=== PATIENT | female | born 2000 | race Caucasian/White ===

== ENCOUNTER → 2022-05-03 12:47 | Outpatient (CLI) | payer OTHER, SELFPAY ==
--- NOTE | ~2022-05-03 | MR_ITS ---
EXAMINATION: MR brain/brain stem wo/w con DATE: 05/03/2022 13:31 INDICATION: Headache, unspecified. TECHNIQUE: Magnetic resonance imaging (MRI) of the brain and brainstem was performed without and with 20 mL MultiHance intravenous contrast. COMPARISON: None. FINDINGS: There is no intracranial hemorrhage, acute infarction, or abnormal intracranial mass lesion . The ventricles are normal in size. The paranasal sinuses are clear. The orbits are normal. The mast oid air cells are normal. IMPRESSION: 1. Normal brain. Reviewed, dictated and finalized at location A. IMPRESSION: 1. Normal brain.
[2022-05-03 13:12] LABS: Estimated Glomerular Filt Rate > 60
== END ==
PROVIDERS: PCP Internal Medicine; Visit Provider Clinical Nurse Specialist
DX: R51.9 Headache, unspecified (principal)
CPT/HCPCS: 70553; A9577

== ENCOUNTER 2022-09-12 17:13 | Emergency (ER) | payer OTHER, SELFPAY ==
--- NOTE | ~2022-09-12 | XR_ITS ---
EXAMINATION: XR ankle RT min 3V DATE: 09/12/2022 17:30 INDICATION: Right ankle pain. Fall. TECHNIQUE: 4 views of right ankle were obtained. COMPARISON: None. FINDINGS: Bone alignment is normal. No fracture. Joint spaces are well maintained. IMPRESSION: 1. Normal right ankle. Reviewed, dictated and finalized at location A. IMPRESSION: 1. Normal right ankle.
--- NOTE | 2022-09-12 17:26 | ED.LOWEXIN ---
HPI - Extremity Injury (Lower) General Chief Complaint: Extremity Injury, Lower Stated Complaint: rt foot injury Time Seen by Provider: 09/12/22 17:26 Source: patient Mode of arrival: ambulatory Limitations: no limitations History of Present Illness HPI Narrative: 22-year-old female presents with complaint right ankle pain. Reports around 1:00 p.m. today she stepped off a curb and twisted her ankle. Reports that she fell to the ground, pain was severe but then improved. She went back to work in pain became increasingly worse when walking. She states the ankle is tight, swollen and painful when bearing weight. Mom brought her to exam room via wheelchair. All systems reviewed and negative except as noted above. Related Data Home Medications Medication Instructions Recorded Confirmed spironolactone 100 mg tablet 100 mg PO DAILY 04/02/21 09/12/22 bupropion HCl 300 mg 24 hr tablet, 300 mg PO QAM 04/05/22 09/12/22 extended release (Wellbutrin XL) buspirone 10 mg tablet 10 mg PO BID 04/05/22 09/12/22 spironolactone 50 mg tablet 50 mg PO DAILY 04/05/22 09/12/22 trazodone 50 mg tablet 25 mg PO QHS PRN Sleep 04/05/22 09/12/22 Allergies Allergy/AdvReac Type Severity Reaction Status Date / Time No Known Allergies Allergy Verified 09/12/22 17:22 Review of Systems Review of Systems: CONSTITUTIONAL: Denies fever, chills, or sweats. EYES: Denies visual changes, redness, or discharge. ENT: Denies rhinorrhea, congestion, sore throat, or otalgia. CARDIOVASCULAR: Denies chest pain, palpitations, or edema. RESPIRATORY: Denies cough or dyspnea. GASTROINTESTINAL: Denies abdominal pain, nausea, vomiting, or diarrhea. GENITOURINARY: Denies dysuria or hematuria. SKIN: Denies rash or itching. MUSCULOSKELETAL: Denies back pain. Reports right ankle pain. NEUROLOGIC: Denies headache, numbness, or weakness. PSYCHIATRIC: Denies anxiety or depression. All other systems reviewed are negative, except as documented in HPI. 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 There is no relevant family history pertinent to the presenting complaint. Exam Narrative: GENERAL: This is a well-nourished, well-developed patient, in no apparent distress. HEAD: normocephalic, atraumatic. EYES: PERRL. Sclera clear/white. Vision is grossly intact. EARS: External ears normal NOSE: External nose normal NECK: Neck supple, non-tender without lymphadenopathy, masses or thyromegaly. CARDIOVASCULAR: Regular rate and rhythm without murmurs, gallops, or rubs. RESPIRATORY: Clear to auscultation. Breath sounds equal bilaterally. No wheezes, rales, or rhonchi. SKIN: warm, Dry, intact with no suspicious lesions or rash, good texture and turgor. NEURO: awake, alert, and oriented to person, place and time. There were no obvious focal neurologic abnormalities. EXTREMITIES: No joint tenderness, effusion. Mild swelling to lateral aspect of right ankle with tenderness on palpation. Range of motion is decreased due to
[2022-09-12 17:32] VITALS: BP 134/96; PULSE 106; RESP 20; TEMP 36.6; O2SAT 99
== END 2022-09-12 18:00 | disposition home or self-care (01) ==
PROVIDERS: Emergency Provider Nurse Practitioner Family; PCP Internal Medicine
DX: S93.401A Sprain of unspecified ligament of right ankle, initial encounter (principal); X50.9XXA Other and unspecified overexertion or strenuous movements or postures, initial encounter; F32.A Depression, unspecified
CPT/HCPCS: 73610; 99213; G0463

== ENCOUNTER 2023-03-18 01:37 | Day surgery (SDC) | payer OTHER, SELFPAY ==
[2023-03-10 09:32] VITALS: BMI 39.9
--- NOTE | 2023-03-10 09:36 | PC.NURSE ---
Report to the Outpatient Waiting Room, entrance under the green pavilion located off [facility], at time 0845 on date 03/18/23. Planned Procedure Time: 1045. Time changes happen often and if your time is changed the preop area will call you the afternoon before. - You and your visitor will be asked to self-screen and do not enter if you have any COVID symptoms. - A mask is optional within the hospital at this time. Patients may have clear liquids (water, carbonated beverages, clear teas, apple juice) until 3 hours prior to surgery with a maximum of 20 ounces. - No food from midnight until time of surgery Take the following medications with a SIP of water the morning of surgery: NONE DO NOT STOP ANY OF YOUR OTHER PRESCRIPTION MEDICATIONS PRIOR TO SURGERY EXCEPT THE FOLLOWING Medications to discontinue per physician: N/A Date to take last dose: N/A Please no make-up, nail french, hairspray, perfume, deodorant, or body powder the day of surgery. No jewelry (including any body piercings) or valuables the day of surgery, leave them at home. Please take a shower or bath the night before, or the morning of, surgery with an antibacterial soap. Wear comfortable, loose fitting clothing. - Jewelry must be removed prior to entering the operating room. Rings and piercings that are not removed may be cut off. - The hospital will not accept responsibility for valuables. - Please leave all valuables, including medications, at home the day of surgery. If you are going home after surgery, a licensed driver supervisor must drive you home. - NO public transportation without another adult if you receive anesthesia. - We recommend that an adult stay with you for 24 hours following discharge. - We also recommend that you do not drive, make important decision, drink alcoholic beverages, or take any drugs that were not prescribed by your health care provider for at least 24 hours after your discharge time. Follow any additional instructions given to you from your surgeon. If you or anyone in your household have experienced Covid symptoms in the past week, please notify your surgeon or the nurse liaison at the phone number below for possible testing. Telephone instructions given to PT - EMERALD PRESTON and asked if any additional questions and then verbalized understanding. Patient advised to call surgeon office or pre surgery nurse liaison [phone] if any additional questions.
--- NOTE | 2023-03-17 12:59 | P.PNAN_ITS ---
Anes - Initial Pre Proc Eval Procedure: Operation Date: 03/18/23 11:45 Proposed Procedures p Septoplasty, - Sajan Fraire MD s Bilateral Inferior Turbinectomy With Outfracture, Endoscopic Marsupialization, Excision of Nasopharyngeal Cyst - Sajan Fraire MD Date/Time: 03/17/23 12:59 Surgeon: Sajan Fraire MD Pre Op Diagnosis: Nasopharyngeal Cyst,septal deviation,turbinate hyp Patient Data Age: 22 Gender: F Height: 1.65 m Weight: 108.9 kg Allergies Allergy/AdvReac Type Severity Reaction Status Date / Time No Known Allergies Allergy Verified 03/18/23 10:20 Home Medications Medication Instructions Recorded Confirmed Type drospirenone 3 mg-ethinyl 1 tablet PO DAILY #84 tabs 07/05/22 03/10/23 Rx estradiol 0.02 mg tablet Patient hx anesthesia problems: post op nausea/vomiting Family hx anesthesia problems: none Results Review: All pre-operative results and documents have been reviewed as part of the pre- operative evaluation. [facility] Past Medical History Medical History (Updated 03/17/23 @ 19:23 by Sajan Fraire MD) Acne Depression Healthy adult PONV (postoperative nausea and vomiting) Family History Family History Father Hypertension Patient's father is in good health Mother Patient's mother is in good health Sibling Patient's sister is in good health Celiac disease half-brother Grandparent Cerebrovascular accident Thyroid disease Social History Social History Smoking status: Never smoker Second hand tobacco smoke exposure: No Alcohol intake: current Alcohol use details: RARE Substance use: never Substance use type: does not use Lack of Transportation: No Lack of Food: Never True Current Housing: I Have Housing Concerned About Future Housing: No Difficulty Paying Gas/Electric Bills: No Difficulty Paying for Meds: No Currently Unemployed: No Education: Bachelor's Degree Difficulty w/ Childcare or Family Care: No Living arrangements: with family Occupation/Education: occupation 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 Gender identity (if verbalized by the patient): Female Sexual Orientation (if Verbalized by the Patient): Straight or Heterosexual Spiritual care concerns: No Anes - Eval Final PreProcedure Day of Procedure 03/17/23 12:59 Patient weight: morbidly obese Heart: regular rate and rhythm Lungs: clear to auscultation Airway: Mallampati scale class II Neurological: alert and oriented Last oral intake: >/= 8 hours ASA classification: III Emergent: no Anesthetic plan: proceed Anesthesia type and monitoring: general ETT and standard monitoring Results Review: All pre-operative results and documents have been reviewed as part of the pre- operative evaluation. Informed Consent: The patient's anesthetic plan and its attendant risks and benefits were discussed with the patient/family/POA. Questions were solicited and answers provided to the satisfaction of the patient/family/POA.
--- NOTE | 2023-03-17 19:22 | PM.IMHP ---
H&P: HPI History of Present Illness Date/Time: 03/17/23 19:22 Chief Complaint: nasopharyngeal cyst nasal obstruction postnasal drainage nasal congestion septal deviation turbinate hypertrophy Narrative: planned surgical procedure Review of Systems Review of Systems: All systems reviewed & are unremarkable except as noted in HPI and below PMFSH Past Medical History Medical History (Updated 03/17/23 @ 19:23 by Sajan Fraire MD) Acne Depression Healthy adult PONV (postoperative nausea and vomiting) Family History Family History Father Hypertension Patient's father is in good health Mother Patient's mother is in good health Sibling Patient's sister is in good health Celiac disease half-brother Grandparent Cerebrovascular accident Thyroid disease Social History Social History Smoking status: Never smoker Second hand tobacco smoke exposure: No Alcohol intake: current Alcohol use details: RARE Substance use: never Substance use type: does not use Lack of Transportation: No Lack of Food: Never True Current Housing: I Have Housing Concerned About Future Housing: No Difficulty Paying Gas/Electric Bills: No Difficulty Paying for Meds: No Currently Unemployed: No Education: Bachelor's Degree Difficulty w/ Childcare or Family Care: No Living arrangements: with family Occupation/Education: occupation 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 Gender identity (if verbalized by the patient): Female Sexual Orientation (if Verbalized by the Patient): Straight or Heterosexual Spiritual care concerns: No Meds Home Medications and Allergies Home Medications Medication Instructions Recorded Confirmed Type drospirenone 3 mg-ethinyl 1 tablet PO DAILY #84 tabs 07/05/22 03/10/23 Rx estradiol 0.02 mg tablet Allergies Allergy/AdvReac Type Severity Reaction Status Date / Time No Known Allergies Allergy Verified 03/10/23 09:31 Exam Narrative: septal deviation turbinate hypertrophy nasopharyngeal cyst Assessment and Plan Assessment and plan (1) Nasal congestion: Code(s): R09.81 - Nasal congestion Status: Acute Assessment and Plan: plan OR septoplasty endoscopic assisted turbinate reduction resection nasopharyngeal mass will need suction Bovie.? Prior 2.2 5 hours.? Risks discussed including CSF leak brain damage brain change in vision blindness damage to any structure in operative very a septal perforation need for further procedures need for time off work need for time off school need for postoperative pain medication need for further procedures need for repair CSF leak. (2) Nasal obstruction: Code(s): J34.89 - Other specified disorders of nose and nasal sinuses Status: Acute (3) Hypertrophy of both inferior nasal turbinates: Code(s): J34.3 - Hypertrophy of nasal turbinates Status: Acute (4) Nasal septal deviation: Code(s): J34.2 - Deviated nasal septum Status: Acute (5) Nasopharyngeal mass: Code(s): J39.2 - Other diseases of pharynx Status: Acute (6) PND (post-nasal drip): Code(s): R09.82 - Postnasal drip Status: Acute
[2023-03-18] VITALS (9 sets, daily range): BP systolic 116–140; BP diastolic 69–97; PULSE 47–93; RESP 11–19; TEMP 36.7–37.7; O2SAT 94–100; BMI 39.9
--- NOTE | 2023-03-18 07:19 | WPDHPUPDATE1 ---
History and Physical Update Update Date/Time: 03/18/23 07:19 History and Physical has been reviewed, including an updated exam of the patient. There are NO changes in the patient's condition. Risks, benefits, and alternatives have been discussed and questions answered. Patient agrees to proceed with procedure.
[2023-03-18] MEDS: LACTATED RINGERS 1,000 ML 30 ML IV CONT ×2 (10:00→12:18)
[2023-03-18] MEDS: ACETAMINOPHEN 500 MG TABLET 1000 MG PO (10:10)
[2023-03-18] MEDS: SCOPOLAMINE 1.5 MG PATCH TRANSDERM (10:39)
--- NOTE | 2023-03-18 10:45 | WPDHPUPDATE1 ---
History and Physical Update Update Date/Time: 03/18/23 10:45 Resection of nasopharyngeal mass may also be a marsupialization of aforementioned mass/cyst
[2023-03-18] MEDS: ceFAZolin 2 GM/D5W 50 ML 2 GM/50 ML BAG IVPB (10:55)
[2023-03-18] MEDS: OXYMETAZOLINE HCL 0.05% NAS 15 ML BTL (*BKC) 1 SPRAY NASAL (11:10)
[2023-03-18] MEDS: LIDO 1%/EPINEPHRINE 1:100,000 50 ML VIAL 7 ML INFILTRATE (11:25)
[2023-03-18] MEDS: MUPIROCIN 2% OINT 22 GM TUBE 1 APPLIC EACH NARE (12:06)
[2023-03-18] MEDS: fentaNYL CITRATE INJ (*CRX) 100 MCG/2 ML VIAL 25 MCG IV PUSH ×5 (12:40→13:38)
--- NOTE | 2023-03-18 12:46 | W.PM.PROC2 ---
Procedure Note - Detailed Date of Procedure 03/18/23 Pre-op Diagnosis Nasopharyngeal Cyst/adenoid hypertrophy,septal deviation,turbinate hypertrophy Post-op Diagnosis Same Procedure Performed See nasopharyngeal lesion resection nasopharyngeal mass/ adenoidectomy, endoscopic assisted septoplasty, bilateral inferior turbinate reduction with outfracture Surgeon Sajan Fraire MD Anesthesia General Indications see above Findings nasopharyngeal mass likely adenoids biopsied will follow up. Turbinates well reduced septum straight and no complications Description of Procedure patient identified consent verified. Patient brought operating room. Time-out performed. General anesthesia induced endotracheal tube secured. Patient prepped draped position procedure can confirm 2nd time-out performed. Afrin-soaked pledgets placed nose lot to sit 5 minutes then. 0 degree endoscope utilized 10 cc 1% lidocaine 1 100,000 parts epinephrine injected the bilateral nasal septum and anterior inferior turbinates. Des incision made left-sided left nasal septal flap elevated 7 Arabic suction right nasal septal flap elevated after crossing over with osteotome. Deviated cartilage removed with Umair forceps osteotome and Pineda Holliday forceps. Small perforation on the left side on the right side. [place] incision closed with 2 interrupted 5 0 fast gut sutures. Turbinates reduced in the submucosal plane using microdebrider. [place] tips cauterized. They were then outfractured with [place] elevator. Nasopharyngeal mass biopsied cauterized with Bovie suction electrocautery setting of 30. I performed all dictated portions of procedure. [place] splints were placed sutured anteriorly using 3-0 mattressed nylon sutures. Bleeding about 20 cc. Patient tolerated procedure well no complications care the patient given Anesthesiology I performed all dictated portions the procedure no immediate complications. Estimated Blood Loss 20 Drains No Packing No Pathology Yes Complications No immediate complications Condition Stable Disposition PACU [facility] Billing Surgery - Charge Forward: Surgery Billing
[2023-03-18] MEDS: oxyCODONE HCL (*CRX) 5 MG TAB IR PO (14:10)
== END 2023-03-18 14:45 | disposition home or self-care (01) ==
PROVIDERS: PCP Internal Medicine; Visit Provider Otolaryngology
PROC: (CPT 30520; principal; 2023-03-18 11:45)
PROC: (CPT 30520; 2023-03-18 11:45)
DX: J34.2 Deviated nasal septum (principal); J34.3 Hypertrophy of nasal turbinates; J35.2 Hypertrophy of adenoids; R09.81 Nasal congestion; J34.89 Other specified disorders of nose and nasal sinuses; R09.82 Postnasal drip; E66.01 Morbid (severe) obesity due to excess calories; Z68.41 Body mass index [BMI] 40.0-44.9, adult
CPT/HCPCS: 30520; 30140; 42831; 88304; 88342; A9270; J0330; J0690; J1100; J2250; J2405; J2704; J3010; J7120

== ENCOUNTER 2023-10-09 16:36 | Outpatient (CLI) | payer OTHER, SELFPAY ==
--- NOTE | ~2023-10-09 | US_ITS ---
. EXAMINATION: US soft tissue head and neck DATE: 10/09/2023 17:41 INDICATION: Lump behind right ear. TECHNIQUE: Multiple grayscale and Doppler ultrasound images of the head and neck were obtained. COMPARISON: Brain MRI 05/03/2022 FINDINGS: There is a 5 mm subcutaneous hypoechoic mass posterior to right ear with tract to the skin. IMPRESSION: 1. 5 mm subcutaneous mass posterior to right ear, likely a sebaceous cyst. Reviewed, dictated and finalized at location A. EADER
== END 2023-10-09 16:37 | disposition home or self-care (01) ==
PROVIDERS: PCP Internal Medicine; Visit Provider Clinical Nurse Specialist
DX: R22.9 Localized swelling, mass and lump, unspecified (principal)
CPT/HCPCS: 76536

== ENCOUNTER 2024-01-24 10:48 | Outpatient (CLI) | payer OTHER, SELFPAY ==
[2024-01-24 11:32] LABS: Alanine Aminotransferase 17 U/L (6-35); Albumin Level 4.2 g/dL (3.5-5.1); Alkaline Phosphatase 116 U/L (38-126); Anion Gap 9 mmol/L (8-16); Aspartate Amino Transferase 20 U/L (14-36); Bilirubin,Total 0.5 mg/dL (0.2-1.3); Blood Urea Nitrogen 12 mg/dL (7-17); Calcium 9.3 mg/dL (8.4-10.2); Carbon Dioxide 24 mmol/L (22-30); Chloride 104 mmol/L (98-107); Estimated Glomerular Filt Rate > 60; Glucose 101 mg/dL (65-110); Potassium 4.1 mmol/L (3.4-5.0); Sodium 137 mmol/L (137-145)
[2024-01-24 11:33] LABS: Hemoglobin A1C 5.4 % (<5.7)
[2024-01-24 12:36] LABS: Folic Acid 9.9 ng/mL (2.76->20)
[2024-01-27 21:15] LABS: SS-A <1.0; SS-B <1.0
[2024-02-06 11:18] LABS: Acetylchol Receptor Binding Ab <0.30 nmol/L; Anti Striated Muscle Antibody NEGATIVE (NEGATIVE)
== END 2024-01-24 10:49 | disposition home or self-care (01) ==
PROVIDERS: PCP Internal Medicine; Referring Provider Clinical Nurse Specialist; Visit Provider Student in an Organized Health Care Education/Training Program
DX: R10.9 Unspecified abdominal pain (principal); H53.2 Diplopia; R42 Dizziness and giddiness
CPT/HCPCS: 36415; 80053; 82607; 82746; 83036; 86235; 86255

== ENCOUNTER 2024-03-18 08:09 | Outpatient (CLI) | payer OTHER, SELFPAY ==
--- NOTE | ~2024-03-18 | US_ITS ---
US right upper quadrant INDICATION: Abdomen pain and nausea PROCEDURE: Realtime right upper abdominal ultrasound. COMPARISON: No prior studies for comparison. FINDINGS: The pancreas is normal without focal mass or pancreatic ductal dilation. Liver echotexture is normal without focal mass or intrahepatic biliary dilatation. There is normal directional flow i n the portal vein. The gallbladder is normal without stones, gallbladder wall thickening or pericholecystic fluid. Comm on bile duct measures 4 mm. No sonographic Rodriguez's sign. IMPRESSION: 1: Normal limited abdominal ultrasound. Reviewed, dictated and finalized at location B.
== END 2024-03-18 08:10 ==
LOC: MICIMG 08:10
PROVIDERS: PCP Clinical Nurse Specialist; Visit Provider Clinical Nurse Specialist
DX: R10.9 Unspecified abdominal pain (principal)
CPT/HCPCS: 76705

== ENCOUNTER 2024-10-28 16:20 | Emergency (ER) | payer OTHER, SELFPAY ==
[2024-10-28 16:30] VITALS: BP 124/81; PULSE 71; RESP 16; TEMP 36.3; O2SAT 100
--- NOTE | 2024-10-28 17:02 | ED_ITS ---
HPI - Extremity Injury (Lower) General Chief Complaint: Extremity Injury, Lower Stated Complaint: Lt Foot Pain Time Seen by Provider: 10/28/24 17:02 Source: patient, RN notes reviewed and old records reviewed Mode of arrival: ambulatory Limitations: no limitations History of Present Illness HPI Narrative: 24-year-old female to Express Care with complaint of left lateral foot pain for 2 weeks without injury. Patient reports that pain is worse with flexion. patient ambulates with steady gait. Patient denies numbness, tingling, weakness, allergies, pertinent medical history. Patient resting comfortably in exam room in no acute distress. Related Data Home Medications ?Medication ?Instructions ?Recorded ?Confirmed ?Last Taken ?Type spironolactone 100 mg tablet 150 mg PO DAILY 06/18/23 10/28/24 Unknown History alprazolam 0.5 mg tablet 0.5 mg PO QHS PRN Anxiety 08/30/24 10/28/24 Unknown History fluvoxamine 50 mg tablet 50 mg PO DAILY 08/30/24 10/28/24 Unknown History Allergies Allergy/AdvReac Type Severity Reaction Status Date / Time No Known Allergies Allergy Verified 10/28/24 16:31 Review of Systems Review of Systems: All systems reviewed & are unremarkable except as noted in HPI and below Constitutional: Constitutional: Reports no additional constitutional complaints Eyes: Eyes: Reports no additional eye complaints ENT: Reports system reviewed and no additional complaints, except as documented Cardiovascular: Cardiovascular: Reports no additional cardiovascular complaints, Denies chest pain and Denies dyspnea Respiratory: Respiratory: Reports no additional respiratory complaints, Denies cough and Denies dyspnea Musculoskeletal: Musculoskeletal: Reports as per HPI, Denies deformity, Denies muscle weakness, Denies numbness, Denies radiating pain into limb, Denies tingling and Reports other ( Left lateral foot pain) Neurologic: Reports system reviewed and no additional complaints, except as documented Psychiatric: Psychiatric: Reports no additional psychiatric complaints PMFSH Past Medical History Medical History PONV (postoperative nausea and vomiting) Depression Acne Healthy adult Family History Family History Father Hypertension Patient's father is in good health Mother Patient's mother is in good health Sibling Patient's sister is in good health Celiac disease half-brother Grandparent Cerebrovascular accident Thyroid disease Social History Social History Smoking status: Never smoker Second hand tobacco smoke exposure: No Alcohol intake: current Alcohol use details: RARE Substance use: never Substance use type: does not use Do You Feel Safe in your Home?: Yes Lack of Transportation: No Lack of Food: Never True Current Housing: I Have Housing Concerned About Future Housing: No Difficulty Paying Gas/Electric Bills: No Difficulty Paying for Meds: No Currently Unemployed: No Education: Bachelor's Degree Difficulty w/ Childcare or Family Care: No Living arrangements: with family 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 There is no relevant family history pertinent to the patient complaint. Exam Const: General: cooperative, healthy appearing, comfortable, no acute distress, alert and well nourished Nutritional Appearance: well nourished Orientation/consciousness: patient oriented x3 Limitations: no limitations HENMT: Head: normal to inspection Ears: external ears normal Face/Nose/Sinus: Normal external nose present, Normal nares present, normal facial exam, No erythema and No edema Face and sinus: normal facial exam, no erythema and no edema Mouth: Yes Normal oral and palatal mucosa present Eyes: General: appearance normal, both eyes and all related structures Neck: Neck: normal visual inspection, full ROM and no meningeal signs Chest: Chest palpation & inspection: normal inspection of the chest Resp: Effort & Inspection: normal respiratory effort and able to speak in complete sentences Cardio: Jugular venous distension: no JVD Rate: regular rate Rhythm: regular rhythm Back/Spine/Pelvis: Cervical Spine: cervical ROM normal Skin: General skin exam: normal color, no rashes or lesions noted and turgor normal Neuro: General: patient oriented x3, gait normal, moves all extremities and no meningeal signs Speech: normal speech Gait exam (Neuro): Normal gait present Extrem: General: normal to inspection, full ROM and capillary refill normal Left lower extremity: foot Details: normal capillary refill, normal to inspection, toes with normal ROM, no edema and vascular exam Details: dorsalis pedis pulse present and posterior tibial pulse present; no unusual warmth, no ecchymosis and no crepitus Psych: Appearance: grossly normal and well kempt Course Course Emergency Course: Some parts of this dictation were generated by voice recognition software and may contain typographical and/or grammatical inaccuracies. Level of Care: Express Care Visit Vital Signs Vital signs: Vital Signs Temperature 36.3 C L 10/28/24 16:30 Pulse Rate 71 10/28/24 16:30 Respiratory Rate 16 10/28/24 16:30 Blood Pressure 124/81 10/28/24 16:30 Pulse Oximetry 100 10/28/24 16:30 Temperature 36.3 C L 10/28/24 16:30 Pulse Rate 71 10/28/24 16:30 Respiratory Rate 16 10/28/24 16:30 Blood Pressure 124/81 10/28/24 16:30 Pulse Oximetry 100 10/28/24 16:30 reviewed MDM - Extremity Injury (Lower) MDM Narrative Medical decision making narrative: 24-year-old female to Express Care with complaint of left lateral foot pain for 2 weeks without injury. Patient reports that pain is worse with flexion. patient ambulates with steady gait. Patient denies numbness, tingling, weakness, allergies, pertinent medical history. Patient resting comfortably in exam room in no acute distress. patient exam unremarkable. X-ray not indicated at this time Patient is sitting comfortably in exam room nontoxic in appearance. Patient appropriate for outpatient treatment and follow-up. Discharge instructions reviewed with patient, as well as provided in writing per nursing staff. The instructions also include specific and strict return/GO TO THE ER as well as f/u information. All questions have been answered, and the patient deny any further questions with discharge and discharge plan. Some parts of this dictation were generated by voice recognition software and may contain typographical and/or grammatical inaccuracies. Differential Diagnosis Differential diagnosis: Likely ankle sprain and strain, acute internal derangement of knee, fracture of femur, fracture of hip, puncture wound of foot, fracture of toe and ankle fracture Discharge Plan Discharge Clinical Impression: Acute pain of left foot Patient Disposition: Home, Self-Care Condition: Stable Instructions: P.R.I.C.E. Treatment (ED) Additional Instructions: please review attached instruction regarding mario treatment and implement suggestions as tolerated. If symptoms persist please follow-up with your primary care provider for new or worsening symptoms please go directly to the emergency department Patient Language: Panamanian Prescriptions: No Action fluvoxamine 50 mg tablet 50 mg PO DAILY alprazolam 0.5 mg tablet 0.5 mg PO QHS PRN (Reason: Anxiety) omeprazole 40 mg capsule,delayed release(DR/EC) 40 mg PO DAILY Qty: 30 2RF spironolactone 100 mg tablet 150 mg PO DAILY Follow-up/Referrals: Devin Jackson DO [Primary Care Provider] - Stand Alone Forms: Work/School Release IP
== END 2024-10-28 17:18 | disposition home or self-care (01) ==
PROVIDERS: Emergency Provider Nurse Practitioner Family; PCP Internal Medicine
DX: M79.672 Pain in left foot (principal)
CPT/HCPCS: 99212; G0463

== ENCOUNTER 2024-11-26 13:58 | Emergency (ER) | payer OTHER, SELFPAY ==
--- NOTE | ~2024-11-26 | XR_ITS ---
EXAMINATION: XR chest 2V DATE: 11/26/2024 15:12 INDICATION: Foreign body. TECHNIQUE: Frontal and lateral views of the chest were obtained. COMPARISON: None. FINDINGS: There is no pneumonia, pleural effusion, or pneumothorax. The heart size is normal. IMPRESSION: 1. No radiopaque foreign body. Reviewed, dictated and finalized at location A. NT ACCOUNT ASSISTANT
[2024-11-26 14:16] VITALS: BP 125/89; PULSE 71; RESP 16; TEMP 36.7; O2SAT 99
--- NOTE | 2024-11-26 14:45 | ED.GENADULT ---
HPI - General Adult General Chief complaint: Chest Pain Stated complaint: chest pain Time Seen by Provider: 11/26/24 14:45 Source: patient Mode of arrival: ambulatory Limitations: no limitations History of Present Illness HPI narrative: 24-year-old female presents with complaint burning, irritation feeling to esophagus. Patient states that she fell asleep early last night. Woke up around 930 at night and took her Trintellix and then went back to sleep.. When she woke up this morning she had a a indigestion tight burning sensation to esophagus. Is concerned that pill is either stuck or caused irritation. Has taken Tums without relief of symptoms. All systems reviewed and negative except as noted above. Related Data Home Medications ?Medication ?Instructions ?Recorded ?Confirmed ?Last Taken ?Type spironolactone 100 mg tablet 150 mg PO DAILY 06/18/23 11/26/24 Unknown History alprazolam 0.5 mg tablet 0.5 mg PO QHS PRN Anxiety 08/30/24 11/26/24 Unknown History fluvoxamine 50 mg tablet 50 mg PO DAILY 08/30/24 11/26/24 Unknown History Allergies Allergy/AdvReac Type Severity Reaction Status Date / Time vortioxetine (From Allergy Mild Vomiting Verified 11/26/24 14:20 Trintellix) Review of Systems Review of Systems: CONSTITUTIONAL: Denies fever, chills, or sweats. EYES: Denies visual changes, redness, or discharge. ENT: Denies rhinorrhea, congestion, sore throat, or otalgia. CARDIOVASCULAR: Denies chest pain, palpitations, or edema. RESPIRATORY: Denies cough or dyspnea. GASTROINTESTINAL: Denies abdominal pain, nausea, vomiting, or diarrhea. Reports burning and irritation sensation to esophagus. GENITOURINARY: Denies dysuria or hematuria. SKIN: Denies rash or itching. MUSCULOSKELETAL: Denies back pain, joint pain, or myalgia. NEUROLOGIC: Denies headache, numbness, or weakness. PSYCHIATRIC: Denies anxiety or depression. All other systems reviewed are negative, except as documented in HPI. [facility] Past Medical History Medical History PONV (postoperative nausea and vomiting) Depression Acne Healthy adult Family History Family History Father Hypertension Patient's father is in good health Mother Patient's mother is in good health Sibling Patient's sister is in good health Celiac disease half-brother Grandparent Cerebrovascular accident Thyroid disease Social History Social History Smoking status: Never smoker Second hand tobacco smoke exposure: No Alcohol intake: current Alcohol use details: RARE Substance use: never Substance use type: does not use Do You Feel Safe in your Home?: Yes Lack of Transportation: No Lack of Food: Never True Current Housing: I Have Housing Concerned About Future Housing: No Difficulty Paying Gas/Electric Bills: No Difficulty Paying for Meds: No Currently Unemployed: No Education: Bachelor's Degree Difficulty w/ Childcare or Family Care: No Living arrangements: with family 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 There is no relevant family history pertinent to the presenting complaint. Exam Narrative: GENERAL: This is a well-nourished, well-developed patient, in no apparent distress. HEAD: normocephalic, atraumatic. EYES: PERRL. Sclera clear/white. Vision is grossly intact. EARS: External ears normal NOSE: External nose normal NECK: Neck supple, non-tender without lymphadenopathy, masses or thyromegaly. CARDIOVASCULAR: Regular rate and rhythm without murmurs, gallops, or rubs. RESPIRATORY: Clear to auscultation. Breath sounds equal bilaterally. No wheezes, rales, or rhonchi. GASTROINTESTINAL: Abdomen soft, non-tender, nondistended. Bowel sounds are active. No hepato-splenomegaly, or palpable masses. No guarding. SKIN: warm, Dry, intact with no suspicious lesions or rash, good texture and turgor. NEURO: awake, alert, and oriented to person, place and time. There were no obvious focal neurologic abnormalities. EXTREMITIES: No joint tenderness, effusion, or edema noted. Course Course Level of Care: Express Care Visit Vital Signs Vital signs: Vital Signs Temperature 36.7 C 11/26/24 14:16 Pulse Rate 71 11/26/24 14:16 Respiratory Rate 16 11/26/24 14:16 Blood Pressure 125/89 11/26/24 14:16 Pulse Oximetry 11/26/24 14:16 Temperature 36.7 C 11/26/24 14:16 Pulse Rate 71 11/26/24 14:16 Respiratory Rate 16 11/26/24 14:16 Blood Pressure 125/89 11/26/24 14:16 Pulse Oximetry 99 11/26/24 14:16 Reviewed Medical Decision Making MDM Narrative Medical decision making narrative: Patient is well-appearing, nontoxic. Patient in no distress. Complaining of burning, irritation sensation to upper chest, pointing to her neck throat area. Tried Tums at home with no relief of symptoms. No foreign body noted on x-ray. Discussed results with patient. Patient is having no difficulty swelling. Eating and drinking normally today. Patient given viscous lidocaine. Does report some improvement in her symptoms. Recommend she take an [id number] medication daily such as omeprazole and follow up with primary care physician. Will go to the ER for any worsening of symptoms. Patient is aware of diagnosis, understands and agrees to treatment plan. Anticipatory guidance given. Patient agrees to follow-up as directed and is aware of reasons to seek care at the emergency department. Portions of this record may have been created with voice recognition software Vital Signs Vital Signs: Vital Signs Temperature 36.7 C 11/26/24 14:16 Pulse Rate 71 11/26/24 14:16 Respiratory Rate 16 11/26/24 14:16 Blood Pressure 125/89 11/26/24 14:16 Pulse Oximetry 11/26/24 14:16 Temperature 36.7 C 11/26/24 14:16 Pulse Rate 11/26/24 14:16 Respiratory Rate 16 11/26/24 14:16 Blood Pressure 125/89 11/26/24 14:16 Pulse Oximetry 99 11/26/24 14:16 Imaging Data My impression: Agree with radiologist Radiologist's impression: EXAMINATION: XR chest 2V DATE: 11/26/2024 15:12 INDICATION: Foreign body. TECHNIQUE: Frontal and lateral views of the chest were obtained. COMPARISON: None. FINDINGS: There is no pneumonia, pleural effusion, or pneumothorax. The heart size is normal. IMPRESSION: 1. No radiopaque foreign body. Discharge Plan Discharge Clinical Impression: Esophagitis Patient Disposition: Home, Self-Care Condition: Stable Instructions: Esophagitis (ED) Additional Instructions: Sit up for at least 30 minutes after taking mediations. Take an over the counter medication daily such as omeprazole, as directed on packaging. Drink at least 64 ounces of water a day. See your doctor if symptoms not improving. Patient Language: Pakistani Prescriptions: No Action fluvoxamine 50 mg tablet 50 mg PO DAILY alprazolam 0.5 mg tablet 0.5 mg PO QHS PRN (Reason: Anxiety) spironolactone 100 mg tablet 150 mg PO DAILY omeprazole 40 mg capsule,delayed release(DR/EC) See Rx Instructions .ROUTE .COMPLEX Qty: 90 0RF Dose Instruction: TAKE 1 CAPSULE BY MOUTH EVERY DAY Rx Instructions: TAKE 1 CAPSULE BY MOUTH EVERY DAY Follow-up/Referrals: Devin Jackson DO [Primary Care Provider] - Stand Alone Forms: Work/School Release IP
[2024-11-26] MEDS: LIDOCAINE 2% VISC SOLN 15 ML UDC 10 ML PO (14:54)
== END 2024-11-26 15:36 | disposition home or self-care (01) ==
PROVIDERS: Emergency Provider Nurse Practitioner Family; PCP Internal Medicine
DX: K20.90 Esophagitis, unspecified without bleeding (principal); F32.A Depression, unspecified
CPT/HCPCS: 71046; 99213; G0463

== ENCOUNTER 2024-11-27 03:15 | Emergency (ER) | payer OTHER, SELFPAY ==
[2024-11-27 03:17] VITALS: BP 130/80; PULSE 73; RESP 14; TEMP 36.4; O2SAT 100
--- OUTSIDE RECORDS SUMMARY | 2024-12-04 04:11 | XMS_ITS ---
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 Name Role Phone Shandajas MAXDevin Primary Care Provider Jazmín Contreras Unavailable [phone] Allergies Allergen (clinical drug ingredient) Drug/Non Drug Allergy documented on EMR Reaction Allergy Type Onset Date Status vortioxetine Trintellix Unknown Drug Allergy 04/06/2024 Ac tive REASON FOR VISIT Follow Up Visit increase fluvoxamine Medications Medication SIG (Take, Route, Frequency, Duration) Notes Start Date End Date Status Spironolactone 100 MG 1 tablet Orally On ce a day Active fluvoxaMINE Maleate 50 MG 1 tablet at be dtime Orally Once a day for 90 days Active ALPRAZolam 0.5 MG 1 tablet Orally Twice a day for 30 days As needed 09/06/2024 Active Trintellix 20 MG TAKE 1 TABLET BY VINCENT TH EVERY DAY IN THE MORNING Oral for 30 Days Not-Taking buPROPion HCl ER (XL) 150 MG TAKE 1 TABLET BY MOUTH EVERY DAY Oral for 30 Days Not-Taking fluvoxaMINE Maleate 100 MG 1 tablet at b edtime Orally Once a day for 90 days Active Social History Tobacco Use: Social History Observation Description Date Details (start date - stop date) Never Smoker NA - NA Sex Assigned At : Social History Observation Description Sex Assigned At Female Household Question Answer Notes Marital status: single Number of adults in household: 3 Number of children in household: 0 Level of education: finished college 4 year Sexual History Question Answer Notes Had sex in the past 12 months (vaginal, oral, or anal)? No Tobacco Control (Standard) Question Answer Notes Tobacco use: Nonsmoker Additional Findings: Tobacco non-user Current no nsmoker AUDIT-C (Standard) Question Answer Notes Did you have a drink contain ing alcohol in the past year? Yes How often did you have six o r more drinks on one occasion in the past year? 2 to 4 times a month (2 points) How many drinks did you have on a typical day when you were drinking in the past year? 1 or 2 drinks (0 point) How often did you have a dri nk containing alcohol in the past year? 2 to 4 times a month (2 points) Points 4 Interpretation Positive Problems Problem Type SNOMED Code ICD Code Onset Dates Problem Status W/U Status Risk Notes Problem [id number] Elevated blood pressure reading (R03.0) Active confirmed Vital Signs Blood pressure systolic 130 mm Hg 10/12/20 24 Blood pressure diastolic 83 mm Hg 024 Heart Rate 77 /min 10/12/2024 Height 65.00 in 10/12/2024 Weight 253.6 lbs 10/12/2024 BMI 42.2 kg/m2 10/12/2024 Height-cm 165.10 cm 10/12/2024 Weight-kg 115.03 kg 10/12/2024 Encounters Encounter Location Date Provider Diagnosis [facility] [email or web address] [address] [address] 10/12/2024 Jazmín Llanos Major depressive disorder, recurrent, moderate F33.1 ; Generalized anxiety disorder F41.1 ; Insomnia due to other mental disorder F51.05 ; Attention-deficit hyperactivity disorder, combined type F90.2 ; On fdc drug therapy Z79.899 ; Other obsessive-compulsive disorders F42.8 and Elevated blood pressure reading R03.0 Assessments Encounter Date Diagnosis (ICD Code) Assessment Notes Treatment Notes Treatment Clinical Notes Section Notes 10/12/2024 Major depressive disorder, recurrent, moderate (ICD-10 - F33.1) Preventing Depression From Coming Back: Care Instructions material was published, Learning About Depression material was published, Learning About How to Get Help During a Mental Health Crisis material was published, Depression Treatment: Care Instructions material was published NO REFILL NEEDED TODAY 1. recurrent major depression - Patient reported does not want rx at this time tested for OCD would like rx - therapist will send report patient had OCD testing with therapist Schedule Jose L Gan Discuss TMS for OCD Discuss rx for OCD pharma Gene testing completed and reviewed with patient educated on all medications, benefits, side effects and risk, and educated on depression, anxiety, and ADHD, mood d/o and educated on compliance of medications, metabolic and movement d/o education appointment's, continue therapy discussion with patient about course of treatmentand patient instructions. monitor for depression and anxiety continue therapy 2. Generalized anxiety disorder - Gene testing reviewed Medication Management and Follow-Up- Plan:- Schedule follow-up appointments every 1-3 months and PRN to monitor the patient's response to the medication regimen.- Reinforce the importance of avoiding recreational drug use due to potential neurotoxicity and interactions with prescribed medications. conitnue to have anxiety Xanax 0.5 mg twice a day - educated on rx- no refill needed today control substance agreement UDS and random UDS Discussed and educated pt regarding benzodiazepines are generally not intended for prolonged use and that use can cause tolerance, dependence, depression, and associated memory issues including dementias (this list is not exhaustive). Benzodiazepine use is generally not recommended concurrently with pain medications and/or other controlled substances 3. Insomnia disorder 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 disorder - Melatonin 10 mg at bedtime as needed - OTC Trazodone 50 mg at bedtime no refill needed has rx at home 4. Unable to concentrate - no rx 5. OCD- Pateint requested improved OCD s/s with anxiety and depression fluvoxamine Maleate Tablet, 100 MG, 1 tablet at bedtime tested by therapist for OCD OMAR-2 reviewed and need to reconcile self reporting and OMAR test- no dxn ADHD can be made educated patient on depression and anxiety may contribute to unable to concentrate and focus and external factors and stress increase excise sleep hygiene limit caffeine continue therapy- Therapsit tested for OCD 10/12/2024 Generalized anxiety disorder (ICD-10 - F41.1) Learning About Generalized Anxiety Disorder material was published, Generalized Anxiety Disorder: Care Instructions material was published, Learning About Anxiety Disorders material was published 1. recurrent major depression - Patient reported does not want rx at this time tested for OCD would like rx - therapist will send report patient had OCD testing with therapist Schedule Jose L Gan Discuss TMS for OCD Discuss rx for OCD pharma Gene testing completed and reviewed with patient educated on all medications, benefits, side effects and risk, and educated on depression, anxiety, and ADHD, mood d/o and educated on compliance of medications, metabolic and movement d/o education appointment's, continue therapy discussion with patient about course of treatmentand patient instructions. monitor for depression and anxiety continue therapy 2. Generalized anxiety disorder - Gene testing reviewed Medication Management and Follow-Up- Plan:- Schedule follow-up appointments every 1-3 months and PRN to monitor the patient's response to the medication regimen.- Reinforce the importance of avoiding recreational drug use due to potential neurotoxicity and interactions with prescribed medications. conitnue to have anxiety Xanax 0.5 mg twice a day - educated on rx- no refill needed today control substance agreement UDS and random UDS Discussed and educated pt regarding benzodiazepines are generally not intended for prolonged use and that use can cause tolerance, dependence, depression, and associated memory issues including dementias (this list is not exhaustive). Benzodiazepine use is generally not recommended concurrently with pain medications and/or other controlled substances 3. Insomnia disorder 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 disorder - Melatonin 10 mg at bedtime as needed - OTC Trazodone 50 mg at bedtime no refill needed has rx at home 4. Unable to concentrate - no rx 5. OCD- Pateint requested improved OCD s/s with anxiety and depression fluvoxamine Maleate Tablet, 100 MG, 1 tablet at bedtime tested by therapist for OCD OMAR-2 reviewed and need to reconcile self reporting and OMAR test- no dxn ADHD can be made educated patient on depression and anxiety may contribute to unable to concentrate and focus and external factors and stress increase excise sleep hygiene limit caffeine continue therapy- Therapsit tested for OCD 10/12/2024 Insomnia due to other mental disorder (ICD-10 - F51.05) 1. recurrent major depression - Patient reported does not want rx at this time tested for OCD would like rx - therapist will send report patient had OCD testing with therapist Schedule Jose L Gan Discuss TMS for OCD Discuss rx for OCD pharma Gene testing completed and reviewed with patient educated on all medications, benefits, side effects and risk, and educated on depression, anxiety, and ADHD, mood d/o and educated on compliance of medications, metabolic and movement d/o education appointment's, continue therapy discussion with patient about course of treatmentand patient instructions. monitor for depression and anxiety continue therapy 2. Generalized anxiety disorder - Gene testing reviewed Medication Management and Follow-Up- Plan:- Schedule follow-up appointments every 1-3 months and PRN to monitor the patient's response to the medication regimen.- Reinforce the importance of avoiding recreational drug use due to potential neurotoxicity and interactions with prescribed medications. conitnue to have anxiety Xanax 0.5 mg twice a day - educated on rx- no refill needed today control substance agreement UDS and random UDS Discussed and educated pt regarding benzodiazepines are generally not intended for prolonged use and that use can cause tolerance, dependence, depression, and associated memory issues including dementias (this list is not exhaustive). Benzodiazepine use is generally not recommended concurrently with pain medications and/or other controlled substances 3. Insomnia disorder 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 disorder - Melatonin 10 mg at bedtime as needed - OTC Trazodone 50 mg at bedtime no refill needed has rx at home 4. Unable to concentrate - no rx 5. OCD- Pateint requested improved OCD s/s with anxiety and depression fluvoxamine Maleate Tablet, 100 MG, 1 tablet at bedtime tested by therapist for OCD OMAR-2 reviewed and need to reconcile self reporting and OMAR test- no dxn ADHD can be made educated patient on depression and anxiety may contribute to unable to concentrate and focus and external factors and stress increase excise sleep hygiene limit caffeine continue therapy- Therapsit tested for OCD 10/12/2024 Attention-defici t hyperactivity disorder, combined type (ICD-10 - F90.2) Attention Deficit Hyperactivity Disorder (ADHD) in Adults: Care Instructions material was published, Learning About Attention Deficit Hyperactivity Disorder (ADHD) in Adults material was published 1. recurrent major depression - Patient reported does not want rx at this time tested for OCD would like rx - therapist will send report patient had OCD testing with therapist Schedule Jose L Gan Discuss TMS for OCD Discuss rx for OCD pharma Gene testing completed and reviewed with patient educated on all medications, benefits, side effects and risk, and educated on depression, anxiety, and ADHD, mood d/o and educated on compliance of medications, metabolic and movement d/o education appointment's, continue therapy discussion with patient about course of treatmentand patient instructions. monitor for depression and anxiety continue therapy 2. Generalized anxiety disorder - Gene testing reviewed Medication Management and Follow-Up- Plan:- Schedule follow-up appointments every 1-3 months and PRN to monitor the patient's response to the medication regimen.- Reinforce the importance of avoiding recreational drug use due to potential neurotoxicity and interactions with prescribed medications. conitnue to have anxiety Xanax 0.5 mg twice a day - educated on rx- no refill needed today control substance agreement UDS and random UDS Discussed and educated pt regarding benzodiazepines are generally not intended for prolonged use and that use can cause tolerance, dependence, depression, and associated memory issues including dementias (this list is not exhaustive). Benzodiazepine use is generally not recommended concurrently with pain medications and/or other controlled substances 3. Insomnia disorder 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 disorder - Melatonin 10 mg at bedtime as needed - OTC Trazodone 50 mg at bedtime no refill needed has rx at home 4. Unable to concentrate - no rx 5. OCD- Pateint requested improved OCD s/s with anxiety and depression fluvoxamine Maleate Tablet, 100 MG, 1 tablet at bedtime tested by therapist for OCD OMAR-2 reviewed and need to reconcile self reporting and OMAR test- no dxn ADHD can be made educated patient on depression and anxiety may contribute to unable to concentrate and focus and external factors and stress increase excise sleep hygiene limit caffeine continue therapy- Therapsit tested for OCD 10/12/2024 On fdc drug therapy (ICD-10 - Z79.899) Medication Refill: Care Instructions material was published 1. recurrent major depression - Patient reported does not want rx at this time tested for OCD would like rx - therapist will send report patient had OCD testing with therapist Schedule Jose L Gan Discuss TMS for OCD Discuss rx for OCD pharma Gene testing completed and reviewed with patient educated on all medications, benefits, side effects and risk, and educated on depression, anxiety, and ADHD, mood d/o and educated on compliance of medications, metabolic and movement d/o education appointment's, continue therapy discussion with patient about course of treatmentand patient instructions. monitor for depression and anxiety continue therapy 2. Generalized anxiety disorder - Gene testing reviewed Medication Management and Follow-Up- Plan:- Schedule follow-up appointments every 1-3 months and PRN to monitor the patient's response to the medication regimen.- Reinforce the importance of avoiding recreational drug use due to potential neurotoxicity and interactions with prescribed medications. conitnue to have anxiety Xanax 0.5 mg twice a day - educated on rx- no refill needed today control substance agreement UDS and random UDS Discussed and educated pt regarding benzodiazepines are generally not intended for prolonged use and that use can cause tolerance, dependence, depression, and associated memory issues including dementias (this list is not exhaustive). Benzodiazepine use is generally not recommended concurrently with pain medications and/or other controlled substances 3. Insomnia disorder 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 disorder - Melatonin 10 mg at bedtime as needed - OTC Trazodone 50 mg at bedtime no refill needed has rx at home 4. Unable to concentrate - no rx 5. OCD- Pateint requested improved OCD s/s with anxiety and depression fluvoxamine Maleate Tablet, 100 MG, 1 tablet at bedtime tested by therapist for OCD OMAR-2 reviewed and need to reconcile self reporting and OMAR test- no dxn ADHD can be made educated patient on depression and anxiety may contribute to unable to concentrate and focus and external factors and stress increase excise sleep hygiene limit caffeine continue therapy- Therapsit tested for OCD 10/12/2024 Other obsessive-compul sive disorders (ICD-10 - F42.8) 1. recurrent major depression - Patient reported does not want rx at this time tested for OCD would like rx - therapist will send report patient had OCD testing with therapist Schedule Jose L Gan Discuss TMS for OCD Discuss rx for OCD pharma Gene testing completed and reviewed with patient educated on all medications, benefits, side effects and risk, and educated on depression, anxiety, and ADHD, mood d/o and educated on compliance of medications, metabolic and movement d/o education appointment's, continue therapy discussion with patient about course of treatmentand patient instructions. monitor for depression and anxiety continue therapy 2. Generalized anxiety disorder - Gene testing reviewed Medication Management and Follow-Up- Plan:- Schedule follow-up appointments every 1-3 months and PRN to monitor the patient's response to the medication regimen.- Reinforce the importance of avoiding recreational drug use due to potential neurotoxicity and interactions with prescribed medications. conitnue to have anxiety Xanax 0.5 mg twice a day - educated on rx- no refill needed today control substance agreement UDS and random UDS Discussed and educated pt regarding benzodiazepines are generally not intended for prolonged use and that use can cause tolerance, dependence, depression, and associated memory issues including dementias (this list is not exhaustive). Benzodiazepine use is generally not recommended concurrently with pain medications and/or other controlled substances 3. Insomnia disorder 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 disorder - Melatonin 10 mg at bedtime as needed - OTC Trazodone 50 mg at bedtime no refill needed has rx at home 4. Unable to concentrate - no rx 5. OCD- Pateint requested improved OCD s/s with anxiety and depression fluvoxamine Maleate Tablet, 100 MG, 1 tablet at bedtime tested by therapist for OCD OMAR-2 reviewed and need to reconcile self reporting and OMAR test- no dxn ADHD can be made educated patient on depression and anxiety may contribute to unable to concentrate and focus and external factors and stress increase excise sleep hygiene limit caffeine continue therapy- Therapsit tested for OCD 10/12/2024 Elevated blood pressure reading (ICD-10 - R03.0) 1. recurrent major depression - Patient reported does not want rx at this time tested for OCD would like rx - therapist will send report patient had OCD testing with therapist Schedule Jose L Gan Discuss TMS for OCD Discuss rx for OCD pharma Gene testing completed and reviewed with patient educated on all medications, benefits, side effects and risk, and educated on depression, anxiety, and ADHD, mood d/o and educated on compliance of medications, metabolic and movement d/o education appointment's, continue therapy discussion with patient about course of treatmentand patient instructions. monitor for depression and anxiety continue therapy 2. Generalized anxiety disorder - Gene testing reviewed Medication Management and Follow-Up- Plan:- Schedule follow-up appointments every 1-3 months and PRN to monitor the patient's response to the medication regimen.- Reinforce the importance of avoiding recreational drug use due to potential neurotoxicity and interactions with prescribed medications. conitnue to have anxiety Xanax 0.5 mg twice a day - educated on rx- no refill needed today control substance agreement UDS and random UDS Discussed and educated pt regarding benzodiazepines are generally not intended for prolonged use and that use can cause tolerance, dependence, depression, and associated memory issues including dementias (this list is not exhaustive). Benzodiazepine use is generally not recommended concurrently with pain medications and/or other controlled substances 3. Insomnia disorder 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 disorder - Melatonin 10 mg at bedtime as needed - OTC Trazodone 50 mg at bedtime no refill needed has rx at home 4. Unable to concentrate - no rx 5. OCD- Pateint requested improved OCD s/s with anxiety and depression fluvoxamine Maleate Tablet, 100 MG, 1 tablet at bedtime tested by therapist for OCD OMAR-2 reviewed and need to reconcile self reporting and OMAR test- no dxn ADHD can be made educated patient on depression and anxiety may contribute to unable to concentrate and focus and external factors and stress increase excise sleep hygiene limit caffeine continue therapy- Therapsit tested for OCD Plan Of Treatment Medication Medication Name Sig Start Date Stop Date Notes fluvoxaMINE Maleate 100 MG 1 tablet at b edtime Orally Once a day for 90 days Treatment Notes Assessment Notes Major depressive disorder, r ecurrent, moderate Preventing Depression From Coming Back: Care Instructions material was published, Learning About Depression material was published, Learning About How to Get Help During a Mental Health Crisis material was published, Depression Treatment: Care Instructions material was published NO REFILL NEEDED TODAY Generalized anxiety disorder Learning Ab out Generalized Anxiety Disorder material was published, Generalized Anxiety Disorder: Care Instructions material was published, Learning About Anxiety Disorders material was published Attention-deficit hyperactiv ity disorder, combined type Attention Deficit Hyperactivity Disorder (ADHD) in Adults: Care Instructions material was published, Learning About Attention Deficit Hyperactivity Disorder (ADHD) in Adults material was published 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 Follow Up Visit increa se fluvoxamine. * HPI: ???Depression screening:?PHQ-9?Little interest or pleasure in doing things?Several days,?Feeling down, depressed, or hopeless?More than half the days,?Trouble falling or staying asleep, or sleeping too much?More than half the days,?Feeling tired or having little energy?Nearly every day,?Poor appetite or overeating?Nearly every day,?Feeling bad about yourself or that you are a failure, or have let yourself or your family down?Nearly every day,?Trouble concentrating on things, such as reading the newspaper or watching television?Several days,?Moving or speaking so slowly that other people could have noticed; or the opposite, being so fidgety or restless that you have been moving around a lot more than usual?Several days,?Thoughts that you would be better off or of hurting yourself in some way?Not at all,?Total Score?12,?Interpretation?Moderate Depression.?Intervention?Depression Screening Findings?Positve,?Follow-Up for Depression?Emotional support education, Management of mental health treatment,?Suicide Risk Assessment Performed? ,?Additional Evaluation for Depression?Psychiatric interview and evaluation,?Name of the standardized tool used for adult depression screening:?Patient Health Questionnaire (PHQ-9).? hx HAS ACCOMADATION IN SCHOOL able to walk around and take a break 15 minutes in long class- finish program need to take test? Follow up depression, anxiety, sleep chronic since last visit reported?follow up reported?I feel? ok with the increase fluvoxamine on 100 mg dose, I had issue couple weeks ago and think it is hormones and menses I get more depressed and anger and I was worried about it until realize it I am feeling better and I feel like rx is working and I am scheduling to see MEDICAL COMMUNICATION SPECIALIST and possible BC and hx BCP and felt like affected mood at time, I was on it for acne helped. I am not feeling sad or down, no hopeless or helpless, I feel anxiety also ok, little restless and fidgety, OCD been doing ok and I check less now and I trust my judgement now also, worried little that?bad things will happen to people, less repeative behaviors, appetite ok I been struggling with consitent meals and more nausea around menses and hard to eat in am, no issues?l been sleeping just a lot hours up to 12 hours,??I been working and?concentration and focus alright, motivation and interest ok and slightly better than last visit, energyok, I am in therapy, I have a lot on mind but always have and depression with everything going on and no psychosis, no hue, no SI/HI, job been ok, ?no restles or fidgety,? if busy no unwanted intrusive thoughts and not interrupt daily process now, less hopeless and helpless in the middle,? hx OCD reported I am purely mental in mind and rummination and resisitent things and I have obessive thoughts, little behaviors and try to resistent the behaviors, I have thoughts focus on past and go though everything I done and twrist and re-write it to fit it in my head and I want to look online what it means and I resist to give those thoughts power and right from wrong and morality,? denies SI/HI no plans or intent no past attempts no thoughts harm to self or others, FH none ETOH- occasional smoking- denies labs- PCP recently [facility]- denies BC none Hue Reported by?patient.Notes:none Psychosis Reported by?patient.Notes:none Psychotherapy Intervention Reported by?patient.Notes:[facility]. ???Depression Screening:?CORTES-7 (2018 Edition)?Feeling nervous, anxious, or on edge?More than half the days,?Not being able to stop or control worrying?Several days,?Worrying too much about different things?Several days,?Trouble relaxing?Several days,?Being so restless that it is hard to sit still?Several days,?Becoming easily annoyed or irritable?More than half the days,?Feeling afraid as if something awful might happen Nearly every day,?Total CORTES-7 Score?11,?If you checked any problems, how difficult have they made it for you to do your work, take care of things at home, or get along with other people??Very difficult,?Interpretation of Total?(10 to 14) Moderate.?[place]-Suicide Severity Rating Scale:?Suicide Risk (CSRS-screener)?in the past one month Have you wished you were or wished you could go to sleep and not wake up??No,?in the past one month Have you actually had any thoughts of killing yourself??No.? * ROS:?Patient reports?GERD (on rx)?but reports no abdominal pain, no nausea, no vomiting, no constipation, normal appetite, no diarrhea, . She reports? depression, anxiety, and no memory loss, hypersomnia ?sleep disturbances, feeling safe in a relationship, no alcohol abuse, no hallucinations, no suicidal thoughts, and no mood swings. She reports?fatigue. She reports no fever, no significant weight gain, and no significant weight loss. She reports no irritation and wears glasses/contact lenses. She reports no chest pain and no palpitations. She reports no cough and no shortness of breath. She reports no incontinence, no difficulty urinating, and no increased frequency. She reports no muscle aches, no arthralgias/joint pain, no back pain, no neck pain, and no difficulty walking. She reports no weakness, improved dizziness, no migraines, no headaches, no tremor, and no gait dysfunction. * Medical History:?Problems: G eneralized anxiety disorder, Insomnia disorder 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 disorder, Moderate recurrent major depression, Severe recurrent major depression without psychotic features, Unable to concentrate, ,. * Social History:?Tobacco Use:?Tobacco Control (Standard)?Tobacco use:?Nonsmoker,?Additional Findings: Tobacco non-user?Current nonsmoker.?Migrated Social History:?Migrated Social History: Alcohol Intake: Occasional 08/15/2022,Tobacco Years: Never smoker 08/15/2022. ???Sexual History:?Sexual History?Had sex in the past 12 months (vaginal, oral, or anal)??No.?Drug/Alcohol:?Drugs?Have you used drugs other than those for medical reasons in the past 12 months??No.?Caffeine?Intake:? 1x week.?Do you smoke marijuana?: Denies. Do you drink alcohol?: Yes, Socially. AUDIT-C (Standard)?Did you have a drink containing alcohol in the past year??Yes,?How often did you have six or more drinks on one occasion in the past year? 2 to 4 times a month (2 points),?How many drinks did you have on a typical day when you were drinking in the past year??1 or 2 drinks (0 point),?How often did you have a drink containing alcohol in the past year??2 to 4 times a month (2 points),?Points?4,?Interpretation?Positive.?Household:?Household?Marital status:?single,?Number of adults in household:?3,?Number of children in household:?0,?Number of siblings:?3,?Level of education:?finished college 4 year,?Marital status of the child's parents:?,?Any household tobacco use??No,?Any household pets??No.?Miscellaneous:?Advance Care Planning?Are you your own decision-maker?Yes,?Do you have Power of Demolition Worker for Health or Medical??No.? * Medications:?Taking Spironol actone 100 MG Tablet 1 tablet Orally Once a day , Taking fluvoxaMINE Maleate 50 MG Tablet 1 tablet at bedtime Orally Once a day , Taking fluvoxaMINE Maleate 100 MG Tablet 1 tablet at bedtime Orally Once a day , Notes to Pharmacist: d/c 50 mg dose, Taking ALPRAZolam 0.5 MG Tablet 1 tablet Orally Twice a day As needed, Not-Taking Trintellix 20 MG Tablet TAKE 1 TABLET BY MOUTH EVERY DAY IN THE MORNING Oral , Not-Taking buPROPion HCl ER (XL) 150 MG Tablet Extended Release 24 Hour TAKE 1 TABLET BY MOUTH EVERY DAY Oral , Medication List reviewed and reconciled with the patient * Allergies:?Trintellix: Aller gy - Onset Date 04/06/2024. Objective: * Vitals:?BP:130/83mm Hg, HR:7 7/min, Wt:253.6lbs, Wt-k.03 kg, Ht: 65.00 in, Ht-cm: 165.10 cm, BMI:42.2Index, Body Surface Area: 2.29. * Examination: ???Psychiatry: ?Appearance:?well-groomed, well-nourished, appears stated age, obese.?Abnormal body movements:?none.?Affect / mood:?appropriate.?Aggression:?low.?Anger control:?good.?Attention:?good.?Attitude:?cooperative.?Homicidal ideation:?none.?Suicidal ideation:?none.?Memory status:?no impairment noted.?Degree of awareness of surroundings:?within normal limits.?Delusions:?no.?Hallucinations:?no.?Impulse control:?good.?Insight:?good.?Intellectual functioning:?average.?Comprehension - Intellectual function:?average.?Judgement:?good.?Orientation:?awake, alert and oriented x 3.?Perceptual disorders:?no perceptual disorder noted.?Psychomotor activity:?within normal range.?Sexual impulse control:?good.?Speech / language:?appropriate pitch/modulation, clear and coherent, normal rate, volume, and articulation (RVR), proper grammar used.?Thought content:?appropriate.?Thought process:?intact.? 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 1. recurrent major depressio n - Patient reported does not want rx at this time tested for OCD would like rx - therapist will send report patient had OCD testing with therapist Schedule Jose L Gan 199/ Discuss TMS for OCD Discuss rx for OCD pharma Gene testing completed and reviewed with patient educated on all medications, benefits, side effects and risk, and educated on depression, anxiety, and ADHD, mood d/o and educated on compliance of medications, metabolic and movement d/o education appointment's, continue therapy discussion with patient about course of treatmentand patient instructions. monitor for depression and anxiety continue therapy 2. Generalized anxiety disorder - Gene testing reviewed Medication Management and Follow-Up- Plan:- Schedule follow-up appointments every 1-3 months and PRN to monitor the patient's response to the medication regimen.- Reinforce the importance of avoiding recreational drug use due to potential neurotoxicity and interactions with prescribed medications. conitnue to have anxiety Xanax 0.5 mg twice a day - educated on rx- no refill needed today control substance agreement UDS and random UDS Discussed and educated pt regarding benzodiazepines are generally not intended for prolonged use and that use can cause tolerance, dependence, depression, and associated memory issues including dementias (this list is not exhaustive). Benzodiazepine use is generally not recommended concurrently with pain medications and/or other controlled substances 3. Insomnia disorder 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 disorder - Melatonin 10 mg at bedtime as needed - OTC Trazodone 50 mg at bedtime no refill needed has rx at home 4. Unable to concentrate - no rx 5. OCD- Pateint requested improved OCD s/s with anxiety and depression ?fluvoxamine Maleate Tablet, 100 MG, 1 tablet at bedtime tested by therapist for OCD OMAR-2 reviewed and need to reconcile self reporting and OMAR test- no dxn ADHD can be made educated patient on depression and anxiety may contribute to unable to concentrate and focus and external factors and stress increase excise sleep hygiene limit caffeine continue therapy- Therapsit tested for OCD Plan: * Treatment: 2.?Generalized anxiety disor bobo? Notes: Learning About Generalized Anxiety Disorder material was published, Generalized Anxiety Disorder: Care Instructions material was published, Learning About Anxiety Disorders material was published?? 3.?Attention-deficit hyperac tivity disorder, combined type? Notes: Attention Deficit Hyperactivity Disorder (ADHD) in Adults: Care Instructions material was published, Learning About Attention Deficit Hyperactivity Disorder (ADHD) in Adults material was published?? 4.?On fdc drug therapy ? Notes: Medication Refill: Care Instructions material was published?? 5.?Other obsessive-compulsiv e disorders? Start fluvoxaMINE Maleate Tablet, 100 MG, 1 tablet at bedtime Orally Once a day, 90 days, 90, Refills 0.?? * Procedure Codes:?81174 BEHAV ASSMT W/SCORE & DOCD/STAND INSTRUMENT, G2211 VISIT COMPLEXITY INHERENT TO ONGOING CARE RELATED TO A PATIENT'S SINGLE, SERIOUS CONDITION OR A COMPLEX CONDITION * Preventive Medicine:? ??Counseling:?BP Management:?PRE-HYPERTENSIVE FOLLOW-UP PLAN:?Follow-up 2 weeks ____,?LIFESTYLE RECOMMENDATION:?Lifestyle education,?REFERRAL TO ALTERNATIVE / PRIMARY CARE PROVIDER:?Referral to general physician educated on healthy b/p 120/80monitor b/p at homerefer to PCP, Urgent care/ERheart healthy diet and exciselimit salt intakelimit soda intake and caffieneincrease water.? * Follow Up:?3 Months (Reason: follow up rx) * Billing Information: * Visit Code:? 93203 OFFICE OUTPATIENT VISIT 25 MINUTES DETAILED HISTORY AND EXAM/MODERATE MEDICAL DECISION MAKING. * Procedure Codes:? 78599 BEHAV ASSMT W/SCORE & DOCD/STAND INSTRUMENT. G2211 VISIT COMPLEXITY INHERENT TO ONGOING CARE RELATED TO A PATIENT'S SINGLE, SERIOUS CONDITION OR A COMPLEX CONDITION. * CH HISTORY TEACHER Sign off status: Completed true * Provider:?DESTINI SHAH Date:? Generated for Deejay mitchell/Graciela/Miguel on:?12/04/2024 04:11 AM [facility] HISTORY TEACHER History and Physical Notes * HPI (History of Present Illness) Category Sub-Category Detail Notes Category Not es Depression screening PHQ-9 Little inte rest or pleasure in doing things: Several days hx HAS ACCOMADATION IN SCHOOL able to walk around and take a break 15 minutes in long class- finish program need to take test Follow up depression, anxiety, sleep chronic since last visit reported follow up reported I feel ok with the increase fluvoxamine on 100 mg dose, I had issue couple weeks ago and think it is hormones and menses I get more depressed and anger and I was worried about it until realize it I am feeling better and I feel like rx is working and I am scheduling to see MEDICAL COMMUNICATION SPECIALIST and possible BC and hx BCP and felt like affected mood at time, I was on it for acne helped. I am not feeling sad or down, no hopeless or helpless, I feel anxiety also ok, little restless and fidgety, OCD been doing ok and I check less now and I trust my judgement now also, worried little that bad things will happen to people, less repeative behaviors, appetite ok I been struggling with consitent meals and more nausea around menses and hard to eat in am, no issues l been sleeping just a lot hours up to 12 hours, I been working and concentration and focus alright, motivation and interest ok and slightly better than last visit, energyok, I am in therapy, I have a lot on mind but always have and depression with everything going on and no psychosis, no hue, no SI/HI, job been ok, no restles or fidgety, if busy no unwanted intrusive thoughts and not interrupt daily process now, less hopeless and helpless in the middle, hx OCD reported I am purely mental in mind and rummination and resisitent things and I have obessive thoughts, little behaviors and try to resistent the behaviors, I have thoughts focus on past and go though everything I done and twrist and re-write it to fit it in my head and I want to look online what it means and I resist to give those thoughts power and right from wrong and morality, denies SI/HI no plans or intent no past attempts no thoughts harm to self or others, FH none ETOH- occasional smoking- denies labs- PCP recently [facility]- denies BC none Hue Reported by patient.Notes:none Psychosis Reported by patient.Notes:none Psychotherapy Intervention Reported by patient.Notes:[facility] Feeling down, depressed, or hopeless: Mo re than half the days Trouble falling or staying a sleep, or sleeping too much: More than half the days Feeling tired or having little energy: N early every day Poor appetite or overeating: Nearly ever y day Feeling bad about yourself o r that you are a failure, or have let yourself or your family down: Nearly every day Trouble concentrating on thi ngs, such as reading the newspaper or watching television: Several days Moving or speaking so slowly that other people could have noticed; or the opposite, being so fidgety or restless that you have been moving around a lot more than usual: Several days Thoughts that you would be b holley off or of hurting yourself in some way: Not at all Total Score: 12 Interpretation: Moderate Depression Intervention Depression Screening Findings: P ositve Follow-Up for Depression: Em otional support education, Management of mental health treatment Suicide Risk Assessment Performed: Additional Evaluation for De pression: Psychiatric interview and evaluation Name of the standardized too l used for adult depression screening:: Patient Health Questionnaire (PHQ-9) Depression Screening CORTES-7 (2018 Edition) Feelin g nervous, anxious, or on edge: More than half the days Not being able to stop or control worryi ng: Several days Worrying too much about different things : Several days Trouble relaxing: Several days Being so restless that it is hard to sit still: Several days Becoming easily annoyed or irritable: Mo re than half the days Feeling afraid as if something awful chun ht happen: Nearly every day Total CORTES-7 Score: 11 If you checked any problems, how difficult have they made it for you to do your work, take care of things at home, or get along with other people?: Very difficult Interpretation of Total: (10 to 14) Mode rate [place]-Suicide Severity Rating Scale Suicide Risk (CSRS-screener) in the past one month Have you wished you were or wished you could go to sleep and not wake up?: No in the past one month Have y ou actually had any thoughts of killing yourself?: No Examination Category Sub-Category Detail Notes Category Not es Psychiatry Appearance: well-groomed, we ll-nourished, appears stated age, obese Attitude: cooperative Psychomotor activity: within normal rang e Abnormal body movements: none Attention: good Degree of awareness of surroundings: wit hin normal limits Orientation: awake, alert and jose david ented x 3 Affect / mood: appropriate Speech / language: appropriate pitch/mo dulation, clear and coherent, normal rate, volume, and articulation (RVR), proper grammar used Insight: good Judgement: good Thought process: intact Thought content: appropriate Perceptual disorders: no perceptual diso rder noted Aggression: low Anger control: good Suicidal ideation: none Homicidal ideation: none Intellectual functioning: average Impulse control: good Sexual impulse control: good Memory status: no impairment noted Delusions: no Hallucinations: no Comprehension - Intellectual function: a verage
--- OUTSIDE RECORDS SUMMARY | 2024-12-04 04:12 | XMS_ITS ---
Author Organization [facility] Address [facility] [address] [address] Care Team Providers Care Mis Manager Name Role Phone KristaDevin paredes DO Primary Care Provider Jazmín Contreras [phone] REASON FOR VISIT RE:Appointment Social History Sex Assigned At : Social History Observation Description Sex Assigned At Female Encounters Encounter Location Date Provider Diagnosis [place] [id number] [facility] [address] [address] 08/10/2024 Jazmín Llanos Plan Of Treatment No Information Progress Notes * ELISABETH PRESTONOB:1999 (24 yo F)Acc No.[id number]:08/10/2024 Patient:?EMERALD PRESTON :2000???Age:24 Y???Sex:Female Address:[address] [facility] [place] [facility] [address] * true * Date:? 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
--- OUTSIDE RECORDS SUMMARY | 2024-12-04 04:12 | XMS_ITS ---
Author Organization [facility] As Mobile Messenger Address [address] [place] [address] Care Team Providers Care Separator Inserter Name Role Phone Shandajas MAXDevin Primary Care Provider Jazmín Contreras Unavailable [phone] Allergies Allergen (clinical drug ingredient) Drug/Non Drug Allergy documented on EMR Reaction Allergy Type Onset Date Status vortioxetine Trintellix Unknown Drug Allergy 04/06/2024 Ac tive REASON FOR VISIT Follow Up Visit Medications Medication SIG (Take, Route, Frequency, Duration) Notes Start Date End Date Status Spironolactone 100 MG 1 tablet Orally Once a day Active ALPRAZolam 0.5 MG 1 tablet Orally Twice a day for 30 days As needed 09/06/2024 Active fluvoxaMINE Maleate 50 MG 1 tablet at bedtime Orally Once a day for 90 days Active Trintellix 20 MG TAKE 1 TABLET BY MOUTH EVERY DAY IN THE MORNING Oral for 30 Days Not-Taking buPROPion HCl ER (XL) 150 MG TAKE 1 TABLET BY MOUTH EVERY DAY Oral for 30 Days Not-Taking fluvoxaMINE Maleate 100 MG 1 tablet at bedtime Orally Once a day for 90 days d/c 50 mg dose Active Social History Tobacco Use: Social History [...] month (2 points) Points 4 Interpretation Positive Vital Signs Blood pressure systolic 102 mm Hg 09/06/20 24 Blood pressure diastolic 75 mm Hg 024 Heart Rate 69 /min 09/06/2024 Height 65.00 in 09/06/2024 Weight 259.6 lbs 09/06/2024 BMI 43.19 kg/m2 09/06/2024 Height-cm 165.10 cm 09/06/2024 Weight-kg 117.75 kg 09/06/2024 10 Encounters Encounter Location Date Provider Diagnosis [facility] [employer] [facility] [address] [facility] [address] [address] 09/06/2024 Jazmín Llanos Major depressive disorder, recurrent, moderate F33.1 ; Generalized anxiety disorder F41.1 ; Insomnia due to other mental disorder F51.05 ; Attention-deficit hyperactivity disorder, combined type F90.2 ; On snf drug therapy Z79.899 and Other obsessive-compulsive disorders F42.8 Assessments Encounter Date Diagnosis (ICD Code) Assessment Notes Treatment Notes Treatment Clinical Notes Section Notes 09/06/2024 Major depressive disorder, recurrent, moderate (ICD-10 - [...] OCD testing with therapist Schedule Jose L aGn 1401/17 Discuss TMS for OCD Discuss rx for [...] twice a day - educated on rx- refill needed today control substance agreement UDS [...] - no rx 5. OCD- Pateint requested increase r/t having OCD s/s wiht anxiety and depression will increase fluvoxamine Maleate Tablet, 100 MG, 1 tablet at bedtime tested by therapist for OCD OMAR-2 reviewed and need to reconcile self reporting and OMAR test- no dxn ADHD can be made educated patient on depression and anxiety may contribute to unable to concentrate and focus and external factors and stress increase excise sleep hygiene limit caffeine continue therapy- Therapsit tested for OCD 09/06/2024 Generalized anxiety disorder (ICD-10 - F41.1) Learning [...] twice a day - educated on rx- refill needed today control substance agreement UDS [...] - no rx 5. OCD- Pateint requested increase r/t having OCD s/s wiht anxiety and depression will increase fluvoxamine Maleate Tablet, 100 MG, 1 tablet at bedtime tested by therapist for OCD OMAR-2 reviewed and need to reconcile self reporting and OMAR test- no dxn ADHD can be made educated patient on depression and anxiety may contribute to unable to concentrate and focus and external factors and stress increase excise sleep hygiene limit caffeine continue therapy- Therapsit tested for OCD 09/06/2024 Insomnia due to other mental disorder (ICD-10 [...] twice a day - educated on rx- refill needed today control substance agreement UDS [...] - no rx 5. OCD- Pateint requested increase r/t having OCD s/s wiht anxiety and depression will increase fluvoxamine Maleate Tablet, 100 MG, 1 tablet at bedtime tested by therapist for OCD OMAR-2 reviewed and need to reconcile self reporting and OMAR test- no dxn ADHD can be made educated patient on depression and anxiety may contribute to unable to concentrate and focus and external factors and stress increase excise sleep hygiene limit caffeine continue therapy- Therapsit tested for OCD 09/06/2024 Attention-defici t hyperactivity disorder, combined type (ICD-10 [...] twice a day - educated on rx- refill needed today control substance agreement UDS [...] - no rx 5. OCD- Pateint requested increase r/t having OCD s/s wiht anxiety and depression will increase fluvoxamine Maleate Tablet, 100 MG, 1 tablet at bedtime tested by therapist for OCD OMAR-2 reviewed and need to reconcile self reporting and OMAR test- no dxn ADHD can be made educated patient on depression and anxiety may contribute to unable to concentrate and focus and external factors and stress increase excise sleep hygiene limit caffeine continue therapy- Therapsit tested for OCD 09/06/2024 On roasterman drug therapy (ICD-10 - Z79.899) Medication Refill: [...] twice a day - educated on rx- refill needed today control substance agreement UDS [...] - no rx 5. OCD- Pateint requested increase r/t having OCD s/s wiht anxiety and depression will increase fluvoxamine Maleate Tablet, 100 MG, 1 tablet at bedtime tested by therapist for OCD OMAR-2 reviewed and need to reconcile self reporting and OMAR test- no dxn ADHD can be made educated patient on depression and anxiety may contribute to unable to concentrate and focus and external factors and stress increase excise sleep hygiene limit caffeine continue therapy- Therapsit tested for OCD 09/06/2024 Other obsessive-compul sive disorders (ICD-10 - F42.8) [...] twice a day - educated on rx- refill needed today control substance agreement UDS [...] - no rx 5. OCD- Pateint requested increase r/t having OCD s/s wiht anxiety and depression will increase fluvoxamine Maleate Tablet, 100 MG, 1 tablet [...] Name Sig Start Date Stop Date Notes ALPRAZolam 0.5 MG 1 tablet Orally Twic e a day for 30 days 09/06/2024 fluvoxaMINE Maleate 100 MG 1 tablet at b edtime Orally Once a day for 90 days d/c 50 mg dose Treatment Notes Assessment Notes Major depressive disorder, [...] (ADHD) in Adults material was published On roasterman drug therapy Medication Ref ill: Care Instructions material was published Next Appt Details Follow Up: 4 Weeks, Reason: F/U OCD Progress Notes * PRESTONZAKIYAHELDOB:1999 (24 yo F)Acc No.[id number]:09/06/2024 Patient:?ZAKIYA PRESTONHEL Provider:?DESTINI SHAH :2000???Age:24 Y???Sex:Female D ate:09/06/2024 Address:[address] [facility] [place] [facility] Pcp:Devin Jackson DO Subjective: * Chief Complaints: * ???1. Follow Up Visit. * HPI: ???Depression Screening:?CORTES-7 (2018 Edition)?Feeling nervous, anxious, or on edge?Nearly every day,?Not being able to stop or control worrying?Nearly every day,?Worrying too much about different things?Nearly every day,?Trouble relaxing?More than half the days,?Being so restless that it is hard to sit still?More than half the days,?Becoming easily annoyed or irritable?Several days,?Feeling afraid as if something awful might happen?Nearly every day,?Total CORTES-7 Score?17,?If you checked any problems, how difficult have they made it for you to do your work, take care of things at home, or get along with other people??Extremely difficult,?Interpretation of Total?(15 and over) Severe.?Troy-Suicide Severity Rating Scale:?Suicide Risk (CSRS-screener)?in the past one month Have you wished you were or wished you could go to sleep and not wake up??No,?in the past one month Have you actually had any thoughts of killing yourself??No.?Depression screening:?PHQ-9?Little interest or pleasure in doing things?Several days,?Feeling down, depressed, or hopeless?Several days,?Trouble falling or staying asleep, or sleeping too much?More than half the days,?Feeling tired or having little energy?More than half the days,?Poor appetite or overeating?More than half the days,?Feeling bad about yourself or that you are a failure, or have let yourself or your family down More than half the days,?Trouble concentrating on things, such as reading the [...] sleep chronic since last visit reported?follow up reported I efel like i need ot increaser fluvoxamine on 50 mg dose last few months I do have depresion I feel sad, no other depression s/s, anxiety been still little high when upset, OCD, been not rummination as much but still find self with panic thoughts with OCD, worried, bad things will happen to people, less repeative behaviors, sleep been a lot average 10 hours, still bad dreams, appetite fine, concentration and focus alright, motivation and interest low, energy low, I am still in therapy, no psychosis, no hue, no SI/HI, job been ok,??no restles or fidgety,? someover whelm, and mind race and unwanted intrusive thoughts? hx OCD reported I am purely mental [...] by?patient.Notes:none Psychotherapy Intervention Reported by?patient.Notes:[facility]. * ROS:?Patient reports?GERD (on rx)?but reports no [...] your own decision-maker?Yes,?Do you have Power of Deicer Finisher for Health or Medical??No.? * Medications:?Taking Spironol actone 100 MG Tablet 1 tablet Orally Once a day , Taking ALPRAZolam 0.5 MG Tablet 1 tablet Orally Twice a day , Taking fluvoxaMINE Maleate 50 MG Tablet 1 tablet at bedtime Orally Once a day , Not-Taking Trintellix 20 MG Tablet TAKE 1 TABLET BY MOUTH EVERY DAY IN THE MORNING Oral , Not-Taking buPROPion HCl ER (XL) 150 MG Tablet Extended Release 24 Hour TAKE 1 TABLET BY MOUTH EVERY DAY Oral , Medication List reviewed and reconciled with the patient * Allergies:?Trintellix: Aller gy - Onset Date 04/06/2024. Objective: * Vitals:?BP:102/75mm Hg, HR:6 9/min, Wt:259.6lbs, Wt-k.75 kg, Ht: 65.00 in, Ht-cm: 165.10 cm, BMI:43.19Index, Body Surface Area: 2.32. 10. * Examination: ???Psychiatry: ?Appearance:?well-groomed, well-nourished, appears stated [...] hyperactivity disorder, combined type - F90.2 ??5.?On snf drug therapy - Z79.899???6.?Other obsessive- compulsive disorders - F42.8??? 1. recurrent major depressio n - Patient [...] twice a day - educated on rx- refill needed today control substance agreement UDS and random UDS? Discussed and educated pt regarding benzodiazepines are [...] - no rx 5. OCD- Pateint requested increase r/t having OCD s/s wiht anxiety and depression willincrease??fluvoxamine Maleate Tablet, 100 MG, 1 tablet at [...] Plan: * Treatment: 2.?Generalized anxiety disor bobo? Refill ALPRAZolam Tablet, 0.5 MG, 1 tablet, Orally, Twice a day As needed, 30 days, 60, Refills 0.?? Notes: Learning About Generalized Anxiety Disorder material was published, Generalized Anxiety Disorder: Care Instructions material was published, Learning About Anxiety Disorders material was published?? 3.?Attention-deficit hyperac tivity disorder, combined type? Notes: Attention Deficit Hyperactivity Disorder (ADHD) in Adults: Care Instructions material was published, Learning About Attention Deficit Hyperactivity Disorder (ADHD) in Adults material was published?? 4.?On snf drug therapy ? Notes: Medication Refill: Care Instructions material was published?? 5.?Other obsessive-compulsiv e disorders? Start fluvoxaMINE Maleate Tablet, 100 MG, 1 tablet at bedtime Orally Once a day, 90 days, 90, Refills 0, Notes to Pharmacist: d/c 50 mg dose.?? * Procedure Codes:?51192 BEHAV ASSMT W/SCORE & DOCD/STAND INSTRUMENT, G2211 VISIT COMPLEXITY INHERENT TO ONGOING CARE RELATED TO A PATIENT'S SINGLE, SERIOUS CONDITION OR A COMPLEX CONDITION * Follow Up:?4 Weeks (Reason: F/U OCD) * Billing Information: * Visit Code:? 65296 OFFICE OUTPATIENT VISIT 25 MINUTES DETAILED HISTORY AND EXAM/MODERATE MEDICAL DECISION MAKING. * Procedure Codes:? 68069 BEHAV ASSMT W/SCORE & DOCD/STAND INSTRUMENT. G2211 VISIT COMPLEXITY INHERENT TO ONGOING CARE RELATED TO A PATIENT'S SINGLE, SERIOUS CONDITION OR A COMPLEX CONDITION. * Sign off status: Completed true * Provider:?DESTINI SHAH Date:? Generated for Deejay mitchell/Graciela/eTransmitting on:?12/04/2024 04:11 AM BUSINESS QUALITY ASSURANCE ANALYST History and Physical Notes * HPI (History [...] last visit reported follow up reported I efel like i need ot increaser fluvoxamine on 50 mg dose last few months I do have depresion I feel sad, no other depression s/s, anxiety been still little high when upset, OCD, been not rummination as much but still find self with panic thoughts with OCD, worried, bad things will happen to people, less repeative behaviors, sleep been a lot average 10 hours, still bad dreams, appetite fine, concentration and focus alright, motivation and interest low, energy low, I am still in therapy, no psychosis, no hue, no SI/HI, job been ok, no restles or fidgety, someover whelm, and mind race and unwanted intrusive thoughts hx OCD reported I am purely mental [...] [facility] Feeling down, depressed, or hopeless: Se veral days Trouble falling or staying a sleep, or sleeping too much: More than half the days Feeling tired or having little energy: M ore than half the days Poor appetite or overeating: More than h andres the days Feeling bad about yourself o r that you are a failure, or have let yourself or your family down: More than half the days Trouble concentrating on thi ngs, such as [...] Feelin g nervous, anxious, or on edge: Nearly every day Not being able to stop or control worryi ng: Nearly every day Worrying too much about different things : Nearly every day Trouble relaxing: More than half the day s Being so restless that it is hard to sit still: More than half the days Becoming easily annoyed or irritable: Se veral days Feeling afraid as if something awful chun ht happen: Nearly every day Total CORTES-7 Score: 17 If you checked any problems, how difficult have they made it for you to do your work, take care of things at home, or get along with other people?: Extremely difficult Interpretation of Total: (15 and over) S dunia Troy-Suicide Severity Rating Scale Suicide Risk (CSRS-screener) in [...]
--- OUTSIDE RECORDS SUMMARY | 2024-12-04 04:13 | XMS_ITS | Clinical Summary ---
Author Organization [address] Address [address] [place] [address] Care Team Providers Care Sanitation Inspector Name Role Phone Devin Jackson DO Primary Care Provider [phone] Allergies Active Allergy Reactions Criticality Noted Date Comments Vortioxetine Unknown 04/06/2024 Medications SUMAtriptan (IMITREX) 25 mg tablet TAKE 1 TAB AT ONSET OF HEADACHE IF NO RELIEF MAY REPEAT 1 TAB IN AT LEAST 2 HRS MAX 4 TABS/24GHR 05/06/2022 Active spironolactone (ALDACTONE) 100 mg tablet 1 tablet (100 mg total) 02/03/2024 Active ALPRAZolam (XANAX) 0.5 mg tablet Take 1 tablet (0.5 mg total) by mouth 3 (three) times a day as needed 06/29/2024 Active fluvoxaMINE (LUVOX) 50 mg tablet Take 1 tablet (50 mg total) by mouth nightly 07/27/2024 Active benzonatate (TESSALON) 100 mg capsuleIndicati ons:Cough Take 1 capsule (100 mg total) by mouth 3 (three) times a day as needed for cough 42 capsule 11/30/2024 Active predniSONE (DELTASONE) 50 mg tabletIndicatio ns:Acute cough Take 1 tablet (50 mg) by mouth daily for 5 days 5 tablet 11/30/2024 12/05/19 25 Active Active Problems No known active problems Encounters Date Type Department Care Team Description 11/30/2024 11:00 AM COLLATERAL ANALYST Office Visit [facility] at [address] [place] [address] Glenny Okeefe NP Sore throat (Primary Dx); Upper respiratory tract infection, unspecified type; Acute cough from Last 3 Months Surgical History Surgery Date Site/Laterality Comments WISDOM TOOTH EXTRACTION ADENOIDECTOMY 02/22/2023 Medical History Medical History Date Comments Anxiety Depression Acne Insomnia Family History Medical History Relation Name Comments Hypertension Father Hypertension Mother Relation Name Status Comments Father Alive Mother Alive Social History Tobacco Use Types Packs/Day Years Used Date Smoking Tobacco: Never Smokeless Tobacco: Never Tobacco Cessation:Counseling Given: Not Answered Comments No Sex and Gender Information Value Date Recorded Sex Assigned at Not on file Legal Sex Female 1:22 AM COLLATERAL ANALYST Gender Identity Not on file Sexual Orientation Not on file Obstetrics History Last Filed Vital Signs Vital Sign Reading Time Taken Comments Blood Pressure 110/84 11/30/2024 10:55 AM COLLATERAL ANALYST Pulse 97 11/30/2024 10:55 AM COLLATERAL ANALYST Temperature 37 ??C (98.6 ??F) 11/30/2024 10: 55 AM COLLATERAL ANALYST Respiratory Rate 16 11/30/2024 10:5 5 AM COLLATERAL ANALYST Oxygen Saturation 96% 11/30/2024 10: 55 AM COLLATERAL ANALYST Inhaled Oxygen Concentration - - Weight 113.8 kg (250 lb 12.8 oz) 2024 10:55 AM COLLATERAL ANALYST Height 165.1 cm (5' 5 ) 11/30/2024 10:5 5 AM COLLATERAL ANALYST Body Mass Index 41.74 11/30/2024 10:55 AM COLLATERAL ANALYST Plan of Treatment Health Maintenance Due Date Last Done Comments Cervical Cancer Screening 2000 Depression Screening 2000 Hepatitis C Screening 2000 Varicella Vaccines (1 of 2 - 13+ 2-dose series) 2013 HPV Vaccines (1 - 3-dose series) 2015 Hepatitis B Screening 2018 Regular Well Visit/Exam 18-64 2018 Covid-19 Vaccine ( season) 2024 09/01/2021, 02/10/2021, 01/20/2021 Influenza Vaccine (#1) 2024 , 08/26/2020, 09/05/2018, Additional history exists DTaP/Tdap/Td Vaccine (2 - Td or Tdap) 04/11/2031 04/11/2021 Pneumococcal vaccine <65 Aged Out No longer eligible based on patient's age to complete this topic Procedures Procedure Name Priority Date/Time Associated Diagnosis Comments POC INFLUENZA A/B, COVID-19 ANTIGEN Routine 11/30/2024 11:04 AM COLLATERAL ANALYST Sore throat POCT RAPID STREP Routine 11/30/2024 11:0 4 AM COLLATERAL ANALYST Sore throat from Last 3 Months Results * POC Influenza A/B, COVID-19 antigen (11/30/2024 11:04 AM COLLATERAL ANALYST) Influenza A Ag, POC Negative Negative [facility] Influenza B Ag, POC Negative Negative [facility] COVID-19 Ag POC Presumptive Negative Presumptive Negative, Invalid [facility] Nasal 11/30/2024 11:0 4 AM COLLATERAL ANALYST Glenny Okeefe NP POINT OF CARE TEST ORDERAB LES Final Result [facility] [address] [place] [address], [facility] * POCT rapid strep A (11/30/2024 11:04 AM COLLATERAL ANALYST) Rapid Strep A, POC Negative Negative Swab 11/30/2024 11:0 4 AM COLLATERAL ANALYST Glenny Okeefe NP POINT OF CARE TEST ORDERAB LES Final Result from Last 3 Months Insurance [facility] H[facility]/PPO Address: [address] [address] [place] [id number] [facility]/PPO Address: [address] [address] [place] [phone] Care Teams Sanitation Inspector Relationship Specialty Start Date End Date Devin Jackson DO PCP - General Internal Medicine 03/07/22
--- OUTSIDE RECORDS SUMMARY | 2024-12-04 04:13 | XMS_ITS | Encounter Summary ---
Author Organization [facility] Address [address] [facility] [place] [address] Care Team Providers Care Artificial Flower Maker Name Role Phone Devin Jackson DO Primary Care Provider [phone] Reason for Referral * Evaluate & Treat - Closed Specialty Diagnoses / Procedures Referred By Jorge t Referred To Contact Neuroscience Diagnoses Numbness Keren Teixeira MD [address] [place] [address] [facility] [address] [place] [address] Referral ID Status Reason Start Date Expiration Date V isits Requested Visits Authorized [id number] Closed Specialty Services Required 05/22/2023 05/21/2024 1 1 Encounter Details Date Type Department Care Team (Late st Contact Info) Description 05/22/2023 Orders Only [facility] - Rheumatology [address], [address] [place] [address] Keren Teixeira MD [address] [place] [address] Numbness Social History Tobacco Use Types Packs/Day Years Used Date Smoking Tobacco: Never Smokeless Tobacco: Never Alcohol Use Standard Drinks/Week Comments Yes 0 (1 standard drink = 0.6 oz pur e alcohol) Sex and Gender Information Value Date Recorded Sex Assigned at Not on file Gender Identity Not on file Sexual Orientation Not on file documented as of this encounter Plan of Treatment Scheduled Referrals Name Type Priority Associated Diagnoses Order Schedule AMB REFERRAL TO NEUROLOGY Outpatient Referral Routine Numbness 1 Occurrences starting 05/22/2023 until 05/22/2024 documented as of this encounter Visit Diagnoses Diagnosis Numbness- Primary Disturbance of skin sensation documented in this encounter Care Teams Artificial Flower Maker Relationship Specialty Start Date End Date Devin Jackson DO PCP - General Internal Medicine 04/25/23 documented as of this encounter
--- OUTSIDE RECORDS SUMMARY | 2024-12-04 04:13 | XMS_ITS | Encounter Summary ---
Author Organization [facility] Address [address] [place] [address] Care Team Providers Care Taker Off Braker Machine Name Role Phone Devin Jackson DO Primary Care Provider [phone] Reason for Referral * Neurology (Routine) - Closed Specialty Diagnoses / Procedures Referred By Contac t Referred To Contact Diagnoses Numbness Procedures EMG Rodney Torre MD [address] [place] [address] [facility] [address] [place] [address] Referral ID Status Reason Start Date Expiration Date Visits Re quested Visits Authorized [id number] Closed 05/30/2023 05/29/2024 1 1 Reason for Visit * Reason Comments Establish Care Pt present today to establish care for numbness in hands and feet. * Evaluate & Treat - Closed Specialty Diagnoses / Procedures Referred By Contac t Referred To Contact Neuroscience Diagnoses Numbness Keren Teixeira MD [address] [place] [address] [facility] [address] [place] [address] Referral ID Status Reason Start Date Expiration Date V isits Requested Visits Authorized [id number] Closed Specialty Services Required 05/22/2023 05/21/2024 1 1 Encounter Details Date Type Department Care Team (Late st Contact Info) Description 05/30/2023 3:00 PM CDT Office Visit [facility] Neurosciences [address] [place], [place] [id number] Keren Teixeira MD [address] [place] [id number] Rodney Torre MD [address] [place], [place] [id number] Numbness (Primary Dx); Paresthesia of both hands; Paresthesia of both feet Social History Tobacco Use Types Packs/Day Years Used Date Smoking Tobacco: Never Smokeless Tobacco: Never Alcohol Use Standard Drinks/Week Comments Yes 0 (1 standard drink = 0.6 oz pur e alcohol) Sex and Gender Information Value Date Recorded Sex Assigned at Not on file Gender Identity Not on file Sexual Orientation Not on file documented as of this encounter Last Filed Vital Signs Vital Sign Reading Time Taken Comments Blood Pressure 121/84 05/30/2023 2:43 PM CDT Pulse 74 05/30/2023 2:43 PM CDT Temperature 36.2 ??C (97.1 ??F) 05/30/2023 2:43 PM CD T Respiratory Rate - - Oxygen Saturation 99% 05/30/2023 2:43 PM CDT Inhaled Oxygen Concentration - - Weight 112.9 kg (249 lb) 05/30/2023 2:43 PM CDT Height 165.1 cm (5' 5 ) 05/30/2023 2:43 PM CDT Body Mass Index 41.44 05/30/2023 2:43 PM CDT documented in this encounter Patient Instructions * Patient Instructions* Rodney Torre MD - 05/30/2023 3:26 PM CDT 1.EMG 2 RTC. documented in this encounter Progress Notes * Rodney Torre MD - 05/30/2023 3:12 PM CDT Images from the original note were not included. Sabiha Montes 22 year old Be advised that this is a medical document. It is intended as a peer to peer communication. It is written in medical language and may contain abbreviation or verbiage that are unfamiliar. It may appear blunt or direct. Medical documents are intended to carry relevant information facts as evident and the clinical opinion of the practitioner. History and ROS Chief complaint. Numbness X 9 M History of Present Illness. I just Noted feet and hands go numb when wake up In car Getting tingling Other day was at work couple of spots turned purple Showed picture of hand- thumb and feet turning purple Hands and feet Comes and goes shake hands and goes away Wakes up in night with numbness Saw ski tow operator- JULES was positive . Forepart Rasper released me No weakness Has worsened in last 9 months Recently the patient has been seen by ski tow operator and had extensive workup for rheumatological condition after she was found to have positive JULES. PMH. No HTN or DM. FH. Stroke- father and grand parents SH. No smoking. Rare drinks.in graduate program. POSITIVES INCLUDE: None Informations recorded from a paper based questionnaire. 1.ABDOMINAL PAIN 2.BACK PAIN 3.BLURRED VISION 4.CHEST PAIN 5.CONSTIPATION 5.DIARRHEA 6.DIFFICULTY WITH BALANCE 7.MEMORY 8.DIZZINESS 9.DOUBLE VISION 10.FATIGUE 11.FEELING ANXIOUS 12.FEELING DEPRESSED 13.FEVER 14.PALPITATION 15.JOINT PAIN 16.NECK PAIN 17.RAYNAUD???S 18.KIN RASH 19.SWOLLEN JOINT 20. TREMOR 21. WEIGHT GAIN 22.WEIGHT LOSS 23. EYE/Ear Pain 24. SINUS problem 25. ASTHMA 26. COVID Patient questionnaire: 1. Stroke like symptoms? 2. Seizures ? 3. TLOC? 4. Falls? 5. Dementia ? 6. Sleep apnea? 7. Neuropathic ? 8. Parkinsonian : bradykinesia& Tremors? 9. Neck or back surgery ? 10. Headaches ? 3.EXAMINATION: BP 121/84 Pulse 74 Temp 97.1 ??F (36.2 ??C) Ht 1.651 m (5' 5 ) Wt 112.9 kg (249 lb) SpO2 99% Gen EXAM GEN : Reveals a pleasant patient in no acute distress. Vitals: Reviewed and documented in [facility]. Eye: Ophthalmologic examination of optic disc and Posterior segments are normal. Skin : Warm and moist, no rash. Cardiovascular system examination revealed normal pulses and normal carotids. Affect: Normal.Awake and alert Examination of the orientation, attention and concentration, fund of knowledge, recent and memory and language function were performed and showed normal results. Cranial Nerves: I: Normal. II: Normal VF III, IV, : Pupils equal, round & reactive to light. Extraocular movements intact. V: Jaw muscles strong. VII: No facial asymmetry. VIII: Hearing Normal to conversation IX-X: Uvula midline. XI: Shoulder shrug equal. XII: Tongue midline. Motor examination in both Upper and lower extremities showed normal bulk and tone with 5 over 5 strength on MRC grading. All tendon reflexes are + and symmetric. No atrophy and fasics Sensory examination showed normal pinprick and fine touch except loss of FT in D1-4 both sides. Phalen++ BL Tinel med negative. Coordination normal in both upper and lower extremities. Gait normal including negative Rombergs. Parkinsonian- Tremor/lionel?No 5. Medications and allergies: Current Outpatient Medications Medication ??? Azelastine HCl 137 MCG/SPRAY SOLN ??? cefUROXime (Ceftin) 250 MG tablet ??? fluticasone propionate (Flonase) 50 MCG/ACT nasal spray ??? ketoconazole (Nizoral) 2 % shampoo ??? vortioxetine (Trintellix) 5 MG tablet No current facility-administered medications for this visit. DATA REVIEW: I independently reviewed the electronic medical informations including notes, images and labs available in system summarized in assessment and plan. Recent Labs Component Name 03/28/23 1217 CREATININE 0.69 Recent Labs Component Name 03/28/23 1217 WBC 6.6 HGB 13.0 HCT 39.1 PLTCOUNT 316 Recent Labs Component Name 03/28/23 1217 TPROT 6.5 Recent Labs Component Name 05/02/23 1401 SEDRATE 29 Medical Decision Making: [facility] history. Hand paresthesia +feet paresthesia [facility] Finding sensory loss hands and feet, +ve Phalen NIHS:0 MRS:1-2 Summary of Neuroworkup Review of medical records (Internal & external) 1. Rheumatological panel ( ESR-29, JULES panel, ANCA panel) all normal 05/16. Dr Teixeira. Patient has positive JULES and fatigue, low-grade fever and rash I discussed differential diagnosis of positive JULES in detail, pamphlet given.This includes no clinical significance, autoimmune disease like lupus rheumatoid arthritis Sjogren syndrome mixed connective tissue disease versus paraneoplastic syndrome. I have recommended routine medical care in cancer screening appropriate for her age and risk factors through her PCP. Her specific testing for lupus and rheumatoid arthritis are negative and there is no definite evidence of autoimmune disease at this time. Her sed rate and CRP were high, but she was having sinus surgery around that time. We will repeat sed rate and CRP. Diagnosis: 1. Hands paresthesia 2. Feet paresthesia Recommendations: 1.EMG 2 RTC. Discussions, counseling and coordination. Patient has paresthesia in both hands and feet, she is obese, no history of hypothyroidism, no history of peripheral neuropathy in the family going on for 9 months and progressive. Neurological examination does suggest evidence of entrapment neuropathy in the hands, possible peripheral neuropathy in the legs and will require workup starting the EMG study. So far no autoimmune markers to explain her symptoms. Discussed carpal tunnel syndrome and ulnar neuropathy Discussed peripheral neuropathy Discussed causes of neuropathy Discussed symptomatic treatment. Advised to start a splint Plan to see her back after that 3. COUNSELING& COORDINATION OF CARE: Discussed in detail about diagnosis, treatment and prognosis. Discussed the Risk, Benefits and alternative of medications.Explained how to contact my team , provided phone numbers. Discussed regarding notifying test results- options included discussing during follow up visit, sending normal test results in mail and notifying abnormal tests results over phone as needed. Explained what to do if symptoms get worse. Discussed the need and frequency of F/U. Discussed medication refills and sending escript.All questions were answered- verbalized understanding the content of discussion. Thanks for allowing me to participate in the care of this very interesting patient. Please feel free to contact if you have any question. Rodney TREVINO MD,DM,FAAN,FAHS,FAANEM. [facility], [facility] T [phone] Diplomate Clinical Neuromuscular Medicine, Headache Medicine & EDX Medicine Cc Keren Teixeira MD documented in this encounter Plan of Treatment Not on file documented as of this encounter Results * EMG (06/09/2023 11:59 PM CDT) Narrative Rodney Torre MD - 06/09/2023 11:59 PM CDT Rodney Torre MD ? 06/10/2023 ??9:51 PM [facility] [address] [place] [address], [address] [phone] Patient: Sabiha Montes V #: ??Physician: Rodney Torre MD Sex: Female ID#: [id number] Ref Phys: Rodney Torre MD : 2000 Date: 06/09/2023 Choker Setter: Betsy Choi ?? Patient Complaints: The patient is a 23 year old female with complaints of numbness, weakness, and tingling in bilateral upper extremities and lower extremities. ??The symptoms have been present for 9 months. Not currently taking any anticoagulants and no blood infections. EMG & NCV Findings: 1. The left sural antidromic sensory Anti Sensory and the right sural antidromic sensory Anti Sensory nerve conduction studies showed no response (Calf). 2. The left Median/Ulnar Palmar comparison and the right Median/Ulnar Palmar comparison nerve conduction studies showed slow conduction velocity (Median Palm-Wrist, L50, R50 m/s). 3. All remaining nerve conduction studies (as indicated in the following tables) were normal. 4. All left vs. right side differences were within normal limits. ? ? EMG of all examined muscles (as indicated in the following table) was normal. IMPRESSION 1. 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 2. ??Mild bilateral sensory carpal tunnel syndrome with related prolongation of ulnar to median latencies. 3. ??Common causes of polyneuropathy includes diabetes and prediabetes, toxic like alcoholism, nutritional like B12 deficiencies, autoimmune and paraproteinemias. ??Please correlate clinically. Rodney Torre MD Diplomate, Neuromuscular and Electrodiagnostic Medicine Nerve Conduction Studies Motor Summary Table Stim Site NR Onset (ms) Norm Onset (ms) O-P Amp (mV) Norm O-P Amp Neg Area (mVms) Site1 Site2 Delta-0 (ms) Dist (cm) Alvarez (m/s) Norm Alvarez (m/s) Left Median Motor (Abd Poll Brev) ??36.3 ??C Wrist ?3.6 <4.2 9.5 >4 29.21 Elbow Wrist 3.7 22.0 59 >48 Elbow ?7.3 ??8.8 ??28.90 ? Right Median Motor (Abd Poll Brev) ??36.3 ??C Wrist ?3.8 <4.2 10.1 >4 28.87 Elbow Wrist 3.5 20.5 59 >48 Elbow ?7.3 ??10.0 ??28.89 ? Left Ulnar Motor (Abd Dig Minimi) ??36.3 ??C Wrist ?2.7 <3.5 8.6 >6 28.53 B Elbow Wrist 3.4 22.0 65 >48 B Elbow ?6.1 ??8.9 ??30.32 A Elbow B Elbow 1.6 10.0 62 >48 A Elbow ?7.7 ??8.5 ??30.26 ? Right Ulnar Motor (Abd Dig Minimi) ??36.3 ??C Wrist ?2.8 <3.5 9.4 >6 27.93 B Elbow Wrist 3.8 23.0 61 >48 B Elbow ?6.6 ??9.3 ??29.43 A Elbow B Elbow 1.4 10.0 71 >48 A Elbow ?8.0 ??9.3 ??29.61 ? Anti Sensory Summary Table Stim Site NR Onset (ms) Peak (ms) Norm Onset (ms) O-P Amp (??V) Norm O-P Amp Site1 Site2 Delta-0 (ms) Dist (cm) Alvarez (m/s) Norm Alvarez (m/s) Run #2 (Base 1st Digit) ??36.3 ??C Wrist ?1.1 1.6 ??33.1 >15 Wrist Base 1st Digit 1.1 10.0 91 >53 ?0.9 1.8 ??22.4 ? Right Radial Anti Sensory (Base 1st Digit) ??36.3 ??C Wrist ?1.6 2.1 ??39.5 >15 Wrist Base 1st Digit 1.6 10.0 63 >53 Left Sural Anti Sensory (Lat Mall) ??36.3 ??C Calf NR ?? <4.0 ??>5.0 Calf Lat Mall ??14.0 ?? Right Sural Anti Sensory (Lat Mall) ??36.3 ??C Calf NR ?? <4.0 ??>5.0 Calf Lat Mall ??14.0 ?? Comparison Summary Table Stim Site NR Onset (ms) Peak (ms) Norm Onset (ms) O-P Amp (??V) Site1 Site2 Delta-0 (ms) Norm Delta (ms) Alvarez (m/s) Norm Alvarez (m/s) Left Median/Ulnar Palmar Comparison (Wrist) ??36.3 ??C Median Palm ?1.6 2.1 ??98.2 Median Palm Wrist 1.6 ??50 >53 Ulnar Palm ?1.1 1.5 ??11.3 Ulnar Palm Wrist 1.1 ??73 >53 ?Median Palm Ulnar Palm 0.5 <.4 ?? Right Median/Ulnar Palmar Comparison (Wrist) ??36.3 ??C Median Palm ?1.6 2.1 ??98.9 Median Palm Wrist 1.6 ??50 >53 Ulnar Palm ?1.2 1.6 ??31.1 Ulnar Palm Wrist 1.2 ??67 >53 ?Median Palm Ulnar Palm 0.4 <.4 ?? EMG Side Muscle Nerve Root Insrt Fibs Psw Fasc Amp Dur Poly Recrt Comm Left Abd Poll Brev Median C8-T1 Nml Nml Nml 0 Nml Nml 0 Nml ?? Left 1stDorInt Ulnar C8-T1 Nml Nml Nml 0 Nml Nml 0 Nml ?? Left ExtIndicis Radial (Post Int) C7-8 Nml Nml Nml 0 Nml Nml 0 Nml ?? Left Biceps Musculocut C5-6 Nml Nml Nml 0 Nml Nml 0 Nml ?? Left Deltoid Axillary C5-6 Nml Nml Nml 0 Nml Nml 0 Nml ?? Right Abd Poll Brev Median C8-T1 Nml Nml Nml 0 Nml Nml 0 Nml ?? Right 1stDorInt Ulnar C8-T1 Nml Nml Nml 0 Nml Nml 0 Nml ?? Right ExtIndicis Radial (Post Int) C7-8 Nml Nml Nml 0 Nml Nml 0 Nml ?? Right Biceps Musculocut C5-6 Nml Nml Nml 0 Nml Nml 0 Nml ?? Right Deltoid Axillary C5-6 Nml Nml Nml 0 Nml Nml 0 Nml ?? Left MedGastroc Tibial S1-2 Nml Nml Nml 0 Nml Nml 0 Nml ?? Left AntTibialis Dp Br Peron L4-5 Nml Nml Nml 0 Nml Nml 0 Nml ?? Waveforms: ? Rodney Torre MD NEUROLOGY ORDERABLES documented in this encounter Visit Diagnoses Diagnosis Numbness- Primary Disturbance of skin sensation Paresthesia of both hands Paresthesia of both feet Numbness Disturbance of skin sensation documented in this encounter Care Teams Taker Off Braker Machine Relationship Specialty Start Date End Date Devin Jackson DO PCP - General Internal Medicine 04/25/23 documented as of this encounter
--- OUTSIDE RECORDS SUMMARY | 2024-12-04 04:13 | XMS_ITS | Encounter Summary ---
Author Organization [facility] Address [address] [place] [address] Care Team Providers Care Moose Hunter Name Role Phone Devin Jackson DO Primary Care Provider [phone] Reason for Visit * Reason Comments Follow-up Pt present today for follow up regarding EMG results. Pt taking B12 per Brother who is doctor. Wrist hurt after being at work and using hands a lot Encounter Details Date Type Department Care Team (Late st Contact Info) Description 08/04/2023 2:20 PM CDT Office Visit [facility] Neurosciences [address] [place] [address] Rodney Torre MD [address] [place], [place] [phone] Paresthesia of both hands (Primary Dx); Paresthesia of both feet; Bilateral carpal tunnel syndrome; Neuropathy Social History Tobacco Use Types Packs/Day Years [...] Sign Reading Time Taken Comments Blood Pressure 129/85 08/04/2023 2:27 PM CDT Pulse 103 08/04/2023 2:27 PM CDT Temperature 36.1 ??C (97 ??F) 08/04/2023 2:27 PM CDT Respiratory Rate - - Oxygen Saturation 99% 08/04/2023 2:27 PM CDT Inhaled Oxygen Concentration - - Weight 112 kg (247 lb) 08/04/2023 2:27 PM CDT Height 165.1 cm (5' 5 ) 08/04/2023 2:27 PM CDT Body Mass Index 41.1 08/04/2023 2:27 PM CDT documented in this encounter Patient Instructions * Patient Instructions* Rodney Torre MD - 08/04/2023 3:03 PM CDT 1.B12 , Aic and GERARDO 2. Braces for CTS 3. RTC 2-3 months documented in this encounter Progress Notes * Rodney Torre MD - 08/04/2023 2:56 PM CDT Images from the original note were not included. Sabiha Montes 23 year old Be advised that this is [...] Wakes up in night with numbness Saw credit support specialist- JULES was positive . Harness Puller released me No weakness Has worsened in last 9 months Recently the patient has been seen by credit support specialist and had extensive workup for rheumatological condition after she was found to have positive JULES. 08/04/23. Started B12 Does not know amount Was advised by her brother who is a physician Has noted improvement PMH. No HTN or DM. FH. Stroke- [...] surgery ? 10. Headaches ? 3.EXAMINATION: BP 129/85 Pulse 103 Temp 97 ??F (36.1 ??C) Ht 1.651 m (5' 5 ) Wt 112 kg (247 lb) SpO2 99% Gen EXAM GEN : Reveals a pleasant patient in no acute distress. Vitals: Reviewed and documented in Epic. Eye: Ophthalmologic examination of optic disc and Posterior segments are normal. Skin : Warm and moist, no rash. Cardiovascular system examination revealed normal pulses and normal carotids. Affect: Normal.Awake and alert Normal memory and language CN 1-12 were normal Strength 5/5 in all limbs normal coordination and gait 5. Medications and allergies: Current Outpatient Medications Medication ??? Azelastine HCl 137 MCG/SPRAY SOLN ??? buPROPion XL 24hr (Wellbutrin-XL) 150 MG tablet ??? busPIRone (Buspar) 10 MG tablet ??? cefUROXime (Ceftin) 250 MG tablet ??? fluticasone propionate (Flonase) 50 MCG/ACT nasal spray ??? ketoconazole (Nizoral) 2 % shampoo ??? triamcinolone acetonide (Kenalog) 0.1 % ointment No current facility-administered medications for this visit. [...] ESR-29, JULES panel, ANCA panel) all normal 2. EMG-mild neuropathy 05/16. Dr Teixeira. Patient has positive JULES [...] repeat sed rate and CRP. Diagnosis: 1. Polyneuropathy 2. Bl CTS Recommendations: 1. B12 , Aic and GERARDO 2. Braces for CTS 3. RTC 2-3 months Discussions, counseling and coordination. Discussed the EMG finding showing evidence of neuropathy. Discuss common causes of neuropathy. Would like to obtain basic workup including B12 level, Ca and electrophoresis Recommended braces for CTS Will consider symptomatic treatment in the next visit 3. COUNSELING& COORDINATION OF CARE: Discussed in [...] you have any question. Rodney TREVINO MD,DM,FAAN,FAHS,FAANEM. [facility], [facility] T [phone] Diplomate Clinical Neuromuscular Medicine, Headache Medicine & EDX Medicine Cc No ref. provider found documented in this encounter Plan of Treatment Not on file documented as of this encounter Procedures Procedure Name Priority Date/Time Associated Diagnosis Comments GERARDO+PROTEIN ELECTROPH BLOOD Routine 08/11/2023 12:15 PM CDT Paresthesia of both hands HEMOGLOBIN A1C Routine 08/11/2023 12:15 PM CDT Paresthesia of both hands VITAMIN B12 Routine 08/11/2023 12:15 PM CDT Paresthesia of both hands documented in this encounter Results * (ABNORMAL) GERARDO+PROTEIN ELECTROPH BLOOD (08/11/2023 12:15 PM CDT) IgG Quantitative 1,238 586 - 1,602 mg/dL [facility] ACCOUNT BILL IgA Quantitative 152 87 - 352 mg/dL [facility] ACCOUNT BILL IgM Quantitative 334(H) 26 - 217 mg/dL [facility] ACCOUNT BILL Protein Total 6.8 6.0 - 8.5 g/dL [facility] ACCOUNT BILL Albumin 3.3 2.9 - 4.4 g/dL [facility] ACCOUNT BILL Alpha-1 Globulin 0.3 0.0 - 0.4 g/dL [facility] ACCOUNT BILL Gjges-6-Stknnwsk 0.9 0.4 - 1.0 g/dL [facility] ACCOUNT BILL Beta-Globulin 1.0 0.7 - 1.3 g/dL [facility] ACCOUNT BILL Gamma Globulin 1.3 0.4 - 1.8 g/dL [facility] ACCOUNT BILL M-Yunior Not Observed Not Observed g/dL [facility] ACCOUNT BILL Globulin Total 3.5 2.2 - 3.9 g/dL [facility] ACCOUNT BILL Albumin/Globulin Ratio 1.0 0.7 - 1.7 [facility] ACCOUNT BILL Immunofixation Result [facility] ACCOUNT BILL Comment:No monoclonality det ected. Please Note [facility] ACCOUNT BILL Comment: Protein electrophoresis scan will follow via computer, mail, or regrinder operator delivery. Blood BLOOD SPECIMEN / Unknown 08/11/2023 12:15 PM CDT 08/11/2023 Narrative Resulting Agency Comment Lab Testing performed at: [employer] [address] ??[facility] [id number] Rodney Torre MD LAB - CHEMISTRY LISSETT MORALES [facility] ACCOUNT BILL [address] [place] [address] * VITAMIN B12 (08/11/2023 12:15 PM CDT) Vitamin B12 596 232 - 1,245 pg/mL [facility] ACCOUNT BILL Blood BLOOD SPECIMEN / Unknown 08/11/2023 12:15 PM CDT 08/11/2023 Narrative Resulting Agency Comment Lab Testing performed at: [facility] [address] ??[facility] [id number] Rodney Torre MD LAB - CHEMISTRY [place]SETT MORALES Performing Organization Address [facility] Co de Phone Number [facility] ACCOUNT BILL [address] [place] [address] * HEMOGLOBIN A1C (08/11/2023 12:15 PM CDT) Hemoglobin A1c 5.4 4.8 - 5.6 % [facility] ACCOUNT BILL Comment: ? . ? Prediabetes: 5.7 - 6.4 ? Diabetes: >6.4 ? Glycemic control for adults with diabetes: <7.0 Blood BLOOD SPECIMEN / Unknown 08/11/2023 12:15 PM CDT 08/11/2023 Narrative Resulting Agency Comment Lab Testing performed at: [facility] [address] ??[facility] [id number] Rodney Torre MD LAB - CHEMISTRY LISSETT MORALES Performing Organization Address City/[facility]/ZIP Co de Phone Number [facility] ACCOUNT BILL [address] [place] [address] documented in this encounter Visit Diagnoses Diagnosis Paresthesia of both hands- Primary Paresthesia of both feet Bilateral carpal tunnel syndrome Carpal tunnel syndrome Neuropathy Mononeuritis of unspecified site documented in this encounter Care Teams Moose Hunter Relationship Specialty Start Date End Date Devin Jackson DO PCP - General Internal Medicine 04/25/23 documented as of this encounter
--- OUTSIDE RECORDS SUMMARY | 2024-12-04 04:13 | XMS_ITS | Encounter Summary ---
Author Organization [facility] Address [address] [place] [id number] Care Team Providers Care Hand Umbrella Tipper Name Role Phone Devin Jackson DO Primary Care Provider [phone]- [phone] Reason for Visit * Reason Comments Diarrhea Diarrhea and vomitin g for 10 hours. Pt unable to keep any OTC meds down. Encounter Details Date Type Department Care Team (Latest Contact Info) Description 12/23/2022 11:45 AM ADMISSION DISCHARGE RN Office Visit [facility] [address] [place] [id number] Edmundo Mcdaniels, PA [address] [place] [address] Nausea vomiting and diarrhea (Primary Dx); Viral gastroenteritis Social History Tobacco Use Types Packs/Day Years Used Date Smoking Tobacco: Never Smokeless Tobacco: Never Comments No Sex and Gender Information Value Date Recorded Sex Assigned at Not on file Legal Sex Female 1:22 AM ADMISSION DISCHARGE RN Gender Identity Not on file Sexual Orientation Not on file documented as of this encounter Last Filed Vital Signs Vital Sign Reading Time Taken Comments Blood Pressure 118/60 12/23/2022 11:45 AM ADMISSION DISCHARGE RN Pulse 113 12/23/2022 11:45 AM ADMISSION DISCHARGE RN Temperature 36.4 ??C (97.6 ??F) 12/23/2022 11:[address] Respiratory Rate 18 12/23/2022 11:45 AM ADMISSION DISCHARGE RN Oxygen Saturation 97% 12/23/2022 11:45 AM ADMISSION DISCHARGE RN Inhaled Oxygen Concentration - - Weight 113.4 kg (250 lb) 12/23/2022 11:45 AM ADMISSION DISCHARGE RN Height 165.1 cm (5' 5 ) 12/23/2022 11:45 AM ADMISSION DISCHARGE RN Body Mass Index 41.6 12/23/2022 11:45 AM ADMISSION DISCHARGE RN documented in this encounter Patient Instructions * Patient Instructions* Edmundo Mcdaniels PA - 12/23/2022 11:45 AM ADMISSION DISCHARGE RN Your symptoms and physical exam are likely related to an acute viral gastroenteritis. Antibiotics are not useful in treating this condition. Supportive measures are the primary treatment . HOME CARE: ~ The primary concern when managing symptoms is to prevent dehydration. Drink small sips of water or a sports drink as tolerated. Soups or broth are also helpful to stay hydrated. Soft drinks and fruit juices that are high in sugar content should be avoided as they can make diarrhea worse. ~ It is not recommended to restrict your diet. You should eat as tolerated however a bland diet with smaller meals may be less likely to induce vomiting or further irritate the gastrointestinal tract. Hinds foods include saltine crackers, broths, soups, baked potatoes, butter noodles, rice, baked chicken, yogurt, bananas and steamed vegetables. Avoid dairy products, high fibers foods, fried or fatty foods, spicy foods, alcohol, or caffeine until your symptoms resolve. Avoid large meals Do not force yourself to eat, especially if you have cramps or active vomiting but continue to try to drink. ~ Rest as much as possible. ~ Laying with a small pillow against your abdomen or a heating pad (with something between the pad and your skin to prevent acosta) may help with abdominal pain. ~ Take Zofran as prescribed for nausea ~ You can take antidiarrheal over the counter medications such as Imodium, Lomotil or Pepto-Bismol. ~ You can take Tylenol for pain or fever. Watch for signs and symptoms of dehydration such as sluggishness, becoming tired easily, dry mouth and tongue, extreme thirst, muscle cramps, dark colored urine, urinating infrequently, dizziness or lightheadedness after standing up or sitting down. More severe symptoms include abdominal pain, chest pain, confusion or difficulty remaining alert. Seek immediate medical care if you experience signs and symptoms of dehydration or any of the following... Blood in your stool or vomit Severe abdominal pain Fever greater than 101.3 F Vomiting and diarrhea lasting longer than one week If you are unable to keep fluids or solid food down for more than 24 hours SSION DISCHARGE RN documented in this encounter Ordered Prescriptions Prescription Sig Dispense Quantity Refills Last Filled Start Date End Date ondansetron (ZOFRAN) 4 mg tabletIndications: Nausea vomiting and diarrhea Take 1 tablet (4 mg total) by mouth every 8 (eight) hours as needed for nausea or vomiting 20 tablet 12/23/2022 4 documented in this encounter Progress Notes * Edmundo Mcdaniels PA - 12/23/2022 11:45 AM CST Images from the original note were not included. Subjective/Objective Patient ID: Sabiha Montes is a 22 y.o. female. Chief Complaint Diarrhea (Diarrhea and vomiting for 10 hours. Pt unable to keep any OTC meds down.) 22-year-old white female with nausea, diarrhea and vomiting along with fatigue, postnasal drainage,runny nose and body aches for the past 10 hours, she states she took an [id number] stomach pill but threw it, she has been vaccinated for COVID, no known COVID exposure Diarrhea Associated symptoms include myalgias and vomiting. Pertinent negatives include no abdominal pain, chills, coughing, fever or headaches. Review of Systems Constitutional: Positive for fatigue. Negative for appetite change, chills, diaphoresis and fever. HENT: Positive for postnasal drip and rhinorrhea. Negative for congestion, ear pain, facial swelling, sinus pressure, sinus pain, sneezing and sore throat. Respiratory: Negative for cough, shortness of breath and wheezing. Gastrointestinal: Positive for diarrhea, nausea and vomiting. Negative for abdominal pain. Musculoskeletal: Positive for myalgias. Neurological: Negative for headaches. Physical Exam Vitals and nursing note reviewed. Constitutional: General: She is not in acute distress. Appearance: Normal appearance. HENT: Right Ear: Hearing, tympanic membrane, ear canal and external ear normal. Left Ear: Hearing, tympanic membrane, ear canal and external ear normal. Nose: No congestion or rhinorrhea. Right Sinus: No maxillary sinus tenderness or frontal sinus tenderness. Left Sinus: No maxillary sinus tenderness or frontal sinus tenderness. Mouth/Throat: Pharynx: No pharyngeal swelling, oropharyngeal exudate, posterior oropharyngeal erythema or uvula swelling. Eyes: General: Right eye: No discharge. Left eye: No discharge. Cardiovascular: Rate and Rhythm: Normal rate and regular rhythm. Pulmonary: Breath sounds: Normal breath sounds and air entry. Abdominal: Palpations: Abdomen is soft. Tenderness: There is no abdominal tenderness. There is no right CVA tenderness or left CVA tenderness. Lymphadenopathy: Cervical: No cervical adenopathy. Skin: General: Skin is warm and dry. Neurological: Mental Status: She is alert. Mental status is at baseline. Psychiatric: Attention and Perception: Attention normal. Mood and Affect: Mood normal. Speech: Speech normal. Vitals: 12/23/22 1145 BP: 118/60 BP Location: Left arm Patient Position: Sitting Pulse: 113 Resp: 18 Temp: 36.4 ??C (97.6 ??F) TempSrc: Temporal SpO2: 97% Weight: 113.4 kg (250 lb) Height: 165.1 cm (5' 5 ) Assessment/Plan COVID and flu were negative Rx for Zofran sent to pharmacy Your symptoms and physical exam are likely related to an acute viral gastroenteritis. Antibiotics are not useful in treating this condition. Supportive measures are the primary treatment . HOME CARE: ~ The primary concern when managing symptoms is to prevent dehydration. Drink small sips of water or a sports drink as tolerated. Soups or broth are also helpful to stay hydrated. Soft drinks and fruit juices that are high in sugar content should be avoided as they can make diarrhea worse. ~ It is not recommended to restrict your diet. You should eat as tolerated however a bland diet with smaller meals may be less likely to induce vomiting or further irritate the gastrointestinal tract. Hinds foods include saltine crackers, broths, soups, baked potatoes, butter noodles, rice, baked chicken, yogurt, bananas and steamed vegetables. Avoid dairy products, high fibers foods, fried or fatty foods, spicy foods, alcohol, or caffeine until your symptoms resolve. Avoid large meals Do not force yourself to eat, especially if you have cramps or active vomiting but continue to try to drink. ~ Rest as much as possible. ~ Laying with a small pillow against your abdomen or a heating pad (with something between the pad and your skin to prevent acosta) may help with abdominal pain. ~ Take Zofran as prescribed for nausea ~ You can take antidiarrheal over the counter medications such as Imodium, Lomotil or Pepto-Bismol. ~ You can take Tylenol for pain or fever. Watch for signs and symptoms of dehydration such as sluggishness, becoming tired easily, dry mouth and tongue, extreme thirst, muscle cramps, dark colored urine, urinating infrequently, dizziness or lightheadedness after standing up or sitting down. More severe symptoms include abdominal pain, chest pain, confusion or difficulty remaining alert. Seek immediate medical care if you experience signs and symptoms of dehydration or any of the following... Blood in your stool or vomit Severe abdominal pain Fever greater than 101.3 F Vomiting and diarrhea lasting longer than one week If you are unable to keep fluids or solid food down for more than 24 hours Diagnoses and all orders for this visit: Nausea vomiting and diarrhea (Primary) - ondansetron ODT (ZOFRAN-ODT) disintegrating tablet 4 mg - POC Influenza A/B, COVID-19 antigen - ondansetron (ZOFRAN) 4 mg tablet; Take 1 tablet (4 mg total) by mouth every 8 (eight) hours as needed for nausea or vomiting Viral gastroenteritis Recent Results (from the past 4 hour(s)) POC Influenza A/B, COVID-19 antigen Collection Time: 12/23/22 12:11 PM Result Value Ref Range Influenza A Ag, POC Negative Negative Influenza B Ag, POC Negative Negative COVID-19 Ag POC Presumptive Negative Presumptive Negative, Invalid Patient Education: Disposition Treatment plan including expectations, follow up, and return precautions discussed with patient/parent, verbalizes understanding. Medication dosage, use, and potential adverse reactions discussed with patient/parent. Advised to follow up with PCP if symptoms do not resolve as expected or sooner if condition worsens. Signs/symptoms warranting ER evaluation reviewed. Patient and/or guardian was given an opportunity to ask questions, questions answered. LIVIA Jay SSION DISCHARGE RN documented in this encounter Plan of Treatment Not on file documented as of this encounter Procedures Procedure Name Priority Date/Time Associated Diagnosis Comments POC INFLUENZA A/B, COVID-19 ANTIGEN Routine 12/23/2022 12:11 PM ADMISSION DISCHARGE RN Nausea vomiting and diarrhea documented in this encounter Results * POC Influenza A/B, COVID-19 antigen (12/23/2022 12:11 PM ADMISSION DISCHARGE RN) Influenza A Ag, POC Negative Negative [facility] Influenza B Ag, POC Negative Negative [facility] COVID-[facility] Ag POC Presumptive Negative Presumptive Negative, Invalid [facility] Nasal 12/23/2022 12:1 1 PM ADMISSION DISCHARGE RN us Edmundo BHAKTA POINT OF CARE TEST ORDERABLES Final Result [facility] [address] [place] [address] documented in this encounter Visit Diagnoses Diagnosis Nausea vomiting and diarrhea- Primary Viral gastroenteritis Intestinal infection due to other organism, NEC documented in this encounter Administered Medications Inactive Administered Medications - up to 3 most recent administrations Medication Order MAR Action Action Date Dose Rate Site ondansetron ODT (ZOFRAN-ODT) disintegrating tablet 4 mg 4 mg, oral, Once, On 12/23/22 at 1245, For 1 doseIndications:Nausea vomiting and diarrhea Given 12/23/2022 12:02 PM ADMISSION DISCHARGE RN 4 mg Oral documented in this encounter Orders Medications Ordered That Dickson ht Not Have Been Administered Count Last Ordered Date First Ordered Date ondansetron ODT (ZOFRAN-ODT) disintegrating tablet 4 mg 1 12/23/2022 documented in this encounter Additional Health Concerns Infection Onset Date Last Indicated Resolved Time COVID: Suspected 12/23/2022 12/23/2022 12/23/2022 12:12 PM ADMISSION DISCHARGE RN documented as of this encounter Care Teams Hand Umbrella Tipper Relationship Specialty Start Date End Date Devin Jackson DO PCP - General Internal Medicine 03/07/22 documented as of this encounter
--- OUTSIDE RECORDS SUMMARY | 2024-12-04 04:13 | XMS_ITS | Referral Summary ---
Author Organization [address] l[address] Address [address] [place] [address] Care Team Providers Care Supervisor Malted Milk Name Role Phone Devin Jackson DO Primary Care Provider [phone]- [phone] Encounters Date Type Department Care Team Description 11/30/2024 11:00 AM SUPERVISOR FORMING AND TEMPERING Office Visit [facility] [place] [address] [place] [address] Glenny Okeefe, MOLLY Sore throat (Primary Dx); Upper respiratory tract infection, unspecified type; Acute cough from Last 3 Months Allergies Active Allergy Reactions Criticality Noted Date [...] Active Active Problems No known active problems Social History Tobacco Use Types Packs/Day Years Used Date Smoking Tobacco: Never Smokeless Tobacco: Never Tobacco Cessation:Counseling Given: Not Answered Comments No Sex and Gender Information Value Date Recorded Sex Assigned at Not on file Legal Sex Female 1:22 AM SUPERVISOR FORMING AND TEMPERING Gender Identity Not on file Sexual Orientation Not on file Last Filed Vital Signs Vital Sign Reading Time Taken Comments Blood Pressure 110/84 11/30/2024 10:55 AM SUPERVISOR [employer]MING AND TEMPERING Pulse 97 11/30/2024 10:55 AM SUPERVIS[employer]MING [employer] TEMPERING Temperature 37 ??C (98.6 ??F) 11/30/2024 10: 55 AM SUPERVISOR [employer]MING [employer] TEMPERING Respiratory Rate 16 11/30/2024 10:5 5 AM SUPERVIS[employer]MING [employer] TEMPERING Oxygen Saturation 96% 11/30/2024 10: 55 AM SUPERVIS[employer]MING [employer] TEMPERING Inhaled Oxygen Concentration - - Weight 113.8 kg (250 lb 12.8 oz) 2024 10:55 AM SUPERVISOR [employer]MING [employer] TEMPERING Height 165.1 cm (5' 5 ) 11/30/2024 10:5 5 AM SUPERVIS[employer]MING [employer] TEMPERING Body Mass Index 41.74 11/30/2024 10:55 AM SUPERVISOR [employer]MING [employer] TEMPERING Plan of Treatment Not on file Procedures Procedure Name Priority Date/Time Associated Diagnosis Comments POC INFLUENZA A/B, COVID-19 ANTIGEN Routine 11/30/2024 11:04 AM SUPERVISOR [employer]MING [employer] TEMPERING Sore throat POCT RAPID STREP Routine 11/30/2024 11:0 4 AM SUPERVISOR [employer]MING [employer] TEMPERING Sore throat from Last 3 Months Results * POC Influenza A/B, COVID-19 antigen (11/30/2024 11:04 AM SUPERVISOR FORMING [employer] TEMPERING) Influenza A Ag, POC Negative Negative [facility] Influenza B Ag, POC Negative Negative [facility] COVID-19 Ag POC Presumptive Negative Presumptive Negative, Invalid [facility] Nasal 11/30/2024 11:0 4 AM SUPERVISOR [employer]MING [employer] TEMPERING Glenny Okeefe NP POINT OF CARE TEST ORDERAB LES Final Result Performing Organization Address [facility]/State/ZIP Co de Phone Number [facility] [address] [place] [address], [id number] * POCT rapid strep A (11/30/2024 11:04 AM SUPERVISOR FORMING [employer] TEMPERING) Rapid Strep A, POC Negative Negative Swab 11/30/2024 11:0 4 AM SUPERVISOR FORMING [employer] TEMPERING Glenny Okeefe NP POINT OF CARE TEST ORDERAB LES Final Result from Last 3 Months [address] [place] [id number] [facility] CHOICE PLUS [place] [id number] Care Teams Supervisor Malted Milk Relationship Specialty Start Date End Date Devin Jackson DO PCP - General Internal Medicine 03/07/22
--- OUTSIDE RECORDS SUMMARY | 2024-12-04 04:13 | XMS_ITS | Encounter Summary ---
Author Organization [facility] Address [address] [place] [address] Care Team Providers Care Tap Dancer Name Role Phone Unavailable Primary Care Provider Unavailabl e Reason for Visit * Reason Onset Date Comments Referral 03/06/2023 Encounter Details Date Type Department Care Team (Late st Contact Info) Description 03/06/2023 Telephone [facility] - Rheumatology [address], [address] [place] [address] Keren Teixeira MD [address] [place] [address] Referral Social History Tobacco Use Types Packs/Day Years Used Date Smoking Tobacco: Never Assessed Sex and Gender Information Value Date Recorded Sex Assigned at Not on file Gender Identity Not on file Sexual Orientation Not on file documented as of this encounter Miscellaneous Notes * Telephone Encounter - Fany Bartlett LPN - 03/07/2023 8:19 AM CDT Called patient as a referral to [facility] Rheumatology from [facility] for + lab results. No answer so M asking for a callback . Call #2. Patient called back and scheduled SUPERVISOR ELECTRONIC TESTING appt with Dr Texieira on 03/24/23. * Telephone Encounter - Michael Michael RN - 03/06/2023 12:57 PM CDT Received a faxed referral from [facility] requesting patient be evaluated by rheumatology for + lab results. Patient called, no answer, LMOR for patient to contact the office back in order to schedule a SUPERVISOR ELECTRONIC TESTING appointment with either Dr. Almazan, Dr. Teixeira or Dr. Herman. Called referral x1. documented in this encounter Plan of Treatment Not on file documented as of this encounter Visit Diagnoses Not on filedocumented in this encounter
--- OUTSIDE RECORDS SUMMARY | 2024-12-04 04:13 | XMS_ITS | Encounter Summary ---
Author Organization [facility] Address [address] [place] [address] Care Team Providers Care Truck Supervisor Name Role Phone Unavailable Primary Care Provider Unavailabl e Reason for Visit * Reason Onset Date Comments Results 04/14/2023 Encounter Details Date Type Department Care Team (Late st Contact Info) Description 04/14/2023 Telephone [facility] - Rheumatology [address] [place] [address] Fatemeh Vincent MA Results Social History Tobacco Use Types Packs/Day Years [...] encounter Miscellaneous Notes * Telephone Encounter - Michael Michael RN - 04/17/2023 1:50 PM CDT Patient returned call and scheduled for follow-up lab discussion 04/25/2023. * Telephone Encounter - Michael Michael RN - 04/17/2023 11:10 AM CDT Called patient, no answer, LMOR for patient to inform of Dr. Teixeira's preference to schedule follow-up appointment to discuss results. Called x 1 and [employer] message sent. * Telephone Encounter - Keren Teixeira MD - 04/17/2023 9:50 AM CDT I do not discuss labs on the phone to avoid confusion We will discuss with the next visit She can come sooner if she wants If she does not want to follow-up, please fax results to her PCP and she can make appointment with PCP Thank you * Telephone Encounter - Michael Michael RN - 04/14/2023 3:36 PM CDT Will follow-up with Dr. Teixeira in regards to labs. Called patient, no answer, LMOR for patient to inform that Dr. Teixeira will review labs when back in the office. Called and [employer] message sent. * Telephone Encounter - Fatemeh Vincent MA - 04/14/2023 2:08 PM CDT [phone] Pt called for lab results documented in this encounter Plan of Treatment Not on file documented as of this encounter Visit Diagnoses Not on filedocumented in this encounter
--- OUTSIDE RECORDS SUMMARY | 2024-12-04 04:13 | XMS_ITS | Encounter Summary ---
Author Organization [facility] Healthcare Address [address] [place] [id number] Care Team Providers Care President Of [place] Name Role Phone Devin Jackson DO Primary Care Provider [phone] Encounter Details Date Type Department Care Team (Latest Contact Info) Description 03/17/2024 2:44 PM CDT - 03/17/2024 11:59 PM CDT Hospital Encounter [address] [address] Close exposure to COVID-19 virus; Acute gastroenteritis Discharge Disposition: Discharge to home or self care Social History Tobacco Use Types Packs/Day Years Used Date Smoking Tobacco: Never Smokeless Tobacco: Never Comments No Sex and Gender Information Value Date Recorded Sex Assigned at Not on file Legal Sex Female 1:22 AM ZONE MAINTENANCE TECHNICIAN Gender Identity Not on file Sexual Orientation Not on file documented as of this encounter Medications at Time of Discharge spironolactone (ALDACTONE) 100 mg tablet 1 tablet (100 mg total) 02/03/2024 SUMAtriptan (IMITREX) 25 mg tablet TAKE 1 TAB AT ONSET OF HEADACHE IF NO RELIEF MAY REPEAT 1 TAB IN AT LEAST 2 HRS MAX 4 TABS/24GHR 05/06/2022 ondansetron ODT (ZOFRAN-ODT) 4 mg disintegrating tabletIndications:Ac oliver gastroenteritis Take 1 tablet (4 mg total) by mouth every 8 (eight) hours as needed for nausea or vomiting for up to 3 days 9 tablet 03/17/2024 03/20/20 azithromycin (ZITHROMAX) 250 mg tabletIndications:Ac oliver nasopharyngitis Take 2 tablets the first day, then 1 tablet daily for 4 days. 6 tablet 03/07/2022 08/24/20 24 buPROPion XL (WELLBUTRIN XL) 300 mg 24 hr tablet Take 1 tablet (300 mg total) by mouth every morning 02/18/2022 08/24/20 24 busPIRone (BUSPAR) 10 mg tablet Take 2 tablets (20 mg total) by mouth 2 (two) times a day 02/28/2022 08/24/20 24 fluticasone propionate (FLONASE) 50 mcg/actuation nasal spray USE 1 SPRAY INTO EACH NOSTRIL EVERY 12 HOURS 04/05/2022 08/24/20 24 omeprazole (PriLOSEC) 20 mg capsule 1 capsule (20 mg total) 01/15/2024 08/24/20 24 sertraline (ZOLOFT) 25 mg tablet 25 MG ORALLY DAILY TAKE DAILY X 1 WEEK AND THEN INCREASE TO 50 MG DAILY. 06/21/2022 08/24/20 24 traZODone (DESYREL) 50 mg tablet Take 50 mg by mouth nightly 12/31/2021 08/24/20 24 triamcinolone (KENALOG) 0.1 % cream PLEASE SEE ATTACHED FOR DETAILED DIRECTIONS 02/04/2024 08/24/20 24 Vestura, 28, 3-0.02 mg per tablet 06/25/2022 08/24/20 24 documented as of this encounter Discharge Disposition Disposition Code Departure Means Destination Discharge to home or self care documented in this encounter Plan of Treatment Not on file documented as of this encounter Procedures Procedure Name Priority Date/Time Associated Diagnosis Comments INFLUENZA A/B, RSV, AND COVID-19 PCR Routine 03/17/2024 2:44 PM CDT Close exposure to COVID-19 virus Acute gastroenteritis documented in this encounter Results * Influenza A/B, RSV, and COVID-19 PCR Nasopharyngeal (03/17/2024 2:44 PM CDT) COVID-19 RNA Negative Negative [facility] Influenza A RNA Negative Negative [facility] Influenza B RNA Negative Negative [facility] RSV RNA Negative Negative [facility] Comment: Interpretive data: Testing performed by [facility]. This test is performed using the Cepheid Xpert Xpress CoV-2/Flu/RSV plus assay. This is a multiplex, real-time reverse transcriptase PCR assay intended for the qualitative detection of nucleic acid from SARS-CoV-2, influenza A, influenza B, and respiratory syncytial virus. This assay has been cleared by the [place] Food and Drug administration. The performance characteristics have been verified by the [facility]. ??Results must be considered in the clinical context, and a negative result does not rule out infection. Interpretive Data last revised 2023 Nasopharyngeal 03/17/2024 2: 44 PM CDT 03/17/2024 5:28 PM CDT [facility] 03/17/2024 6:42 PM CDT Is the Patient experiencing symptoms consistent with COVID?->Yes Reason for testing?->Symptomatic Is the patient experiencing any symptoms consistent with COVID (eg. Fever, cough, shortness of breath)?->Yes Veronica Kelly NP LAB MICROBIOLOGY - [facility] Final Result [facility] [id number] [address] Department of Laboratories [place] [phone] documented in this encounter Visit Diagnoses Diagnosis Close exposure to COVID-19 virus Acute gastroenteritis Other and unspecified noninfectious gastroenteritis and colitis documented in this encounter Additional Health Concerns Infection Onset Date Last Indicated Resolved Time COVID: Suspected 03/17/2024 03/17/2024 03/17/2024 6:43 PM CDT documented as of this encounter Care Teams President Of The [place] Relationship Specialty Start Date End Date Devin Jackson DO PCP - General Internal Medicine 03/07/22 documented as of this encounter
--- OUTSIDE RECORDS SUMMARY | 2024-12-04 04:13 | XMS_ITS | Encounter Summary ---
Author Organization [facility] Address [address] [place] [address] Care Team Providers Care Airline Dispatcher Name Role Phone Devin Jackson DO Primary Care Provider [phone] Reason for Visit * Reason Comments Follow-up Results Encounter Details Date Type Department Care Team (Late st Contact Info) Description 04/25/2023 2:40 PM CDT Office Visit [facility] - Rheumatology [address], [address] [place] [address] Keren Teixeira MD [address] [place] [address] Positive JULES (antinuclear antibody) (Primary Dx); Rash; Other fatigue; Sedimentation rate elevation; CRP elevated; Hypoalbuminemia; Numbness Social History Tobacco Use Types Packs/Day Years Used Date Smoking Tobacco: Never Smokeless Tobacco: Never Tobacco Cessation:Counseling Given: Not Answered Alcohol Use Standard Drinks/Week Comments Yes 0 (1 standard drink = 0.6 oz pur e alcohol) Sex and Gender Information Value Date Recorded Sex Assigned at Not on file Gender Identity Not on file Sexual Orientation Not on file documented as of this encounter Last Filed Vital Signs Vital Sign Reading Time Taken Comments Blood Pressure 120/60 04/25/2023 2:39 PM CDT Pulse 87 04/25/2023 2:39 PM CDT Temperature - - Respiratory Rate - - Oxygen Saturation 98% 04/25/2023 2:39 PM CDT Inhaled Oxygen Concentration - - Weight 110.3 kg (243 lb 3.2 oz) 04/25/2023 2:39 PM CDT Height - - Body Mass Index - - documented in this encounter Patient Instructions * Patient Instructions* Keren Teixeira MD - 04/25/2023 3:02 PM CDT Labs at [employer] Please read information on hydroxychloroquine, azathioprine Please talk to your primary care physician about sending you to a neurologist regarding numbness ofher hands and the feet Call us for seizures, alopecia (hair loss), malar rash(rash on face), rash on going out in sun, tightening of skin, recurrent multiple painless oral,nasal or genital ulcers, enlarged lymph nodes, enlarged liver or spleen, raynauds, pleurisy(sharp pain in chest on taking a deep breath), excessive fat igue,increased joint pain or swelling or muscle pain. Recommend keeping ideal weight and daily stretching. Water therapy if possible. documented in this encounter Progress Notes * Keren Teixeira MD - 04/25/2023 2:41 PM CDT Initial Rheumatology Office Note Date of Visit: April 25, 2023 Patient's Primary Care Physician: Devin Jackson DO Referring physician: PCP Chief Complaint/History of Present Illness Subjective Patient is here for 1st follow-up regarding positive JULES. She had labs She is here for results She is complaining of numbness of the hands and the feet read she also has fatigue and redness of the face intermittently. She recently had sinus surgery which went well, this was for septal deviation Initial HPI Sabiha Montes is a 22 year old female here sent by PCP regarding positive JULES This was done regarding fatigue. She has been having fatigue for the last few years, it is getting worse. She also noticed low-grade fever for the last month. Denies any chills, enlarged lymph node,shortness of breath UTI diarrhea Has noticed some rash in the left upper arm in the last few months, she supposed to see an acupuncture physician tomorrow. It is red and raised and look like hives when it is present. 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 Previous Report(s) Reviewed: I reviewed patient's past medical history, past surgical history,family history,allergies, social history, OBGYN history in females in [facility]. They are noted as follows. No past medical history on file. No past surgical history on file. No family history on file. No Known Allergies Social History Socioeconomic History ??? Marital status: Single Spouse name: Not on file ??? Number of children: Not on file ??? Years of education: Not on file ??? Highest education level: Not on file Occupational History ??? Not on file Tobacco Use ??? Smoking status: Never ??? Smokeless tobacco: Never Vaping Use ??? Vaping status: Not on file Substance and Sexual Activity ??? Alcohol use: Yes ??? Drug use: Never ??? Sexual activity: Not on file Other Topics Concern ??? Not on file Social History Narrative ??? Not on file Social Determinants of Health Financial Resource Strain: Not on file Food Insecurity: Not on file Transportation Needs: Not on file Stress: Not on file Housing Stability: Not on file OB History No obstetric history on file. Review of Systems Positive for fatigue, low-grade fever, rash Negative for fever more than 101, severe headache ear pain deafness sudden blindness, dry eyes or dry mouth multiple mucosal ulcers, malar rash Raynaud's phenomena, seizures numbness tingling weakness of the limbs or stroke, anxiety depression, blood in the urine or UTI, dysphagia, blood in the stool, diabetes thyroid parathyroid problems, shortness of breath the hemoptysis, joint pain swelling redness warmth muscle pain neck low or midback pain Objective Objective: BP 120/60 Pulse 87 Wt 110.3 kg (243 lb 3.2 oz) SpO2 98% GENERAL: ?no distress , overweight HEENT: ??No obvious abnormality or lesion SKIN: ??No rash or vasculitic lesion visible ?? NEURO: ?nonfocal examination ?PSYCH: ?alert and oriented into 3 EXTREMITIES: ?no edema clubbing or cyanosis MUSCULOSKELETAL:?? No tenderness swelling redness warmth of any joints, all of the joint showed full range of motion, no spinal tenderness Lab Review Labs ordered by me: JULES positive, 1:80 titer speckled pattern. Sed rate elevated at 42, CRP elevated at 30, normal values less than 10. Hypoalbuminemia Rest of the labs were normal/negative Previous labs: I do not have the results of the positive JULES. She says she had celiac testing done which was reportedly negative Assessment Assessment: Positive JULES (antinuclear antibody) - Plan: C-REACTIVE PROTEIN, ERYTHROCYTE SEDIMENTATION RATE Rash Other fatigue Sedimentation rate elevation - Plan: C-REACTIVE PROTEIN, ERYTHROCYTE SEDIMENTATION RATE CRP elevated - Plan: C-REACTIVE PROTEIN, ERYTHROCYTE SEDIMENTATION RATE Hypoalbuminemia Numbness Patient has positive JULES and fatigue, low-grade fever and rash I discussed differential diagnosis of positive JULES in detail, pamphlet given This includes no clinical significance, autoimmune disease like [...] We will repeat sed rate and CRP. If it is better, we will observe her If it remains high, she may have beginning of autoimmune disease We discuss treatment of autoimmune diseases and give pamphlets. We do not want to start any medicine unless there is reasonable evidence of autoimmune disease Most of the pain seems noninflammatory. Advised daily stretching, weight loss Advised to talk to PCP about referring her to neurologist due to numbness tingling to rule out neurological disorders Plan Plan: There are no discontinued medications. Current Outpatient Medications Medication Sig Dispense Refill ??? Azelastine HCl 137 MCG/SPRAY SOLN SPRAY 1 SPRAY INTO EACH NOSTRIL EVERY 12 HOURS ??? cefUROXime (Ceftin) 250 MG tablet Take 1 (one) tablet by mouth 2 times daily ??? fluticasone propionate (Flonase) 50 MCG/ACT nasal spray USE 1 SPRAY INTO EACH NOSTRIL EVERY 12 HOURS ??? ketoconazole (Nizoral) 2 % shampoo SHAMPOO SCALP 3 TIMES A WEEK No current facility-administered medications for this visit. Orders Placed This Encounter ??? C-REACTIVE PROTEIN Order Specific Question: Release to patient Answer: Immediate ??? ERYTHROCYTE SEDIMENTATION RATE Order Specific Question: Release to patient Answer: Immediate Call sooner for any problems. Return in about 3 months (around 07/26/2023). Cc: PCP documented in this encounter Plan of Treatment Not on file documented as of this encounter Procedures Procedure Name Priority Date/Time Associated Diagnosis Comments C-REACTIVE PROTEIN Routine 05/02/2023 2: 01 PM CDT Positive JULES (antinuclear antibody) Sedimentation rate elevation CRP elevated ERYTHROCYTE SEDIMENTATION RATE Routine 05/02/2023 2:01 PM CDT Positive JULES (antinuclear antibody) Sedimentation rate elevation CRP elevated documented in this encounter Results * ERYTHROCYTE SEDIMENTATION RATE (05/02/2023 2:01 PM CDT) Erythrocyte Sedimentation Rate Westergren 29 0 - 32 mm/hr [facility] ACCOUNT BILL Blood BLOOD SPECIMEN / Unknown 05/02/2023 2:01 PM CDT 05/02/2023 Narrative Resulting Agency Comment Lab Testing performed at: [facility] [address] ??[facility]ly [facility] [id number] Keren Teixeira MD LAB - HEMATOLOGY ORD ERABLES [facility] ACCOUNT BILL [address] [place] [address] * (ABNORMAL) C-REACTIVE PROTEIN (05/02/2023 2:01 PM CDT) C-Reactive Protein 14(H) 0 - 10 mg/L [facility] ACCOUNT BILL Blood BLOOD SPECIMEN / Unknown 05/02/2023 2:01 PM CDT 05/02/2023 Narrative Resulting Agency Comment Lab Testing performed at: [facility] [employer] [address] ??Formerly [facility] [id number] Keren Teixeira MD LAB - CHEMISTRY ORDE RABLES [facility] ACCOUNT BILL [address] [place] [address] documented in this encounter Visit Diagnoses Diagnosis Positive JULES (antinuclear antibody)- Primary Other and unspecified nonspecific immunological findings Rash Rash and other nonspecific skin eruption Other fatigue Sedimentation rate elevation Elevated sedimentation rate CRP elevated Elevated C-reactive protein (CRP) Hypoalbuminemia Other disorders of plasma protein metabolism Numbness Disturbance of skin sensation documented in this encounter Care Teams Airline Dispatcher Relationship Specialty Start Date End Date Devin Jackson DO PCP - General Internal Medicine 04/25/23 documented as of this encounter
--- OUTSIDE RECORDS SUMMARY | 2024-12-04 04:13 | XMS_ITS | Encounter Summary ---
Author Organization [facility] Address [address] [place] [id number] Care Team Providers Care Vocal Teacher Name Role Phone Devin Jackson DO Primary Care Provider [phone] Reason for Visit * Reason Comments Sore Throat sore throat, nasal c ongestion, headache, symptom onset 07/26/2023. Patient has tried Zyrtec. Encounter Details Date Type Department Care Team (Late st Contact Info) Description 07/30/2023 9:00 AM CDT Office Visit [facility] [address] [place] [address] Jes Whitehead NP [address] [place] [address] COVID-19 (Primary Dx); Sore throat Social History Tobacco Use Types Packs/Day Years Used Date Smoking Tobacco: Never Smokeless Tobacco: Never Comments No Sex and Gender Information Value Date Recorded Sex Assigned at Not on file Legal Sex Female 1:22 AM [employer]LE [employer] Gender Identity Not on file Sexual Orientation Not on file documented as of this encounter Last Filed Vital Signs Vital Sign Reading Time Taken Comments Blood Pressure 120/86 07/30/2023 8:58 AM CDT Pulse 104 07/30/2023 8:58 AM CDT Temperature 36.4 ??C (97.5 ??F) 07/30/2023 8:58 AM CD T Respiratory Rate 16 07/30/2023 8:58 AM CDT Oxygen Saturation 99% 07/30/2023 8:58 AM CDT Inhaled Oxygen Concentration - - Weight 112.2 kg (247 lb 6.4 oz) 07/30/2023 8:58 AM CDT Height 165.1 cm (5' 5 ) 07/30/2023 8:58 AM CDT Body Mass Index 41.17 07/30/2023 8:58 AM CDT documented in this encounter Patient Instructions * Patient Instructions* Jes Whitehead NP - 07/30/2023 9:00 AM CDT The rapid COVID test performed today in clinic was positive. The following are recommendations for treating the symptoms related to COVID19. What is the difference between Influenza (Flu) and COVID-19? Influenza (Flu) and COVID-19 are both contagious respiratory illnesses, but they are caused by different viruses. COVID-19 is caused by infection with a new coronavirus (called SARS-CoV-2) and flu is caused by infection with influenza viruses. There are some gibbs differences between flu and COVID-19. COVID-19 seems to spread more easily than flu and causes more serious illnesses in some people. It can also take longer before people show symptoms and people can be contagious for longer. The best way to prevent infection is to avoid being exposed to the virus. Because some of the symptoms of flu and COVID-19 are similar, it may be hard to tell the difference between them based on symptoms alone, and testing may be needed to help confirm a diagnosis.While more is learned every day, there is still a lot that is unknown about COVID-19 and the virus that causes it. Your appetite may be poor, so a light diet is ok. Stay well hydrated by drinking 6 to 8 glasses of fluids per day (water, soft drinks, juices, tea, or soup). Extra fluids will help loosen secretions in the nose and lungs. Steps to help prevent the spread of COVID-19 if you are sick If you are sick with COVID-19 or think you might have COVID-19, follow the steps below to care for yourself and to help protect other people in your home and community. Stay home except to get medical care Most people with COVID-19 have mild illness and are able to recover at home without medical care. Do not leave your home, except to get medical care. Do not visit public areas. Take care of yourself. Get rest and stay hydrated. Take rbak-fva-nqbcing medicines to help you feelbetter. Stay in touch with your doctor. Call before you get medical care. Be sure to get care if you have trouble breathing, or have any other emergency warning signs, or if you think it is an emergency. Avoid using public transportation, ride-sharing, or taxis. Monitor your symptoms Symptoms of COVID-19 include fever, cough, shortness of breath or difficulty breathing, fatigue, muscle or body aches, headache, new loss of taste or smell, sore throat, congestion, runny nose, nausea, vomiting, or diarrhea. When to Seek Medical Attention If you develop emergency warning signs for COVID-19 get medical attention immediately. Emergency warning signs include*: Trouble breathing Persistent pain or pressure in the chest New confusion or inability to arouse Bluish lips or face *This list is not all inclusive. Please consult your medical provider for any other symptoms that are severe or concerning. Call 911 if you have a medical emergency: If you have a medical emergency and need to call 911, notify the caltrans equipment operator that you have or think you might have, COVID-19. If possible, put on a facemask before medical help arrives. Separate yourself from other people in your home, this is known as home isolation As much as possible, you should stay away from other people and pets in your home. You should stay in a specific ???sick room?? if possible. Use a separate bathroom, if available. If you need to be around other people or animals in or outside of the home, wear a mask For more information on sharing close living quarters with someone who is sick visit https://www.cdc .gov/coronavirus/2019-ncov/rwlnf-uwlw-lpcovw/apdoch-ct-mnptg-quarters.html For more information on COVID-19 and pets visit https://www.cdc.gov/coronavirus/2019-ncov/faq.html Call ahead before visiting your doctor If you have a medical appointment that cannot be postponed, call your doctor???s office, and tell them you have or may have COVID-19. This will help the office protect themselves and other patients. The CDC and local health departments recommend that you isolate yourself to prevent any potential spread of the virus until you have the results of your test. If you develop worsening symptoms of respiratory distress, call 911 or go to the nearest emergency room. What does self-isolation mean? - Remain at home or in a comparable setting - No public activities - You should not perform any public travel Do MY close contacts need to be isolated? - YES they should self-isolate until you have the results of your test. When will my results be available? - There is not a rapid test available at this time. It may take several days to get the results of this test. If you have MyChart, the results will be available to you at the same time as we receive them. Regardless, we will call every patient with positive or negative results. The [facility] Department will be reaching out to all patients who have a positive test for further discussion and monitoring. The CDC and [facility] have much more information available online. The websites are: - cdc.gov Additional resources around self-isolation and how to prevent spread are at: cdc.gov/coronavirus/2019-ncov/about/index.html If symptoms are severe, rest at home for the first 2 to 3 days. When you resume activity, don't letyourself get too tired. Don't smoke. If you need help stopping, talk with your healthcare provider. Avoid being exposed to cigarette smoke (yours or others???). You may use acetaminophen to control pain and fever, unless another medicine was prescribed. If youhave chronic liver disease, have ever had a stomach ulcer or gastrointestinal bleeding talk with your healthcare provider before using these medicines. Aspirin should never be given to anyone under 18 years of age who is ill with a viral infection or fever. It may cause severe liver or brain damage. Your appetite may be poor, so a light diet is fine. Stay well hydrated by drinking 6 to 8 glasses of fluids per day (water, soft drinks, juices, tea, or soup). Extra fluids will help loosen secretions in the nose and lungs. Nqhx-nkk-mavsrjq cold medicines will not shorten the length of time you???re sick, but they may be helpful for the following symptoms: cough, sore throat, and nasal and sinus congestion. If you take prescription medicines, ask your healthcare provider or pharmacist which alao-rms-ygzesmi medicines are safe to use. (Note: Don't use decongestants if you have high blood pressure.) The following may help you feel better: Over the counter antihistamine such as loratadine (Claritin) or cetirizine (Zyrtec) to reduce secretions. The D formula includes pseudoephedrine and can be helpful as a decongestant but should not be used if you have a history of high blood pressure. Tessalon if prescribed for cough. Albuterol inhaler if prescribed for shortness of breath, cough, or wheezing. Use you albuterol inhaler or nebulizer every 4 hours for the next 48 hours, then every 4-6 hours as needed. Don't smoke and avoid second hand smoke. Suck on cough drops or hard candies to soothe a dry or sore throat. Cough drops won't stop your cough, but they may make your throat feel better. Mucinex to thin secretions Breathe moist air from a humidifier, a hot shower, or a sink filled with hot water. The heat and moisture can help keep mucus in your airways moist so you can cough it out easily. Use nonprescription medicine, such as acetaminophen, ibuprofen, or aspirin, to relieve fever and body aches. Don't give aspirin to anyone younger than age 20. Rest more than usual. Drink plenty of fluids so that you do not become dehydrated and to keep mucous thin. Use an zzfi-fab-fnbeinv cough medicine such as Delsym or Robitussin. (Cough medicines may not be safe for young children or for people who have certain health problems.) Cough suppressants may help you to stop coughing. Expectorants, such as Mucinex, can help you bring up mucus when you cough. Follow up with primary care physician in 1 week, or sooner if symptoms worsen. If You Test Positive for COVID-19 (Isolate) Everyone, regardless of vaccination status. Stay home for 5 days. If you have no symptoms or your symptoms are resolving after 5 days, you can leave your house. Continue to wear a mask around others for 5 additional days. If you have a fever, continue to stay home until your fever resolves. For those that were exposed do not have to get COVID tested unless showing symptoms Out of isolation on 08/01/2023. Wear a mask around others for 5 additional days documented in this encounter Progress Notes * Jes Whitehead NP - 07/30/2023 9:00 AM CDT Images from the original note were not included. Subjective/Objective Patient ID: Sabiha Montes is a 23 y.o. female. Chief Complaint Sore Throat (sore throat, nasal congestion, headache, symptom onset 07/26/2023. Patient has tried Zyrtec. ) Patient presents to [facility] for sore throat, nasal congestion, and headaches x4 days. She states she was recently exposed to COVID by her coworkers. She has been taking OTC Zyrtec for her symptoms. She denies any fevers, chest pain, or shortness of breath. Sore Throat Associated symptoms include congestion and headaches. Pertinent negatives include no coughing, diarrhea, ear discharge, ear pain, shortness of breath or vomiting. Review of Systems Constitutional: Negative for activity change, appetite change, fatigue and fever. HENT: Positive for congestion and sore throat. Negative for ear discharge, ear pain, postnasal drip, rhinorrhea and sinus pressure. Eyes: Negative for discharge. Respiratory: Negative for cough and shortness of breath. Gastrointestinal: Negative for diarrhea, nausea and vomiting. Musculoskeletal: Negative for myalgias. Skin: Negative for rash. Neurological: Positive for headaches. Hematological: Negative for adenopathy. Physical Exam Vitals reviewed. Constitutional: General: She is not in acute distress. Appearance: Normal appearance. She is well-developed. She is not ill-appearing. HENT: Head: Normocephalic. Right Ear: Tympanic membrane, ear canal and external ear normal. Left Ear: Tympanic membrane, ear canal and external ear normal. Nose: No congestion or rhinorrhea. Right Sinus: No maxillary sinus tenderness or frontal sinus tenderness. Left Sinus: No maxillary sinus tenderness or frontal sinus tenderness. Mouth/Throat: Lips: [place]. Mouth: Mucous membranes are moist. Pharynx: Oropharynx is clear. Posterior oropharyngeal erythema present. Eyes: General: Right eye: No discharge. Left eye: No discharge. Conjunctiva/sclera: Conjunctivae normal. Cardiovascular: Rate and Rhythm: Normal rate and regular rhythm. Pulmonary: Effort: Pulmonary effort is normal. No respiratory distress. Breath sounds: Normal breath sounds and air entry. Abdominal: Tenderness: There is no abdominal tenderness. Musculoskeletal: General: Normal range of motion. Cervical back: Neck supple. Lymphadenopathy: Head: Right side of head: No tonsillar adenopathy. Left side of head: No tonsillar adenopathy. Cervical: No cervical adenopathy. Skin: General: Skin is warm and dry. Findings: No rash. Neurological: Mental Status: She is alert and oriented to person, place, and time. Mental status is at baseline. Psychiatric: Attention and Perception: Attention normal. Mood and Affect: Mood normal. Behavior: Behavior normal. Behavior is cooperative. Thought Content: Thought content normal. Judgment: Judgment normal. Vitals: 07/30/23 0858 BP: 120/86 Pulse: 104 Resp: 16 Temp: 36.4 ??C (97.5 ??F) TempSrc: Tympanic SpO2: 99% Weight: 112.2 kg (247 lb 6.4 oz) Height: 165.1 cm (5' 5 ) Assessment/Plan Lungs clear on exam. SpO2 99% on room air COVID positive Rapid strep negative Discussed isolation guidelines Discussed Paxlovid. Patient declined at this time Continue with Zyrtec daily Tylenol/Motrin as needed for pain Discussed the importance of increasing fluid intake and rest Follow-up with PCP or return to clinic if symptoms persist longer than 10 days or sooner if symptoms worsen Go to the ER if you experience fevers that do not improve with antipyretics, chest pain, or shortness of breath Diagnoses and all orders for this visit: COVID-19 (Primary) Sore throat - COVID-19 POC - POCT rapid strep A Recent Results (from the past 4 hour(s)) COVID-19 POC Collection Time: 07/30/23 8:59 AM Result Value Ref Range COVID-19 Ag POC (BD Veritor) Positive (A) Presumptive Negative, Invalid POCT rapid strep A Collection Time: 07/30/23 9:09 AM Result Value Ref Range Rapid Strep A, POC Negative Negative Patient Education: Disposition Treatment plan including expectations, follow up, and return precautions discussed with patient/parent, verbalizes understanding. Medication dosage, use, and potential adverse reactions discussed with patient/parent. Advised to follow up with PCP if symptoms do not resolve as expected or sooner if condition worsens. Signs/symptoms warranting ER evaluation reviewed. Patient and/or guardian was given an opportunity to ask questions, questions answered. Jse Whitehead NP documented in this encounter Plan of Treatment Not on file documented as of this encounter Procedures Procedure Name Priority Date/Time Associated Diagnosis Comments POCT RAPID STREP Routine 07/30/2023 9:09 AM CDT Sore throat COVID-19 POC Routine 07/30/2023 8:59 AM CDT Sore throat documented in this encounter Results * POCT rapid strep A (07/30/2023 9:09 AM CDT) Rapid Strep A, POC Negative Negative Swab 07/30/2023 9:09 AM CDT Jes Whitehead NP POINT OF CARE TEST ORDERABLES Fi nal Result * (ABNORMAL) COVID-19 POC (07/30/2023 8:59 AM CDT) COVID-19 Ag POC (BD Veritor) Positive( A) Presumptive Negative, Invalid [facility] [place] Nasal 07/30/2023 8:59 AM CDT Jes Whitehead NP POINT OF CARE TEST ORDERABLES Fi nal Result [facility] [address] [place] [address] documented in this encounter Visit Diagnoses Diagnosis COVID-19- Primary Sore throat Acute pharyngitis documented in this encounter Additional Health Concerns Infection Onset Date Last Indicated Resolved Time COVID: Suspected 07/30/2023 07/30/2023 07/30/2023 9:14 AM CDT COVID19 07/30/2023 07/30/2023 08/09/2023 3:05 AM CDT documented as of this encounter Care Teams Vocal Teacher Relationship Specialty Start Date End Date Devin Jackson DO PCP - General Internal Medicine 03/07/22 documented as of this encounter
--- OUTSIDE RECORDS SUMMARY | 2024-12-04 04:13 | XMS_ITS | Encounter Summary ---
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 Still problematicZofran taken for her Sx. 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 Gender Identity Not on file Sexual Orientation Not on file documented as of this encounter Last Filed Vital Signs Vital Sign Reading Time Taken Comments Blood Pressure 112/82 03/17/2024 2:25 PM CDT Pulse 96 03/17/2024 2:44 PM CDT Temperature 36.5 ??C (97.7 ??F) 03/17/2024 2:25 PM CD T Respiratory Rate 18 03/17/2024 2:25 PM CDT Oxygen Saturation 98% 03/17/2024 2:44 PM CDT Inhaled Oxygen Concentration - - Weight 117.5 kg (259 lb) 03/17/2024 2:25 PM CDT Height 165.1 cm (5' 5 ) 03/17/2024 2:25 PM CDT Body Mass Index 43.1 03/17/2024 2:25 PM CDT documented in this encounter Patient Instructions * Patient Instructions* Veronica Kelly NP - 03/17/2024 2:15 PM CDT If you have no improvement or worsening of your symptoms, please follow up with your Primary Care Provider, [facility] and or Emergency Room. I strive to provide you with EXCELLENT service. You may receive a survey after your visit today. If you cannot rate your experience as EXCELLENT, please let us know how we can improve and better meet your needs. Thank you for choosing [facility]! It was my pleasure to see you today, I hope you feel better soon! Veronica Kelly MACHINE CASTINGS PLASTERER * Attachments The following attachments cannot be sent through Care Everywhere. * Gastroenteritis (Taxation Consultant) (Sing[place]an) documented in this encounter Ordered Prescriptions Prescription Sig Dispense Quantity Refills Last Filled Start Date End Date ondansetron ODT (ZOFRAN-ODT) 4 mg disintegrating tabletIndications:Acu te gastroenteritis Take 1 tablet (4 mg total) by mouth every 8 (eight) hours as needed for nausea or vomiting for up to 3 days 9 tablet 03/17/2024 4 documented in this encounter Progress Notes * Veronica Kelly NP - 03/17/2024 2:15 PM CDT Images from the original note were not included. Subjective/Objective Patient ID: Sabiha Montes is a 23 y.o. female. Chief Complaint COVID-19 EVALUATION (Exposure to covid from daycare./Vomiting and diarrhea began 12 hours ago. Still problematic/Zofran taken for her Sx.) [facility] Vomiting This is a new problem. The current episode started today. Episode frequency: 4-5 vomiting episodes today, 5-6 diarrhea episodes. The problem has been unchanged. There has been no fever. Associated symptoms include diarrhea. Pertinent negatives include no abdominal pain, chills, dizziness, fever or headaches. 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 Treatments tried:zofran, Imodium. The treatment provided mild relief. Review of Systems Constitutional: Negative for chills, diaphoresis, fatigue and fever. HENT: Negative. Respiratory: Negative. Cardiovascular: Negative. Gastrointestinal: Positive for diarrhea and vomiting. Negative for abdominal pain, constipation andnausea. Genitourinary: Negative for difficulty urinating, dysuria, flank pain, frequency, hematuria, urgency, vaginal bleeding and vaginal discharge. Musculoskeletal: Negative for back pain. Skin: Negative. Neurological: Negative for dizziness, weakness and headaches. Physical Exam Vitals and nursing note reviewed. Constitutional: General: She is awake. She is not in acute distress. Appearance: Normal appearance. She is not ill-appearing. HENT: Head: Normocephalic and atraumatic. Mouth/Throat: Lips: [place]. Mouth: Mucous membranes are moist. Pharynx: Oropharynx is clear. Uvula midline. No pharyngeal swelling, oropharyngeal exudate or posterior oropharyngeal erythema. Tonsils: No tonsillar exudate. 0 on the right. 0 on the left. Cardiovascular: Rate and Rhythm: Normal rate and regular rhythm. Heart sounds: Normal heart sounds. Pulmonary: Effort: Pulmonary effort is normal. Breath sounds: Normal breath sounds. Abdominal: General: Bowel sounds are normal. Palpations: Abdomen is soft. Tenderness: There is no abdominal tenderness. There is no guarding or rebound. Neurological: Mental Status: She is alert and oriented to person, place, and time. Gait: Gait is intact. Gait normal. Psychiatric: Mood and Affect: Mood normal. Behavior: Behavior normal. Behavior is cooperative. Vitals: 03/17/24 1425 03/17/24 1444 BP: 112/82 Pulse: 110 96 Resp: 18 Temp: 36.5 ??C (97.7 ??F) TempSrc: Temporal SpO2: 97% 98% Weight: 117.5 kg (259 lb) Height: 165.1 cm (5' 5 ) No results found. Past Medical History: Diagnosis Date Acne Anxiety Depression Insomnia There is no problem list on file for this patient. Current Outpatient Medications: busPIRone (BUSPAR) 10 mg tablet, Take 2 tablets (20 mg total) by mouth 2 (two) times a day, Disp: ,Rfl: omeprazole (PriLOSEC) 20 mg capsule, 1 capsule (20 mg total), Disp: , Rfl: spironolactone (ALDACTONE) 100 mg tablet, 1 tablet (100 mg total), Disp: , Rfl: SUMAtriptan (IMITREX) 25 mg tablet, TAKE 1 TAB AT ONSET OF HEADACHE IF NO RELIEF MAY REPEAT 1 TAB IN AT LEAST 2 HRS MAX 4 TABS/24GHR, Disp: , Rfl: triamcinolone (KENALOG) 0.1 % cream, PLEASE SEE ATTACHED FOR DETAILED DIRECTIONS, Disp: , Rfl: azithromycin (ZITHROMAX) 250 mg tablet, Take 2 tablets the first day, then 1 tablet daily for 4 days. (Patient not taking: Reported on 07/01/2022), Disp: 6 tablet, Rfl: 0 buPROPion XL (WELLBUTRIN XL) 300 mg 24 hr tablet, Take 1 tablet (300 mg total) by mouth every morning (Patient not taking: Reported on 10/27/2023), Disp: , Rfl: fluticasone propionate (FLONASE) 50 mcg/actuation nasal spray, USE 1 SPRAY INTO EACH NOSTRIL EVERY 12 HOURS (Patient not taking: Reported on 09/30/2022), Disp: , Rfl: ondansetron ODT (ZOFRAN-ODT) 4 mg disintegrating tablet, Take 1 tablet (4 mg total) by mouth every 8 (eight) hours as needed for nausea or vomiting for up to 3 days, Disp: 9 tablet, Rfl: 0 sertraline (ZOLOFT) 25 mg tablet, 25 MG ORALLY DAILY TAKE DAILY X 1 WEEK AND THEN INCREASE TO 50 MGDAILY. (Patient not taking: Reported on 10/27/2023), Disp: , Rfl: traZODone (DESYREL) 50 mg tablet, Take 50 mg by mouth nightly (Patient not taking: Reported on 09/30/2022), Disp: , Rfl: Vestura, 28, 3-0.02 mg per tablet, , Disp: , Rfl: No Known Allergies Social History Tobacco Use Smoking status: Never Smokeless tobacco: Never Substance and Sexual Activity Drug use: Not on file Sexual activity: Not on file Alcohol Use: Not on file Past Surgical History: Procedure Laterality Date ADENOIDECTOMY 02/22/2023 WISDOM TOOTH EXTRACTION Assessment/Plan Diagnoses and all orders for this visit: Acute gastroenteritis (Primary) - POC Influenza A/B, COVID-19 antigen - Influenza A/B, RSV, and COVID-19 PCR Nasopharyngeal; Future - ondansetron ODT (ZOFRAN-ODT) 4 mg disintegrating tablet; Take 1 tablet (4 mg total) by mouth every 8 (eight) hours as needed for nausea or vomiting for up to 3 days Close exposure to COVID-19 virus - POC Influenza A/B, COVID-19 antigen - Influenza A/B, RSV, and COVID-19 PCR Nasopharyngeal; Future Recent Results (from the past 4 hour(s)) POC Influenza A/B, COVID-19 antigen Collection Time: 03/17/24 2:39 PM Result Value Ref Range Influenza A Ag, POC Negative Negative Influenza B Ag, POC Negative Negative COVID-19 Ag POC Presumptive Negative Presumptive Negative, Invalid Patient requesting Zofran ODT. Patient Education: You can also try imodium (over the counter), you can take 4mg by mouth x1, then 2 mg by mouth aftereach loose stool as needed, Maximum dose is 16mg per day (do not take longer than 48 hours). If symptoms persist greater than 5 days, if you begin to have abdominal pain, and/or if you run a fever seek medical attention as soon as possible. It is important to maintain hydration (drink plenty of fluids), if no urine output in 12 hours, or unable to keep any liquids down for 24 hours, go to the emergency department. Disposition Treatment plan including expectations, follow up, and return precautions discussed with patient/parent, verbalizes understanding. Medication dosage, use, and potential adverse reactions discussed with patient/parent. Advised to follow up with PCP if symptoms do not resolve as expected or sooner if condition worsens. Signs/symptoms warranting ER evaluation reviewed. Patient and/or guardian was given an opportunity to ask questions, questions answered. Veronica Kelly NP This office note has been partially dictated using [employer] software, and as a result portions of the record may have been created with this software. Occasional wrong-word or '[id number]' substitutions may have occurred due to the inherent limitations of voice recognition software. Read the chartcarefully and recognize, using context, where substitutions have occurred. documented in this encounter Plan of Treatment Not on file documented as of this encounter Procedures Procedure Name Priority Date/Time Associated Diagnosis Comments POC INFLUENZA A/B, COVID-19 ANTIGEN Routine 03/17/2024 2:39 PM CDT Close exposure to COVID-19 virus Acute gastroenteritis documented in this encounter Results * Influenza A/B, RSV, and COVID-19 PCR Nasopharyngeal (03/17/2024 2:44 PM CDT) COVID-19 RNA Negative Negative Influenza A RNA Negative Negative [facility] Influenza B RNA Negative Negative [facility] RSV RNA Negative Negative [facility] Comment: Interpretive data: Testing performed by [facility]. This test is performed using the [employer] Xpert Xpress CoV-2/Flu/RSV plus assay. This is a multiplex, real-time reverse transcriptase PCR assay intended for the qualitative detection of nucleic acid from SARS-CoV-2, influenza A, influenza B, and respiratory syncytial virus. This assay has been cleared by the [place] Food and Drug administration. The performance characteristics have been verified by the [facility]. ??Results must be considered in the clinical context, and a negative result does not rule out infection. Interpretive Data last revised 2023 Nasopharyngeal 03/17/2024 2: 44 PM CDT 03/17/2024 5:28 PM CDT Narrative [facility] - 03/17/2024 6:42 PM CDT Is the Patient experiencing symptoms consistent with COVID?->Yes Reason for testing?->Symptomatic Is the patient experiencing any symptoms consistent with COVID (eg. Fever, cough, shortness of breath)?->Yes Veronica Kelly NP LAB MICROBIOLOGY - GENERAL ORDE ANDREW Final Result [facility] [address] Department [place] [address] CH * POC Influenza A/B, COVID-19 antigen (03/17/2024 2:39 PM CDT) Influenza A Ag, POC Negative Negative [facility] Influenza B Ag, POC Negative Negative [facility] COVID-19 Ag POC Presumptive Negative Presumptive Negative, Invalid [facility] Nasal 03/17/2024 2:39 PM CDT Veronica Kelly NP POINT OF CARE TEST ORDERABLES F inal Result [facility] [address] [place] [address] documented in this encounter Visit Diagnoses Diagnosis Acute gastroenteritis- Primary Other and unspecified noninfectious gastroenteritis and colitis Close exposure to COVID-19 virus Close exposure to COVID-19 virus Acute gastroenteritis Other and unspecified noninfectious gastroenteritis and colitis documented in this encounter Discontinued Medications Medication Sig Discontinue Reason Start Date End Da te ondansetron (ZOFRAN) 4 mg tabletIndications:Nause a vomiting and diarrhea Take 1 tablet (4 mg total) by mouth every 8 (eight) hours as needed for nausea or vomiting 12/23/2022 03/17/2024 documented as of this encounter Additional Health Concerns Infection Onset Date Last Indicated Resolved Time COVID: Suspected 03/17/2024 03/17/2024 03/17/2024 2:42 PM CDT COVID: Suspected 03/17/2024 03/17/2024 03/17/2024 6:43 PM CDT documented as of this encounter Care Teams Ultrasound Manager Relationship Specialty Start Date End Date Devin Jackson DO PCP - General Internal Medicine 03/07/22 documented as of this encounter
--- OUTSIDE RECORDS SUMMARY | 2024-12-04 04:13 | XMS_ITS | Encounter Summary ---
Author Organization [facility] Healthcare Address [address] [place] [id number] Care Team Providers Care Log Handling Equipment Operator Name Role Phone Devin Jackson DO Primary Care Provider [phone]- [phone] Reason for Visit * Reason Comments Sinus Problem Sinus congestion, fa tigue, chills, sore throat, diarrhea, diminished taste/smell and body aches, sx's started yesterday, otc zyrtec, no exp. Encounter Details Date Type Department Care Team (Late st Contact Info) Description 03/05/2024 4:00 PM CDT Office Visit 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 Gender Identity Not on file Sexual Orientation Not on file documented as of this encounter Last Filed Vital Signs Vital Sign Reading Time Taken Comments Blood Pressure 130/86 03/05/2024 4:03 PM CDT Pulse 76 03/05/2024 4:03 PM CDT Temperature 36.8 ??C (98.2 ??F) 03/05/2024 4:03 PM CD T Respiratory Rate 18 03/05/2024 4:03 PM CDT Oxygen Saturation 99% 03/05/2024 4:03 PM CDT Inhaled Oxygen Concentration - - Weight 118.8 kg (262 lb) 03/05/2024 4:03 PM CDT Height 165.1 cm (5' 5 ) 03/05/2024 4:03 PM CDT Body Mass Index 43.6 03/05/2024 4:03 PM CDT documented in this encounter Patient Instructions * Patient Instructions* June Ogden NP - 03/05/2024 4:00 PM CDT Recommendations and Information The main treatment for respiratory infections of any kind is to rest, eat healthy, and drink plentyof fluids. Cold symptoms will likely last anywhere from 7-10 days with symptoms feeling much worse on days 3-5. Antibiotic medications do not cure a cold nor do antibiotic medications help to shortenthe symptoms of viral illness. The following may help you feel better: Over the counter antihistamine such as loratadine (Claritin) or cetirizine (Zyrtec) to reduce secretions. The D formula includes pseudoephedrine and can be helpful as a decongestant but should not be used if you have a history of high blood pressure. Coricidin HBP may be taken for congestion if you have a history of high [...] they may make your throat feel better. Over the counter loratadine (Claritin) or cetirizine (Zyrtec) to reduce secretions. Mucinex to thin secretions Breathe moist air [...] and to keep mucous thin. Use an [id number]-cpx-ujdesuu cough medicine such as Delsym or Robitussin. (Cough medicines may not be safe for young children or for people who have certain health problems.) Cough suppressants may help you to stop coughing. Expectorants, such as Mucinex, can help you bring up mucus when you cough. Follow up with primary care physician in 1 week, or sooner if symptoms worsen. If you experience worsening shortness of breath or fever >101, go to the Emergency Room. documented in this encounter Progress Notes * June Ogden NP - 03/05/2024 4:00 PM CDT Images from the original note were not included. Patient ID: Sabiha Montes is a 23 y.o. female followed by Devin Jackson DO Chief Complaint Patient presents with Sinus Problem Sinus congestion, fatigue, chills, sore throat, diarrhea, diminished taste/smell and body aches, sx's started yesterday, otc zyrtec, no exp. [facility] to [facility] with complaint of chills, generalized fatigue, low- grade fever (T-max 99.9??), nasal congestion, postnasal drainage, sore throat, diarrhea, and generalized body aches, onset 03/04/2024. She denies ear pain, cough, or shortness of breath. She has been taking antihistamines with no significant improvement. Review of Systems Constitutional: Positive for chills, fatigue and fever. HENT: Positive for congestion, postnasal drip and sore throat. Negative for ear pain and rhinorrhea. Respiratory: Negative for cough, chest tightness, shortness of breath and wheezing. Cardiovascular: Negative for chest pain. Gastrointestinal: Positive for diarrhea. Musculoskeletal: Positive for myalgias. Neurological: Negative for headaches. Vitals: 03/05/24 1603 BP: 130/86 Pulse: 76 Resp: 18 Temp: 36.8 ??C (98.2 ??F) TempSrc: Temporal SpO2: 99% Weight: 118.8 kg (262 lb) Height: 165.1 cm (5' 5 ) Recent Results (from the past 24 hour(s)) POCT rapid strep A Collection Time: 03/05/24 4:29 PM Result Value Ref Range Rapid Strep A, POC Negative Negative POC Influenza A/B, COVID-19 antigen Collection Time: 03/05/24 4:29 PM Result Value Ref Range Influenza A Ag, POC Negative Negative Influenza B Ag, POC Negative Negative COVID-19 Ag POC Presumptive Negative Presumptive Negative, Invalid Physical Exam Vitals reviewed. Constitutional: Appearance: She is well-developed. HENT: Right Ear: Tympanic membrane and external ear normal. Tympanic membrane is not injected, erythematous or bulging. Left Ear: Tympanic membrane and external ear normal. Tympanic membrane is not injected, erythematous or bulging. Nose: Congestion present. Right Sinus: Maxillary sinus tenderness and frontal sinus tenderness present. Left Sinus: Maxillary sinus tenderness and frontal sinus tenderness present. Mouth/Throat: Lips: [place]. Mouth: Mucous membranes are moist. Pharynx: No posterior oropharyngeal erythema. Tonsils: No tonsillar exudate. Eyes: Conjunctiva/sclera: Conjunctivae normal. Cardiovascular: Rate and Rhythm: Normal rate and regular rhythm. Pulmonary: Effort: Pulmonary effort is normal. Breath sounds: Normal breath sounds. No wheezing or rhonchi. Musculoskeletal: General: Normal range of motion. Skin: General: Skin is warm and dry. Neurological: Mental Status: She is alert and oriented to person, place, and time. Diagnoses and all orders for this visit: Viral URI (Primary) - POCT rapid strep A - POC Influenza A/B, COVID-19 antigen Orders Placed This Encounter Procedures POCT rapid strep A POC Influenza A/B, COVID-19 antigen Order Specific Question: Is the Patient experiencing symptoms consistent with COVID? Answer: Yes Assessment/Plan Lungs CTA, O2 Saturation @99%/RA, low suspicion for pneumonia at this time. Will recommend supportive care for symptoms with f/u precautions including signs/symptoms warranting ER evaluation. Discussed home self-care, follow up needs, and signs and symptoms that warrant immediate medical attention/ER evaluation including worsening fever, increased shortness of breath, severe N/V/D, or anyother worrisome symptoms Discussed symptomatic relief of symptoms Patient Education Recommendations and Information The main treatment for respiratory infections of any kind is to rest, eat healthy, and drink plentyof fluids. Cold symptoms will likely last anywhere from 7-10 days with symptoms feeling much worse on days 3-5. Antibiotic medications do not cure a cold nor do antibiotic medications help to shortenthe symptoms of viral illness. The following may help you feel better: Over the counter antihistamine such as loratadine (Claritin) or cetirizine (Zyrtec) to reduce secretions. The D formula includes pseudoephedrine and can be helpful as a decongestant but should not be used if you have a history of high blood pressure. Coricidin HBP may be taken for congestion if you have a history of high [...] they may make your throat feel better. Over the counter loratadine (Claritin) or cetirizine (Zyrtec) to reduce secretions. Mucinex to thin secretions Breathe moist air [...] and to keep mucous thin. Use an bnlm-piv-[id number] cough medicine such as Delsym or Robitussin. (Cough medicines may not be safe for young children or for people who have certain health problems.) Cough suppressants may help you to stop coughing. Expectorants, such as Mucinex, can help you bring up mucus when you cough. Follow up with primary care physician in 1 week, or sooner if symptoms worsen. If you experience worsening shortness of breath or fever >101, go to the Emergency Room. documented in this encounter Plan of Treatment Not on file documented as of this encounter Procedures Procedure Name Priority Date/Time Associated Diagnosis Comments POC INFLUENZA A/B, COVID-19 ANTIGEN Routine 03/05/2024 4:29 PM CDT Viral URI POCT RAPID STREP Routine 03/05/2024 4:29 PM CDT Viral URI documented in this encounter Results * POC Influenza A/B, COVID-19 antigen (03/05/2024 4:29 PM CDT) Influenza A Ag, POC Negative Negative [facility] Influenza B Ag, POC Negative Negative [facility] COVID-19 Ag POC Presumptive Negative Presumptive Negative, Invalid [facility] Nasal 03/05/2024 4:29 PM CDT June Ogden NP POINT OF CARE TEST ORDER RICARDA Final Result [facility] [address] [place] [address], [facility] * POCT rapid strep A (03/05/2024 4:29 PM CDT) Pathologist [facility] Rapid Strep A, POC Negative Negative Swab 03/05/2024 4:29 PM CDT June Ogden NP POINT OF CARE TEST ORDER RICARDA Final Result documented in this encounter Visit Diagnoses Diagnosis Viral URI- Primary Acute upper respiratory infections of unspecified site documented in this encounter Discontinued Medications Medication Sig Discontinue Reason Start Date End Da te spironolactone (ALDACTONE) 50 mg tablet Take 3 tablets (150 mg total) by mouth daily 01/29/2022 03/05/2024 documented as of this encounter Historical Medications * This list may reflect changes made after this encounter. spironolactone (ALDACTONE) 100 mg tablet 1 tablet (100 mg total) 02/03/2024 triamcinolone (KENALOG) 0.1 % cream PLEASE SEE ATTACHED FOR DETAILED DIRECTIONS 02/04/2024 omeprazole (PriLOSEC) 20 mg capsule 1 capsule (20 mg total) 01/15/2024 added in this encounter Additional Health Concerns Infection Onset Date Last Indicated Resolved Time COVID: Suspected 03/05/2024 03/05/2024 03/05/2024 4:30 PM CDT documented as of this encounter Care Teams Log Handling Equipment Operator Relationship Specialty Start Date End Date Devin Jackson DO PCP - General Internal Medicine 03/07/22 documented as of this encounter
--- OUTSIDE RECORDS SUMMARY | 2024-12-04 04:13 | XMS_ITS | Encounter Summary ---
Author Organization [facility] Healthcare Address [address] [place] [address] Care Team Providers Care Gas Turbine Powerplant Mechanic Name Role Phone Devin aJckson DO Primary Care Provider [phone]- [phone] Encounter Details Date Type Department Care Team (Latest Contact Info) Description 09/30/2022 2:12 PM TRACK LAYER - 09/30/2022 11:59 PM TRACK LAYER Hospital Encounter [address] [address] Sore throat Discharge Disposition: Discharge to home or self care Social History Tobacco Use Types Packs/Day Years Used Date Smoking Tobacco: Never Smokeless Tobacco: Never Comments No Sex and Gender Information Value Date Recorded Sex Assigned at Not on file Legal Sex Female 1:22 AM TRACK LAYER Gender Identity Not on file Sexual Orientation Not on file documented as of this encounter Medications at Time of Discharge SUMAtriptan (IMITREX) 25 mg tablet TAKE 1 TAB AT ONSET OF HEADACHE IF NO RELIEF MAY REPEAT 1 TAB IN AT LEAST 2 HRS MAX 4 TABS/24GHR 05/06/2022 amoxicillin 500 mg tablet/capsuleIndicat ions:Pharyngitis, unspecified etiology Take 1 tablet/capsul e (500 mg total) by mouth 2 (two) times a day for 10 days 20 tablet/capsul e 09/30/2022 2 azithromycin (ZITHROMAX) 250 mg tabletIndications:Acu te nasopharyngitis Take 2 tablets the first day, then 1 tablet daily for 4 days. 6 tablet 03/07/2022 4 buPROPion XL (WELLBUTRIN XL) 300 mg 24 hr tablet Take 1 tablet (300 mg total) by mouth every morning 02/18/2022 4 busPIRone (BUSPAR) 10 mg tablet Take 2 tablets (20 mg total) by mouth 2 (two) times a day 02/28/2022 4 fluticasone propionate (FLONASE) 50 mcg/actuation nasal spray USE 1 SPRAY INTO EACH NOSTRIL EVERY 12 HOURS 04/05/2022 4 sertraline (ZOLOFT) 25 mg tablet 25 MG ORALLY DAILY TAKE DAILY X 1 WEEK AND THEN INCREASE TO 50 MG DAILY. 06/21/2022 4 spironolactone (ALDACTONE) 50 mg tablet Take 3 tablets (150 mg total) by mouth daily 01/29/2022 4 traZODone (DESYREL) 50 mg tablet Take 50 mg by mouth nightly 12/31/2021 4 Vestura, 28, 3-0.02 mg per tablet 06/25/2022 4 documented as of this encounter Discharge Disposition Disposition Code Departure Means Destination Discharge to home or self care documented in this encounter Miscellaneous Notes * Result Encounter Note - Betsy Castellanos MA - 09/30/2022 11:59 PM TRACK LAYER Left message for patient to call back to discuss throat culture results K LAYER documented in this encounter Plan of Treatment Not on file documented as of this encounter Procedures Procedure Name Priority Date/Time Associated Diagnosis Comments THROAT CULTURE Routine 09/30/2022 2:12 PM TRACK LAYER Sore throat documented in this encounter Results * Throat culture Throat (09/30/2022 2:12 PM TRACK LAYER) Report Final Report: No growth of pathogens. SERENA ANDREW Comment:Testing performed by : [facility], [address] [facility], [place]., [address] Throat 09/30/2022 2:12 PM TRACK LAYER 10/01/2022 12:31 AM TRACK LAYER Narrative SERENA ANDREW - 10/01/2022 8:15 PM TRACK LAYER Testing performed by [facility] ([phone]). us Ana Yeung NP LAB MICROBIOLOGY - GENERAL ORDER RICARDA Final Result SERENA [id number] Department [place] [address] documented in this encounter Visit Diagnoses Diagnosis Sore throat Acute pharyngitis documented in this encounter Care Teams Gas Turbine Powerplant Mechanic Relationship Specialty Start Date End Date Devin Jackson DO PCP - General Internal Medicine 03/07/22 documented as of this encounter
--- OUTSIDE RECORDS SUMMARY | 2024-12-04 04:13 | XMS_ITS | Encounter Summary ---
Author Organization [facility] Healthcare Address [address] [place] [address] Care Team Providers Care Die Storage Clerk Name Role Phone Devin Jackson DO Primary Care Provider [phone]- [phone] Reason for Visit * Reason Comments Sore Throat Patient presents tod ay with complaints of a sore throat. SX onset 10/24. Encounter Details Date Type Department Care Team (Late st Contact Info) Description 10/27/2023 9:00 AM GARMENT SEWING MACHINE OPERATOR Office Visit [facility] [address] [place] [address] Jes Whitehead, MOLLY [address] [facility] [place] [address] Viral pharyngitis (Primary Dx) Social History Tobacco Use Types Packs/Day Years Used Date Smoking Tobacco: Never Smokeless Tobacco: Never Comments No Sex and Gender Information Value Date Recorded Sex Assigned at Not on file Legal Sex Female 1:22 AM GARMENT SEWING MACHINE OPERATOR Gender Identity Not on file Sexual Orientation Not on file documented as of this encounter Last Filed Vital Signs Vital Sign Reading Time Taken Comments Blood Pressure 110/80 10/27/2023 8:58 AM GARMENT SEWING MACHINE OPERATOR Pulse 97 10/27/2023 8:58 AM GARMENT SEWING MACHINE OPERATOR Temperature 36.6 ??C (97.9 ??F) 10/27/2023 8:58 AM CS T Respiratory Rate 16 10/27/2023 8:58 AM GARMENT SEWING MACHINE OPERATOR Oxygen Saturation 98% 10/27/2023 8:58 AM GARMENT SEWING MACHINE OPERATOR Inhaled Oxygen Concentration - - Weight 116.2 kg (256 lb 3.2 oz) 10/27/2023 8:58 AM GARMENT SEWING MACHINE OPERATOR Height 165.1 cm (5' 5 ) 10/27/2023 8:58 AM GARMENT SEWING MACHINE OPERATOR Body Mass Index 42.63 10/27/2023 8:58 AM GARMENT SEWING MACHINE OPERATOR documented in this encounter Patient Instructions * Patient Instructions* Jes Whitehead NP - 10/27/2023 9:00 AM GARMENT SEWING MACHINE OPERATOR Tylenol or Motrin for fever/pain Stay hydrated- Drinking fluids is extremely important to prevent dehydration Gargle with warm saltwater up to 3 times a day as this can help with pain Throat lozenges or sprays Follow up with your PCP if you are not getting better Go to ER if you develop: Trouble swallowing or breathing or if child can barely speak or cry Fever >104 Dehydration or decreased Urine Output, very dry mouth or no tears when crying Home Treatments: Warm fluids or chicken broth Ice cream, popsicles, slushes, sherbert Gargle w warm salt water Avoid spicy or citrus foods ENT SEWING MACHINE OPERATOR documented in this encounter Progress Notes * Jes Whitehead NP - 10/27/2023 9:00 AM CST Images from the original note were not included. Subjective/Objective Patient ID: Sabiha Montes is a 23 y.o. female. Chief Complaint Sore Throat (Patient presents today with complaints of a sore throat. SX onset 10/24.) Patient presents to [facility] for sore throat x3 days. She denies any known exposure to COVID, flu, or strep. She has been taking OTC ibuprofen for her symptoms. She denies any known fevers. Sore Throat Review of Systems HENT: Positive for sore throat. All systems reviewed and are negative or non contributory for this patient's presentation today other than as stated in the HPI. Physical Exam Vitals reviewed. Constitutional: General: She [...] tenderness or frontal sinus tenderness. Mouth/Throat: Lips: [place]. Mouth: Mucous membranes are moist. Pharynx: Oropharynx is clear. Posterior oropharyngeal erythema present. Tonsils: 1+ on the right. 1+ on the left. Eyes: General: Right eye: No discharge. Left [...] Thought content normal. Judgment: Judgment normal. Vitals: 10/27/23 0858 BP: 110/80 BP Location: Left arm Patient Position: Sitting Pulse: 97 Resp: 16 Temp: 36.6 ??C (97.9 ??F) SpO2: 98% Weight: 116.2 kg (256 lb 3.2 oz) Height: 165.1 cm (5' 5 ) Assessment/Plan Rapid strep negative Tylenol/Motrin as needed for pain Gargle with warm saltwater to help with pain Discussed the importance of increasing fluid intake and rest Return to clinic or follow-up with your PCP if symptoms persist longer than 10 days or sooner if symptoms worsen Go to the ER if you develop severe pain, trouble swallowing, chest pain, signs of dehydration, or shortness of breath Diagnoses and all orders for this visit: Viral pharyngitis (Primary) - POCT rapid strep A Recent Results (from the past 4 hour(s)) POCT rapid strep A Collection Time: 10/27/23 9:07 AM Result Value Ref Range Rapid Strep [...] an opportunity to ask questions, questions answered. Jes Whitehead NP ENT SEWING MACHINE OPERATOR documented in this encounter Plan of Treatment Not on file documented as of this encounter Procedures Procedure Name Priority Date/Time Associated Diagnosis Comments POCT RAPID STREP Routine 10/27/2023 9:07 AM GARMENT SEWING MACHINE OPERATOR Viral pharyngitis documented in this encounter Results * POCT rapid strep A (10/27/2023 9:07 AM GARMENT SEWING MACHINE OPERATOR) [facility] Rapid Strep A, POC Negative Negative Swab 10/27/2023 9:07 AM GARMENT SEWING MACHINE OPERATOR Jes Whitehead NP POINT OF CARE TEST ORDERABLES Fi nal Result documented in this encounter Visit Diagnoses Diagnosis Viral pharyngitis- Primary Acute pharyngitis documented in this encounter Additional Health Concerns Infection Onset Date Last Indicated Resolved Time COVID: Recovered Comment:Added based on recent COVID infection. 08/09/2023 10/27/2023 11/07/2023 3:[address] documented as of this encounter Care Teams Die Storage Clerk Relationship Specialty Start Date End Date Devin Jackson DO PCP - General Internal Medicine 03/07/22 documented as of this encounter
--- OUTSIDE RECORDS SUMMARY | 2024-12-04 04:13 | XMS_ITS | Encounter Summary ---
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 Grinder Feeder Name Role Phone Unavailable Primary Care Provider Unavailabl e Reason for Visit * Reason Comments Establish Care Encounter Details Date Type Department Care Team (Late st Contact Info) Description 03/24/2023 10:00 AM CDT Office Visit [facility] - Rheumatology [address], [address] [place] [address] Keren Teixeira MD [address] [place] [address] Positive JULES (antinuclear antibody) (Primary Dx); Rash; Other fatigue Social History Tobacco Use Types Packs/Day Years [...] Sign Reading Time Taken Comments Blood Pressure 118/70 03/24/2023 10:11 AM CDT Pulse 120 03/24/2023 10:11 AM CDT Temperature - - Respiratory Rate - - Oxygen Saturation 99% 03/24/2023 10: 11 AM CDT Inhaled Oxygen Concentration - - Weight 106.9 kg (235 lb 9.6 oz) 023 10:11 AM CDT Height - - Body Mass Index - - documented in this encounter Patient Instructions * Patient Instructions* Keren Teixeira MD - 03/24/2023 10:33 AM CDT Please read information on positive JULES Labs at [facility] documented in this encounter Progress Notes * Keren Teixeira MD - 03/24/2023 1:34 PM CDT Initial Rheumatology Office Note Date of Visit: 03/24/2023 Patient's Primary Care Physician: Devin Jackson DO Referring physician: PCP Chief Complaint/History of Present Illness Subjective Sabiha Montes is a 22 year old female here sent by PCP regarding positive JULES This was done regarding fatigue. She has been having fatigue for the last few years, it is getting worse. She also noticed low-grade fever for the last month. Denies any chills, enlarged lymph node, shortness of breath UTI diarrhea Has noticed some rash in the left upper arm in the last few months, she supposed to see an instructor physical tomorrow. It is red and raised and look like hives when it is present. 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 They are noted as follows. No past [...] low or midback pain Objective Objective: BP 118/70 Pulse (!) 120 Wt 106.9 kg (235 lb 9.6 oz) SpO2 99% GENERAL: ?no distress , overweight HEENT: ??No obvious abnormality or lesion SKIN: ??No rash or vasculitic lesion visible ?? NEURO: ?nonfocal examination ?PSYCH: ?alert and oriented into 3 EXTREMITIES: ?no edema clubbing or cyanosis MUSCULOSKELETAL:?? No tenderness swelling redness warmth of any joints, all of the joint showed full range of motion, no spinal tenderness Lab Review I do not have the results of the positive JULES. She says she had celiac testing done which was reportedly negative Assessment Assessment: Positive JULES (antinuclear antibody) - Plan: ALDOLASE, ANCA VASCULITIS PANEL, ANGIOTENSIN CONVERTINGENZYME BLOOD, BETA-2 GLYCOPROTEIN 1 ANTIBODY IGG/IGM/IGA PANEL, CARDIOLIPIN ANTIBODY IGA/IGG/IGM PANEL, CBC WITH DIFFERENTIAL, CK BLOOD, COMPLEMENT C3, COMPLEMENT C4, C-REACTIVE PROTEIN, CREATININE BLOOD, CYCLIC CITRULLINATED PEPTIDE(CCP) AB IGG, ERYTHROCYTE SEDIMENTATION RATE, JULES BLOOD SCREEN W/REFLEX TITER, JULES PANEL COMPREHENSIVE, THIOPURINE METHYLTRANSFERASE, HEPATIC FUNCTION PANEL, HEPATITIS SCREEN ACUTE ([facility]), LUPUS ANTICOAGULANT PANEL W RFLX, RHEUMATOID FACTOR BLOOD QUANTITATIVE, HISTONE ANTIBODY, URINALYSIS NO MICROSCOPIC NO CULTURE Rash - Plan: ALDOLASE, ANCA VASCULITIS PANEL, ANGIOTENSIN CONVERTING ENZYME BLOOD, BETA-2 GLYCOPROTEIN 1 ANTIBODY IGG/IGM/IGA PANEL, CARDIOLIPIN ANTIBODY IGA/IGG/IGM PANEL, CBC WITH DIFFERENTIAL, CK BLOOD, COMPLEMENT C3, COMPLEMENT C4, C-REACTIVE PROTEIN, CREATININE BLOOD, CYCLIC CITRULLINATED PEPTIDE(CCP) AB IGG, ERYTHROCYTE SEDIMENTATION RATE, JULES BLOOD SCREEN W/REFLEX TITER, JULES PANEL COMPREHENSIVE, THIOPURINE METHYLTRANSFERASE, HEPATIC FUNCTION PANEL, HEPATITIS SCREEN ACUTE ([facility]), LUPUSANTICOAGULANT PANEL W RFLX, RHEUMATOID FACTOR BLOOD QUANTITATIVE, HISTONE ANTIBODY, URINALYSIS NO MICROSCOPIC NO CULTURE Other fatigue - Plan: ALDOLASE, ANCA VASCULITIS PANEL, ANGIOTENSIN CONVERTING ENZYME BLOOD, BETA-2 GLYCOPROTEIN 1 ANTIBODY IGG/IGM/IGA PANEL, CARDIOLIPIN ANTIBODY IGA/IGG/IGM PANEL, CBC WITH DIFFERENTIAL, CK BLOOD, COMPLEMENT C3, COMPLEMENT C4, C-REACTIVE PROTEIN, CREATININE BLOOD, CYCLIC CITRULLINATED PEPTIDE(CCP) AB IGG, ERYTHROCYTE SEDIMENTATION RATE, JULES BLOOD SCREEN W/REFLEX TITER, JULES PANELCOMPREHENSIVE, THIOPURINE METHYLTRANSFERASE, HEPATIC FUNCTION PANEL, HEPATITIS SCREEN ACUTE ([facility]), LUPUS ANTICOAGULANT PANEL W RFLX, RHEUMATOID FACTOR BLOOD QUANTITATIVE, HISTONE ANTIBODY, URINALYSIS NO MICROSCOPIC NO CULTURE Patient has positive JULES and fatigue, low-grade fever and rash I discussed differential diagnosis of positive JULES in detail, pamphlet given This includes no clinical significance, autoimmune disease like lupus rheumatoid arthritis Sjogren syndrome mixed connective tissue disease versus paraneoplastic syndrome. I have recommended routine medical care in cancer screening appropriate for her age and risk factors through her PCP We discussed doing labs to rule out autoimmune disease like lupus, she agrees She was see instructor physical tomorrow regarding rash which is not present today Further advice on diagnosis and treatment on the basis of results of labs Thank you for the referral, I hope that I will be of benefit in her care. Please feel free to call for any questions Plan Plan: There are no discontinued medications. [...] this visit. Orders Placed This Encounter ??? ALDOLASE Order Specific Question: Release to patient Answer: Immediate ??? ANCA VASCULITIS PANEL Order Specific Question: Release to patient Answer: Immediate ??? ANGIOTENSIN CONVERTING ENZYME BLOOD Order Specific Question: Release to patient Answer: Immediate ??? BETA-2 GLYCOPROTEIN 1 ANTIBODY IGG/IGM/IGA PANEL Order Specific Question: Release to patient Answer: Immediate ??? CARDIOLIPIN ANTIBODY IGA/IGG/IGM PANEL Order Specific Question: Release to patient Answer: Immediate ??? CBC WITH DIFFERENTIAL Order Specific Question: Release to patient Answer: Immediate ??? CK BLOOD Order Specific Question: Release to patient Answer: Immediate ??? COMPLEMENT C3 Order Specific Question: Release to patient Answer: Immediate ??? COMPLEMENT C4 Order Specific Question: Release to patient Answer: Immediate ??? C-REACTIVE PROTEIN Order Specific Question: Release to patient Answer: Immediate ??? CREATININE BLOOD Order Specific Question: Release to patient Answer: Immediate ??? CYCLIC CITRULLINATED PEPTIDE(CCP) AB IGG Order Specific Question: Release to patient Answer: Immediate ??? ERYTHROCYTE SEDIMENTATION RATE Order Specific Question: Release to patient Answer: Immediate ??? JULES BLOOD SCREEN W/REFLEX TITER Order Specific Question: Release to patient Answer: Immediate ??? JULES PANEL COMPREHENSIVE Order Specific Question: Release to patient Answer: Immediate ??? THIOPURINE METHYLTRANSFERASE Order Specific Question: Release to patient Answer: Immediate ??? HEPATIC FUNCTION PANEL Order Specific Question: Release to patient Answer: Immediate ??? HEPATITIS SCREEN ACUTE ([facility]) Order Specific Question: Release to patient Answer: Immediate ??? LUPUS ANTICOAGULANT PANEL W RFLX Order Specific Question: Release to patient Answer: Immediate ??? RHEUMATOID FACTOR BLOOD QUANTITATIVE Order Specific Question: Release to patient Answer: Immediate ??? HISTONE ANTIBODY Order Specific Question: Release to patient Answer: Immediate ??? URINALYSIS NO MICROSCOPIC NO CULTURE Order Specific Question: Release to patient Answer: Immediate We will discuss results of workup ordered today at next visit,unless they need to be taken care of urgently. Call sooner for any problems. Return in about 4 weeks (around 04/21/2023). Cc: PCP documented in this encounter Plan of Treatment Not on file documented as of this encounter Procedures Procedure Name Priority Date/Time Associated Diagnosis Comments FESTUS STAINING PATTERNS REFLEXED Routine 04/01/2023 11:21 AM CDT Positive JULES (antinuclear antibody) Rash Other fatigue JULES PANEL COMPREHENSIVE Routine 04/01/20 11:21 AM CDT Positive JULES (antinuclear antibody) Rash Other fatigue JULES BLOOD SCREEN W/REFLEX TITER Routine 04/01/2023 11:21 AM CDT Positive JULES (antinuclear antibody) Rash Other fatigue THIOPURINE METHYLTRANSFERASE Routine 04/01/2023 11:21 AM CDT Positive JULES (antinuclear antibody) Rash Other fatigue ALDOLASE Routine 03/28/2023 12:19 PM CDT Positive JULES (antinuclear antibody) Rash Other fatigue ANCA VASCULITIS PANEL Routine 03/28/2023 12:18 PM CDT Positive JULES (antinuclear antibody) Rash Other fatigue HEPATITIS SCREEN ACUTE ([facility]) Routine 03/28/2023 12:17 PM CDT Positive JULES (antinuclear antibody) Rash Other fatigue INTERPRETATION REFLEXED Routine 03/28/20 12:17 PM CDT Positive JULES (antinuclear antibody) Rash Other fatigue HEXAGONAL PHASE PHOSPHOLIPID Routine 03/28/2023 12:17 PM CDT Positive JULES (antinuclear antibody) Rash Other fatigue CARDIOLIPIN ANTIBODY IGA/IGG/IGM PANEL Routine 03/28/2023 12:17 PM CDT Positive JULES (antinuclear antibody) Rash Other fatigue PTT LA MIX(B) RFLXED Routine 03/28/2023 12:17 PM CDT Positive JULES (antinuclear antibody) Rash Other fatigue LUPUS ANTICOAGULANT PANEL W RFLX Routine 03/28/2023 12:17 PM CDT Positive JULES (antinuclear antibody) Rash Other fatigue BETA-2 GLYCOPROTEIN 1 ANTIBODY IGG/IGM/IGA PANEL Routine 03/28/2023 12:17 PM CDT Positive JULES (antinuclear antibody) Rash Other fatigue URINALYSIS NO MICROSCOPIC NO CULTURE Routine 03/28/2023 12:17 PM CDT Positive JULES (antinuclear antibody) Rash Other fatigue RHEUMATOID FACTOR BLOOD QUANTITATIVE Routine 03/28/2023 12:17 PM CDT Positive JULES (antinuclear antibody) Rash Other fatigue C-REACTIVE PROTEIN Routine 03/28/2023 12 :17 PM CDT Positive JULES (antinuclear antibody) Rash Other fatigue HISTONE ANTIBODY Routine 03/28/2023 12:1 7 PM CDT Positive JULES (antinuclear antibody) Rash Other fatigue ANGIOTENSIN CONVERTING ENZYME BLOOD Routine 03/28/2023 12:17 PM CDT Positive JULES (antinuclear antibody) Rash Other fatigue CYCLIC CITRULLINATED PEPTIDE(CCP) AB IGG Routine 03/28/2023 12:17 PM CDT Positive JULES (antinuclear antibody) Rash Other fatigue ERYTHROCYTE SEDIMENTATION RATE Routine 03/28/2023 12:17 PM CDT Positive JULES (antinuclear antibody) Rash Other fatigue CBC W AUTO DIFFERENTIAL Routine 03/28/20 23 12:17 PM CDT Positive JULES (antinuclear antibody) Rash Other fatigue COMPLEMENT C4 Routine 03/28/2023 12:17 PM CDT Positive JULES (antinuclear antibody) Rash Other fatigue HEPATIC FUNCTION PANEL Routine 3 12:17 PM CDT Positive JULES (antinuclear antibody) Rash Other fatigue CREATININE BLOOD Routine 03/28/2023 12:1 7 PM CDT Positive JULES (antinuclear antibody) Rash Other fatigue CK BLOOD Routine 03/28/2023 12:17 PM CDT Positive JULES (antinuclear antibody) Rash Other fatigue COMPLEMENT C3 Routine 03/28/2023 12:17 PM CDT Positive JULES (antinuclear antibody) Rash Other fatigue documented in this encounter Results * FESTUS STAINING PATTERNS REFLEXED (04/01/2023 11:21 AM CDT) Homogeneous Pattern NOT AVAILABLE [facility] ACCOUNT BILL Comment:Result cannot be obt ained for this observation. Nucleolar Pattern NOT AVAILABLE [facility] ACCOUNT YASMIN Comment:Result cannot be obt ained for this observation. Speckled Pattern 1:80 [facility] ACCOUNT BILL Comment:ICAP nomenclature: A C-2,4,5,29 Centromere Pattern NOT AVAILABLE [facility] ACCOUNT BILL Comment:Result cannot be obt ained for this observation. Spindle Apparatus Pattern NOT AVAILABLE [facility] ACCOUNT BILL Comment:Result cannot be obt ained for this observation. Nuclear Membrane Pattern NOT AVAILABLE [facility] ACCOUNT BILL Comment:Result cannot be obt ained for this observation. Midbody Pattern NOT AVAILABLE [facility] ACCOUNT BILL Comment:Result cannot be obt ained for this observation. Nuclear Dot Pattern NOT AVAILABLE [facility] ACCOUNT BILL Comment:Result cannot be obt ained for this observation. PCNA Pattern NOT AVAILABLE [facility] ACCOUNT BILL Comment:Result cannot be obt ained for this observation. Centriole Pattern NOT AVAILABLE [facility] ACCOUNT BILL Comment:Result cannot be obt ained for this observation. Note [facility] ACCOUNT BILL Comment: For more information about Hep-2 cell patterns use ANApatterns.org, the official website for the International Consensus on Antinuclear Antibody (JULES) Patterns (ICAP). A positive JULES result may occur in healthy individuals (low titer) or be associated with a variety of diseases. ??See interpretation chart which is not all inclusive: ? . Pattern ?Antigen Detected ??Suggested Disease Association ? Homogeneous ??DNA(ds,ss), ? SLE - High titers ? Nucleosomes, ? Histones ?Drug-induced SLE ? Speckled ? Sm, INVENTORY CHECKER, SCL-70, ??SLE,MCTD,PSS (diffuse form), ? SS-A/SS-B ? Sjogrens ? Nucleolar ?SCL-70, PM-1/SCL ??High titers Scleroderma, ? PM/DM ? Centromere ?? Centromere ?PSS (limited form) w/Crest ? syndrome variable ? Nuclear Dot ??[id number] ??Primary Biliary Cirrhosis ? Nuclear ?GP210, ?Primary Biliary Cirrhosis Membrane ? chapis A,B,C ? 04/01/2023 11:2 1 AM CDT 04/01/2023 Narrative Resulting Agency Comment Lab Testing performed at: [facility] ??[facility] hospital [id number] Keren Teixeira MD LAB - PATHOLOGY/CYTO LOGY ORDERABLES [facility] ACCOUNT BILL [address] [place] [address] * THIOPURINE METHYLTRANSFERASE (04/01/2023 11:21 AM CDT) TPMT Activity 8.9 Units/mL RBC [facility] ACCOUNT BILL Comment: Reference Range: Normal: 15.1 - 26.4 Heterozygous for low TPMT variant: 6.3 - 15.0 Homozygous for low TPMT variant: <6.3 Interpretation [facility] ACCOUNT BILL Comment: The above results can be interpreted as Heterozygous for a low activity variant of red blood cell Thiopurine Methyltransferase activity. For patients having an intrinsic low level of TPMT, recent RBC transfusion can variably increase their assayed enzymatic activity depending on the amount and circulating half-life of the transfused red blood cells. This test was developed and its performance characteristics determined by [facility]. It has not been cleared or approved by the Food and Drug Administration. This case has been reviewed, approved, interpreted and electronically signed by Jaspreet Osman, PhD, [facility]. Methodology [facility] ACCOUNT BILL Comment: Enzymatic Endpoint/Liquid Chromatography - Tandem Mass Spectrometry (LC-MS/MS) Blood BLOOD SPECIMEN / Unknown 04/01/2023 11:21 AM CDT 04/01/2023 Narrative Resulting Agency Comment Lab Testing performed at: [facility] [address] [place] [address] ??[facility] [id number] Keren Teixeira MD LAB - CHEMISTRY LISSETT MORALES [facility] ACCOUNT BILL [address] [place] [address] * JULES PANEL COMPREHENSIVE (04/01/2023 11:21 AM CDT) Anti-dsDNA Quantitative 1 0 - 9 IU/mL [facility] ACCOUNT BILL Comment: ?Negative ?<5 ?Equivocal ??5 - 9 ?Positive ?>9 INVENTORY CHECKER Antibody 0.2 0.0 - 0.9 AI [facility] ACCOUNT BILL Francisco (SU) Antibody <0.2 0.0 - 0.9 AI [facility] ACCOUNT BILL Antiscleroderma-70 Antibody <0.2 0.0 - 0.9 AI [facility] ACCOUNT BILL Sjogren's Antibodies (SSA) <0.2 0.0 - 0.9 AI [facility] ACCOUNT BILL Sjogren's Antibodies (SSB) <0.2 0.0 - 0.9 AI [facility] ACCOUNT BILL Antichromatin Antibodies <0.2 0.0 - 0.9 AI [facility] ACCOUNT BILL Shannan-1 Antibody <0.2 0.0 - 0.9 AI [facility] ACCOUNT BILL Centromere B Antibody <0.2 0.0 - 0.9 AI [facility] ACCOUNT BILL See Below [facility] ACCOUNT BILL Comment: Autoantibody ? Disease Association ?Condition ?Frequency ? --------- Antinuclear Antibody, ?SLE, mixed connective Direct (JULES-D) ? tissue diseases ? --------- dsDNA ?SLE ?40 - 60% ? --------- Chromatin ?Drug induced SLE ?90% ? SLE ?48 - 97% ? --------- SSA (Ro) ? SLE ?25 - 35% ? Sjogren's Syndrome ? 40 - 70% ? Lupus ? 100% ? --------- SSB (La) ? SLE ? 10% ? Sjogren's Syndrome ?30% ?--------- Sm (anti-Francisco) ?SLE ?15 - 30% ?--------- INVENTORY CHECKER ?Mixed Connective Tissue ? Disease ? 95% (U1 nRNP, ?SLE ?30 - 50% anti-ribonucleoprotein) ??Polymyositis and/or ? Dermatomyositis ? 20% ? --------- Scl-70 (antiDNA ?Scleroderma (diffuse) ?20 - 35% topoisomerase) ? Crest ? 13% ? --------- Shannan-1 ? Polymyositis and/or ? Dermatomyositis ?20 - 40% ? --------- Centromere B ? Scleroderma - Crest ? variant ? 80% Blood BLOOD SPECIMEN / Unknown 04/01/2023 11:21 AM CDT 04/01/2023 Narrative Resulting Agency Comment Lab Testing performed at: [facility] [address] ??[place] [id number] Keren Teixeira MD LAB - SEROLOGY ORDER RICARDA Performing Organization Address [facility] de Phone Number [facility] ACCOUNT BILL [address] [place] [address] * (ABNORMAL) JULES BLOOD SCREEN W/REFLEX TITER (04/01/2023 11:21 AM CDT) JULES Positive(A ) [facility] ACCOUNT BILL Comment: ?Negative ?? <1:80 ?Borderline ??1:80 ?Positive ?? >1:80 Blood BLOOD SPECIMEN / Unknown 04/01/2023 11:21 AM CDT 04/01/2023 Narrative Resulting Agency Comment Lab Testing performed at: [facility] [address] ??[place] [id number] Keren Teixeira MD LAB - CHEMISTRY ORDE RABCRISTIAN [facility] ACCOUNT BILL [address] [place] [address] * ALDOLASE (03/28/2023 12:19 PM CDT) Aldolase 3.3 3.3 - 10.3 U/L [facility] ACCOUNT BILL Comment:FASTING Blood BLOOD SPECIMEN / Unknown 03/28/2023 12:19 PM CDT 03/28/2023 Narrative Resulting Agency Comment Lab Testing performed at: [facility] [address] ??Critical access hospital [id number] Keren Teixeira MD LAB - CHEMISTRY LISSETT MORALES Performing Organization Address [facility] Co de Phone Number [facility] ACCOUNT BILL [address] [place] [address] * ANCA VASCULITIS PANEL (03/28/2023 12:18 PM CDT) Myeloperoxidase Antibody <0.2 0.0 - 0.9 units [facility] ACCOUNT BILL Proteinase 3 Antibody <0.2 0.0 - 0.9 units [facility] ACCOUNT BILL Cytoplasmic (C-ANCA) <1:20 Neg:<1:20 titer [facility] ACCOUNT BILL p-ANCA Titer <1:20 Neg:<1:20 titer [facility] ACCOUNT BILL Comment: The presence of positive fluorescence exhibiting P-ANCA or C-ANCA patterns alone is not specific for the diagnosis of Christina's Granulomatosis (WG) or microscopic polyangiitis. Decisions about treatment should not be based solely on ANCA IFA results. ??The International ANCA Group Consensus recommends follow up testing of positive sera with both WV-3 and MPO-ANCA enzyme immunoassays. As many as 5% serum samples are positive only by EIA. Ref. AM J Clin Pathol 1999;111:507-513. Atypical p-ANCA Titer <1:20 Neg:<1:20 titer [facility] ACCOUNT BILL Comment: The atypical pANCA pattern has been observed in a significant percentage of patients with ulcerative colitis, primary sclerosing cholangitis and autoimmune hepatitis. FASTING Blood BLOOD SPECIMEN / Unknown 03/28/2023 12:18 PM CDT 03/28/2023 Narrative Resulting Agency Comment Lab Testing performed at: [facility] [address] ??[facility] [id number] Keren Teixeira MD LAB - CHEMISTRY LISSETT MORALES Performing Organization Address [facility] Co de Phone Number [facility] ACCOUNT BILL [address] [place] [address] * HEXAGONAL PHASE PHOSPHOLIPID (03/28/2023 12:17 PM CDT) Hex Phase 9 0 - 11 sec [facility] ACCOUNT BILL Comment:FASTING 03/28/2023 12:1 7 PM CDT 03/28/2023 Narrative Resulting Agency Comment Lab Testing performed at: [facility] [address] ??[facility] [id number] Keren Teixeira MD LAB - CHEMISTRY LISSETT MORALES Performing Organization Address [facility] de Phone Number [facility] ACCOUNT BILL [address] [place] [address] * (ABNORMAL) PTT LA MIX(B) RFLXED (03/28/2023 12:17 PM CDT) PTT Lupus Anticoagulant Mix 42.9(H) 0.0 - 40.5 sec [facility] ACCOUNT BILL Comment:FASTING 03/28/2023 12:1 7 PM CDT 03/28/2023 Narrative Resulting Agency Comment Lab Testing performed at: [facility] [address] ??[facility] [id number] Keren Teixeira MD LAB - COAGULATION OR DERABLES Performing Organization Address [facility] Co de Phone Number [facility] ACCOUNT BILL [address] [place] [address] * INTERPRETATION REFLEXED (03/28/2023 12:17 PM CDT) Interpretation [facility] ACCOUNT BILL Comment: Not infected with HCV unless early or acute infection is suspected (which may be delayed in an immunocompromised individual), or other evidence exists to indicate HCV infection. FASTING 03/28/2023 12:1 7 PM CDT 03/28/2023 Narrative Resulting Agency Comment Lab Testing performed at: [facility] ??[facility] access hospital [id number] Keren Teixeira MD LAB - SEROLOGY ORDER RICARDA Performing Organization Address [facility] Co de Phone Number [facility] ACCOUNT BILL [address] [place] [address] * URINALYSIS NO MICROSCOPIC NO CULTURE (03/28/2023 12:17 PM CDT) Pathologist [facility] Specific Dexter UA 1.025 1.005 - 1.030 [facility] ACCOUNT BILL pH UA 5.5 5.0 - 7.5 [facility] ACCOUNT BILL Color UA Yellow Yellow [facility] ACCOUNT BILL Appearance Clear Clear [facility] ACCOUNT BILL Leukocyte UA Negative Negative [facility] ACCOUNT BILL Protein UA Negative Negative/Tra ce [facility] ACCOUNT BILL Glucose UA Negative Negative [facility] ACCOUNT BILL Ketone UA Negative Negative [facility] ACCOUNT BILL Occult Blood Urine Negative Negative [facility] ACCOUNT BILL Bilirubin UA Negative Negative [facility] ACCOUNT BILL Urobilinogen 0.2 0.2 - 1.0 mg/dL [facility] ACCOUNT BILL Nitrite UA Negative Negative [facility] ACCOUNT BILL Comment:FASTING Urine URINE SPECIMEN OBTAINED BY CLEAN CATCH PROCEDURE / Unknown 03/28/2023 12:17 PM CDT 03/28/2023 Narrative Resulting Agency Comment Lab Testing performed at: [facility] ??[facility] access hospital [id number] Keren Teixeira MD LAB - URINALYSIS ORD ERABLES Performing Organization Address [facility] de Phone Number [facility] ACCOUNT BILL [address] [place] [address] * HISTONE ANTIBODY (03/28/2023 12:17 PM CDT) [facility] Anti-Histone Antibody 0.3 0.0 - 0.9 Units [facility] ACCOUNT BILL Comment: ?Negative ?<1.0 ?Weak Positive ?1.0 - 1.5 ?Moderate Positive ??1.6 - 2.5 ?Strong Positive ? >2.5 FASTING Blood BLOOD SPECIMEN / Unknown 03/28/2023 12:17 PM CDT 03/28/2023 Narrative Resulting Agency Comment Lab Testing performed at: [facility] ??[facility] [id number] Keren Teixeira MD LAB - CHEMISTRY LISSETT MORALES Performing Organization Address [facility] de Phone Number [facility] ACCOUNT BILL [address] [place] [address] * RHEUMATOID FACTOR BLOOD QUANTITATIVE (03/28/2023 12:17 PM CDT) Rheumatoid Factor <10.0 <14.0 IU/mL [facility] ACCOUNT BILL Comment:FASTING Blood BLOOD SPECIMEN / Unknown 03/28/2023 12:17 PM CDT 03/28/2023 Narrative Resulting Agency Comment [facility] performed [facility]: [facility] [address] ??[place] [id number] Keren Teixeira MD LAB - CHEMISTRY LISSETT MORALES Performing Organization Address [facility] Co de Phone Number [facility] ACCOUNT BILL [address] [place] [address] * (ABNORMAL) LUPUS ANTICOAGULANT PANEL W RFLX (03/28/2023 12:17 PM CDT) Pathologist [facility] PTT-LA 44.0(H) 0.0 - 43.5 sec [facility] ACCOUNT BILL Comment:FASTING dRVVT 46.8 0.0 - 47.0 sec [facility] ACCOUNT BILL Interpretation Comment: [facility] ACCOUNT BILL Comment: No lupus anticoagulant was detected. Results suggest the presence of an inhibitor. ??The presence of heparin, which is a non-specific inhibitor, may cause this pattern of results. Since the PTT-LA was extended and the dRVVT was within normal limits, a specific inhibitor to factor VIII, IX, XI, or XII cannot be excluded. As antibody titers may fluctuate with time, repeat testing may be indicated and ideally should be performed in the absence of anticoagulant therapy. FASTING Blood BLOOD SPECIMEN / Unknown 03/28/2023 12:17 PM CDT 03/28/2023 Narrative Resulting Agency Comment Lab Testing performed at: [facility] ??[facility] [phone] Keren Teixeira MD LAB - HEMATOLOGY ORD ERABLES Performing Organization Address [facility] Co de Phone Number [facility] ACCOUNT BILL [address] [place] [address] * HEPATITIS SCREEN ACUTE ([facility]) (03/28/2023 12:17 PM CDT) [facility] Hepatitis A Virus Antibody IgM Negative Negative [facility] ACCOUNT BILL Hepatitis B Virus Surface Antigen Negative Negative [facility] ACCOUNT BILL Hepatitis B Core Virus Antibody IgM Negative Negative [facility] ACCOUNT BILL Hepatitis C Antibody Non Reactive Non Reactive [facility] ACCOUNT BILL Comment:FASTING Blood BLOOD SPECIMEN / Unknown 03/28/2023 12:17 PM CDT 03/28/2023 Narrative Resulting Agency Comment [facility]: [facility] [address] [facility] ??Critical access hospital [id number] Keren Teixeira MD LAB - CHEMISTRY ORDE RABCRISTIAN Performing Organization Address City/[facility]/ZIP Co de Phone Number [facility] ACCOUNT BILL [address] [place] [address] * (ABNORMAL) HEPATIC FUNCTION PANEL (03/28/2023 12:17 PM CDT) Protein Total 6.5 6.0 - 8.5 g/dL [facility] ACCOUNT BILL Albumin 3.8(L) 3.9 - 5.0 g/dL [facility] ACCOUNT BILL Bilirubin Total 0.3 0.0 - 1.2 mg/dL [facility] ACCOUNT BILL Bilirubin Direct 0.11 0.00 - 0.40 mg/dL [facility] ACCOUNT BILL Alkaline Phosphatase 107 44 - 121 IU/L [facility] ACCOUNT BILL AST 8 0 - 40 IU/L [facility] ACCOUNT BILL ALT 11 0 - 32 IU/L [facility] ACCOUNT BILL Comment:FASTING Blood BLOOD SPECIMEN / Unknown 03/28/2023 12:17 PM CDT 03/28/2023 Narrative Resulting Agency Comment Lab Testing performed at: [facility] [address] [facility] ??Critical access hospital [id number] Keren Teixeira MD LAB - CHEMISTRY LISSETT MORALES Performing Organization Address City/[facility]/ZIP Co de Phone Number [facility] ACCOUNT BILL [address] [place] [address] * (ABNORMAL) ERYTHROCYTE SEDIMENTATION RATE (03/28/2023 12:17 PM CDT) Pathologist [facility] Erythrocyte Sedimentation Rate Westergren 42(H) 0 - 32 mm/hr [facility] ACCOUNT BILL Comment:FASTING Blood BLOOD SPECIMEN / Unknown 03/28/2023 12:17 PM CDT 03/28/2023 Narrative Resulting Agency Comment Lab Testing performed at: [facility] [address] ??Critical access hospital [phone] Keren Teixeira MD LAB - HEMATOLOGY ORD ERABLES Performing Organization Address City/[facility]/ZIP Co de Phone Number [facility] ACCOUNT BILL [address] [place] [address] * CYCLIC CITRULLINATED PEPTIDE(CCP) AB IGG (03/28/2023 12:17 PM CDT) Pathologist [facility] CCP Antibodies IgG/IgA <20 <20 Units [facility] ACCOUNT BILL Comment: ?Negative: ? <20 ?Weak Positive: ?20 - 39 ?Moderate Positive: ?40 - 59 ?Strong Positive: ?>59 FASTING Blood BLOOD SPECIMEN / Unknown 03/28/2023 12:17 PM CDT 03/28/2023 Narrative [facility] ACCOUNT BILL - 04/03/2023 7:10 AM CDT Test(s) 529590-[id number] Ab, IgG + IgA (RDL) was developed and its performance characteristics determined by [facility]. It has not been cleared or approved by the Food and Drug Administration. Resulting Agency Comment Lab Testing performed at: [facility] [address] [place] [address] ??[facility] [phone] Keren Teixeira MD LAB - CHEMISTRY LISSETT MORALES [facility] ACCOUNT BILL [address] [place] [address] * CREATININE BLOOD (03/28/2023 12:17 PM CDT) Creatinine 0.69 0.57 - 1.00 mg/dL [facility] ACCOUNT BILL eGFR by CKD-EPI 126 >59 mL/min/1.7 3 [facility] ACCOUNT BILL Comment:FASTING Blood BLOOD SPECIMEN / Unknown 03/28/2023 12:17 PM CDT 03/28/2023 Narrative Resulting Agency Comment Lab Testing performed at: [facility] [address] ??Critical access hospital [phone] Keren Teixeira MD LAB - CHEMISTRY [place]SET[place] MORALES Performing Organization Address City/[facility]/ZIP Co de Phone Number [facility] ACCOUNT BILL [address] [place] [address] * (ABNORMAL) C-REACTIVE PROTEIN (03/28/2023 12:17 PM CDT) C-Reactive Protein 30(H) 0 - 10 mg/L [facility] ACCOUNT BILL Comment:FASTING Blood BLOOD SPECIMEN / Unknown 03/28/2023 12:17 PM CDT 03/28/2023 Narrative Resulting Agency Comment Lab Testing performed at: [facility] [address] ??Critical access hospital [phone] Keren Teixeira MD LAB - CHEMISTRY [place]SET[place] MORALES Performing Organization Address City/[facility]/ZIP Co de Phone Number [facility] ACCOUNT BILL [address] [place] [address] * COMPLEMENT C4 (03/28/2023 12:17 PM CDT) Complement C4 28 14 - 44 mg/dL [facility] ACCOUNT BILL Comment:FASTING Blood BLOOD SPECIMEN / Unknown 03/28/2023 12:17 PM CDT 03/28/2023 Narrative Resulting Agency Comment Lab Testing performed at: [facility] [address] [place] [address] ??[facility] [phone] Keren Teixeira MD LAB - SEROLOGY DERICK RICARDA [facility] ACCOUNT BILL [address] [place] [address] * (ABNORMAL) COMPLEMENT C3 (03/28/2023 12:17 PM CDT) Complement C3 229(H) 82 - 167 mg/dL [facility] ACCOUNT BILL Comment:FASTING Blood BLOOD SPECIMEN / Unknown 03/28/2023 12:17 PM CDT 03/28/2023 Narrative Resulting Agency Comment Lab Testing performed at: [facility] [address] [facility] ??[facility] [phone] Keren Teixeira MD LAB - CHEMISTRY LISSETT MORALES [facility] ACCOUNT BILL [address] [place] [address] * CK BLOOD (03/28/2023 12:17 PM CDT) Pathologist [facility] CK 37 32 - 182 U/L [facility] ACCOUNT BILL Comment:FASTING Blood BLOOD SPECIMEN / Unknown 03/28/2023 12:17 PM CDT 03/28/2023 Narrative Resulting Agency Comment Lab Testing performed at: [facility] [address] ??Critical access hospital [phone] Keren Teixeira MD LAB - CHEMISTRY LISSETT MORALES Performing Organization Address City/[facility]/ZIP Co de Phone Number [facility] ACCOUNT BILL [address] [place] [address] * CBC WITH DIFFERENTIAL (03/28/2023 12:17 PM CDT) Pathologist [facility] WBC 6.6 3.4 - 10.8 x10E3/uL [facility] ACCOUNT BILL RBC 4.74 3.77 - 5.28 x10E6/uL [facility] ACCOUNT BILL Hemoglobin 13.0 11.1 - 15.9 g/dL [facility] ACCOUNT BILL Hematocrit 39.1 34.0 - 46.6 % [facility] ACCOUNT BILL MCV 83 79 - 97 fL [facility] ACCOUNT BILL MCH 27.4 26.6 - 33.0 pg [facility] ACCOUNT BILL MCHC 33.2 31.5 - 35.7 g/dL [facility] ACCOUNT BILL RDW 13.3 11.7 - 15.4 % [facility] ACCOUNT BILL Platelet Count 316 150 - 450 x10E3/uL [facility] ACCOUNT BILL Granulocytes % 53 Not Estab. % [facility] ACCOUNT BILL Lymphocytes % 37 Not Estab. % [facility] ACCOUNT BILL Monocytes % 8 Not Estab. % [facility] ACCOUNT BILL Eosinophils % 1 Not Estab. % [facility] ACCOUNT BILL Basophils % 1 Not Estab. % [facility] ACCOUNT BILL Immature Cells NOT AVAILABLE [facility] ACCOUNT BILL Comment:Result cannot be obt ained for this observation. Granulocytes Absolute 3.4 1.4 - 7.0 x10E3/uL [facility] ACCOUNT BILL Lymphocytes Absolute 2.5 0.7 - 3.1 x10E3/uL [facility] ACCOUNT BILL Monocytes Absolute 0.5 0.1 - 0.9 x10E3/uL [facility] ACCOUNT BILL Eosinophils Absolute 0.1 0.0 - 0.4 x10E3/uL [facility] ACCOUNT BILL Basophils Absolute 0.1 0.0 - 0.2 x10E3/uL [facility] ACCOUNT BILL Immature Granulocytes 0 Not Estab. % [facility] ACCOUNT BILL Immature Granulocytes Absolute 0.0 0.0 - 0.1 x10E3/uL [facility] ACCOUNT BILL nRBC NOT AVAILABLE [facility] ACCOUNT BILL Comment:Result cannot be obt ained for this observation. Comment Hematology NOT AVAILABLE [facility] ACCOUNT BILL Comment: FASTING Result cannot be obtained for this observation. Blood BLOOD SPECIMEN / Unknown 03/28/2023 12:17 PM CDT 03/28/2023 Narrative Resulting Agency Comment Lab Testing performed at: [place] [id number] [facility] ??Critical access hospital [phone] Keren Teixeira MD LAB - HEMATOLOGY ORD ERABLES [facility] ACCOUNT BILL [address] [place] [address] * CARDIOLIPIN ANTIBODY IGA/IGG/IGM PANEL (03/28/2023 12:17 PM CDT) Cardiolipin Antibody IgG <9 0 - 14 GPL U/mL [facility] ACCOUNT BILL Comment: ? Negative: ?<15 ? Indeterminate: ? 15 - 20 ? Low-Med Positive: >20 - 80 ? High Positive: ? >80 Cardiolipin Antibody IgM <9 0 - 12 MPL U/mL [facility] ACCOUNT BILL Comment: ? Negative: ?<13 ? Indeterminate: ? 13 - 20 ? Low-Med Positive: >20 - 80 ? High Positive: ? >80 Cardiolipin Antibody IgA <9 0 - 11 APL U/mL [facility] ACCOUNT BILL Comment: ? Negative: ?<12 ? Indeterminate: ? 12 - 20 ? Low-Med Positive: >20 - 80 ? High Positive: ? >80 FASTING Blood BLOOD SPECIMEN / Unknown 03/28/2023 12:17 PM CDT 03/28/2023 Narrative Resulting Agency Comment Lab Testing performed at: [facility] [address] ??Critical access hospital [phone] Keren Teixeira MD LAB - SEROLOGY ORDER RICARDA [facility] ACCOUNT BILL [address] [place] [address] * BETA-2 GLYCOPROTEIN 1 ANTIBODY IGG/IGM/IGA PANEL (03/28/2023 12:17 PM CDT) Beta-2 Glycoprotein I Antibody IgG <9 0 - 20 GPI IgG units [facility] ACCOUNT BILL Comment: The reference interval reflects a 3SD or 99th percentile interval, which is thought to represent a potentially clinically significant result in accordance with the International Consensus Statement on the classification criteria for definitive antiphospholipid syndrome (APS). J Thromb Haem 2006;4:295-306. Beta-2 Glycoprotein I Antibody IgA <9 0 - 25 GPI IgA units [facility] ACCOUNT BILL Comment: The reference interval reflects a 3SD or 99th percentile interval, which is thought to represent a potentially clinically significant result in accordance with the International Consensus Statement on the classification criteria for definitive antiphospholipid syndrome (APS). J Thromb Haem 2006;4:295-306. Beta-2 Glycoprotein I Antibody IgM <9 0 - 32 GPI IgM units [facility] ACCOUNT BILL Comment: The reference interval reflects a 3SD or 99th percentile interval, which is thought to represent a potentially clinically significant result in accordance with the International Consensus Statement on the classification criteria for definitive antiphospholipid syndrome (APS). J Thromb Haem 2006;4:295-306. FASTING Blood BLOOD SPECIMEN / Unknown 03/28/2023 12:17 PM CDT 03/28/2023 Narrative Resulting Agency Comment Lab Testing performed at: [facility] [address] ??[facility] [phone] Keren Teixeira MD LAB - SEROLOGY ORDER RICARDA [facility] ACCOUNT BILL [address] [place] [address] * ANGIOTENSIN CONVERTING ENZYME BLOOD (03/28/2023 12:17 PM CDT) Angiotensin-Con verting Enzyme 29 14 - 82 U/L [facility] ACCOUNT BILL Comment:FASTING Blood BLOOD SPECIMEN / Unknown 03/28/2023 12:17 PM CDT 03/28/2023 Narrative Resulting Agency Comment Lab Testing performed at: [facility] [address] ??Critical access hospital [phone] Keren Teixeira MD LAB - CHEMISTRY ORDE RABLES Performing Organization Address City/[facility]/ZIP Co de Phone Number [facility] ACCOUNT BILL [address] [place] [address] documented in this encounter Visit Diagnoses Diagnosis Positive JULES (antinuclear antibody)- Primary Other and unspecified nonspecific immunological findings Rash Rash and other nonspecific skin eruption Other fatigue documented in this encounter
--- OUTSIDE RECORDS SUMMARY | 2024-12-04 04:13 | XMS_ITS | Encounter Summary ---
Author Organization [facility] Address [address] [place] [address]. [place], [place] [id number] [place] [address] Care Team Providers Care Ceramic Artist Name Role Phone Unavailable Primary Care Provider Unavailabl e Encounter Details Date Type Department Care Team (Late st Contact Info) Description [address] [facility] [address] [place] [address] Jaky Triplett MD [address] [place] [address] Social History Tobacco Use Types Packs/Day Years Used Date Smoking Tobacco: Never Assessed Comments Unknown Sex and Gender Information Value Date Recorded Sex Assigned at Not on file Legal Sex Female 10:10 PM [employer] Gender Identity Not on file Sexual Orientation Not on file documented as of this encounter Plan of Treatment Not on file documented as of this encounter Visit Diagnoses Not on filedocumented in this encounter
--- OUTSIDE RECORDS SUMMARY | 2024-12-04 04:13 | XMS_ITS | Patient Health Summary ---
Author Organization [facility] Address [address] [place] [address] Care Team Providers Care Hand Inspector Name Role Phone Devin Jackson DO Primary Care Provider [phone] Note from Formerly named [facility],non-owned Affiliates and Associated Physician Practices is amultiple site organization consisting of ambulatory clinics and hospital sitesin [place], [place], [place] and [place]. This disclosure is being madepursuant to the Care Everywhere program and may not contain all information available regarding this patient. Last updated 18.[facility] Allergies No known active allergies Medications * Be aware that medications may not be up to date on this document. Alwaysverify current medications with the patient. * cefUROXime (Ceftin) 250 MG tablet(Started 03/18/2023) Take 1 (one) tablet by mouth 2 times daily * Azelastine HCl 137 MCG/SPRAY SOLN(Started 12/03/2022) SPRAY 1 SPRAY INTO EACH NOSTRIL EVERY 12 HOURS * fluticasone propionate (Flonase) 50 MCG/ACT nasal spray(Started 10/23/2022) USE 1 SPRAY INTO EACH NOSTRIL EVERY 12 HOURS * ketoconazole (Nizoral) 2 % shampoo(Started 03/14/2023) SHAMPOO SCALP 3 TIMES A WEEK * buPROPion XL 24hr (Wellbutrin-XL) 150 MG tablet(Started 07/30/2023) Take 1 (one) tablet by mouth once daily * busPIRone (Buspar) 10 MG tablet(Started 07/27/2023) TAKE 1 TABLET BY MOUTH TWICE A DAY WITH MEALS FOR 90 DAYS * triamcinolone acetonide (Kenalog) 0.1 % ointment(Started 06/10/2023) Apply to affected area 2 times daily as needed Active Problems No known active problems Social [...] Mass Index 41.1 08/04/2023 2:27 PM CDT Procedures * GERARDO+PROTEIN ELECTROPH BLOOD(Performed 08/11/2023) Performed for Paresthesia of both hands * VITAMIN B12(Performed 08/11/2023) Performed for Paresthesia of both hands * HEMOGLOBIN A1C(Performed 08/11/2023) Performed for Paresthesia of both hands * EMG(Performed 06/09/2023) Performed for Numbness * ERYTHROCYTE SEDIMENTATION RATE(Performed 05/02/2023) Performed for Positive JULES (antinuclear antibody), Sedimentation rate elevation, CRP elevated * C-REACTIVE PROTEIN(Performed 05/02/2023) Performed for Positive JULES (antinuclear antibody), Sedimentation rate elevation, CRP elevated * FESTUS STAINING PATTERNS REFLEXED(Performed 04/01/2023) Performed for Positive JULES (antinuclear antibody), Rash, Other fatigue * THIOPURINE METHYLTRANSFERASE(Performed 04/01/2023) Performed for Positive JULES (antinuclear antibody), Rash, Other fatigue * JULES PANEL COMPREHENSIVE(Performed 04/01/2023) Performed for Positive JULES (antinuclear antibody), Rash, Other fatigue * JULES BLOOD SCREEN W/REFLEX TITER(Performed 04/01/2023) Performed for Positive JULES (antinuclear antibody), Rash, Other fatigue * ALDOLASE(Performed 03/28/2023) Performed for Positive JULES (antinuclear antibody), Rash, Other fatigue * ANCA VASCULITIS PANEL(Performed 03/28/2023) Performed for Positive JULES (antinuclear antibody), Rash, Other fatigue * HEXAGONAL PHASE PHOSPHOLIPID(Performed 03/28/2023) Performed for Positive JULES (antinuclear antibody), Rash, Other fatigue * PTT LA MIX(B) RFLXED(Performed 03/28/2023) Performed for Positive JULES (antinuclear antibody), Rash, Other fatigue * INTERPRETATION REFLEXED(Performed 03/28/2023) Performed for Positive JULES (antinuclear antibody), Rash, Other fatigue * URINALYSIS NO MICROSCOPIC NO CULTURE(Performed 03/28/2023) Performed for Positive JULES (antinuclear antibody), Rash, Other fatigue * HISTONE ANTIBODY(Performed 03/28/2023) Performed for Positive JULES (antinuclear antibody), Rash, Other fatigue * RHEUMATOID FACTOR BLOOD QUANTITATIVE(Performed 03/28/2023) Performed for Positive JULES (antinuclear antibody), Rash, Other fatigue * LUPUS ANTICOAGULANT PANEL W RFLX(Performed 03/28/2023) Performed for Positive JULES (antinuclear antibody), Rash, Other fatigue * HEPATITIS SCREEN ACUTE ([facility])(Performed 03/28/2023) Performed for Positive JULES (antinuclear antibody), Rash, Other fatigue * HEPATIC FUNCTION PANEL(Performed 03/28/2023) Performed for Positive JULES (antinuclear antibody), Rash, Other fatigue * ERYTHROCYTE SEDIMENTATION RATE(Performed 03/28/2023) Performed for Positive JULES (antinuclear antibody), Rash, Other fatigue * CYCLIC CITRULLINATED PEPTIDE(CCP) AB IGG(Performed 03/28/2023) Performed for Positive JULES (antinuclear antibody), Rash, Other fatigue * CREATININE BLOOD(Performed 03/28/2023) Performed for Positive JULES (antinuclear antibody), Rash, Other fatigue * C-REACTIVE PROTEIN(Performed 03/28/2023) Performed for Positive JULES (antinuclear antibody), Rash, Other fatigue * COMPLEMENT C4(Performed 03/28/2023) Performed for Positive JULES (antinuclear antibody), Rash, Other fatigue * COMPLEMENT C3(Performed 03/28/2023) Performed for Positive JULES (antinuclear antibody), Rash, Other fatigue * CK BLOOD(Performed 03/28/2023) Performed for Positive JULES (antinuclear antibody), Rash, Other fatigue * CBC W AUTO DIFFERENTIAL(Performed 03/28/2023) Performed for Positive JULES (antinuclear antibody), Rash, Other fatigue * CARDIOLIPIN ANTIBODY IGA/IGG/IGM PANEL(Performed 03/28/2023) Performed for Positive JULES (antinuclear antibody), Rash, Other fatigue * BETA-2 GLYCOPROTEIN 1 ANTIBODY IGG/IGM/IGA PANEL(Performed 03/28/2023) Performed for Positive JULES (antinuclear antibody), Rash, Other fatigue * ANGIOTENSIN CONVERTING ENZYME BLOOD(Performed 03/28/2023) Performed for Positive JULES (antinuclear antibody), Rash, Other fatigue Results * (ABNORMAL) GERARDO+PROTEIN ELECTROPH BLOOD (08/11/2023 [...] 0.0 - 0.4 g/dL [facility] ACCOUNT BILL Wpxts-0-Xturhnlt 0.9 0.4 - 1.0 g/dL [facility] ACCOUNT [...] scan will follow via computer, mail, or policy analyst delivery. Blood BLOOD SPECIMEN / Unknown 08/11/2023 12:15 PM CDT 08/11/2023 Narrative Resulting Agency Comment Lab Testing performed at: [facility] [address] ??[facility] [phone] Rodney Torre MD LAB - CHEMISTRY [place] MORALES [facility] ACCOUNT BILL [address] [place] [address] * HEMOGLOBIN A1C (08/11/2023 12:15 PM CDT) Hemoglobin A1c 5.4 4.8 - 5.6 % [facility] ACCOUNT BILL Comment: ? . ? Prediabetes: 5.7 - 6.4 ? Diabetes: >6.4 ? Glycemic control for adults with diabetes: <7.0 Blood BLOOD SPECIMEN / Unknown 08/11/2023 12:15 PM CDT 08/11/2023 Narrative Resulting Agency Comment Lab Testing performed at: [facility] [address] ??[facility] [phone] Rodney Torre MD LAB - CHEMISTRY [place] Performing Organization Address [facility] Co de Phone Number [facility] ACCOUNT BILL [address] [place] [address] * VITAMIN B12 (08/11/2023 12:15 PM CDT) Vitamin B12 596 232 - 1,245 pg/mL [facility] ACCOUNT BILL Blood BLOOD SPECIMEN / Unknown 08/11/2023 12:15 PM CDT 08/11/2023 Narrative Resulting Agency Comment Lab Testing performed at: [facility] [address] ??[facility] [phone] Rodney Torre MD LAB - CHEMISTRY [place] [facility] ACCOUNT BILL [address] [place] [address] * EMG (06/09/2023 11:59 PM CDT) Narrative Rodney Torre MD - 06/09/2023 11:59 PM CDT Rodney Torre MD ? 06/10/2023 ??9:51 PM [facility] [address] [place] [address], [address] [phone] Patient: Sabiha Montes V #: ??Physician: Rodney Torre MD Sex: Female ID#: [id number] Ref Phys: Rodney Torre MD : 2000 Date: 06/09/2023 Photo Journalist: Betsy Choi ?? Patient Complaints: The patient [...] Waveforms: ? Rodney Torre MD NEUROLOGY ORDERABLES * (ABNORMAL) C-REACTIVE PROTEIN (05/02/2023 2:01 PM CDT) Only the most recent of2 resultswithin the time period is included. C-Reactive Protein 14(H) 0 - 10 mg/L [facility] ACCOUNT BILL Blood BLOOD SPECIMEN / Unknown 05/02/2023 2:01 PM CDT 05/02/2023 Narrative Resulting Agency Comment Lab Testing performed at: [facility] [id number] ??[facility] [phone] Keren Teixeira MD LAB - CHEMISTRY [place]AL[place] [facility] ACCOUNT BILL [address] [place] [address] * ERYTHROCYTE SEDIMENTATION RATE (05/02/2023 2:01 PM CDT) Only the most recent of2 resultswithin the time period is included. Erythrocyte Sedimentation Rate Westergren 29 0 - 32 mm/hr [facility] ACCOUNT BILL Blood BLOOD SPECIMEN / Unknown 05/02/2023 2:01 PM CDT 05/02/2023 Narrative Resulting Agency Comment Lab Testing performed at: [facility] [address] ??[facility] [phone] Keren Teixeira MD LAB - HEMATOLOGY ORD ERABLES [facility] ACCOUNT BILL [address] [place] [address] * FESTUS STAINING PATTERNS REFLEXED (04/01/2023 11:21 AM CDT) Homogeneous Pattern NOT AVAILABLE [facility] ACCOUNT BILL Comment:Result cannot be obt ained for this observation. Nucleolar Pattern NOT AVAILABLE [facility] ACCOUNT BILL Comment:Result [...] Histones ?Drug-induced SLE ? Speckled ? Sm, INJECTION PRESS OPERATOR, SCL-70, ??SLE,MCTD,PSS (diffuse form), ? SS-A/SS-B ? Sjogrens ? Nucleolar ?SCL-70, PM-1/SCL ??High titers Scleroderma, ? PM/DM ? Centromere ?? Centromere ?PSS (limited form) w/Crest ? syndrome variable ? Nuclear Dot ??[id number] ??Primary Biliary Cirrhosis ? Nuclear ?GP210, ?Primary Biliary Cirrhosis Membrane ? chapis A,B,C ? 04/01/2023 11:2 1 AM CDT 04/01/2023 Narrative Resulting Agency Comment [facility] Testing performed [facility]: [facility] [address] [facility] ??[facility] [phone] Keren Teixeira MD LAB - PATHOLOGY/CYTO LOGY ORDERABLES [facility] ACCOUNT BILL [address] [place] [address] * JULES PANEL COMPREHENSIVE (04/01/2023 11:21 AM CDT) Anti-dsDNA Quantitative 1 0 - 9 IU/mL [facility] ACCOUNT BILL Comment: ?Negative ?<5 ?Equivocal ??5 - 9 ?Positive ?>9 INJECTION PRESS OPERATOR Antibody 0.2 0.0 - 0.9 AI [facility] [...] Sm (anti-Francisco) ?SLE ?15 - 30% ?--------- INJECTION PRESS OPERATOR ?Mixed Connective Tissue ? Disease ? 95% [...] Resulting Agency Comment Lab Testing performed at: [facility] [address] [facility] ??[facility] [phone] Keren Teixeira MD LAB - SEROLOGY ORDER RICARDA [facility] ACCOUNT BILL [address] [place] [address] * (ABNORMAL) JULES BLOOD SCREEN W/REFLEX TITER (04/01/2023 11:21 AM CDT) JULES Positive(A ) [facility] ACCOUNT BILL Comment: ?Negative ?? <1:80 ?Borderline ??1:80 ?Positive ?? >1:80 Blood BLOOD SPECIMEN / Unknown 04/01/2023 11:21 AM CDT 04/01/2023 Narrative Resulting Agency Comment Lab Testing performed at: [address] ??[facility] [phone] Keren Teixeira MD LAB - CHEMISTRY [place]ORALES [facility] ACCOUNT BILL [address] [place] [address] * THIOPURINE METHYLTRANSFERASE (04/01/2023 11:21 AM CDT) [...] developed and its performance characteristics determined by [facility]. It has not been cleared or approved by the Food and Drug Administration. This case has been reviewed, approved, interpreted and electronically signed by Jaspreet Osman, PhD, [facility]. Methodology [facility] ACCOUNT BILL Comment: Enzymatic Endpoint/Liquid Chromatography - Tandem Mass Spectrometry (LC-MS/MS) Blood BLOOD SPECIMEN / Unknown 04/01/2023 11:21 AM CDT 04/01/2023 Narrative Resulting Agency Comment Lab Testing performed at: [facility] [address] [facility] ??[facility] [phone] Keren Teixeira MD LAB - CHEMISTRY [place]AL[place] Performing Organization Address [facility] Co de Phone Number [facility] ACCOUNT BILL [address] [place] [address] * ALDOLASE (03/28/2023 12:19 PM CDT) Aldolase 3.3 3.3 - 10.3 U/L [facility] ACCOUNT BILL Comment:FASTING Blood BLOOD SPECIMEN / Unknown 03/28/2023 12:19 PM CDT 03/28/2023 Narrative Resulting Agency Comment Lab Testing performed at: [facility] [address] ??[facility] [phone] Keren Teixeira MD LAB - CHEMISTRY [place] Performing Organization Address [facility] de Phone Number [facility] ACCOUNT BILL [address] [place] [address] * ANCA VASCULITIS PANEL (03/28/2023 12:18 PM [...] up testing of positive sera with both NM-3 and MPO-ANCA enzyme immunoassays. As many as [...] Agency Comment Lab Testing performed at: [facility] [address] ??[facility] [phone] Keren Teixeira MD LAB - CHEMISTRY [place] Performing Organization Address City/[facility] Co de Phone Number [facility] ACCOUNT BILL [address] [place] [address] * HEPATITIS SCREEN ACUTE ([facility]) (03/28/2023 12:17 PM CDT) Hepatitis A Virus Antibody IgM Negative Negative [facility] ACCOUNT BILL Hepatitis B Virus Surface Antigen Negative Negative [facility] ACCOUNT BILL Hepatitis B Core Virus Antibody IgM Negative Negative [facility] ACCOUNT BILL Hepatitis C Antibody Non Reactive Non Reactive [facility] ACCOUNT BILL Comment:FASTING Blood BLOOD SPECIMEN / Unknown 03/28/2023 12:17 PM CDT 03/28/2023 Narrative Resulting Agency Comment Lab Testing performed at: [facility] [address] ??[facility] [phone] Keren Teixeira MD LAB - CHEMISTRY [place] Performing Organization Address City/[facility] Co de Phone Number [facility] ACCOUNT BILL [address] [place] [address] * INTERPRETATION REFLEXED (03/28/2023 12:17 PM CDT) Interpretation [facility] ACCOUNT BILL Comment: Not infected with HCV unless early or acute infection is suspected (which may be delayed in an immunocompromised individual), or other evidence exists to indicate HCV infection. FASTING 03/28/2023 12:1 7 PM CDT 03/28/2023 Narrative Resulting Agency Comment Lab Testing performed at: [facility] [address] ??[facility] [phone] Keren Teixeira MD LAB - SEROLOGY ORDER RICARDA [facility] ACCOUNT BILL [address] [place] [address] * HEXAGONAL PHASE PHOSPHOLIPID (03/28/2023 12:17 PM CDT) Hex Phase 9 0 - 11 sec [facility] ACCOUNT BILL Comment:FASTING 03/28/2023 12:1 7 PM CDT 03/28/2023 Narrative Resulting Agency Comment Lab Testing performed at: [facility] [address] ??[facility] [id number] Keren Teixeira MD LAB - CHEMISTRY ORDE RABLES Performing Organization Address [facility] de Phone Number [facility] ACCOUNT BILL [address] [place] [address] * CARDIOLIPIN ANTIBODY IGA/IGG/IGM PANEL (03/28/2023 12:17 [...] Agency Comment Lab Testing performed at: [facility] [address] [facility] ??[facility] [phone] Keren Teixeira MD LAB - SEROLOGY ORDER RICARDA Performing Organization Address City/[facility]/ZIP Co de Phone Number [facility] ACCOUNT BILL [address] [place] [address] * (ABNORMAL) PTT LA MIX(B) RFLXED (03/28/2023 12:17 PM CDT) PTT Lupus Anticoagulant Mix 42.9(H) 0.0 - 40.5 sec [facility] ACCOUNT BILL Comment:FASTING 03/28/2023 12:1 7 PM CDT 03/28/2023 Narrative Resulting Agency Comment Lab Testing performed at: [facility] [address] ??[facility] [id number] Keren Teixeira MD LAB - COAGULATION OR DERABLES Performing Organization Address [facility] Co de Phone Number [facility] ACCOUNT BILL [address] [place] [address] * (ABNORMAL) LUPUS ANTICOAGULANT PANEL W RFLX (03/28/2023 12:17 PM CDT) PTT-LA 44.0(H) 0.0 - 43.5 sec [facility] [...] Agency Comment Lab Testing performed at: [facility] [place] [address] [facility] ??[facility] [phone] Keren Teixeira MD LAB - HEMATOLOGY ORD ERABLES Performing Organization Address City/[facility]/ZIP Co de Phone Number [facility] ACCOUNT BILL [address] [place] [address] * BETA-2 GLYCOPROTEIN 1 ANTIBODY IGG/IGM/IGA PANEL (03/28/2023 12:17 PM CDT) Pathologist [facility] Beta-2 Glycoprotein I Antibody IgG <9 0 [...] Agency Comment Lab Testing performed at: [facility] [address] ??[facility] [phone] Keren Teixeira MD LAB - SEROLOGY ORDER RICARDA [facility] ACCOUNT BILL [address] [place] [address] * URINALYSIS NO MICROSCOPIC NO CULTURE (03/28/2023 12:17 PM CDT) Pathologist [facility] Specific Roll UA 1.025 1.005 - 1.030 [facility] ACCOUNT [...] Resulting Agency Comment Lab Testing performed at: [facility] ??[facility] [phone] Keren Teixeira MD LAB - URINALYSIS ORD ERABLES Performing Organization Address City/[facility] Co de Phone Number [facility] ACCOUNT BILL [address] [place] [address] * RHEUMATOID FACTOR BLOOD QUANTITATIVE (03/28/2023 12:17 PM CDT) [facility] Rheumatoid Factor <10.0 <14.0 IU/mL [facility] ACCOUNT BILL Comment:FASTING Blood BLOOD SPECIMEN / Unknown 03/28/2023 12:17 PM CDT 03/28/2023 Narrative Resulting Agency Comment Lab Testing performed at: [facility] ??[facility] [id number] Keren Teixeira MD LAB - CHEMISTRY ORDE RABLES Performing Organization Address City/[facility] Co de Phone Number [facility] ACCOUNT BILL [address] [place] [address] * HISTONE ANTIBODY (03/28/2023 12:17 PM CDT) [facility] Anti-Histone Antibody 0.3 0.0 - 0.9 Units [facility] ACCOUNT BILL Comment: ?Negative ?<1.0 ?Weak Positive ?1.0 - 1.5 ?Moderate Positive ??1.6 - 2.5 ?Strong Positive ? >2.5 FASTING Blood BLOOD SPECIMEN / Unknown 03/28/2023 12:17 PM CDT 03/28/2023 Narrative Resulting Agency Comment Lab Testing performed at: [facility] ??[facility] [id number] Keren Teixeira MD LAB - CHEMISTRY [place]ALES Performing Organization Address [facility] de Phone Number [facility] ACCOUNT BILL [address] [place] [address] * ANGIOTENSIN CONVERTING ENZYME BLOOD (03/28/2023 12:17 PM CDT) Angiotensin-Con verting Enzyme 29 14 - 82 U/L [facility] ACCOUNT BILL Comment:FASTING Blood BLOOD SPECIMEN / Unknown 03/28/2023 12:17 PM CDT 03/28/2023 Narrative Resulting Agency Comment Lab Testing performed at: [facility] [address] [facility] ??[facility] [phone] Keren Teixeira MD LAB - CHEMISTRY [place] Performing Organization Address [facility] de Phone Number [facility] ACCOUNT BILL [address] [place] [address] * CYCLIC CITRULLINATED PEPTIDE([facility]) AB IGG (03/28/2023 12:17 PM CDT) Pathologist [facility] CCP Antibodies IgG/IgA <20 <20 Units [facility] ACCOUNT BILL Comment: ?Negative: ? <20 ?Weak Positive: ?20 - 39 ?Moderate Positive: ?40 - 59 ?Strong Positive: ?>59 FASTING Blood BLOOD SPECIMEN / Unknown 03/28/2023 12:17 PM CDT 03/28/2023 Narrative [facility] ACCOUNT BILL - 04/03/2023 7:10 AM CDT Test(s) 052111-[id number]-XCT Ab, IgG + IgA (RDL) was developed and its performance characteristics determined by [facility]. It has not been cleared or approved by the Food and Drug Administration. Resulting Agency Comment Lab Testing performed at: [facility] [address] [place] [address] ??[facility] [phone] Keren Teixeira MD LAB - CHEMISTRY [place]AL[place] [facility] ACCOUNT BILL [address] [place] [address] * CBC WITH DIFFERENTIAL (03/28/2023 12:17 PM CDT) [facility] WBC 6.6 3.4 - 10.8 x10E3/uL [facility] [...] Resulting Agency Comment Lab Testing performed at: [facility] ??[facility] [phone] Keren Teixeira MD LAB - HEMATOLOGY ORD ERABLES [facility] ACCOUNT BILL [address] [place] [address] * COMPLEMENT C4 (03/28/2023 12:17 PM CDT) Complement C4 28 14 - 44 mg/dL [facility] ACCOUNT BILL Comment:FASTING Blood BLOOD SPECIMEN / Unknown 03/28/2023 12:17 PM CDT 03/28/2023 Narrative Resulting Agency Comment Lab Testing performed at: [facility] [address] [place] [address] ??[facility] [phone] Keren Teixeira MD LAB - SEROLOGY ORDER RICARDA Performing Organization Address City/[facility]/ZIP Co de Phone Number [facility] ACCOUNT BILL [address] [place] [address] * (ABNORMAL) HEPATIC FUNCTION PANEL (03/28/2023 12:17 [...] Agency Comment Lab Testing performed at: [facility] [address] [facility] ??[facility] [phone] Keren Teixeira MD LAB - CHEMISTRY ORDE RABCRISTIAN [facility] ACCOUNT BILL [address] [place] [address] * CREATININE BLOOD (03/28/2023 12:17 PM CDT) Creatinine 0.69 0.57 - 1.00 mg/dL [facility] ACCOUNT BILL eGFR by CKD-EPI 126 >59 mL/min/1.7 3 [facility] ACCOUNT BILL Comment:FASTING Blood BLOOD SPECIMEN / Unknown 03/28/2023 12:17 PM CDT 03/28/2023 Narrative Resulting Agency Comment Lab Testing performed at: [facility] [address] ??[facility] [phone] Keren Teixeira MD LAB - CHEMISTRY [place] MORAL[place] [facility] ACCOUNT BILL [address] [place] [address] * CK BLOOD (03/28/2023 12:17 PM CDT) CK 37 32 - 182 U/L [facility] ACCOUNT BILL Comment:FASTING Blood BLOOD SPECIMEN / Unknown 03/28/2023 12:17 PM CDT 03/28/2023 Narrative Resulting Agency Comment Lab Testing performed at: [facility] [address] ??[facility] [phone] Keren Teixeira MD LAB - CHEMISTRY [place] MORALES Performing Organization Address City/[facility]/ZIP Co de Phone Number [facility] ACCOUNT BILL [address] [place] [address] * (ABNORMAL) COMPLEMENT C3 (03/28/2023 12:17 PM CDT) Complement C3 229(H) 82 - 167 mg/dL [facility] ACCOUNT BILL Comment:FASTING Blood BLOOD SPECIMEN / Unknown 03/28/2023 12:17 PM CDT 03/28/2023 Narrative Resulting Agency Comment Lab Testing performed at: [facility] [address] [place] [address] ??[facility] [phone] Keren Teixeira MD LAB - CHEMISTRY [place]T MORAELS [facility] ACCOUNT BILL [address] [place] [address] Care Teams Hand Inspector Relationship Specialty Start Date End Date Devin Jackson DO PCP - General Internal Medicine 04/25/23
--- OUTSIDE RECORDS SUMMARY | 2024-12-04 04:13 | XMS_ITS | Encounter Summary ---
Author Organization [facility] Address [address] [place] [address] Care Team Providers Care Registered Occupational Therapist Name Role Phone Devin Jackson DO Primary Care Provider [phone] Reason for Visit * Neurology (Routine) - Closed Specialty Diagnoses / Procedures Referred By Jorge durbin Referred To Contact Diagnoses Numbness Procedures EMG Rodney Torre MD [address] [place] [address] i [place] [address] [place] [address] Referral ID Status Reason Start Date Expiration Date Visits Re quested Visits Authorized [id number] Closed 05/30/2023 05/29/2024 1 1 Encounter Details Date Type Department Care Team (Latest Contact Info) Description 06/09/2023 2:47 PM CDT - 06/09/2023 11:59 PM CDT Hospital Encounter [facility] [address], [address] [place], [place] [id number] Rodney Torre MD [address] [place] [address] Discharge Disposition: Home or Self Care Social History Tobacco Use Types Packs/Day Years [...] this encounter Medications at Time of Discharge Medication Sig Dispensed Refills Start Date End Date Azelastine HCl 137 MCG/SPRAY SOLN SPRAY 1 SPRAY INTO EACH NOSTRIL EVERY 12 HOURS 12/03/2022 cefUROXime (Ceftin) 250 MG tablet Take 1 (one) tablet by mouth 2 times daily 03/18/2023 fluticasone propionate (Flonase) 50 MCG/ACT nasal spray USE 1 SPRAY INTO EACH NOSTRIL EVERY 12 HOURS 10/23/2022 ketoconazole (Nizoral) 2 % shampoo SHAMPOO SCALP 3 TIMES A WEEK 03/14/2023 spironolactone (Aldactone) 100 MG tablet Take 1 (one) tablet by mouth 2 times daily 05/29/2023 08/04/2023 vortioxetine (Trintellix) 5 MG tablet 09/2023 documented as of this encounter Procedure Notes * Rodney Torre MD - 06/09/2023 11:59 PM CDTAssociated Order(s): EMG Images from the original note were not included. [address], [address] [phone] Patient: Sabiha Montes V #: Physician: Rodney Torre MD Sex: Female ID#: [id number] Ref Phys: Rodney Torre MD : 2000 Date: 06/09/2023 Director Of Physical Security: Betsy Choi Patient Complaints: The patient is a 23 year old female with complaints of numbness, weakness, and tingling in bilateral upper extremities and lower extremities. The symptoms have been present for 9 months. [...] right side differences were within normal limits. ??? EMG of all examined muscles (as indicated in the following table) was normal. IMPRESSION 1. 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 2. Mild bilateral sensory carpal tunnel syndrome with related prolongation of ulnar to median latencies. 3. Common causes of polyneuropathy includes diabetes and prediabetes, toxic like alcoholism, nutritional like B12 deficiencies, autoimmune and paraproteinemias. Please correlate clinically. Rodney Torre MD Diplomate, Neuromuscular and Electrodiagnostic Medicine Nerve Conduction Studies Motor Summary Table Stim Site NR Onset (ms) Norm Onset (ms) O-P Amp (mV) Norm O-P Amp Neg Area (mVms) Site1 Site2 Delta-0 (ms) Dist (cm) Alvarez (m/s) Norm Alvarez (m/s) Left Median Motor (Abd Poll Brev) 36.3 ??C Wrist 3.6 <4.2 9.5 >4 29.21 Elbow Wrist 3.7 22.0 59 >48 Elbow 7.3 8.8 28.90 Right Median Motor (Abd Poll Brev) 36.3 ??C Wrist 3.8 <4.2 10.1 >4 28.87 Elbow Wrist 3.5 20.5 59 >48 Elbow 7.3 10.0 28.89 Left Ulnar Motor (Abd Dig Minimi) 36.3 ??C Wrist 2.7 <3.5 8.6 >6 28.53 B Elbow Wrist 3.4 22.0 65 >48 B Elbow 6.1 8.9 30.32 A Elbow B Elbow 1.6 10.0 62 >48 A Elbow 7.7 8.5 30.26 Right Ulnar Motor (Abd Dig Minimi) 36.3 ??C Wrist 2.8 <3.5 9.4 >6 27.93 B Elbow Wrist 3.8 23.0 61 >48 B Elbow 6.6 9.3 29.43 A Elbow B Elbow 1.4 10.0 71 >48 A Elbow 8.0 9.3 29.61 Anti Sensory Summary Table Stim Site NR Onset (ms) Peak (ms) Norm Onset (ms) O-P Amp (??V) Norm O-P Amp Site1 Site2 Delta-0 (ms) Dist (cm) Alvarez (m/s) Norm Alvarez (m/s) Run #2 (Base 1st Digit) 36.3 ??C Wrist 1.1 1.6 33.1 >15 Wrist Base 1st Digit 1.1 10.0 91 >53 0.9 1.8 22.4 Right Radial Anti Sensory (Base 1st Digit) 36.3 ??C Wrist 1.6 2.1 39.5 >15 Wrist Base 1st Digit 1.6 10.0 63 >53 Left Sural Anti Sensory (Lat Mall) 36.3 ??C Calf NR <4.0 >5.0 Calf Lat Mall 14.0 Right Sural Anti Sensory (Lat Mall) 36.3 ??C Calf NR <4.0 >5.0 Calf Lat Mall 14.0 Comparison Summary Table Stim Site NR Onset (ms) Peak (ms) Norm Onset (ms) O-P Amp (??V) Site1 Site2 Delta-0 (ms) Norm Delta(ms) Alvarez (m/s) Norm Alvarez (m/s) Left Median/Ulnar Palmar Comparison (Wrist) 36.3 ??C Median Palm 1.6 2.1 98.2 Median Palm Wrist 1.6 50 >53 Ulnar Palm 1.1 1.5 11.3 Ulnar Palm Wrist 1.1 73 >53 Median Palm Ulnar Palm 0.5 <.4 Right Median/Ulnar Palmar Comparison (Wrist) 36.3 ??C Median Palm 1.6 2.1 98.9 Median Palm Wrist 1.6 50 >53 Ulnar Palm 1.2 1.6 31.1 Ulnar Palm Wrist 1.2 67 >53 Median Palm Ulnar Palm 0.4 <.4 EMG Side Muscle Nerve Root Insrt Fibs Psw Fasc Amp Dur Poly Recrt Comm Left Abd Poll Brev Median C8-T1 Nml Nml Nml 0 Nml Nml 0 Nml Left 1stDorInt Ulnar C8-T1 Nml Nml Nml 0 Nml Nml 0 Nml Left ExtIndicis Radial (Post Int) C7-8 Nml Nml Nml 0 Nml Nml 0 Nml Left Biceps Musculocut C5-6 Nml Nml Nml 0 Nml Nml 0 Nml Left Deltoid Axillary C5-6 Nml Nml Nml 0 Nml Nml 0 Nml Right Abd Poll Brev Median C8-T1 Nml Nml Nml 0 Nml Nml 0 Nml Right 1stDorInt Ulnar C8-T1 Nml Nml Nml 0 Nml Nml 0 Nml Right ExtIndicis Radial (Post Int) C7-8 Nml Nml Nml 0 Nml Nml 0 Nml Right Biceps Musculocut C5-6 Nml Nml Nml 0 Nml Nml 0 Nml Right Deltoid Axillary C5-6 Nml Nml Nml 0 Nml Nml 0 Nml Left MedGastroc Tibial S1-2 Nml Nml Nml 0 Nml Nml 0 Nml Left AntTibialis Dp Br Peron L4-5 Nml Nml Nml 0 Nml Nml 0 Nml Waveforms: documented in this encounter Plan of Treatment Not on file documented as of this encounter Procedures Procedure Name Priority Date/Time Associated Diagnosis Comments EMG Routine 06/09/2023 11:59 PM CDT Numbness documented in this encounter Results * EMG (06/09/2023 11:59 PM CDT) Narrative Rodney Torre MD - 06/09/2023 11:59 PM CDT Rodney Torre MD ? 06/10/2023 ??9:51 PM [facility] [address] [place] [address], [address] [phone] Patient: Sabiha Montes V #: ??Physician: Rodney Torre MD Sex: Female ID#: [id number] Ref Phys: Rodney Torre MD : 2000 Date: 06/09/2023 Director Of Physical Security: Betsy Choi ?? Patient Complaints: The patient [...] documented in this encounter Visit Diagnoses Diagnosis Numbness Disturbance of skin sensation documented in this encounter Care Teams Registered Occupational Therapist Relationship Specialty Start Date End Date Devin Jackson DO PCP - General Internal Medicine 04/25/23 documented as of this encounter
--- OUTSIDE RECORDS SUMMARY | 2024-12-04 04:13 | XMS_ITS | Encounter Summary ---
Author Organization [facility] Address [address] [address] Care Team Providers Care Vehicle Care Specialist Name Role Phone Devin Jackson DO Primary Care Provider [phone] Encounter Details Date Type Department Care Team (Late st Contact Info) Description 10/02/2022 Telephone [facility] [address] [place] [address] Betsy Castellanos MA Social History Tobacco Use Types Packs/Day Years Used Date Smoking Tobacco: Never Smokeless Tobacco: Never Comments No Sex and Gender Information Value Date Recorded Sex Assigned at Not on file Legal Sex Female 1:22 AM DINKEY ENGINE OPERATOR Gender Identity Not on file Sexual Orientation Not on file documented as of this encounter Miscellaneous Notes * Telephone Encounter - Betsy Castellanos MA - 10/02/2022 11:45 AM CST Left message for patient to call back to discuss throat culture results. EY ENGINE OPERATOR * Telephone Encounter - Betsy Castellanos MA - 10/02/2022 11:45 AM CST ----- Message from LIVIA Jay sent at 10/02/2022 7:32 AM DINKEY ENGINE OPERATOR ----- Please advise pt of normal result, may stop abx and see PCP if not better, thanks EY ENGINE OPERATOR documented in this encounter Plan of Treatment Not on file documented as of this encounter Visit Diagnoses Not on filedocumented in this encounter Care Teams Vehicle Care Specialist Relationship Specialty Start Date End Date Devin Jackson DO PCP - General Internal Medicine 03/07/22 documented as of this encounter
--- OUTSIDE RECORDS SUMMARY | 2024-12-04 04:13 | XMS_ITS | Encounter Summary ---
Author Organization [facility] Address [address] [place] [address] Care Team Providers Care Dock Coordinator Name Role Phone Devin Jackson DO Primary Care Provider [phone] Encounter Details Date Type Department Care Team (Latest Contact Info) Description 08/24/2024 8:42 AM CDT - 08/24/2024 11:59 PM CDT Hospital Encounter [address] [address] Sore throat Discharge Disposition: Discharge to home or self care Social History Tobacco Use Types Packs/Day Years Used Date Smoking Tobacco: Never Smokeless Tobacco: Never Comments No Sex and Gender Information Value Date Recorded Sex Assigned at Not on file Legal Sex Female 1:22 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 Gender Identity Not on file Sexual Orientation Not on file documented as of this encounter Medications at Time of Discharge ALPRAZolam (XANAX) 0.5 mg tablet Take 1 tablet (0.5 mg total) by mouth 3 (three) times a day as needed 06/29/2024 fluvoxaMINE (LUVOX) 50 mg tablet Take 1 tablet (50 mg total) by mouth nightly 07/27/2024 spironolactone (ALDACTONE) 100 mg tablet 1 tablet (100 mg total) 02/03/2024 SUMAtriptan (IMITREX) 25 mg tablet TAKE 1 TAB AT ONSET OF HEADACHE IF NO RELIEF MAY REPEAT 1 TAB IN AT LEAST 2 HRS MAX 4 TABS/24GHR 05/06/2022 cephalexin (KEFLEX) 500 mg capsuleIndicatio ns:Vaccine reaction, initial encounter Take 1 capsule (500 mg total) by mouth 4 (four) times a day for 7 days 28 capsule 08/24/2024 08/31/2024 documented as of this encounter Discharge Disposition Disposition Code Departure Means Destination Discharge to home or self care documented in this encounter Plan of Treatment Not on file documented as of this encounter Procedures Procedure Name Priority Date/Time Associated Diagnosis Comments THROAT CULTURE Routine 08/24/2024 8:42 AM CDT Sore throat documented in this encounter Results * Throat culture Throat (08/24/2024 8:42 AM CDT) Report Final Report: No growth of pathogens. Comment:Testing performed by : [facility], [address] [place]., [address] Throat 08/24/2024 8:42 AM CDT 08/24/2024 5:30 PM CDT Narrative SERENA Sheridan 08/25/2024 1:20 PM CDT Testing performed by [facility] ([phone]). us Dorita Seth NP LAB MICROBIOLOGY - GENERAL ORDERABLES Final Result SERENA ANDREW [address] Department of Laboratories [place], [place] [id number] documented in this encounter Visit Diagnoses Diagnosis Sore throat Acute pharyngitis documented in this encounter Additional Health Concerns Infection Onset Date Last Indicated Resolved Time COVID: Suspected 08/24/2024 08/24/2024 08/24/2024 8:43 AM CDT documented as of this encounter Care Teams Dock Coordinator Relationship Specialty Start Date End Date Devin Jackson DO PCP - General Internal Medicine 03/07/22 documented as of this encounter
--- OUTSIDE RECORDS SUMMARY | 2024-12-04 04:13 | XMS_ITS | Clinical Summary ---
Author Organization [facility] Address [address] [place] [address]. [place], [place] [id number] [place] [address] Care Team Providers Care Reinforcing Steel Erector Name Role Phone Unavailable Primary Care Provider Unavailabl e Social History Tobacco Use Types Packs/Day Years Used Date Smoking Tobacco: Never Assessed Comments Unknown Sex and Gender Information Value Date Recorded Sex Assigned at Not on file Legal Sex Female 10:10 PM PEDIATRIC SPEECH THERAPIST Gender Identity Not on file Sexual Orientation Not on file Plan of Treatment Health Maintenance Due Date Last Done Comments Cervical Cancer Screening Pa p Smear (Age 21 to 29) Every 3 Years 2000 Cervical Cancer Screening 2000 Annual Physical 2003 HPV Vaccines (1 - 3-dose series) 2015 Hepatitis C 2018 DTaP, Tdap and Td Vaccines ( 1 - Tdap) 2019 Hepatitis B Vaccines (1 of 3 - 19+ 3-dose series) 2019 COVID-19 Vaccine (2023-2 5 season) 2024 Influenza Adult (#1) 2024 Meningococcal Vaccine Aged Out No carl eliu eligible based on patient's age to complete this topic Pneumococcal Vaccine: Pediat rics (0 to 5 Years) and At-Risk Patients (6 to 64 Years) Aged Out No longer eligible b ased on patient's age to complete this topic RSV Immunizations Under 20 Months Aged Out No longer eligible based on patient's age to complete this topic
--- OUTSIDE RECORDS SUMMARY | 2024-12-04 04:13 | XMS_ITS | Referral Summary ---
Author Organization [facility] Address [address] [place] [address] Care Team Providers Care Senior Production Supervisor Name Role Phone Devin Jackson DO Primary Care Provider [phone] Source Comments [facility],non-owned Affiliates and Associated Physician Practices is amultiple site organization consisting of ambulatory clinics and hospital sitesin [place], [place], [place] and [place]. This disclosure is being madepursuant to the Care Everywhere program and may not contain all information available regarding this patient. Last updated 18.[facility] Allergies No known active allergies Medications * Be aware that medications may not be up to date on this document. Alwaysverify current medications with the patient. Medication Sig Dispensed Refills Start Date End Date Status cefUROXime (Ceftin) 250 MG tablet Take 1 (one) tablet by mouth 2 times daily 03/18/2023 Active Azelastine HCl 137 MCG/SPRAY SOLN SPRAY 1 SPRAY INTO EACH NOSTRIL EVERY 12 HOURS 12/03/2022 Active fluticasone propionate (Flonase) 50 MCG/ACT nasal spray USE 1 SPRAY INTO EACH NOSTRIL EVERY 12 HOURS 10/23/2022 Active ketoconazole (Nizoral) 2 % shampoo SHAMPOO SCALP 3 TIMES A WEEK 03/14/2023 Active buPROPion XL 24hr (Wellbutrin-XL) 150 MG tablet Take 1 (one) tablet by mouth once daily 07/30/2023 Active busPIRone (Buspar) 10 MG tablet TAKE 1 TABLET BY MOUTH TWICE A DAY WITH MEALS FOR 90 DAYS 07/27/2023 Active triamcinolone acetonide (Kenalog) 0.1 % ointment Apply to affected area 2 times daily as needed 06/10/2023 Active Active Problems No known active problems [...] Mass Index 41.1 08/04/2023 2:27 PM CDT Plan of Treatment Not on file Procedures Procedure Name Priority Date/Time Associated Diagnosis Comments HEPATITIS SCREEN ACUTE ([facility]) Routine 03/28/2023 12:17 PM CDT Positive JULES (antinuclear antibody) Rash Other fatigue from Last 3 Months or Most Recently Relevant to Health Maintenance Results * HEPATITIS SCREEN ACUTE ([facility]) (03/28/2023 12:17 [...] Agency Comment Lab Testing performed at: [facility] [address] ??[facility] [id number] Keren Teixeira MD LAB - CHEMISTRY LISSETT MORALES [facility] ACCOUNT BILL [address] [place] [address] from Last 3 Months or Most Recently Relevant to Health Maintenance Care Teams Senior Production Supervisor Relationship Specialty Start Date End Date Devin Jackson DO PCP - General Internal Medicine 04/25/23
--- OUTSIDE RECORDS SUMMARY | 2024-12-04 04:13 | XMS_ITS | Encounter Summary ---
Author Organization [facility] Healthcare Address [address] [place] [id number] Care Team Providers Care Strap Buckler Machine Name Role Phone Devin Jackson DO Primary Care Provider [phone] Reason for Visit * Reason Comments Sore Throat vaccine Vaccine reaction Encounter Details Date Type Department Care Team (Late st Contact Info) Description 08/24/2024 8:15 AM CDT Office Visit [facility] at [address] [address] Dorita Seth, FAST BRIM POUNCER [address] [place] [address] [address] [place] [address] Sore throat (Primary Dx); Vaccine reaction, initial encounter Social History Tobacco Use Types Packs/Day Years Used Date Smoking Tobacco: Never Smokeless Tobacco: Never Comments No Sex and Gender Information Value Date Recorded Sex Assigned at Not on file 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 Gender Identity Not on file Sexual Orientation Not on file documented as of this encounter Last Filed Vital Signs Vital Sign Reading Time Taken Comments Blood Pressure 120/82 08/24/2024 8:14 AM CDT Pulse 94 08/24/2024 8:14 AM CDT Temperature 36.9 ??C (98.5 ??F) 08/24/2024 8:14 AM CD T Respiratory Rate 18 08/24/2024 8:14 AM CDT Oxygen Saturation 98% 08/24/2024 8:14 AM CDT Inhaled Oxygen Concentration - - Weight 117 kg (258 lb) 08/24/2024 8:14 AM CDT Height 165.1 cm (5' 5 ) 08/24/2024 8:14 AM CDT Body Mass Index 42.93 08/24/2024 8:14 AM CDT documented in this encounter Patient Instructions * Patient Instructions* Dorita Seth NP - 08/24/2024 8:15 AM CDT If you have no improvement or worsening of your symptoms, please follow up with your Primary Care Provider, [facility] and or Emergency Room. I strive to provide you with EXCELLENT service. You may receive a survey after your visit today. If you cannot rate your experience as EXCELLENT, please let us know how we can improve and better meet your needs. Thank you for choosing [facility]! It was my pleasure to see you today, I hope you feel better soon! Dorita Seth BASKET BOTTOM MACHINE OPERATOR * Attachments The following attachments cannot be sent through Care Everywhere. * Cellulitis (AfterCare(R) Instructions(ER/ED)) (Sudanese) documented in this encounter Ordered Prescriptions Prescription Sig Dispense Quantity Refills Last Filled Start Date End Date cephalexin (KEFLEX) 500 mg capsuleIndications :Vaccine reaction, initial encounter Take 1 capsule (500 mg total) by mouth 4 (four) times a day for 7 days 28 capsule 08/24/2024 4 documented in this encounter Progress Notes * Dorita Seth NP - 08/24/2024 8:15 AM CDT Images from the original note were not included. Subjective/Objective Patient ID: Sabiha Montes is a 24 y.o. female. Chief Complaint Sore Throat and vaccine (Vaccine reaction/) 24 year old female patient presents today with complaints of left arm redness, swollen lymph nodes swollen x 3 days. Patient reports she had a COVID booster on Friday. Reports she has had multiple reactions to COVID booster. Patient reports that they are worsening in nature each time. Reports that her arm is sore. Reports today she began developing some sore throat. Reports low-grade fever. Review of Systems All other systems reviewed and are negative. Physical Exam Vitals reviewed. Constitutional: Appearance: Normal appearance. She is normal weight. HENT: Head: Normocephalic. Right Ear: Tympanic membrane, ear canal and external ear normal. Left Ear: Tympanic membrane, ear canal and external ear normal. Nose: Nose normal. Mouth/Throat: Mouth: Mucous membranes are moist. Pharynx: Uvula midline. Posterior oropharyngeal erythema present. No pharyngeal swelling or uvula swelling. Eyes: Extraocular Movements: Extraocular movements intact. Cardiovascular: Rate and Rhythm: Normal rate and regular rhythm. Pulses: Normal pulses. Heart sounds: Normal heart sounds. Pulmonary: Effort: Pulmonary effort is normal. Breath sounds: Normal breath sounds. Musculoskeletal: General: Normal range of motion. Cervical back: Normal range of motion. Skin: General: Skin is warm and dry. Capillary Refill: Capillary refill takes less than 2 seconds. Findings: Erythema (left deltoid region 5.5 cm x 5.5 cm increased warmth, no fluctuance) present. Neurological: General: No focal deficit present. Mental Status: She is alert and oriented to person, place, and time. Mental status is at baseline. Psychiatric: Mood and Affect: Mood normal. Behavior: Behavior normal. Thought Content: Thought content normal. Judgment: Judgment normal. Vitals: 08/24/24 0814 BP: 120/82 BP Location: Right arm Patient Position: Sitting Pulse: 94 Resp: 18 Temp: 36.9 ??C (98.5 ??F) TempSrc: Oral SpO2: 98% Weight: 117 kg (258 lb) Height: 165.1 cm (5' 5 ) No results found. Past Medical History: Diagnosis Date Acne Anxiety Depression Insomnia Current Outpatient Medications: ALPRAZolam (XANAX) 0.5 mg tablet, Take 1 tablet (0.5 mg total) by mouth 3 (three) times a day as needed, Disp: , Rfl: fluvoxaMINE (LUVOX) 50 mg tablet, Take 1 tablet (50 mg total) by mouth nightly, Disp: , Rfl: cephalexin (KEFLEX) 500 mg capsule, Take 1 capsule (500 mg total) by mouth 4 (four) times a day for7 days, Disp: 28 capsule, Rfl: 0 spironolactone (ALDACTONE) 100 mg tablet, 1 tablet (100 mg total), Disp: , Rfl: SUMAtriptan (IMITREX) 25 mg tablet, TAKE 1 TAB AT ONSET OF HEADACHE IF NO RELIEF MAY REPEAT 1 TAB IN AT LEAST 2 HRS MAX 4 TABS/24GHR, Disp: , Rfl: No Known Allergies Social History Tobacco Use Smoking status: Never Smokeless tobacco: Never Substance and Sexual Activity Drug use: Not on file Sexual activity: Not on file Alcohol Use: Not on file Past Surgical History: Procedure Laterality Date ADENOIDECTOMY 02/22/2023 WISDOM TOOTH EXTRACTION Procedures Assessment/Plan Recent Results (from the past 4 hour(s)) POCT rapid strep A Collection Time: 08/24/24 8:15 AM Result Value Ref Range Rapid Strep A, POC Negative Negative POC Influenza A/B, COVID-19 antigen Collection Time: 08/24/24 8:15 AM Result Value Ref Range Influenza A Ag, POC Negative Negative Influenza B Ag, POC Negative Negative COVID-19 Ag POC Presumptive Negative Presumptive Negative, Invalid Diagnoses and all orders for this visit: Sore throat (Primary) - POCT rapid strep A - POC Influenza A/B, COVID-19 antigen - Throat culture Throat; Future Vaccine reaction, initial encounter - cephalexin (KEFLEX) 500 mg capsule; Take 1 capsule (500 mg total) by mouth 4 (four) times a day for 7 days Plan: Patient is nontoxic in appearance. Her rapid testing was negative. 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 Patient does have a significant area of redness with increased warmth consistent with cellulitis versus histamine reaction. Does have a lymph node inflamed to the left axilla. Discussed with patient due to concern for multiple vaccine reactions to the COVID-19 booster, recommend patient possibly stop receiving the COVID-19 booster as her reactions may worsen each time. Discussed with patient return indications versus progression to the ED. She verbalizes understanding. Disposition Treatment plan including expectations, follow up, and return precautions discussed with patient/parent, verbalizes understanding. Medication dosage, use, and potential adverse reactions discussed with patient/parent. Advised to follow up with PCP if symptoms do not resolve as expected or sooner if condition worsens. Signs/symptoms warranting ER evaluation reviewed. Patient and/or guardian was given an opportunity to ask questions, questions answered. Dorita Seth NP Cosigned by Naresh Boles MD at 09/23/2024 8:03 AM CDT documented in this encounter Plan of Treatment Not on file documented as of this encounter Procedures Procedure Name Priority Date/Time Associated Diagnosis Comments POC INFLUENZA A/B, COVID-19 ANTIGEN Routine 08/24/2024 8:15 AM CDT Sore throat POCT RAPID STREP Routine 08/24/2024 8:15 AM CDT Sore throat documented in this encounter Results * Throat culture Throat (08/24/2024 8:42 AM CDT) Report Final Report: No growth of pathogens. Comment:Testing performed by : [facility], [address] [place]., [address] Throat 08/24/2024 8:42 AM CDT 08/24/2024 5:30 PM CDT Narrative SERENA ANDREW - 08/25/2024 1:20 PM CDT Testing performed by [facility] ([phone]). Dorita Seth NP LAB MICROBIOLOGY - GENERAL ORDERABLES Final Result Performing Organization Address [facility] Co de Phone Number [facility] [address] Department of Laboratories [place], [place] [id number] * POC Influenza A/B, COVID-19 antigen (08/24/2024 8:15 AM CDT) Influenza A Ag, POC Negative Negative [facility] Influenza B Ag, POC Negative Negative [facility] COVID-19 Ag POC Presumptive Negative Presumptive Negative, Invalid [facility] Nasal 08/24/2024 8:15 AM CDT Dorita Seth NP POINT OF CARE TEST ORDERAB LES Final Result [facility] [address] [place] [address], [facility] * POCT rapid strep A (08/24/2024 8:15 AM CDT) Rapid Strep A, POC Negative Negative Swab 08/24/2024 8:15 AM CDT Dorita Seth NP POINT OF CARE TEST ORDERAB LES Final Result documented in this encounter Visit Diagnoses Diagnosis Sore throat- Primary Acute pharyngitis Vaccine reaction, initial encounter Sore throat Acute pharyngitis documented in this encounter Discontinued Medications Medication Sig Discontinue Reason Start Date End Da te Vestura, 28, 3-0.02 mg per tablet Therapy completed 06/25/2022 08/24/2024 traZODone (DESYREL) 50 mg tablet Take 50 mg by mouth nightly Therapy completed 12/31/2021 08/24/2024 triamcinolone (KENALOG) 0.1 % cream PLEASE SEE ATTACHED FOR DETAILED DIRECTIONS Therapy completed 02/04/2024 08/24/2024 sertraline (ZOLOFT) 25 mg tablet 25 MG ORALLY DAILY TAKE DAILY X 1 WEEK AND THEN INCREASE TO 50 MG DAILY. Therapy completed 06/21/2022 08/24/2024 azithromycin (ZITHROMAX) 250 mg tabletIndications:Acute nasopharyngitis Take 2 tablets the first day, then 1 tablet daily for 4 days. Therapy completed 03/07/2022 08/24/2024 omeprazole (PriLOSEC) 20 mg capsule 1 capsule (20 mg total) Therapy completed 01/15/2024 08/24/2024 fluticasone propionate (FLONASE) 50 mcg/actuation nasal spray USE 1 SPRAY INTO EACH NOSTRIL EVERY 12 HOURS Therapy completed 04/05/2022 08/24/2024 buPROPion XL (WELLBUTRIN XL) 300 mg 24 hr tablet Take 1 tablet (300 mg total) by mouth every morning Therapy completed 02/18/2022 08/24/2024 busPIRone (BUSPAR) 10 mg tablet Take 2 tablets (20 mg total) by mouth 2 (two) times a day 02/28/2022 08/24/2024 ALPRAZolam (XANAX) 0.25 mg tablet Take 1 tablet (0.25 mg total) by mouth nightly as needed for anxiety 08/24/2024 documented as of this encounter Historical Medications * This list may reflect changes made after this encounter. fluvoxaMINE (LUVOX) 50 mg tablet Take 1 tablet (50 mg total) by mouth nightly 07/27/2024 ALPRAZolam (XANAX) 0.5 mg tablet Take 1 tablet (0.5 mg total) by mouth 3 (three) times a day as needed 06/29/2024 ALPRAZolam (XANAX) 0.25 mg tablet Take 1 tablet (0.25 mg total) by mouth nightly as needed for anxiety 08/24/2024 added in this encounter Care Teams Strap Buckler Machine Relationship Specialty Start Date End Date Devin Jackson DO PCP - General Internal Medicine 03/07/22 documented as of this encounter
--- OUTSIDE RECORDS SUMMARY | 2024-12-04 04:13 | XMS_ITS | Encounter Summary ---
Author Organization [facility] Address [address] [facility] [place] [address] Care Team Providers Care Unattended Ground Sensor Specialist Name Role Phone Devin Jackson DO Primary Care Provider [phone] Reason for Visit * Reason Onset Date Comments Medication Issue 06/11/2023 Encounter Details Date Type Department Care Team (Late st Contact Info) Description 06/11/2023 Telephone [facility] Medical [facility] - Rheumatology [address], [address] [place] [address] Keren Teixeira MD [address] [place] [address] Medication Issue Social History Tobacco Use Types Packs/Day Years [...] Telephone Encounter - Michael Michael RN - 06/12/2023 10:23 AM CDT Called patient, no answer, LMOR for patient to inform of the below update from Dr. Teixeira. Called x 1and Meet My Friendshart message sent. * Telephone Encounter - Keren Teixeira MD - 06/12/2023 9:58 AM CDT I am not familiar with the use of spironolactone for skin conditions. Hence I do not have any opinion in favor or against it. I will let the irrigation equipment installer decide on it based on dermatology data. Thank you * Telephone Encounter - Og Mayfield - 06/11/2023 12:13 PM CDT Pt called wonder if dr teixeira could send letter to her irrigation equipment installer giving his opinion/aproval for taking spironolactone. Pt [facility] Dr. Kobe Doll MD at [address] [place] [address] Please advise documented in this encounter Plan of Treatment Not on file documented as of this encounter Visit Diagnoses Not on filedocumented in this encounter Care Teams Unattended Ground Sensor Specialist Relationship Specialty Start Date End Date Devin Jackson DO PCP - General Internal Medicine 04/25/23 documented as of this encounter
--- OUTSIDE RECORDS SUMMARY | 2024-12-04 04:13 | XMS_ITS | Clinical Summary ---
Author Organization [facility] [employer] Address [address] [place] [address] Care Team Providers Care Vice President Digital Strategist Name Role Phone Devin Jackson DO Primary Care Provider [phone] Source Comments [facility] [employer],non-owned Affiliates and Associated Physician Practices is amultiple site organization consisting of ambulatory clinics and hospital sitesin [place], [place], [place] and [place]. This disclosure is being madepursuant to the Care Everywhere program and may not contain all information available regarding this patient. Last updated 18.[facility] [employer] Allergies No known active allergies Medications * [...] 08/04/2023 2:27 PM CDT Plan of Treatment Health Maintenance Due Date Last Done Comments PAP SMEAR 2000 HIV SCREENING 2015 HPV VACCINE (1 - 3-dose series) 2015 CHLAMYDIA/GONORRHEA SCREENING 2016 DTAP/TDAP/TD VACCINES (1 - Tdap) 2019 HEPATITIS B VACCINE (1 of 3 - 19+ 3-dose series) 2019 COVID-19 VACCINE (1 - 2023-2 5 season) 2024 INFLUENZA VACCINE (#1) 2024 DEPRESSION SCREENING 11/24/2024 ZOSTER VACCINE (1 of 2) 2050 HEPATITIS C SCREENING Completed 03/28/2023 HIB VACCINE Aged Out No longer eligi ble based on patient's age to complete this topic MENINGOCOCCAL (Group B) VACCINE Aged Out No longer eligible based on patient's age to complete this topic MENINGOCOCCAL VACCINE Aged Out No carl eliu eligible based on patient's age to complete this topic PNEUMOCOCCAL VACCINE Aged Out No long er eligible based on patient's age to complete [...] Agency Comment Lab Testing performed at: [facility] [place] [id number] [facility] [id number] Keren Teixeira MD LAB - CHEMISTRY [facility] ACCOUNT BILL [address] [place] [address] from Last 3 Months or Most Recently Relevant to Health Maintenance Care Teams Vice President Digital Strategist Relationship Specialty Start Date End Date Devin Jackson DO PCP - General Internal Medicine 04/25/23
--- OUTSIDE RECORDS SUMMARY | 2024-12-04 04:13 | XMS_ITS | Encounter Summary ---
Author Organization [facility] Address [address] [place] [id number] Care Team Providers Care Calculus Teacher Name Role Phone Devin Jackson DO Primary Care Provider [phone]- [phone] Reason for Visit * Reason Comments Earache For a month, BL ears have been popping, since yesterday her right sided jaw pain. Encounter Details Date Type Department Care Team (Late st Contact Info) Description 11/27/2022 5:00 PM BODYBUILDER Office Visit [facility] [address] [phone] Veronica Kelly NP [address] [place] [address] [address] [place] [address] Jaw pain (Primary Dx); Bilateral acute serous otitis media, recurrence not specified Social History Tobacco Use Types Packs/Day Years Used Date Smoking Tobacco: Never Smokeless Tobacco: Never Tobacco Cessation:Counseling Given: Not Answered Comments No Sex and Gender Information Value Date Recorded Sex Assigned at Not on file Legal Sex Female 1:22 AM BODYBUILDER Gender Identity Not on file Sexual Orientation Not on file documented as of this encounter Last Filed Vital Signs Vital Sign Reading Time Taken Comments Blood Pressure 110/80 11/27/2022 4:56 PM BODYBUILDER Pulse 89 11/27/2022 4:56 PM BODYBUILDER Temperature 36.8 ??C (98.2 ??F) 11/27/2022 4:56 PM CS T Respiratory Rate 16 11/27/2022 4:56 PM BODYBUILDER Oxygen Saturation 98% 11/27/2022 4:56 PM BODYBUILDER Inhaled Oxygen Concentration - - Weight 108.9 kg (240 lb) 11/27/2022 4:56 PM BODYBUILDER Height 165.1 cm (5' 5 ) 11/27/2022 4:56 PM BODYBUILDER Body Mass Index 39.94 11/27/2022 4:56 PM BODYBUILDER documented in this encounter Patient Instructions * Patient Instructions* Veronica Kelly NP - 11/27/2022 5:00 PM BODYBUILDER Aleve every 12 hours for the next 5 days, take with food. Flonase 2 sprays in each nostril daily for 2 weeks Keep follow up with ENT in 12/2022 BUILDER * Attachments The following attachments cannot be sent through Care Everywhere. * Temporomandibular Disorder (Discharge Care) (Lithuanian) documented in this encounter Progress Notes * Veronica Kelly NP - 11/27/2022 5:00 PM CST Images from the original note were not included. Subjective/Objective Patient ID: Sabiha Montes is a 22 y.o. female. Chief Complaint Earache (For a month, BL ears have been popping, since yesterday her right sided jaw pain. ) Pt presents to [facility] patient denies pain in ears, states that her ears have been popping intermittently for the past month. Then yesterday patient started with right jaw pain. Patient states it was better when she woke up this morning and then started hurting again after she started chewing and talking Earache Affected ear: Patient denies pain complaining of ear popping sensation. This is a new problem. Episode onset: One-month. Episode frequency: daily. The problem has been waxing and waning. There has been no fever. The pain is at a severity of 5/10. Pertinent negatives include no abdominal pain, coughing, diarrhea, ear discharge, headaches, neck pain, rash, rhinorrhea, sore throat or vomiting. She has tried nothing for the symptoms. There is no history of a chronic ear infection, hearing loss or atympanostomy tube. Review of Systems Constitutional: Negative for appetite change, chills, diaphoresis, fatigue and fever. HENT: Positive for ear pain (popping). Negative for congestion, ear discharge, postnasal drip, rhinorrhea, sinus pressure, sinus pain, sneezing and sore throat. Right-sided jaw pain, Since yesterday. Was better this am when she woke up, then worse after she started talking and chewing today. Rating pain 5/10. Respiratory: Negative for cough, chest tightness, shortness of breath and wheezing. Cardiovascular: Negative for chest pain. Gastrointestinal: Negative for abdominal pain, diarrhea, nausea and vomiting. Musculoskeletal: Negative for myalgias, neck pain and neck stiffness. Skin: Negative for rash. Neurological: Negative for dizziness and headaches. Hematological: Negative for adenopathy. Physical Exam Vitals and nursing note reviewed. Constitutional: General: She is awake. She is not in acute distress. Appearance: Normal appearance. HENT: Head: Normocephalic and atraumatic. Right Ear: Ear canal normal. A middle ear effusion (clear) is present. Tympanic membrane is not perforated, erythematous, retracted or bulging. Left Ear: Ear canal normal. A middle ear effusion (clear) is present. Tympanic membrane is not perforated, erythematous, retracted or bulging. Nose: No congestion or rhinorrhea. Right Sinus: No maxillary sinus tenderness or frontal sinus tenderness. Left Sinus: No maxillary sinus tenderness or frontal sinus tenderness. Mouth/Throat: Lips: [place]. Mouth: Mucous membranes are moist. Tongue: Tongue does not deviate from midline. Pharynx: Uvula midline. No pharyngeal swelling, oropharyngeal exudate, posterior oropharyngeal erythema or uvula swelling. Tonsils: No tonsillar exudate or tonsillar abscesses. 0 on the right. 0 on the left. Comments: No clicking or popping noticed with movement of jaw on right or left side. Patient does complain of pain and right jaw trans mandibular joint with movement Eyes: General: Lids are normal. Pupils: Pupils are equal, round, and reactive to light. Cardiovascular: Rate and Rhythm: Normal rate and regular rhythm. Pulses: Normal pulses. Heart sounds: Normal heart sounds. Pulmonary: Effort: Pulmonary effort is normal. No respiratory distress. Breath sounds: Normal breath sounds. No decreased breath sounds, wheezing, rhonchi or rales. Musculoskeletal: Cervical back: Full passive range of motion without pain, normal range of motion and neck supple. Lymphadenopathy: Cervical: No cervical adenopathy. Skin: General: Skin is warm and dry. Neurological: Mental Status: She is alert and oriented to person, place, and time. Gait: Gait normal. Psychiatric: Behavior: Behavior is cooperative. Vitals: 11/27/22 1656 BP: 110/80 BP Location: Right arm Patient Position: Sitting Pulse: 89 Resp: 16 Temp: 36.8 ??C (98.2 ??F) SpO2: 98% Weight: 108.9 kg (240 lb) Height: 165.1 cm (5' 5 ) No results found. Past Medical History: Diagnosis Date Acne Anxiety Depression Insomnia Current Outpatient Medications: buPROPion XL (WELLBUTRIN XL) 300 mg 24 hr tablet, Take 300 mg by mouth every morning, Disp: , Rfl: busPIRone (BUSPAR) 10 mg tablet, Take 20 mg by mouth 2 (two) times a day, Disp: , Rfl: sertraline (ZOLOFT) 25 mg tablet, 25 MG ORALLY DAILY TAKE DAILY X 1 WEEK AND THEN INCREASE TO 50 MGDAILY., Disp: , Rfl: spironolactone (ALDACTONE) 50 mg tablet, Take 150 mg by mouth daily, Disp: , Rfl: SUMAtriptan (IMITREX) 25 mg tablet, TAKE 1 TAB AT ONSET OF HEADACHE IF NO RELIEF MAY REPEAT 1 TAB IN AT LEAST 2 HRS MAX 4 TABS/24GHR, Disp: , Rfl: Vestura, 28, 3-0.02 mg per tablet, , Disp: , Rfl: azithromycin (ZITHROMAX) 250 mg tablet, Take 2 tablets the first day, then 1 tablet daily for 4 days. (Patient not taking: Reported on 07/01/2022), Disp: 6 tablet, Rfl: 0 fluticasone propionate (FLONASE) 50 mcg/actuation nasal spray, USE 1 SPRAY INTO EACH NOSTRIL EVERY 12 HOURS (Patient not taking: Reported on 09/30/2022), Disp: , Rfl: traZODone (DESYREL) 50 mg tablet, Take 50 mg by mouth nightly (Patient not taking: Reported on 09/30/2022), Disp: , Rfl: No Known Allergies Social History Tobacco Use Smoking status: Never Smokeless tobacco: Never Substance and Sexual Activity Drug use: None Sexual activity: None Alcohol Use: Not on file Past Surgical History: Procedure Laterality Date WISDOM TOOTH EXTRACTION Assessment/Plan Diagnoses and all orders for this visit: Jaw pain (Primary) Bilateral acute serous otitis media, recurrence not specified No results found for this or any previous visit (from the past 4 hour(s)). Aleve every 12 hours for the next 5 days, take with food. Flonase 2 sprays in each nostril daily for 2 weeks Keep follow up with ENT in 12/2022 Patient Education: In most cases, serous otitis resolves spontaneously without treatment. In a small percentage of cases, the effusion persists and requires additional intervention, such as pressure equalization tubes. In adults, seasonal allergies and/or an upper respiratory tract infection can induce eustachian tube dysfunction. As a result, some times decongestants, antihistamines, and/or nasal steroids may be beneficial. Your symptoms should resolve within approximately 12 weeks. However, if your symptoms persist greater than 12 weeks, or you begin to have additional symptoms such as: ear pain, fever, decreased hearing, and/or fluid draining from your ear seek medical attention as soon as possible Temporomandibular Disorder WHAT YOU NEED TO KNOW: Temporomandibular disorder is a condition that causes pain in your jaw. The disorder affects the joint between your temporal bone and your mandible (jawbone). The muscles and nerves around the joint are also affected. DISCHARGE INSTRUCTIONS: Medicines: Pain medicine: You may be given a prescription medicine to decrease pain. Do not wait until the pain is severe before you take this medicine. NSAIDs: These medicines decrease swelling and pain. You can buy NSAIDs without a doctor's order. Ask your healthcare provider which medicine is right for you, and how much to take. Take as directed. NSAIDs can cause stomach bleeding or kidney problems if not taken correctly. Muscle relaxers help decrease pain and muscle spasms. Take your medicine as directed. Contact your healthcare provider if you think your medicine is not helping or if you have side effects. Tell him or her if you are allergic to any medicine. Keep a list of the medicines, vitamins, and herbs you take. Include the amounts, and when and why you take them. Bring the list or the pill bottles to follow-up visits. Carry your medicine list with you in case of an emergency. Follow up with your healthcare provider as directed: Write down your questions so you remember to ask them during your visits. Manage your symptoms: Eat soft foods: Your healthcare provider may suggest that you eat only soft foods for several days.A dietitian may work with you to find foods that are easier to bite, chew, or swallow. Examples aresoup, applesauce, cottage cheese, pudding, yogurt, and soft fruits. Use jaw supporting devices: Splints may be used to support your jaw or keep it from moving. You mayneed to wear a mouth guard to keep you from clenching or grinding your teeth while you are sleeping. Use ice and heat: Ice helps decrease swelling and pain. Ice may also help prevent tissue damage. Use an ice pack, or put crushed ice in a plastic bag. Cover it with a towel and place it on your jaw for 15 to 20 minutes every hour or as directed. After the first 24 to 48 hours, use heat to decrease pain, swelling, and muscle spasms. Apply heat on the area for 20 to 30 minutes every 2 hours for as many days as directed. Use a heating pad, moist warm compress, or a hot water bottle. Go to physical therapy: A physical therapist teaches you exercises to help improve movement and strength, and to decrease pain in your jaw. A speech therapist may also help you with swallowing and speech exercises. Contact your healthcare provider if: You have a fever. Your splint or mouth guard is loose. You have questions or concerns about your condition or care. Seek care immediately or call 911 if: You have nausea, are vomiting, or cannot keep liquids down. You have pain that does not go away even after you take your pain medicine. You have problems breathing, talking, drinking, eating, or swallowing. Your splint or mouth guard gets damaged or broken. ?? 2017 [employer] Information is for End User's use only and may not be sold, redistributed or otherwise used for commercial purposes. All illustrations and images included in CareNotes?? are the copyrighted property of [employer] or [employer]. The above information is an educational/development assistant only. It is not intended as medical advice for individual conditions or treatments. Talk to your doctor, nurse or pharmacist before following any medical regimen to see if it is safe and effective for you Disposition Treatment plan including expectations, follow up, and return precautions discussed with patient/parent, verbalizes understanding. Medication dosage, use, and potential adverse reactions discussed with patient/parent. Advised to follow up with PCP if symptoms do not resolve as expected or sooner if condition worsens. Signs/symptoms warranting ER evaluation reviewed. Patient and/or guardian was given an opportunity to ask questions, questions answered. Veronica Kelly NP BUILDER documented in this encounter Plan of Treatment Not on file documented as of this encounter Visit Diagnoses Diagnosis Jaw pain- Primary Bilateral acute serous otitis media, recurrence not specified documented in this encounter Care Teams Calculus Teacher Relationship Specialty Start Date End Date Devin Jackson DO PCP - General Internal Medicine 03/07/22 documented as of this encounter
--- OUTSIDE RECORDS SUMMARY | 2024-12-04 04:13 | XMS_ITS | Encounter Summary ---
Author Organization [facility] Address [address] [address] Care Team Providers Care Mobile Home Servicer Name Role Phone Devin Jackson DO Primary Care Provider [phone]- [phone] Reason for Visit * Reason Onset Date Comments Test Results 10/02/2022 Encounter Details Date Type Department Care Team (Late st Contact Info) Description 10/02/2022 Telephone [facility] [place] [address] [place] [phone] Katrina Harding MA Test Results Social History Tobacco Use Types Packs/Day Years Used Date Smoking Tobacco: Never Smokeless Tobacco: Never Comments No Sex and Gender Information Value Date Recorded Sex Assigned at Not on file Legal Sex Female 1:22 AM 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 She was advised that she can stop her abx and to call her pcp for worsening symptoms. ENGER CAR CLEANING SUPERVISOR * Telephone Encounter - Katrina Harding MA - 10/02/2022 12:19 PM CST ----- Message from LIVIA Jay sent at 10/02/2022 7:32 AM PASSENGER CAR CLEANING SUPERVISOR ----- Please advise pt of normal result, may stop abx and see PCP if not better, thanks ENGER CAR CLEANING SUPERVISOR documented in this encounter Plan of Treatment Not on file documented as of this encounter Visit Diagnoses Not on filedocumented in this encounter Care Teams Mobile Home Servicer Relationship Specialty Start Date End Date Devin Jackson DO PCP - General Internal Medicine 03/07/22 documented as of this encounter
--- OUTSIDE RECORDS SUMMARY | 2024-12-04 04:14 | XMS_ITS | Encounter Summary ---
Author Organization [facility] Address [address] [place] [address] Care Team Providers Care Densitometrist Name Role Phone Devin Jackson DO Primary Care Provider +1- [phone] Reason for Visit * Reason Onset Date Comments Lab Results 03/09/2022 Negative throat culture Encounter Details Date Type Department Care Team (Late st Contact Info) Description 03/09/2022 Telephone [facility] [address] [place] [phone] Marilee Zuniga, patcher wood welder Results (Negative throat culture) Social History Tobacco Use Types Packs/Day Years Used Date Smoking Tobacco: Never Smokeless Tobacco: Never Comments No Sex and Gender Information Value Date Recorded Sex Assigned at Not on file Legal Sex Female 1:22 AM SHOT BLASTER Gender Identity Not on file Sexual Orientation Not on file documented as of this encounter Miscellaneous Notes * Telephone Encounter - Marilee Zuniga MA - 03/09/2022 1:06 PM CDT Patient is aware of negative throat culture, to finish abx prescribed at time of visit, continue OTC for symtomatic relief, and to f/u with PCP if symptoms continue. Patient verbalized understanding. * Telephone Encounter - Marilee Zuniga MA - 03/09/2022 1:05 PM CDT ----- Message from Kg Hernandez NP sent at 03/09/2022 9:06 AM CDT ----- Please notify patient of negative Strep culture. Complete antibiotics as prescribed. Management is otherwise OTC symptomatic relief. Follow up with PCP if symptoms persist. documented in this encounter Plan of Treatment Not on file documented as of this encounter Visit Diagnoses Not on filedocumented in this encounter Care Teams Densitometrist Relationship Specialty Start Date End Date Devin Jackson DO PCP - General Internal Medicine 03/07/22 documented as of this encounter
--- OUTSIDE RECORDS SUMMARY | 2024-12-04 04:14 | XMS_ITS | Encounter Summary ---
Author Organization [facility] Address [address] [place] [id number] Care Team Providers Care [employer] Safety Program Coordinator Name Role Phone Devin Jackson DO Primary Care Provider [phone] Reason for Visit * Reason Comments COVID-19 EVALUATION Sx onset 10 days ago with sore throat. Cough, headache and elevated temp started 3 days ago. Positive COVID exposure. No known strep or flu exposure. Negative COVID hx; vaccinated. Zyrtec and ibuprofen have been taken without much relief of sx. 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 Gender Identity Not on file Sexual Orientation Not on file documented as of this encounter Last Filed Vital Signs Vital Sign Reading Time Taken Comments Blood Pressure 120/90 03/07/2022 4:35 PM CDT Pulse 91 03/07/2022 4:35 PM CDT Temperature 36.9 ??C (98.4 ??F) 03/07/2022 4:35 PM CD T Respiratory Rate 18 03/07/2022 4:35 PM CDT Oxygen Saturation 98% 03/07/2022 4:35 PM CDT Inhaled Oxygen Concentration - - Weight 111 kg (244 lb 12.8 oz) 03/07/2022 4:35 P M CDT Height 165.1 cm (5' 5 ) 03/07/2022 4:35 PM CDT Body Mass Index 40.74 03/07/2022 4:35 PM CDT documented in this encounter Patient Instructions * Patient Instructions* Kg Hernandez, MOLLY - 03/07/2022 4:30 PM CDT Images from the original note were not included. ?? Please start an kqsw-dop-cgbpjmp antihistamine such as Claritin, Zyrtec or Mee. If congestion occurs, you may ask your pharmacist for Claritin-D, Zyrtec-D or Mee-D ?? Please monitor for signs of dehydration including decreased urine output, excessive fatigue, uncontrollable vomiting or diarrhea ?? 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 Please follow up with your primary care provider should symptoms persist Patient Education Upper Respiratory Infection PATIENT OBSERVER: An upper respiratory infection is also called a common cold. It can affect your nose, throat, ears,and sinuses. Common signs and symptoms include the following: Cold symptoms are usually worst for the first 3 to5 days. You may have any of the following: ?? Runny or stuffy nose ?? Sneezing and coughing ?? Sore throat or hoarseness ?? Red, watery, and sore eyes ?? Fatigue ?? Chills and fever ?? Headache, body aches, or sore muscles Seek care immediately if: ?? You have chest pain or trouble breathing. Contact your healthcare provider if: ?? You have a fever over 102??F (39??C). ?? Your sore throat gets worse or you see white or yellow spots in your throat. ?? Your symptoms get worse after 3 to 5 days or your cold is not better in 14 days. ?? You have a rash anywhere on your skin. ?? You have large, tender lumps in your neck. ?? You have thick, green or yellow drainage from your nose. ?? You cough up thick yellow, green, or bloody mucus. ?? You have vomiting for more than 24 hours and cannot keep fluids down. ?? You have a bad earache. ?? You have questions or concerns about your condition or care. Treatment for a cold: There is no cure for the common cold. Colds are caused by viruses and do not get better with antibiotics. Most people get better in 7 to 14 days. You may continue to cough for 2to 3 weeks. The following may help decrease your symptoms: ?? Decongestants help reduce nasal congestion and help you breathe more easily. If you take decongestant pills, they may make you feel restless or not able to sleep. Do not use decongestant sprays for more than a few days. ?? Cough suppressants help reduce coughing. Ask your healthcare provider which type of cough medicine is best for you. ?? NSAIDs , such as ibuprofen, help decrease swelling, pain, and fever. NSAIDs can cause stomach bleeding or kidney problems in certain people. If you take blood thinner medicine, always ask your healthcare provider if NSAIDs are safe for you. Always read the medicine label and follow directions. ?? Acetaminophen decreases pain and fever. It is available without a doctor's order. Ask how much to take and how often to take it. Follow directions. Read the labels of all other medicines you are using to see if they also contain acetaminophen, or ask your doctor or pharmacist. Acetaminophen can cause liver damage if not taken correctly. Do not use more than 4 grams (4,000 milligrams) total of acetaminophen in one day. Manage your cold: ?? Rest as much as possible. Slowly start to do more each day. ?? Drink more liquids as directed. Liquids will help thin and loosen mucus so you can cough it up. Liquids will also help prevent dehydration. Liquids that help prevent dehydration include water, fruit juice, and broth. Do not drink liquids that contain caffeine. Caffeine can increase your risk fordehydration. Ask your healthcare provider how much liquid to drink each day. ?? Soothe a sore throat. Gargle with warm salt water. This helps your sore throat feel better. Makesalt water by dissolving ?? teaspoon salt in 1 cup warm water. You may also suck on hard candy or throat lozenges. You may use a sore throat spray. ?? Use a humidifier or vaporizer. Use a cool mist humidifier or a vaporizer to increase air moisture in your home. This may make it easier for you to breathe and help decrease your cough. ?? Use saline nasal drops as directed. These help relieve congestion. ?? Apply petroleum-based jelly around the outside of your nostrils. This can decrease irritation from blowing your nose. ?? Do not smoke. Nicotine and other chemicals in cigarettes and cigars can make your symptoms worse. They can also cause infections such as bronchitis or pneumonia. Ask your healthcare provider for information if you currently smoke and need help to quit. E-cigarettes or smokeless tobacco still contain nicotine. Talk to your healthcare provider before you use these products. Prevent spreading your cold to others: ?? Try to stay away from other people during the first 2 to 3 days of your cold when it is more easily spread. ?? Do not share food or drinks. ?? Do not share hand towels with household members. ?? Wash your hands often, especially after you blow your nose. Turn away from other people and cover your mouth and nose with a tissue when you sneeze or cough. Follow up with your healthcare provider as directed: Write down your questions so you remember to ask them during your visits. ?? 2017 [employer] Information is for End User's use only and may not be sold, redistributed or otherwise used for commercial purposes. All illustrations and images included in CareNotes?? are the copyrighted property of [employer]. or [employer]. The above information is an health aide only. It is not intended as medical advice for individual conditions or treatments. Talk to your doctor, nurse or pharmacist before following any medical regimen to see if it is safe and effective for you. documented in this encounter Ordered Prescriptions Prescription Sig Dispense Quantity Refills Last Filled Start Date End Date azithromycin (ZITHROMAX) 250 mg tabletIndications:Acu te nasopharyngitis Take 2 tablets the first day, then 1 tablet daily for 4 days. 6 tablet 03/07/2022 4 documented in this encounter Progress Notes * Kg Hernandez, PHARMACEUTICAL PROCESS ENGINEER - 03/07/2022 4:30 PM CDT Images from the original note were not included. Subjective/Objective Patient: Sabiha Montes Chief Complaint Patient presents with ??? COVID-19 EVALUATION Sx onset 10 days ago with sore throat. Cough, headache and elevated temp started 3 days ago. Positive COVID exposure. No known strep or flu exposure. Negative COVID hx; vaccinated. Zyrtec and ibuprofen have been taken without much relief of sx. Sabiha Montes is a 21 y.o. female followed by Devin Jackson DO who presents to clinic with self with c/o sore throat, headache, cough, fever x 10 days. Reports 'original sore throat' began February 16 (3 weeks ago). Reports fever started 3 days ago. Denies known exposure to communicable disease. Patient attempted Zrytec for symptom alleviation prior to arrival to clinic. Negative COVID hx; vaccinated. States she 'typically wakes up with sore throat,' but recently has worsening. States she records herself sleeping and has noticed increase in snoring. Denies the following: GI symptoms: nausea, vomiting, diarrhea, abdominal pain Respiratory symptoms: shortness of breath, chest discomfort, rhinorrhea, congestion Generalized symptoms of infection: excessive fatigue, generalized malaise, ear ache Past Medical History: Diagnosis Date ??? Acne ??? Anxiety ??? Depression ??? Insomnia Family History Problem Relation Age of Onset ??? Hypertension Mother ??? Hypertension Father Social History Tobacco Use Smoking Status Never Smoker Smokeless Tobacco Never Used No Known Allergies Current Outpatient Medications Medication Sig Dispense Refill ??? buPROPion XL (WELLBUTRIN XL) 300 mg 24 hr tablet Take 300 mg by mouth every morning ??? busPIRone (BUSPAR) 10 mg tablet Take 20 mg by mouth 2 (two) times a day ??? spironolactone (ALDACTONE) 50 mg tablet Take 150 mg by mouth daily ??? traZODone (DESYREL) 50 mg tablet Take 50 mg by mouth nightly ??? azithromycin (ZITHROMAX) 250 mg tablet Take 2 tablets the first day, then 1 tablet daily for 4 days. 6 tablet 0 No current facility-administered medications for this visit. Review of Systems Constitutional: Positive for fever. Negative for chills. HENT: Positive for sore throat. Negative for congestion, ear pain, rhinorrhea, sinus pressure, sinus pain and sneezing. Eyes: Negative. Respiratory: Positive for cough. Negative for chest tightness, shortness of breath and wheezing. Cardiovascular: Negative for chest pain. Gastrointestinal: Negative for constipation, diarrhea, nausea and vomiting. Endocrine: Negative. Genitourinary: Negative. Musculoskeletal: Negative for arthralgias and myalgias. Skin: Negative. Allergic/Immunologic: Negative for environmental allergies. Neurological: Positive for headaches. Hematological: Negative for adenopathy. Psychiatric/Behavioral: Negative. Physical Exam Vitals and nursing note reviewed. Constitutional: Appearance: Normal appearance. She is obese. HENT: Head: Normocephalic and atraumatic. Right Ear: Tympanic membrane, ear canal and external ear normal. There is impacted cerumen. Left Ear: Tympanic membrane, ear canal and external ear normal. There is impacted cerumen. Nose: Congestion and rhinorrhea present. Mouth/Throat: Mouth: Mucous membranes are moist. Pharynx: Oropharynx is clear. Posterior oropharyngeal erythema present. Cardiovascular: Rate and Rhythm: Normal rate and regular rhythm. Heart sounds: Normal heart sounds. Pulmonary: Effort: Pulmonary effort is normal. Breath sounds: Normal breath sounds. Musculoskeletal: General: Normal range of motion. Cervical back: Neck supple. Tenderness present. Skin: General: Skin is warm and dry. Neurological: General: No focal deficit present. Mental Status: She is alert and oriented to person, place, and time. Psychiatric: Mood and Affect: Mood normal. Behavior: Behavior normal. Vitals: 03/07/22 1635 BP: 120/90 BP Location: Right arm Patient Position: Sitting Pulse: 91 Resp: 18 Temp: 36.9 ??C (98.4 ??F) TempSrc: Oral SpO2: 98% Weight: 111 kg (244 lb 12.8 oz) Height: 165.1 cm (5' 5 ) Assessment/Plan Diagnoses and all orders for this visit: Acute nasopharyngitis (Primary) - POC Influenza A/B, COVID-19 antigen - POCT rapid strep A - Throat culture Throat Pharyngeal; Future - azithromycin (ZITHROMAX) 250 mg tablet; Take 2 tablets the first day, then 1 tablet daily for 4 days. Close exposure to COVID-19 virus Orders Placed This Encounter Procedures ??? Throat culture Throat Pharyngeal Standing Status: Future Standing Expiration Date: 03/07/2023 ??? POC Influenza A/B, COVID-19 antigen Order Specific Question: Is the Patient experiencing symptoms consistent with COVID? Answer: Yes Order Specific Question: Date of Symptom Onset Answer: 03/04/2022 Order Specific Question: Is the patient hospitalized? Answer: No Order Specific Question: Is the patient admitted to an ICU? Answer: No Order Specific Question: Does the patient currently work in a healthcare facility with direct patient contact? Answer: No Order Specific Question: Is the patient a resident of a congregate care or living setting? Answer: No Order Specific Question: ? Answer: No Order Specific Question: Is this the first COVID-19 test for this patient? Answer: No ??? POCT rapid strep A Results for orders placed or performed in visit on 03/07/22 POC Influenza A/B, COVID-19 antigen Result Value Ref Range Inflenza A Ag, POC Negative Influenza B Ag, POC Negative COVID-19 Ag POC Presumptive Negative Presumptive Negative, Invalid POCT rapid strep A Result Value Ref Range Rapid Strep A, POC Negative # acute nasopharyngitis --start Azithromycin 2/2 duration of symptoms --recommended salt water gargles --work note given --antihistamine wwo decongestant pending symptoms and pt history --tylenol/motrin for pain/fever --diet as tolerated --ED presentation with one or more of the following symptoms: fever uncontrolled with antipyretics,shortness of breath, chest discomfort, uncontrolled n/v/d --f/u with PCP if symptoms persist # close COVID-19 exposure # symptoms compatible with COVID-19 --quarantine not recommenced 2/2 vaccinated per CDC --namely OTC symptomatic treatment; Tylenol for fever/pain, cough suppressant --ED presentation w/ one or more of the following symptoms: fever uncontrolled with antipyretics, shortness of breath, chest discomfort, uncontrolled n/v/d --f/u with PCP post-quarantine if symptoms continue/worsen and to discussed vaccine options Patient Instructions: Patient Instructions ?? Please start an weko-pyc-ltrzujq antihistamine such as Claritin, Zyrtec or Mee. If congestion occurs, you may ask your pharmacist for Claritin-D, Zyrtec-D or Mee-D ?? Please monitor for signs of dehydration including decreased urine output, excessive fatigue, uncontrollable vomiting or diarrhea ?? 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 Please follow up with your primary care provider should symptoms persist Patient Education Upper Respiratory Infection PATIENT OBSERVER: An upper respiratory infection is also called a common cold. It can affect your nose, throat, ears,and sinuses. Common signs and symptoms include the following: Cold symptoms are usually worst for the first 3 to5 days. You may have any of the following: ?? Runny or stuffy nose ?? Sneezing and coughing ?? Sore throat or hoarseness ?? Red, watery, and sore eyes ?? Fatigue ?? Chills and fever ?? Headache, body aches, or sore muscles Seek care immediately if: ?? You have chest pain or trouble breathing. Contact your healthcare provider if: ?? You have a fever over 102??F (39??C). ?? Your sore throat gets worse or you see white or yellow spots in your throat. ?? Your symptoms get worse after 3 to 5 days or your cold is not better in 14 days. ?? You have a rash anywhere on your skin. ?? You have large, tender lumps in your neck. ?? You have thick, green or yellow drainage from your nose. ?? You cough up thick yellow, green, or bloody mucus. ?? You have vomiting for more than 24 hours and cannot keep fluids down. ?? You have a bad earache. ?? You have questions or concerns about your condition or care. Treatment for a cold: There is no cure for the common cold. Colds are caused by viruses and do not get better with antibiotics. Most people get better in 7 to 14 days. You may continue to cough for 2to 3 weeks. The following may help decrease your symptoms: ?? Decongestants help reduce nasal congestion and help you breathe more easily. If you take decongestant pills, they may make you feel restless or not able to sleep. Do not use decongestant sprays for more than a few days. ?? Cough suppressants help reduce coughing. Ask your healthcare provider which type of cough medicine is best for you. ?? NSAIDs , such as ibuprofen, help decrease swelling, pain, and fever. NSAIDs can cause stomach bleeding or kidney problems in certain people. If you take blood thinner medicine, always ask your healthcare provider if NSAIDs are safe for you. Always read the medicine label and follow directions. ?? Acetaminophen decreases pain and fever. It is available without a doctor's order. Ask how much to take and how often to take it. Follow directions. Read the labels of all other medicines you are using to see if they also contain acetaminophen, or ask your doctor or pharmacist. Acetaminophen can cause liver damage if not taken correctly. Do not use more than 4 grams (4,000 milligrams) total of acetaminophen in one day. Manage your cold: ?? Rest as much as possible. Slowly start to do more each day. ?? Drink more liquids as directed. Liquids will help thin and loosen mucus so you can cough it up. Liquids will also help prevent dehydration. Liquids that help prevent dehydration include water, fruit juice, and broth. Do not drink liquids that contain caffeine. Caffeine can increase your risk fordehydration. Ask your healthcare provider how much liquid to drink each day. ?? Soothe a sore throat. Gargle with warm salt water. This helps your sore throat feel better. Makesalt water by dissolving ?? teaspoon salt in 1 cup warm water. You may also suck on hard candy or throat lozenges. You may use a sore throat spray. ?? Use a humidifier or vaporizer. Use a cool mist humidifier or a vaporizer to increase air moisture in your home. This may make it easier for you to breathe and help decrease your cough. ?? Use saline nasal drops as directed. These help relieve congestion. ?? Apply petroleum-based jelly around the outside of your nostrils. This can decrease irritation from blowing your nose. ?? Do not smoke. Nicotine and other chemicals in cigarettes and cigars can make your symptoms worse. They can also cause infections such as bronchitis or pneumonia. Ask your healthcare provider for information if you currently smoke and need help to quit. E-cigarettes or smokeless tobacco still contain nicotine. Talk to your healthcare provider before you use these products. Prevent spreading your cold to others: ?? Try to stay away from other people during the first 2 to 3 days of your cold when it is more easily spread. ?? Do not share food or drinks. ?? Do not share hand towels with household members. ?? Wash your hands often, especially after you blow your nose. Turn away from other people and cover your mouth and nose with a tissue when you sneeze or cough. Follow up with your healthcare provider as directed: Write down your questions so you remember to ask them during your visits. ?? 2017 [employer] Information is for End User's use only and may not be sold, redistributed or otherwise used for commercial purposes. All illustrations and images included in CareNotes?? are the copyrighted property of [employer] or [employer]. The above information is an health aide only. It is not intended as medical advice for individual conditions or treatments. Talk to your doctor, nurse or pharmacist before following any medical regimen to see if it is safe and effective for you. Brief: Treatment plan including expectations, follow up, and return precautions discussed with patient/parent, verbalizes understanding. Medication dosage, use, and potential adverse reactions discussed with patient/parent. Advised to follow up with PCP if symptoms do not resolve as expected or sooner if condition worsens. Signs/symptoms warranting ER evaluation reviewed. Patient and/or guardian was given an opportunity to ask questions, questions answered. Kg Hernandez NP documented in this encounter Plan of Treatment Not on file documented as of this encounter Procedures Procedure Name Priority Date/Time Associated Diagnosis Comments POC INFLUENZA A/B, COVID-19 ANTIGEN Routine 03/07/2022 4:58 PM CDT Acute nasopharyngitis POCT RAPID STREP Routine 03/07/2022 4:48 PM CDT Acute nasopharyngitis documented in this encounter Results * POC Influenza A/B, COVID-19 antigen (03/07/2022 4:58 PM CDT) Pathologist [facility] Influenza A Ag, POC Negative [facility] Influenza B Ag, POC Negative [facility] Ag POC Presumptive Negative Presumptive Negative, Invalid [facility] Nasal 03/07/2022 4:58 PM CDT Kg Hernandez PHARMACEUTICAL PROCESS ENGINEER POINT OF CARE TEST ORDERABL ES Final Result [facility] [address] [place] [address] * POCT rapid strep A (03/07/2022 4:48 PM CDT) Rapid Strep A, POC Negative Swab 03/07/2022 4:48 PM CDT Kg Hernandez PHARMACEUTICAL PROCESS ENGINEER POINT OF CARE TEST ORDERABL ES Final Result * Throat culture Throat Pharyngeal (03/07/2022 4:44 PM CDT) Report Final Report: No growth of pathogens. SERENA ANDREW Comment:Testing performed by : [facility], [address] [facility] [place] [address] Throat (Pharyngeal) 03/07/2022 4:44 PM CDT 03/07/2022 10:32 PM CDT Narrative SERENA ANDREW - 03/08/2022 5:31 PM CDT Testing performed by [facility] Microbiology Laboratory ([phone]). Kg Hernandez PHARMACEUTICAL PROCESS ENGINEER LAB MICROBIOLOGY - GENERAL ORDERABLES Final Result [facility] [address] Department [place] [address] documented in this encounter Visit Diagnoses Diagnosis Acute nasopharyngitis- Primary Acute nasopharyngitis (common cold) Close exposure to COVID-19 virus Acute nasopharyngitis Acute nasopharyngitis (common cold) documented in this encounter Historical Medications * This list may reflect changes made after this encounter. traZODone (DESYREL) 50 mg tablet Take 50 mg by mouth nightly 12/31/2021 08/24/2024 spironolactone (ALDACTONE) 50 mg tablet Take 3 tablets (150 mg total) by mouth daily 01/29/2022 03/05/2024 busPIRone (BUSPAR) 10 mg tablet Take 2 tablets (20 mg total) by mouth 2 (two) times a day 02/28/2022 08/24/2024 buPROPion XL (WELLBUTRIN XL) 300 mg 24 hr tablet Take 1 tablet (300 mg total) by mouth every morning 02/18/2022 08/24/2024 added in this encounter Additional Health Concerns Infection Onset Date Last Indicated Resolved Time COVID: Suspected 03/07/2022 03/07/2022 03/07/2022 4:59 PM CDT documented as of this encounter Care Teams [employer] Safety Program Coordinator Relationship Specialty Start Date End Date Devin Jackson DO PCP - General Internal Medicine 03/07/22 documented as of this encounter
--- OUTSIDE RECORDS SUMMARY | 2024-12-04 04:14 | XMS_ITS | Encounter Summary ---
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 OTC Ibuprofen. Encounter Details Date Type Department Care Team (Late st Contact Info) Description 09/30/2022 2:00 PM MATERIALS INTERN Office Visit [facility] [address] [place] [address] Ana Yeung NP [address] [place] [address] Pharyngitis, unspecified etiology (Primary Dx); Sore throat Social History Tobacco Use Types Packs/Day Years Used Date Smoking Tobacco: Never Smokeless Tobacco: Never Tobacco Cessation:Counseling Given: Not Answered Comments No Sex and Gender Information Value Date Recorded Sex Assigned at Not on file Legal Sex Female 1:22 AM MATERIALS INTERN Gender Identity Not on file Sexual Orientation Not on file documented as of this encounter Last Filed Vital Signs Vital Sign Reading Time Taken Comments Blood Pressure 106/74 09/30/2022 2:04 PM MATERIALS INTERN Pulse 68 09/30/2022 2:04 PM MATERIALS INTERN Temperature 36.4 ??C (97.6 ??F) 09/30/2022 2:04 PM CS T Respiratory Rate 23 09/30/2022 2:04 PM MATERIALS INTERN Oxygen Saturation 97% 09/30/2022 2:04 PM MATERIALS INTERN Inhaled Oxygen Concentration - - Weight 106.8 kg (235 lb 6.4 oz) 09/30/2022 2:04 PM MATERIALS INTERN Height 165.1 cm (5' 5 ) 09/30/2022 2:04 PM MATERIALS INTERN Body Mass Index 39.17 09/30/2022 2:04 PM MATERIALS INTERN documented in this encounter Patient Instructions * Patient Instructions* Ana Yeung NP - 09/30/2022 2:00 PM MATERIALS INTERN The rapid strep exam performed at the [facility] today was negative. The following is recommended treatment for pharyngitis (sore throat). Take Tylenol or Motrin for fever/pain Gargle with warm salt water (1tsp salt/1 cup water) or warm tea with honey and lemon to soothe pain Suck on ice chips, popsicles, cough drops, or throat lozenges You may return to work, daycare, or school 24 hours after you are fever free without use of Tylenolor Motrin. Do not share food, drinks, or utensils. Change toothbrush 48 hours after starting antibiotics If signs/symptoms do not improve or worsen, follow up with your PCP. RIALS INTERN documented in this encounter Ordered Prescriptions Prescription Sig Dispense Quantity Refills Last Filled Start Date End Date amoxicillin 500 mg tablet/capsuleIndic ations:Pharyngitis, unspecified etiology Take 1 tablet/caps ule (500 mg total) by mouth 2 (two) times a day for 10 days 20 tablet/capsule 09/30/2022 10/10/2022 documented in this encounter Progress Notes * Ana Yeung NP - 09/30/2022 2:00 PM CST Images from the original note were not included. Subjective/Objective Patient ID: Sabiha Montes is a 22 y.o. female. 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 OTC Ibuprofen. ) [facility] with a seven day history of sore throat. Review of Systems Constitutional: Negative for activity change, appetite change, fatigue and fever. HENT: Positive for sore throat. Negative for congestion, ear discharge, ear pain, postnasal drip, rhinorrhea and sinus pressure. Eyes: Negative for discharge. Respiratory: Negative for cough and shortness of breath. Gastrointestinal: Negative for diarrhea, nausea and vomiting. Musculoskeletal: Negative for myalgias. Skin: Negative for rash. Neurological: Negative for headaches. Hematological: Negative for adenopathy. Physical [...] tenderness or frontal sinus tenderness. Mouth/Throat: Lips: [place]. Mouth: Mucous membranes are moist. Pharynx: Oropharyngeal exudate and posterior oropharyngeal erythema present. Tonsils: Tonsillar exudate present. 2+ on the right. 2+ on the left. Eyes: General: Right eye: [...] Thought content normal. Judgment: Judgment normal. Vitals: 09/30/22 1404 BP: 106/74 BP Location: Left arm Patient Position: Sitting Pulse: 68 Resp: 23 Temp: 36.4 ??C (97.6 ??F) TempSrc: Temporal SpO2: 97% Weight: 106.8 kg (235 lb 6.4 oz) Height: 165.1 cm (5' 5 ) Assessment/Plan Antibiotics as prescribed Will call with throat culture results Tylenol/Motrin as needed for pain Follow up with PCP as needed if symptoms persist Reviewed ER precautions The rapid strep exam performed at the [facility] today was negative. The following is recommended treatment for pharyngitis (sore throat). Take Tylenol or Motrin for fever/pain Gargle with warm salt water (1tsp salt/1 cup water) or warm tea with honey and lemon to soothe pain Suck on ice chips, popsicles, cough drops, or throat lozenges You may return to work, daycare, or school 24 hours after you are fever free without use of Tylenolor Motrin. Do not share food, drinks, or utensils. Change toothbrush 48 hours after starting antibiotics Diagnoses and all orders for this visit: Pharyngitis, unspecified etiology (Primary) - amoxicillin 500 mg tablet/capsule; Take 1 tablet/capsule (500 mg total) by mouth 2 (two) times a day for 10 days Sore throat - Throat culture Throat; Future No results found for this or any previous visit (from the past 4 hour(s)). Patient Instructions The rapid strep exam performed at the [facility] today was negative. The following is recommended treatment for pharyngitis (sore throat). Take Tylenol or Motrin for fever/pain Gargle with warm salt water (1tsp salt/1 cup water) or warm tea with honey and lemon to soothe pain Suck on ice chips, popsicles, cough drops, or throat lozenges You may return to work, daycare, or school 24 hours after you are fever free without use of Tylenolor Motrin. Do not share food, drinks, or utensils. Change toothbrush 48 hours after starting antibiotics If signs/symptoms do not improve or worsen, follow up with your PCP. Disposition Treatment plan including expectations, follow up, and return precautions discussed with patient/parent, verbalizes understanding. Medication dosage, use, and potential adverse reactions discussed with patient/parent. Advised to follow up with PCP if symptoms do not resolve as expected or sooner if condition worsens. Signs/symptoms warranting ER evaluation reviewed. Patient and/or guardian was given an opportunity to ask questions, questions answered. Ana Yeung NP RIALS INTERN documented in this encounter Plan of Treatment Not on file documented as of this encounter Results * Throat culture Throat (09/30/2022 2:12 PM MATERIALS INTERN) Report Final Report: No growth of pathogens. SERENA ANDREW Comment:Testing performed by : [facility], [address] [place]., [address] Throat 09/30/2022 2:12 PM MATERIALS INTERN 10/01/2022 12:31 AM MATERIALS INTERN Narrative SERENA ANDREW - 10/01/2022 8:15 PM MATERIALS INTERN Testing performed by [facility] Microbiology Laboratory ([phone]). Ana Yeung NP LAB MICROBIOLOGY - GENERAL ORDER RICARDA Final Result SERENA [address] Department [place] [address] documented in this encounter Visit Diagnoses Diagnosis Pharyngitis, unspecified etiology- Primary Sore throat Acute pharyngitis Sore throat Acute pharyngitis documented in this encounter Care Teams Business Services Coordinator Relationship Specialty Start Date End Date Devin Jackson DO PCP - General Internal Medicine 03/07/22 documented as of this encounter
--- OUTSIDE RECORDS SUMMARY | 2024-12-04 04:14 | XMS_ITS | Encounter Summary ---
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 Patient verbalized understanding. documented in this encounter Plan of Treatment Not on file documented as of this encounter Procedures Procedure Name Priority Date/Time Associated Diagnosis Comments THROAT CULTURE Routine 03/07/2022 4:44 PM CDT Acute nasopharyngitis documented in this encounter Results * Throat culture Throat Pharyngeal (03/07/2022 4:44 PM CDT) Report Final Report: No growth of pathogens. SERENA ANDREW Comment:Testing performed by : [facility], [address] [facility], [place]., [address] Throat (Pharyngeal) 03/07/2022 4:44 PM CDT 03/07/2022 10:32 PM CDT Narrative SREENA ANDREW - 03/08/2022 5:31 PM CDT Testing performed by [facility] Microbiology Laboratory ([phone]). us Kg Hernandez GROCERY STOCK CLERK LAB MICROBIOLOGY - GENERAL ORDERABLES Final Result SERENA ANDREW [address] Department [place] [address] documented in this encounter Visit Diagnoses Diagnosis Acute nasopharyngitis Acute nasopharyngitis (common cold) documented in this encounter Care Teams Technology Education Teacher Relationship Specialty Start Date End Date Devin Jackson DO PCP - General Internal Medicine 03/07/22 documented as of this encounter
--- OUTSIDE RECORDS SUMMARY | 2024-12-04 04:14 | XMS_ITS | Encounter Summary ---
Author Organization [facility] Medical Group Address [address] [address] Care Team Providers Care Bottom Filler Name Role Phone Devin Jackson DO Primary Care Provider +1- [phone] Encounter Details Date Type Department Care Team (Late st Contact Info) Description 07/03/2022 Telephone [facility] [address] [place] [address] Cary Tatum NP [address] [address] Social History Tobacco Use Types Packs/Day Years Used Date Smoking Tobacco: Never Smokeless Tobacco: Never Comments No Sex and Gender Information Value Date Recorded Sex Assigned at Not on file 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 Patient verbalized understanding. * Telephone Encounter - Ketty Hernandez - 07/03/2022 10:32 AM CDT ----- Message from Cary Tatum NP sent at 07/03/2022 8:42 AM CDT ----- Please call patient with negative throat culture. If sx persist, follow up with PCP. documented in this encounter Plan of Treatment Not on file documented as of this encounter Visit Diagnoses Not on filedocumented in this encounter Care Teams Bottom Filler Relationship Specialty Start Date End Date Devin Jackson DO PCP - General Internal Medicine 03/07/22 documented as of this encounter
--- OUTSIDE RECORDS SUMMARY | 2024-12-04 04:14 | XMS_ITS | Encounter Summary ---
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 Patient verbalized understanding. * Result Encounter Note - Katrina Harding MA - 07/03/2022 10:16 AM CDT Left message. documented in this encounter Plan of Treatment Not on file documented as of this encounter Procedures Procedure Name Priority Date/Time Associated Diagnosis Comments THROAT CULTURE Routine 07/01/2022 4:30 PM CDT Sore throat documented in this encounter Results * Throat culture Throat (07/01/2022 4:30 PM CDT) Report Final Report: No growth of pathogens. SERENA ANDREW Comment:Testing performed by : [facility], [address] [place]., [address] Throat 07/01/2022 4:30 PM CDT 07/02/2022 12:03 AM CDT Narrative SERENA ANDREW - 07/02/2022 8:01 PM CDT Testing performed by [facility] Microbiology Laboratory ([phone]). us Edmundo BHAKTA LAB MICROBIOLOGY - GENERAL OR DERABLES Final Result SERENA ANDREW [address] Department [place] [address] documented in this encounter Visit Diagnoses Diagnosis Sore throat Acute pharyngitis documented in this encounter Care Teams Army Officer Relationship Specialty Start Date End Date Devin Jackson DO PCP - General Internal Medicine 03/07/22 documented as of this encounter
--- OUTSIDE RECORDS SUMMARY | 2024-12-04 04:14 | XMS_ITS | Encounter Summary ---
Author Organization [facility] Medical [facility] Address [address] [place] [address] Care Team Providers Care Retail Loss Prevention Investigator Name Role Phone Devin Jackson DO Primary Care Provider +1- [phone] Reason for Visit * Reason Comments COVID-19 EVALUATION [facility]-Sore throat, con gestion, and productive cough. Onset 06/26/22, no exp, vaccinated, No Covid Hx, OTC Zyrtec and Ibuprofen. 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 Gender Identity Not on file Sexual Orientation Not on file documented as of this encounter Last Filed Vital Signs Vital Sign Reading Time Taken Comments Blood Pressure 122/74 07/01/2022 3:55 PM CDT Pulse 82 07/01/2022 3:55 PM CDT Temperature 36.3 ??C (97.4 ??F) 07/01/2022 3:55 PM CD T Respiratory Rate 18 07/01/2022 3:55 PM CDT Oxygen Saturation 97% 07/01/2022 3:55 PM CDT Inhaled Oxygen Concentration - - Weight 106.8 kg (235 lb 6.4 oz) 07/01/2022 3:55 PM CDT Height 165.1 cm (5' 5 ) 07/01/2022 3:55 PM CDT Body Mass Index 39.17 07/01/2022 3:55 PM CDT documented in this encounter Patient Instructions * Patient Instructions* Edmundo Mcdaniels PA - 07/01/2022 4:00 PM CDT Complete any medications as prescribed You will need to take OTC medications Mucinex for chest congestion Sudafed for nasal/head congestion Zyrtec for nasal drainage Flonase for sinuses Dayquil/Delysm for cough Tylenol/Motrin for fever Drink plenty of fluids to stay hydrated Get plenty of rest If your symptoms worsen or you experience shortness of breath, RTC or go to ER. documented in this encounter Progress Notes * Edmundo Mcdaniels PA - 07/01/2022 4:00 PM CDT Images from the original note were not included. Subjective/Objective Patient ID: Sabiha Montes is a 22 y.o. female. Chief Complaint COVID-19 EVALUATION ([facility]-Sore throat, congestion, and productive cough. Onset 06/26/22, no exp, vaccinated, No Covid Hx, OTC Zyrtec and Ibuprofen. ) 22-year-old white female with a sore throat for 5 days and then 2 days ago she started with fatigue, runny nose, sore throat and cough, she has taken ibuprofen and Zyrtec for this, she has been vaccinated, no known COVID exposure Review of Systems Constitutional: Positive for fatigue. Negative for appetite change, chills, diaphoresis and fever. HENT: Positive for rhinorrhea and sore throat. Negative for congestion, ear pain, facial swelling, postnasal drip, sinus pressure, sinus pain and sneezing. Respiratory: Positive for cough. Negative for shortness of breath and wheezing. Gastrointestinal: Negative for abdominal pain, diarrhea, nausea and vomiting. Musculoskeletal: Negative for myalgias. Neurological: Negative for headaches. Physical Exam Vitals reviewed. Constitutional: General: She [...] tenderness or frontal sinus tenderness. Mouth/Throat: Pharynx: Posterior oropharyngeal erythema present. No pharyngeal swelling, oropharyngeal exudate oruvula swelling. Eyes: General: Right eye: No discharge. Left eye: No discharge. Cardiovascular: Rate and Rhythm: Normal rate and regular rhythm. Pulmonary: Breath sounds: Normal breath sounds and air entry. Abdominal: Tenderness: There is no abdominal tenderness. Lymphadenopathy: Cervical: No cervical adenopathy. Skin: General: Skin is warm and dry. Neurological: Mental Status: She is alert. Mental status is at baseline. Psychiatric: Attention and Perception: Attention normal. Mood and Affect: Mood normal. Speech: Speech normal. Vitals: 07/01/22 1555 BP: 122/74 BP Location: Left arm Patient Position: Sitting Pulse: 82 Resp: 18 Temp: 36.3 ??C (97.4 ??F) TempSrc: Temporal SpO2: 97% Weight: 106.8 kg (235 lb 6.4 oz) Height: 165.1 cm (5' 5 ) Assessment/Plan Strep and COVID are negative Throat culture pending Complete any medications as prescribed You will need to take OTC medications Mucinex for chest congestion Sudafed for nasal/head congestion Zyrtec for nasal drainage Flonase for sinuses Dayquil/Delysm for cough Tylenol/Motrin for fever Drink plenty of fluids to stay hydrated Get plenty of rest If your symptoms worsen or you experience shortness of breath, RTC or go to ER. Diagnoses and all orders for this visit: Sore throat (Primary) - POCT rapid strep A Suspected COVID-19 virus infection - COVID-19 POC Viral upper respiratory infection Recent Results (from the past 4 hour(s)) POCT rapid strep A Collection Time: 07/01/22 4:12 PM Result Value Ref Range Rapid Strep A, POC Negative COVID-19 POC Collection Time: 07/01/22 4:23 PM Result Value Ref Range COVID-19 Ag POC (BD Veritor) Presumptive Negative Presumptive Negative, Invalid Patient Education: Disposition ??? Treatment plan including expectations, follow up, and return precautions discussed with patient/parent, verbalizes understanding. ??? Medication dosage, use, and potential adverse reactions discussed with patient/parent. ??? Advised to follow up with PCP if symptoms do not resolve as expected or sooner if condition worsens. ??? Signs/symptoms warranting ER evaluation reviewed. ??? Patient and/or guardian was given an opportunity to ask questions, questions answered. LIVIA Jay documented in this encounter Miscellaneous Notes * Addendum Note - Sumaya Sandhu MA - 07/01/2022 4:00 PM CDTAddended by: SUMAYA SANDHU on: 07/01/2022 04:30 PM Modules accepted: Orders documented in this encounter Plan of Treatment Not on file documented as of this encounter Procedures Procedure Name Priority Date/Time Associated Diagnosis Comments COVID-19 POC Routine 07/01/2022 4:23 PM CDT Suspected COVID-19 virus infection POCT RAPID STREP Routine 07/01/2022 4:12 PM CDT Sore throat documented in this encounter Results * Throat culture Throat (07/01/2022 4:30 PM CDT) Report Final Report: No growth of pathogens. SERENA ANDREW Comment:Testing performed by : [facility], [address] [facility], [place]., [address] Throat 07/01/2022 4:30 PM CDT 07/02/2022 12:03 AM CDT Narrative SERENA ANDREW - 07/02/2022 8:01 PM CDT Testing performed by [facility] Microbiology Laboratory ([phone]). Edmundo BHAKTA LAB MICROBIOLOGY - GENERAL OR DERABLES Final Result SERENA ANDREW [address] Department [place] [address] * COVID-19 POC (07/01/2022 4:23 PM CDT) COVID-19 Ag POC (BD Veritor) Presumptive Negative Presumptive Negative, Invalid [facility] [place] Nasal 07/01/2022 4:23 PM CDT Edmundo BHAKTA POINT OF CARE TEST ORDERABLES Final Result [facility] [place] [address] [employer] [address] * POCT rapid strep A (07/01/2022 4:12 PM CDT) Pathologist [facility] Rapid Strep A, POC Negative Swab 07/01/2022 4:12 PM CDT Edmundo BHAKTA POINT OF CARE TEST ORDERABLES Final Result documented in this encounter Visit Diagnoses Diagnosis Sore throat- Primary Acute pharyngitis Suspected COVID-19 virus infection Viral upper respiratory infection Acute upper respiratory infections of unspecified site Sore throat Acute pharyngitis documented in this encounter Historical Medications * This list may reflect changes made after this encounter. SUMAtriptan (IMITREX) 25 mg tablet TAKE 1 TAB AT ONSET OF HEADACHE IF NO RELIEF MAY REPEAT 1 TAB IN AT LEAST 2 HRS MAX 4 TABS/24GHR 05/06/2022 Vestura, 28, 3-0.02 mg per tablet 06/25/2022 08/24/2024 fluticasone propionate (FLONASE) 50 mcg/actuation nasal spray USE 1 SPRAY INTO EACH NOSTRIL EVERY 12 HOURS 04/05/2022 08/24/2024 sertraline (ZOLOFT) 25 mg tablet 25 MG ORALLY DAILY TAKE DAILY X 1 WEEK AND THEN INCREASE TO 50 MG DAILY. 06/21/2022 08/24/2024 added in this encounter Additional Health Concerns Infection Onset Date Last Indicated Resolved Time COVID: Suspected 07/01/2022 07/01/2022 07/01/2022 4:24 PM CDT documented as of this encounter Care Teams Retail Loss Prevention Investigator Relationship Specialty Start Date End Date Devin Jackson DO PCP - General Internal Medicine 03/07/22 documented as of this encounter
--- OUTSIDE RECORDS SUMMARY | 2024-12-04 06:13 | XMS_ITS | Encounter Summary ---
Author Organization [facility] Address [address] [place] [address] Care Team Providers Care Furnace Firer Name Role Phone Devin Jackson DO Primary Care Provider [phone] Reason for Referral * Neurology (Routine) - Closed Specialty Diagnoses / Procedures Referred By Contac t Referred To Contact Diagnoses Numbness Procedures EMG Rodney Torre MD [address] [place] [address] [facility] [address] [place] [address] Referral ID Status Reason Start Date Expiration Date Visits Re quested Visits Authorized [id number] Closed 05/30/2023 05/29/2024 1 1 Reason for Visit * Reason Comments Establish Care Pt present today to establish care for numbness in hands and feet. * Evaluate & Treat - Closed Specialty Diagnoses / Procedures Referred By Contac t Referred To Contact Neuroscience Diagnoses Numbness Keren Teixeira MD [address] [place] [address] [facility] [address] [place] [address] Referral ID Status Reason Start Date Expiration Date V isits Requested Visits Authorized [id number] Closed Specialty Services Required 05/22/2023 05/21/2024 1 1 Encounter Details Date Type Department Care Team (Late st Contact Info) Description 05/30/2023 3:00 PM CDT Office Visit [facility] Neurosciences [address] [place], [place] [id number] Keren Teixeira MD [address] [place] [id number] Rodney Torre MD [address] [place], [place] [id number] Numbness (Primary Dx); Paresthesia of both hands; [...] Wakes up in night with numbness Saw vein access technician- JULES was positive . Singing Teacher released me No weakness Has worsened in last 9 months Recently the patient has been seen by vein access technician and had extensive workup for rheumatological condition [...] acute distress. Vitals: Reviewed and documented in [facility]. Eye: Ophthalmologic examination of optic disc [...] you have any question. Rodney TREVINO MD,DM,FAAN,FAHS,FAANEM. [facility], [facility] T [phone] Diplomate Clinical Neuromuscular Medicine, Headache Medicine & EDX Medicine Cc Keren Teixeira MD documented in this encounter Plan of Treatment Not on file documented as of this encounter Results * EMG (06/09/2023 11:59 PM CDT) Narrative Rodney Torre MD - 06/09/2023 11:59 PM CDT Rodney Torre MD ? 06/10/2023 ??9:51 PM [facility] [address] [place] [address], [address] [phone] Patient: Sabiha Montes V #: ??Physician: Rodney Torre MD Sex: Female ID#: [id number] Ref Phys: Rodney Torre MD : [id number] Date: 06/09/2023 Remote Sensing Surveyor: Betsy Choi ?? Patient Complaints: The patient [...] sensation documented in this encounter Care Teams Furnace Firer Relationship Specialty Start Date End Date Devin Jackson DO PCP - General Internal Medicine 04/25/23 documented as of this encounter
--- OUTSIDE RECORDS SUMMARY | 2024-12-04 06:13 | XMS_ITS | Encounter Summary ---
Author Organization [facility] Address [address] [place] [address] Care Team Providers Care Agricultural Equipment Sales Manager Name Role Phone Devin Jackson DO Primary Care Provider [phone] Reason for Visit * Reason Comments Follow-up Pt present today for follow up regarding EMG results. Pt taking B12 per Brother who is doctor. Wrist hurt after being at work and using hands a lot Encounter Details Date Type Department Care Team (Late st Contact Info) Description 08/04/2023 2:20 PM CDT Office Visit [facility] Neurosciences [address] [place] [address] Rodney Torre MD [address] [place], [place] [id number] Paresthesia of both hands (Primary Dx); Paresthesia [...] Wakes up in night with numbness Saw malted milk mixer- JULES was positive . Orthotist Or Prosthetist released me No weakness Has worsened in last 9 months Recently the patient has been seen by malted milk mixer and had extensive workup for rheumatological condition [...] you have any question. Rodney TREVINO MD,DM,FAAN,FAHS,FAANEM. [facility], [facility] T [phone] Diplomate Clinical Neuromuscular Medicine, Headache Medicine & [...] 0.0 - 0.4 g/dL [facility] ACCOUNT BILL [id number] 0.9 0.4 - 1.0 g/dL [facility] ACCOUNT [...] scan will follow via computer, mail, or dietary tech delivery. Blood BLOOD SPECIMEN / Unknown 08/11/2023 12:15 PM CDT 08/11/2023 Narrative Resulting Agency Comment Lab Testing performed at: [facility] [address] ??[facility] [id number] Rodney Torre MD LAB - CHEMISTRY [place]ISSETT MORALES [facility] ACCOUNT BILL [address] [place] [address] * VITAMIN B12 (08/11/2023 12:15 PM CDT) Vitamin B12 596 232 - 1,245 pg/mL [facility] ACCOUNT BILL Blood BLOOD SPECIMEN / Unknown 08/11/2023 12:15 PM CDT 08/11/2023 Narrative Resulting Agency Comment Lab Testing performed at: [facility] [address] ??[facility] [id number] Rodney Torre MD LAB - CHEMISTRY [place] MORALES Performing Organization Address [facility] Co de Phone Number [facility] ACCOUNT BILL [address] [place] [address] * HEMOGLOBIN A1C (08/11/2023 12:15 PM CDT) Hemoglobin A1c 5.4 4.8 - 5.6 % [facility] ACCOUNT BILL Comment: ? . ? Prediabetes: 5.7 - 6.4 ? Diabetes: >6.4 ? Glycemic control for adults with diabetes: <7.0 Blood BLOOD SPECIMEN / Unknown 08/11/2023 12:15 PM CDT 08/11/2023 Narrative Resulting Agency Comment Lab Testing performed at: [facility] [address] ??[facility] [id number] Rodney Torre MD LAB - CHEMISTRY [place] MORALES Performing Organization Address City/[facility]/ZIP Co de Phone Number [facility] ACCOUNT BILL [address] [place] [address] documented in this encounter Visit Diagnoses Diagnosis Paresthesia of both hands- Primary Paresthesia of both feet Bilateral carpal tunnel syndrome Carpal tunnel syndrome Neuropathy Mononeuritis of unspecified site documented in this encounter Care Teams Agricultural Equipment Sales Manager Relationship Specialty Start Date End Date Devin Jackson DO PCP - General Internal Medicine 04/25/23 documented as of this encounter
--- OUTSIDE RECORDS SUMMARY | 2024-12-04 06:13 | XMS_ITS | Encounter Summary ---
Author Organization [facility] Address [address] [address] Care Team Providers Care Reprographics Associate Name Role Phone Devin Jackson DO Primary Care Provider [phone] Encounter Details Date Type Department Care Team (Late st Contact Info) Description 07/03/2022 Telephone [facility] [address] [place] [address] [place] [address] [address] Social History Tobacco Use Types Packs/Day Years Used Date Smoking Tobacco: Never Smokeless Tobacco: Never Comments No Sex and Gender Information Value Date Recorded Sex Assigned at Not on file Legal Sex 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
--- OUTSIDE RECORDS SUMMARY | 2024-12-04 06:13 | XMS_ITS | Encounter Summary ---
Author Organization [facility] Address [address] [place] [address]. [place], [place] [address] [place] [address] Care Team Providers Care Imager Name Role Phone Unavailable Primary Care Provider Unavailabl e Encounter Details Date Type Department Care Team (Late st Contact Info) Description [address] 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
--- OUTSIDE RECORDS SUMMARY | 2024-12-04 06:13 | XMS_ITS | Encounter Summary ---
Author Organization [facility] Address [address] [place] [address] Care Team Providers Care Spotter Driver Name Role Phone Unavailable Primary Care Provider Unavailabl e Reason for Visit * Reason Comments Establish Care Encounter Details Date Type Department Care Team (Late st Contact Info) Description 03/24/2023 10:00 AM CDT Office Visit [facility] - Rheumatology [address], [address] [place] [address] Keren Teixeira MD [address] [place] [address] Positive JULES (antinuclear antibody) (Primary [...] few months, she supposed to see an vp analytics tomorrow. It is red and raised and [...] social history, OBGYN history in females in [facility]. They are noted as follows. No past [...] like lupus, she agrees She was see vp analytics tomorrow regarding rash which is not present [...] Histones ?Drug-induced SLE ? Speckled ? Sm, MACHINE COMPOSITOR, SCL-70, ??SLE,MCTD,PSS (diffuse form), ? SS-A/SS-B ? Sjogrens ? Nucleolar ?SCL-70, PM-1/SCL ??High titers Scleroderma, ? PM/DM ? Centromere ?? Centromere ?PSS (limited form) w/Crest ? syndrome variable ? Nuclear Dot ??Sp100,[id number] ??Primary Biliary Cirrhosis ? Nuclear ?GP210, ?Primary Biliary Cirrhosis Membrane ? chapis A,B,C ? 04/01/2023 11:2 1 AM CDT 04/01/2023 Narrative Resulting Agency Comment Lab Testing performed at: [facility] ??[facility] [phone] Keren Teixeira MD LAB - PATHOLOGY/CYTO LOGY ORDERABLES [facility] ACCOUNT BILL [address] [place] [address] * THIOPURINE METHYLTRANSFERASE (04/01/2023 11:21 AM CDT) [...] developed and its performance characteristics determined by [employer] It has not been cleared or approved by the Food and Drug Administration. This case has been reviewed, approved, interpreted and electronically signed by Jaspreet Osman, PhD, [facility]. Methodology [facility] ACCOUNT BILL Comment: Enzymatic Endpoint/Liquid Chromatography - Tandem Mass Spectrometry (LC-MS/MS) Blood BLOOD SPECIMEN / Unknown 04/01/2023 11:21 AM CDT 04/01/2023 Narrative Resulting Agency Comment Lab Testing performed at: [facility] [address] [place] [address] ??[facility] [phone] Keren Teixeira MD LAB - CHEMISTRY LISSETT MORALES [facility] ACCOUNT BILL [address] [place] [address] * JULES PANEL COMPREHENSIVE (04/01/2023 11:21 AM CDT) Anti-dsDNA Quantitative 1 0 - 9 IU/mL [facility] ACCOUNT BILL Comment: ?Negative ?<5 ?Equivocal ??5 - 9 ?Positive ?>9 MACHINE COMPOSITOR Antibody 0.2 0.0 - 0.9 AI [facility] [...] Sm (anti-Francisco) ?SLE ?15 - 30% ?--------- MACHINE COMPOSITOR ?Mixed Connective Tissue ? Disease ? 95% [...] Resulting Agency Comment Lab Testing performed at: [facility] [address] ??[place] [phone] Keren Teixeira MD LAB - SEROLOGY ORDER RICARDA Performing Organization Address [facility] de Phone Number [facility] ACCOUNT BILL [address] [place] [address] * (ABNORMAL) JULES BLOOD SCREEN W/REFLEX TITER (04/01/2023 11:21 AM CDT) JULES Positive(A ) [facility] ACCOUNT BILL Comment: ?Negative ?? <1:80 ?Borderline ??1:80 ?Positive ?? >1:80 Blood BLOOD SPECIMEN / Unknown 04/01/2023 11:21 AM CDT 04/01/2023 Narrative Resulting Agency Comment Lab Testing performed at: [facility] [address] ??[place] [phone] Keren Teixeira MD LAB - CHEMISTRY ORDE RABCRISTIAN [facility] ACCOUNT BILL [address] [place] [address] * ALDOLASE (03/28/2023 12:19 PM CDT) Aldolase 3.3 3.3 - 10.3 U/L [facility] ACCOUNT BILL Comment:FASTING Blood BLOOD SPECIMEN / Unknown 03/28/2023 12:19 PM CDT 03/28/2023 Narrative Resulting Agency Comment Lab Testing performed at: [facility] [address] ??[facility] [phone] Keren Teixeira MD LAB - CHEMISTRY LISSETT MORALES Performing Organization Address City/[facility] Co de Phone Number [facility] ACCOUNT BILL [address] [place] [address] * ANCA VASCULITIS PANEL (03/28/2023 12:18 PM [...] up testing of positive sera with both MA-3 and MPO-ANCA enzyme immunoassays. As many as [...] Agency Comment Lab Testing performed at: [facility] [address] ??[facility] [phone] Keren Teixeira MD LAB - CHEMISTRY LISSETT MORALES Performing Organization Address [facility] Co de Phone Number [facility] ACCOUNT BILL [address] [place] [address] * HEXAGONAL PHASE PHOSPHOLIPID (03/28/2023 12:17 PM CDT) Hex Phase 9 0 - 11 sec [facility] ACCOUNT BILL Comment:FASTING 03/28/2023 12:1 7 PM CDT 03/28/2023 Narrative Resulting Agency Comment Lab Testing performed at: [facility] [address] ??[facility] [phone] Keren Teixeira MD LAB - CHEMISTRY LISSETT MORALES Performing Organization Address [facility] de Phone Number [facility] ACCOUNT BILL [address] [place] [address] * (ABNORMAL) PTT LA MIX(B) RFLXED (03/28/2023 12:17 PM CDT) PTT Lupus Anticoagulant Mix 42.9(H) 0.0 - 40.5 sec [facility] ACCOUNT BILL Comment:FASTING 03/28/2023 12:1 7 PM CDT 03/28/2023 Narrative Resulting Agency Comment Lab Testing performed at: [facility] [address] ??[facility] [phone] Keren Teixeira MD LAB - COAGULATION OR DERABLES Performing Organization Address [facility] Co de Phone Number [facility] ACCOUNT BILL [address] [place] [address] * INTERPRETATION REFLEXED (03/28/2023 12:17 PM CDT) Interpretation [facility] ACCOUNT BILL Comment: Not infected with HCV unless early or acute infection is suspected (which may be delayed in an immunocompromised individual), or other evidence exists to indicate HCV infection. FASTING 03/28/2023 12:1 7 PM CDT 03/28/2023 Narrative Resulting Agency Comment Lab Testing performed at: [facility] ??[facility] [phone] Keren Teixeira MD LAB - SEROLOGY ORDER RICARDA Performing Organization Address [facility] Co de Phone Number [facility] ACCOUNT BILL [address] [place] [address] * URINALYSIS NO MICROSCOPIC NO CULTURE (03/28/2023 12:17 PM CDT) Pathologist [facility] Specific Irving UA 1.025 1.005 - 1.030 [facility] ACCOUNT [...] Resulting Agency Comment Lab Testing performed at: [facility] ??[facility] [phone] Keren Teixeira MD LAB - URINALYSIS ORD ERABLES Performing Organization Address [facility] de Phone Number [facility] ACCOUNT BILL [address] [place] [address] * HISTONE ANTIBODY (03/28/2023 12:17 PM CDT) [facility] Anti-Histone Antibody 0.3 0.0 - 0.9 Units [facility] ACCOUNT BILL Comment: ?Negative ?<1.0 ?Weak Positive ?1.0 - 1.5 ?Moderate Positive ??1.6 - 2.5 ?Strong Positive ? >2.5 FASTING Blood BLOOD SPECIMEN / Unknown 03/28/2023 12:17 PM CDT 03/28/2023 Narrative Resulting Agency Comment Lab Testing performed at: [facility] ??[facility] [phone] Keren Teixeira MD LAB - CHEMISTRY LISSETT MORALES Performing Organization Address City/[facility] de Phone Number [facility] ACCOUNT BILL [address] [place] [address] * RHEUMATOID FACTOR BLOOD QUANTITATIVE (03/28/2023 12:17 PM CDT) Rheumatoid Factor <10.0 <14.0 IU/mL [facility] ACCOUNT BILL Comment:FASTING Blood BLOOD SPECIMEN / Unknown 03/28/2023 12:17 PM CDT 03/28/2023 Narrative Resulting Agency Comment [facility] Testing performed [facility]: [facility] [address] ??[place] [phone] Keren Teixeira MD LAB - CHEMISTRY LISSETT MORALES Performing Organization Address City/[facility] Co de Phone Number [facility] ACCOUNT BILL [address] [place] [address] * (ABNORMAL) LUPUS ANTICOAGULANT PANEL W RFLX (03/28/2023 12:17 PM CDT) Pathologist [facility] PTT-LA 44.0(H) 0.0 - 43.5 sec [facility] [...] Resulting Agency Comment Lab Testing performed at: [facility] ??[facility] [id number] Keren Teixeira MD LAB - HEMATOLOGY ORD ERABLES Performing Organization Address [facility] Co de Phone Number [facility] ACCOUNT BILL [address] [place] [address] * HEPATITIS SCREEN ACUTE ([facility]) (03/28/2023 12:17 PM CDT) [facility] Hepatitis A Virus Antibody IgM Negative Negative [facility] ACCOUNT BILL Hepatitis B Virus Surface Antigen Negative Negative [facility] ACCOUNT BILL Hepatitis B Core Virus Antibody IgM Negative Negative [facility] ACCOUNT BILL Hepatitis C Antibody Non Reactive Non Reactive [facility] ACCOUNT BILL Comment:FASTING Blood BLOOD SPECIMEN / Unknown 03/28/2023 12:17 PM CDT 03/28/2023 Narrative Resulting Agency Comment Lab Testing performed [facility]: [facility] [address] ??[facility] [phone] Keren Teixeira MD LAB - CHEMISTRY ORDE RABCRISTIAN Performing Organization Address City/[facility]/ZIP Co de Phone Number [facility] ACCOUNT BILL [address] [place] [address] * (ABNORMAL) HEPATIC FUNCTION PANEL (03/28/2023 12:17 [...] Agency Comment Lab Testing performed at: [facility] [place] [address] ??[facility] [phone] Keren Teixeira MD LAB - CHEMISTRY LISSETT MORALES Performing Organization Address City/[facility]/ZIP Co de Phone Number [facility] ACCOUNT BILL [address] [place] [address] * (ABNORMAL) ERYTHROCYTE SEDIMENTATION RATE (03/28/2023 12:17 PM CDT) Pathologist [facility] Erythrocyte Sedimentation Rate Westergren 42(H) 0 - 32 mm/hr [facility] ACCOUNT BILL Comment:FASTING Blood BLOOD SPECIMEN / Unknown 03/28/2023 12:17 PM CDT 03/28/2023 Narrative Resulting Agency Comment Lab Testing performed at: [facility] [place] [address] ??[facility] [id number] Keren Teixeira MD LAB - HEMATOLOGY ORD ERABLES Performing Organization Address City/[facility]/ZIP Co de Phone Number [facility] ACCOUNT BILL [address] [place] [address] * CYCLIC CITRULLINATED PEPTIDE(CCP) AB IGG (03/28/2023 12:17 PM CDT) Pathologist [facility] CCP Antibodies IgG/IgA <20 <20 Units [facility] ACCOUNT BILL Comment: ?Negative: ? <20 ?Weak Positive: ?20 - 39 ?Moderate Positive: ?40 - 59 ?Strong Positive: ?>59 FASTING Blood BLOOD SPECIMEN / Unknown 03/28/2023 12:17 PM CDT 03/28/2023 Narrative [facility] ACCOUNT BILL - 04/03/2023 7:10 AM CDT Test(s) 100108-[id number] Ab, IgG + IgA (RDL) was developed and its performance characteristics determined by [facility]. It has not been cleared or approved by the Food and Drug Administration. Resulting Agency Comment Lab Testing performed at: [facility] [address] [place] [address] ??[facility] [phone] Keren Teixeira MD LAB - CHEMISTRY LISSETT MORALES [facility] ACCOUNT BILL [address] [place] [address] * CREATININE BLOOD (03/28/2023 12:17 PM CDT) Creatinine 0.69 0.57 - 1.00 mg/dL [facility] ACCOUNT BILL eGFR by CKD-EPI 126 >59 mL/min/1.7 3 [facility] ACCOUNT BILL Comment:FASTING Blood BLOOD SPECIMEN / Unknown 03/28/2023 12:17 PM CDT 03/28/2023 Narrative Resulting Agency Comment Lab Testing performed at: [facility] [place] [address] ??[facility] [phone] Keren Teixeira MD LAB - CHEMISTRY LISSETT MORALES Performing Organization Address City/[facility]/ZIP Co de Phone Number [facility] ACCOUNT BILL [address] [place] [address] * (ABNORMAL) C-REACTIVE PROTEIN (03/28/2023 12:17 PM CDT) C-Reactive Protein 30(H) 0 - 10 mg/L [facility] ACCOUNT BILL Comment:FASTING Blood BLOOD SPECIMEN / Unknown 03/28/2023 12:17 PM CDT 03/28/2023 Narrative Resulting Agency Comment Lab Testing performed at: [facility] [place] [address] ??[facility] [phone] Keren Teixeira MD LAB - CHEMISTRY LISSETT MORALES Performing Organization Address City/[facility]/ZIP Co de Phone Number [facility] ACCOUNT BILL [address] [place] [address] * COMPLEMENT C4 (03/28/2023 12:17 PM CDT) Complement C4 28 14 - 44 mg/dL [facility] ACCOUNT BILL Comment:FASTING Blood BLOOD SPECIMEN / Unknown 03/28/2023 12:17 PM CDT 03/28/2023 Narrative Resulting Agency Comment Lab Testing performed at: [facility] [address] [place] [address] ??[facility] [phone] Keren Teixeira MD LAB - SEROLOGY DERICK RICARDA [facility] ACCOUNT BILL [address] [place] [address] * (ABNORMAL) COMPLEMENT C3 (03/28/2023 12:17 PM CDT) Complement C3 229(H) 82 - 167 mg/dL [facility] ACCOUNT BILL Comment:FASTING Blood BLOOD SPECIMEN / Unknown 03/28/2023 12:17 PM CDT 03/28/2023 Narrative Resulting Agency Comment Lab Testing performed at: [facility] [address] [facility] ??[facility] [phone] Keren Teixeira MD LAB - CHEMISTRY LISSETT MORALES [facility] ACCOUNT BILL [address] [place] [address] * CK BLOOD (03/28/2023 12:17 PM CDT) Pathologist [facility] CK 37 32 - 182 U/L [facility] ACCOUNT BILL Comment:FASTING Blood BLOOD SPECIMEN / Unknown 03/28/2023 12:17 PM CDT 03/28/2023 Narrative Resulting Agency Comment Lab Testing performed at: [facility] [address] ??[facility] [phone] Keren Teixeira MD LAB - CHEMISTRY LISSETT MORALES Performing Organization Address City/[facility]/ZIP Co de Phone Number [facility] ACCOUNT BILL [address] [place] [address] * CBC WITH DIFFERENTIAL (03/28/2023 12:17 PM CDT) Pathologist [facility] WBC 6.6 3.4 - 10.8 x10E3/uL [facility] [...] Resulting Agency Comment Lab Testing performed at: [place] [id number] [facility] ??[facility] [phone] Keren Teixeira MD LAB - HEMATOLOGY ORD ERABLES [facility] ACCOUNT BILL [address] [place] [address] * CARDIOLIPIN ANTIBODY IGA/IGG/IGM PANEL (03/28/2023 12:17 [...] Resulting Agency Comment Lab Testing performed at: [employer] [facility] [place] [address] ??[facility] [phone] Keren Teixeira MD LAB - SEROLOGY ORDER RICARDA [facility] ACCOUNT BILL [address] [facility] [place] [address] * BETA-2 GLYCOPROTEIN 1 ANTIBODY IGG/IGM/IGA PANEL [...] Agency Comment Lab Testing performed at: [facility] [address] ??[facility] [phone] Keren Teixeira MD LAB - SEROLOGY ORDER RICARDA [facility] ACCOUNT BILL [address] [place] [address] * ANGIOTENSIN CONVERTING ENZYME BLOOD (03/28/2023 12:17 PM CDT) Angiotensin-Con verting Enzyme 29 14 - 82 U/L [facility] ACCOUNT BILL Comment:FASTING Blood BLOOD SPECIMEN / Unknown 03/28/2023 12:17 PM CDT 03/28/2023 Narrative Resulting Agency Comment Lab Testing performed at: [facility] [address] ??[facility] [phone] Keren Teixeira MD LAB - CHEMISTRY ORDE RABLES Performing Organization Address City/[facility]/ZIP Co de Phone Number [facility] ACCOUNT BILL [address] [place] [address] documented in this encounter Visit Diagnoses Diagnosis Positive JULES (antinuclear antibody)- Primary Other and unspecified nonspecific immunological findings Rash Rash and other nonspecific skin eruption Other fatigue documented in this encounter
--- OUTSIDE RECORDS SUMMARY | 2024-12-04 06:13 | XMS_ITS | Patient Health Record ---
Author Organization [facility] [employer] Address [address] [place] [address] Care Team Providers Care Tax Manager Public Name Role Phone Devin Jackson DO Primary Care Provider Jazmín Contreras Unavailable [phone] Migration, Provider Unavailable Unavailable Allergies Allergen (clinical drug ingredient) Drug/Non Drug Allergy documented on EMR Reaction Allergy Type Onset Date Status vortioxetine Trintellix Unknown Drug Allergy 04/06/2024 Ac tive Results Component Value Reference Range Notes UDT Reviewed date:05/12/2024 05:01:00 PM Interpretation: Performing Lab: Notes/Report: THC N 0 - 50 ng/ml Cocaine N Amphetamine N Buprenorphine (BUP) N Secobarbital (Bar) N Oxazepam (BZO) P 5-[id number]-0,7-ihmjtxzo-6,3-diphenylpyrrolidine (TIA P) N Methamphetamine (MET) N Methylenedioxymethamphetamine (MDMA) N Morphine (MOP 300/[id number]) N Methadone (MTD) N Phencyclidine (PCP) N Propoxyphene (PPX) N Nortriptyline (TCA) N Reason For Referral No Information Medications Medication SIG (Take, Route, Frequency, Duration) Notes Start Date End Date Status Spironolactone 100 MG 1 tablet Orally Once a day Active fluvoxaMINE Maleate 50 MG 1 tablet at bedtime Orally Once a day for 90 days Active ALPRAZolam 0.5 MG 1 tablet Orally Twice a day for 30 days As needed 09/06/2024 Active Trintellix 20 MG TAKE 1 TABLET BY MOUTH EVERY DAY IN THE MORNING Oral for 30 Days Not-Taking fluvoxaMINE Maleate 100 MG 1 tablet at bedtime Orally Once a day for 90 days 50 mg dose d/c Active buPROPion HCl ER (XL) 150 MG TAKE 1 TABLET BY MOUTH EVERY DAY Oral for 30 Days Not-Taking Immunizations Vaccine Route Administration Date Status Comme nts Tdap Unknown 07/25/2020 Administered Pfizer Biontech Covid-19 Vac cine 2nd dose Unknown 01/20/2021 Administered Pfizer Biontech Covid-19 Vac cine 2nd dose Unknown 09/24/2021 Administered Pfizer Biontech Covid-19 Vac cine 2nd dose Unknown 02/10/2022 Administered Influenza, unspecified formulation Unknown 07/25/2022 A dministered Influenza virus vaccine, quadrivalent (IIV4), split virus, 0.25 mL dosage Unknown 08/24/2021 Administered Social History Tobacco Use: Social History Observation [...] Problem Status W/U Status Risk Notes Problem Moderate recurrent major depression (16196676) Major depressive disorder, recurrent, moderate (F33.1) 04/06/20 Active confirmed Problem Generalized anxiety disorder (69388847) Generalized anxiety disorder (F41.1) 04/06/20 24 Active confirmed Problem Insomnia disorder 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 disorder (27981232) Insomnia due to other mental disorder (F51.05) 04/06/20 24 Active confirmed Problem Attention deficit hyperactivity disorder, combined type (60414411) Attention-deficit hyperactivity disorder, combined type (F90.2) 06/30/20 Active confirmed Problem [id number] 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) Active confirmed Problem [id number] On termination clerk brandy g therapy (Z79.899) Active confirmed Problem 86975072 Elevated blood pressure reading (R03.0) Active confirmed Vital Signs Heart Rate 77 /min 10/12/2024 Respiratory Rate 18 /min 05/12/2024 Blood pressure diastolic 83 mm Hg 10/12/2024 Height-cm 165.10 cm 10/12/2024 Weight-kg 115.03 kg 10/12/2024 Height 65.00 in 10/12/2024 Blood pressure systolic 130 mm Hg 10/12/2024 Weight 253.6 lbs 10/12/2024 BMI 42.2 kg/m2 10/12/2024 Encounters Encounter Location Date Provider Diagnosis [facility] [facility] [address] [address] 01/23/2024 Jazmín Llanos Attention and concentration deficit R41.840 ; Major depressive disorder, recurrent, moderate F33.1 and Generalized anxiety disorder F41.1 [facility] [facility] [address] [address] 03/26/2024 Jazmín Llanos Generalized anxiety disorder F41.1 ; Insomnia due to other mental disorder F51.05 and Major depressive disorder, recurrent severe without psychotic features F33.2 [facility] [address] [facility] [address] [place] [address] 04/06/2024 Jazmín Llanos Generalized anxiety disorder F41.1 ; Major depressive disorder, recurrent, moderate F33.1 ; Attention and concentration deficit R41.840 and Insomnia due to other mental disorder F51.05 [facility] [address] [facility] [address] [place] [address] 04/16/2024 Jazmín Llanos [facility] [address] [facility] [address] [place] [address] 05/12/2024 Jazmín Llanos Major depressive disorder, recurrent, moderate F33.1 ; Generalized anxiety disorder F41.1 ; Insomnia due to other mental disorder F51.05 ; Attention-deficit hyperactivity disorder, combined type F90.2 and On assisted drug therapy Z79.899 [facility], [facility] [address] [facility] [address] [facility] [address] [place] [address] 06/10/2024 Jazmín Llanos Major depressive disorder, recurrent, moderate F33.1 ; Generalized anxiety disorder F41.1 ; Insomnia due to other mental disorder F51.05 ; Attention-deficit hyperactivity disorder, combined type F90.2 and On termination clerk drug therapy Z79.899 [place] [id number] [facility] [address] [facility] [address] [place] [address] 06/29/2024 Jazmín Llanos Major depressive disorder, recurrent, moderate F33.1 ; Generalized anxiety disorder F41.1 ; Insomnia due to other mental disorder F51.05 ; Attention-deficit hyperactivity disorder, combined type F90.2 ; On termination clerk drug therapy Z79.899 and Other obsessive-compulsive disorders F42.8 [place] [id number] [facility] [address] [facility] [address] [place] [address] 09/06/2024 Jazmín Llanos Major depressive disorder, recurrent, moderate F33.1 ; Generalized anxiety disorder F41.1 ; Insomnia due to other mental disorder F51.05 ; Attention-deficit hyperactivity disorder, combined type F90.2 ; On assisted drug therapy Z79.899 and Other obsessive-compulsive disorders F42.8 [place] [id number] [facility] [address] [address] 10/12/2024 Jazmín Llanos Major depressive disorder, recurrent, moderate F33.1 ; Generalized anxiety disorder F41.1 ; Insomnia due to other mental disorder F51.05 ; Attention-deficit hyperactivity disorder, combined type F90.2 ; On termination clerk drug therapy Z79.899 ; Other obsessive-compulsive disorders F42.8 and Elevated blood pressure reading R03.0 [place] [id number] [address] 12/19/2023 Provider Migration [address] [facility] [address] [place] [address] 03/22/2024 Provider Migration [facility], [place] [id number] [facility] [address] [facility] [address] [place] [address] 03/30/2024 Provider [facility] [address] [place] [address] 03/31/2024 Provider [facility], [facility] [address] [place] [address] 04/01/2024 [facility], [facility] [address] [place] [address] 04/10/2024 Provider [facility], [facility] [address] [place] [address] 04/11/2024 Provider [facility], [facility] [address] [place] [address] 05/03/2024 Jazmín Llanos [facility], [facility] [address] [place] [address] 05/03/2024 Jazmín Llanos [facility], [facility] [address] [place] [address] 05/16/2024 Jazmín Llanos [facility], [facility] [address] [place] [address] 05/17/2024 Jazmín Llanos [facility], [facility] [address] [place] [address] 05/18/2024 Jazmín Llanos [facility], [facility] [address] [place] [address] 05/19/2024 Jazmín Llanos [facility], [facility] [address] [place] [address] 08/10/2024 Jazmín Llanos [facility], [facility] [address] [facility] [address] [place] [address] 08/10/2024 Jazmín Llanos Assessments Encounter Date Diagnosis (ICD Code) Assessment Notes Treatment Notes Treatment Clinical Notes Section Notes 01/23/2024 Major depressive disorder, recurrent, moderate (ICD-10 - F33.1) 01/23/2024 Generalized anxiety disorder (ICD-10 - F41.1) 01/23/2024 Attention and concentration deficit (ICD-10 - R41.840) 03/26/2024 Major depressive disorder, recurrent severe without psychotic features (ICD-10 - F33.2) 03/26/2024 Generalized anxiety disorder (ICD-10 - F41.1) 03/26/2024 Insomnia due to other mental disorder (ICD-10 - F51.05) 04/06/2024 Major depressive disorder, recurrent, moderate (ICD-10 - F33.1) 04/06/2024 Generalized anxiety disorder (ICD-10 - F41.1) 04/06/2024 Insomnia due to other mental disorder (ICD-10 - F51.05) 04/06/2024 Attention and concentration deficit (ICD-10 - R41.840) 05/12/2024 Major depressive disorder, recurrent, moderate (ICD-10 - F33.1) Preventing Depression From Coming Back: Care Instructions material was published, Learning About Depression material was published, Learning About How to Get Help During a Mental Health Crisis material was published, Depression Treatment: Care Instructions material was published 1. Moderate recurrent major depression -Patient reported does not want rx at this time until tested for OCD patient stopped Vraylar 1.5 mg every 2 days and improved dizziness patient having OCD testing with therapist pharma Gene testing completed and reviewed with patient educated on all medications, benefits, side effects and risk, and educated on depression, anxiety, and ADHD, mood d/o and educated on compliance of medications, metabolic and movement d/o education appointment's, continue therapy discussion with patient about course of treatmentand patient instructions. monitor for depression and anxiety continue therapy F33.1: Major depressive disorder, recurrent, moderate- Patient reported does not want rx at this time until tested for OCD 2. Generalized anxiety disorder -Gene testing reviewed D/C Buspar 10 mg twice a day for anxiety - patient stopped rx 1 week ago - improved dizziness Medication Management and Follow-Up- Plan:- Schedule follow-up appointments every 2-3 months and PRN to monitor the patient's response to the medication regimen.- Reinforce the importance of avoiding recreational drug use due to potential neurotoxicity and interactions with prescribed medications. 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 Unable to concentrate - being tested by therapist for OCD OMAR-2 reviewed and need to reconcile self reporting and OMAR test- no dxn ADHD can be made educated patient on depression and anxiety may contribute to unable to concentrate and focus and external factors and stress increase excise sleep hygiene limit caffeine continue therapy- Therapsit testing for OCD 05/12/2024 Generalized anxiety disorder (ICD-10 - F41.1) Learning About Generalized Anxiety Disorder material was published, Generalized Anxiety Disorder: Care Instructions material was published, Learning About Anxiety Disorders material was published 1. Moderate recurrent major depression -Patient reported does not want rx at this time until tested for OCD patient stopped Vraylar 1.5 mg every 2 days and improved dizziness patient having OCD testing with therapist ph[employer] Gene testing completed and reviewed with patient educated on all medications, benefits, side effects and risk, and educated on depression, anxiety, and ADHD, mood d/o and educated on compliance of medications, metabolic and movement d/o education appointment's, continue therapy discussion with patient about course of treatmentand patient instructions. monitor for depression and anxiety continue therapy F33.1: Major depressive disorder, recurrent, moderate- Patient reported does not want rx at this time until tested for OCD 2. Generalized anxiety disorder -Gene testing reviewed D/C Buspar 10 mg twice a day for anxiety - patient stopped rx 1 week ago - improved dizziness Medication Management and Follow-Up- Plan:- Schedule follow-up appointments every 2-3 months and PRN to monitor the patient's response to the medication regimen.- Reinforce the importance of avoiding recreational drug use due to potential neurotoxicity and interactions with prescribed medications. 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 Unable to concentrate - being tested by therapist for OCD OMAR-2 reviewed and need to reconcile self reporting and OMAR test- no dxn ADHD can be made educated patient on depression and anxiety may contribute to unable to concentrate and focus and external factors and stress increase excise sleep hygiene limit caffeine continue therapy- Therapsit testing for OCD 06/10/2024 Major depressive disorder, recurrent, moderate (ICD-10 - F33.1) Preventing Depression From Coming Back: Care Instructions material was published, Learning About Depression material was published, Learning About How to Get Help During a Mental Health Crisis material was published, Depression Treatment: Care Instructions material was published NO REFILL NEEDED TODAY 1. Moderate recurrent major depression -Patient reported does not want rx at this time until tested for OCD patient having OCD testing with therapist Schedule Jose L [...] monitor for depression and anxiety continue therapy F33.1: Major depressive disorder, recurrent, moderate- Patient reported does not want rx at this time until tested for OCD 2. Generalized anxiety disorder -Gene testing reviewed Medication Management and Follow-Up- Plan:- Schedule follow-up appointments every 1-3 months and PRN to monitor the patient's response to the medication regimen.- Reinforce the importance of avoiding recreational drug use due to potential neurotoxicity and interactions with prescribed medications. 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 Unable to concentrate - being tested by therapist for OCD OMAR-2 reviewed and need to reconcile self reporting and OMAR test- no dxn ADHD can be made educated patient on depression and anxiety may contribute to unable to concentrate and focus and external factors and stress increase excise sleep hygiene limit caffeine continue therapy- Therapsit testing for OCD 06/29/2024 Major depressive disorder, recurrent, moderate (ICD-10 - [...] control substance agreement UDS and random UDS completed today - positive Benzo Discussed and educated pt regarding benzodiazepines are [...] to concentrate - no rx 5. OCD- fluvoxaMINE Maleate Tablet, 50 MG, 1 tablet at bedtime tested by therapist for OCD OMAR-2 reviewed and need to reconcile self reporting and OMAR test- no dxn ADHD can be made educated patient on depression and anxiety may contribute to unable to concentrate and focus and external factors and stress increase excise sleep hygiene limit caffeine continue therapy- Therapsit tested for OCD 06/29/2024 Generalized anxiety disorder (ICD-10 - F41.1) Learning [...] control substance agreement UDS and random UDS completed today - positive Benzo Discussed and educated pt regarding benzodiazepines are [...] to concentrate - no rx 5. OCD- fluvoxaMINE Maleate Tablet, 50 MG, 1 tablet at bedtime tested by therapist for OCD OMAR-2 reviewed and need to reconcile self reporting and OMAR test- no dxn ADHD can be made educated patient on depression and anxiety may contribute to unable to concentrate and focus and external factors and stress increase excise sleep hygiene limit caffeine continue therapy- Therapsit tested for OCD 09/06/2024 Major depressive disorder, recurrent, moderate (ICD-10 [...] continue therapy- Therapsit tested for OCD 10/12/2024 Major depressive disorder, recurrent, moderate (ICD-10 [...] caffeine continue therapy- Therapsit tested for OCD 06/29/2024 Insomnia due to other mental disorder (ICD-10 - F51.05) 1. recurrent major depression - Patient reported does not want rx at this time tested for OCD would like rx - therapist will send report patient had OCD testing with therapist Schedule Jose L Gan 7201/17 Discuss TMS for OCD Discuss rx for [...] control substance agreement UDS and random UDS completed today - positive Benzo Discussed and educated pt regarding benzodiazepines are [...] to concentrate - no rx 5. OCD- fluvoxaMINE Maleate Tablet, 50 MG, 1 tablet at bedtime tested by therapist for OCD OMAR-2 reviewed and need to reconcile self reporting and OMAR test- no dxn ADHD can be made educated patient on depression and anxiety may contribute to unable to concentrate and focus and external factors and stress increase excise sleep hygiene limit caffeine continue therapy- Therapsit tested for OCD 06/10/2024 Generalized anxiety disorder (ICD-10 - F41.1) Learning About Generalized Anxiety Disorder material was published, Generalized Anxiety Disorder: Care Instructions material was published, Learning About Anxiety Disorders material was published 1. Moderate recurrent major depression -Patient reported does not want rx at this time until tested for OCD patient having OCD testing with therapist Peg Gan Discuss TMS for OCD Discuss rx [...] monitor for depression and anxiety continue therapy F33.1: Major depressive disorder, recurrent, moderate- Patient reported does not want rx at this time until tested for OCD 2. Generalized anxiety disorder -Gene testing reviewed Medication Management and Follow-Up- Plan:- Schedule follow-up appointments every 1-3 months and PRN to monitor the patient's response to the medication regimen.- Reinforce the importance of avoiding recreational drug use due to potential neurotoxicity and interactions with prescribed medications. 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 Unable to concentrate - being tested by therapist for OCD OMAR-2 reviewed and need to reconcile self reporting and OMAR test- no dxn ADHD can be made educated patient on depression and anxiety may contribute to unable to concentrate and focus and external factors and stress increase excise sleep hygiene limit caffeine continue therapy- Therapsit testing for OCD 05/12/2024 Insomnia due to other mental disorder (ICD-10 - F51.05) 1. Moderate recurrent major depression -Patient reported does not want rx at this time until tested for OCD patient stopped Vraylar 1.5 mg every 2 days and improved dizziness patient having OCD testing with therapist pharma Gene testing completed and reviewed with patient educated on all medications, benefits, side effects and risk, and educated on depression, anxiety, and ADHD, mood d/o and educated on compliance of medications, metabolic and movement d/o education appointment's, continue therapy discussion with patient about course of treatmentand patient instructions. monitor for depression and anxiety continue therapy F33.1: Major depressive disorder, recurrent, moderate- Patient reported does not want rx at this time until tested for OCD 2. Generalized anxiety disorder -Gene testing reviewed D/C Buspar 10 mg twice a day for anxiety - patient stopped rx 1 week ago - improved dizziness Medication Management and Follow-Up- Plan:- Schedule follow-up appointments every 2-3 months and PRN to monitor the patient's response to the medication regimen.- Reinforce the importance of avoiding recreational drug use due to potential neurotoxicity and interactions with prescribed medications. 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 Unable to concentrate - being tested by therapist for OCD OMAR-2 reviewed and need to reconcile self reporting and OMAR test- no dxn ADHD can be made educated patient on depression and anxiety may contribute to unable to concentrate and focus and external factors and stress increase excise sleep hygiene limit caffeine continue therapy- Therapsit testing for OCD 05/12/2024 Attention-defic it hyperactivity disorder, combined type (ICD-10 - F90.2) Attention Deficit Hyperactivity Disorder (ADHD) in Adults: Care Instructions material was published, Learning About Attention Deficit Hyperactivity Disorder (ADHD) in Adults material was published 1. Moderate recurrent major depression -Patient reported does not want rx at this time until tested for OCD patient stopped Vraylar 1.5 mg every 2 days and improved dizziness patient having OCD testing with therapist pharma Gene testing completed and reviewed with patient educated on all medications, benefits, side effects and risk, and educated on depression, anxiety, and ADHD, mood d/o and educated on compliance of medications, metabolic and movement d/o education appointment's, continue therapy discussion with patient about course of treatmentand patient instructions. monitor for depression and anxiety continue therapy F33.1: Major depressive disorder, recurrent, moderate- Patient reported does not want rx at this time until tested for OCD 2. Generalized anxiety disorder -Gene testing reviewed D/C Buspar 10 mg twice a day for anxiety - patient stopped rx 1 week ago - improved dizziness Medication Management and Follow-Up- Plan:- Schedule follow-up appointments every 2-3 months and PRN to monitor the patient's response to the medication regimen.- Reinforce the importance of avoiding recreational drug use due to potential neurotoxicity and interactions with prescribed medications. 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 Unable to concentrate - being tested by therapist for OCD OMAR-2 reviewed and need to reconcile self reporting and OMAR test- no dxn ADHD can be made educated patient on depression and anxiety may contribute to unable to concentrate and focus and external factors and stress increase excise sleep hygiene limit caffeine continue therapy- Therapsit testing for OCD 06/10/2024 Insomnia due to other mental disorder (ICD-10 - F51.05) 1. Moderate recurrent major depression -Patient reported does not want rx at this time until tested for OCD patient having OCD testing with therapist Schedule Jose L [...] monitor for depression and anxiety continue therapy F33.1: Major depressive disorder, recurrent, moderate- Patient reported does not want rx at this time until tested for OCD 2. Generalized anxiety disorder -Gene testing reviewed Medication Management and Follow-Up- Plan:- Schedule follow-up appointments every 1-3 months and PRN to monitor the patient's response to the medication regimen.- Reinforce the importance of avoiding recreational drug use due to potential neurotoxicity and interactions with prescribed medications. 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 Unable to concentrate - being tested by therapist for OCD OMAR-2 reviewed and need to reconcile self reporting and OMAR test- no dxn ADHD can be made educated patient on depression and anxiety may contribute to unable to concentrate and focus and external factors and stress increase excise sleep hygiene limit caffeine continue therapy- Therapsit testing for OCD 06/29/2024 Attention-defic it hyperactivity disorder, combined type (ICD-10 - F90.2) [...] control substance agreement UDS and random UDS completed today - positive Benzo Discussed and educated pt regarding benzodiazepines are [...] to concentrate - no rx 5. OCD- fluvoxaMINE Maleate Tablet, 50 MG, 1 tablet at bedtime tested by [...] continue therapy- Therapsit tested for OCD 10/12/2024 Attention-defic it hyperactivity disorder, combined type (ICD-10 - F90.2) [...] continue therapy- Therapsit tested for OCD 09/06/2024 Attention-defic it hyperactivity disorder, combined type (ICD-10 - F90.2) [...] caffeine continue therapy- Therapsit tested for OCD 06/10/2024 Attention-defic it hyperactivity disorder, combined type (ICD-10 - F90.2) Attention Deficit Hyperactivity Disorder (ADHD) in Adults: Care Instructions material was published, Learning About Attention Deficit Hyperactivity Disorder (ADHD) in Adults material was published 1. Moderate recurrent major depression -Patient reported does not want rx at this time until tested for OCD patient having OCD testing with therapist Schedule Jose L [...] monitor for depression and anxiety continue therapy F33.1: Major depressive disorder, recurrent, moderate- Patient reported does not want rx at this time until tested for OCD 2. Generalized anxiety disorder -Gene testing reviewed Medication Management and Follow-Up- Plan:- Schedule follow-up appointments every 1-3 months and PRN to monitor the patient's response to the medication regimen.- Reinforce the importance of avoiding recreational drug use due to potential neurotoxicity and interactions with prescribed medications. 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 Unable to concentrate - being tested by therapist for OCD OMAR-2 reviewed and need to reconcile self reporting and OMAR test- no dxn ADHD can be made educated patient on depression and anxiety may contribute to unable to concentrate and focus and external factors and stress increase excise sleep hygiene limit caffeine continue therapy- Therapsit testing for OCD 06/29/2024 On termination clerk drug therapy (ICD-10 - Z79.899) Medication Refill: [...] control substance agreement UDS and random UDS completed today - positive Benzo Discussed and educated pt regarding benzodiazepines are [...] to concentrate - no rx 5. OCD- fluvoxaMINE Maleate Tablet, 50 MG, 1 tablet at bedtime tested by therapist for OCD OMAR-2 reviewed and need to reconcile self reporting and OMAR test- no dxn ADHD can be made educated patient on depression and anxiety may contribute to unable to concentrate and focus and external factors and stress increase excise sleep hygiene limit caffeine continue therapy- Therapsit tested for OCD 10/12/2024 On assisted drug therapy (ICD-10 - Z79.899) Medication Refill: [...] therapy- Therapsit tested for OCD 09/06/2024 On assisted drug therapy (ICD-10 - Z79.899) Medication Refill: [...] caffeine continue therapy- Therapsit tested for OCD 06/10/2024 On termination clerk drug therapy (ICD-10 - Z79.899) Medication Refill: Care Instructions material was published 1. Moderate recurrent major depression -Patient reported does not want rx at this time until tested for OCD patient having OCD testing with therapist Schedule Jose L [...] monitor for depression and anxiety continue therapy F33.1: Major depressive disorder, recurrent, moderate- Patient reported does not want rx at this time until tested for OCD 2. Generalized anxiety disorder -Gene testing reviewed Medication Management and Follow-Up- Plan:- Schedule follow-up appointments every 1-3 months and PRN to monitor the patient's response to the medication regimen.- Reinforce the importance of avoiding recreational drug use due to potential neurotoxicity and interactions with prescribed medications. 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 Unable to concentrate - being tested by therapist for OCD OMAR-2 reviewed and need to reconcile self reporting and OMAR test- no dxn ADHD can be made educated patient on depression and anxiety may contribute to unable to concentrate and focus and external factors and stress increase excise sleep hygiene limit caffeine continue therapy- Therapsit testing for OCD 06/29/2024 Other obsessive-compu lsive disorders (ICD-10 - F42.8) 1. recurrent major [...] control substance agreement UDS and random UDS completed today - positive Benzo Discussed and educated pt regarding benzodiazepines are [...] to concentrate - no rx 5. OCD- fluvoxaMINE Maleate Tablet, 50 MG, 1 tablet at bedtime tested by therapist for OCD OMAR-2 reviewed and need to reconcile self reporting and OMAR test- no dxn ADHD can be made educated patient on depression and anxiety may contribute to unable to concentrate and focus and external factors and stress increase excise sleep hygiene limit caffeine continue therapy- Therapsit tested for OCD 10/12/2024 Other obsessive-compu lsive disorders (ICD-10 - F42.8) 1. recurrent major [...] caffeine continue therapy- Therapsit tested for OCD 05/12/2024 On termination clerk drug therapy (ICD-10 - Z79.899) Medication Refill: Care Instructions material was published 1. Moderate recurrent major depression -Patient reported does not want rx at this time until tested for OCD patient stopped Vraylar 1.5 mg every 2 days and improved dizziness patient having OCD testing with therapist pharma Gene testing completed and reviewed with patient educated on all medications, benefits, side effects and risk, and educated on depression, anxiety, and ADHD, mood d/o and educated on compliance of medications, metabolic and movement d/o education appointment's, continue therapy discussion with patient about course of treatmentand patient instructions. monitor for depression and anxiety continue therapy F33.1: Major depressive disorder, recurrent, moderate- Patient reported does not want rx at this time until tested for OCD 2. Generalized anxiety disorder -Gene testing reviewed D/C Buspar 10 mg twice a day for anxiety - patient stopped rx 1 week ago - improved dizziness Medication Management and Follow-Up- Plan:- Schedule follow-up appointments every 2-3 months and PRN to monitor the patient's response to the medication regimen.- Reinforce the importance of avoiding recreational drug use due to potential neurotoxicity and interactions with prescribed medications. 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 Unable to concentrate - being tested by therapist for OCD OMAR-2 reviewed and need to reconcile self reporting and OMAR test- no dxn ADHD can be made educated patient on depression and anxiety may contribute to unable to concentrate and focus and external factors and stress increase excise sleep hygiene limit caffeine continue therapy- Therapsit testing for OCD 09/06/2024 Other obsessive-compu lsive disorders (ICD-10 - F42.8) 1. recurrent major [...] caffeine continue therapy- Therapsit tested for OCD 05/12/2024 Other 1. Moderate recurrent major depression -Patient reported does not want rx at this time until tested for OCD patient stopped Vraylar 1.5 mg every 2 days and improved dizziness patient having OCD testing with therapist pharma Gene testing completed and reviewed with patient educated on all medications, benefits, side effects and risk, and educated on depression, anxiety, and ADHD, mood d/o and educated on compliance of medications, metabolic and movement d/o education appointment's, continue therapy discussion with patient about course of treatmentand patient instructions. monitor for depression and anxiety continue therapy F33.1: Major depressive disorder, recurrent, moderate- Patient reported does not want rx at this time until tested for OCD 2. Generalized anxiety disorder -Gene testing reviewed D/C Buspar 10 mg twice a day for anxiety - patient stopped rx 1 week ago - improved dizziness Medication Management and Follow-Up- Plan:- Schedule follow-up appointments every 2-3 months and PRN to monitor the patient's response to the medication regimen.- Reinforce the importance of avoiding recreational drug use due to potential neurotoxicity and interactions with prescribed medications. F41.1: Generalized anxiety disorderconitnue to have anxiety add Xanax 0.5 mg twice a day - educated on rx control substance agreementUDS and random UDS completed today - positive Benzo Discussed and educated pt regarding benzodiazepines are generally not intended for prolonged use and that use can cause tolerance, dependence, depression, and associated memory issues including dementias (this list is not exhaustive). Benzodiazepine use is generally not recommended concurrently with pain medications and/or other controlled substances 3. 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 Unable to concentrate - being tested by therapist for OCD OMAR-2 reviewed and need to reconcile self reporting and OMAR test- no dxn ADHD can be made educated patient on depression and anxiety may contribute to unable to concentrate and focus and external factors and stress increase excisesleep hygienelimit caffeine continue therapy- Therapsit testing for OCD , Alprazolam Oral Tablet (ALPRAZOLAM - ORAL) material was published 1. Moderate recurrent major depression -Patient reported does not want rx at this time until tested for OCD patient stopped Vraylar 1.5 mg every 2 days and improved dizziness patient having OCD testing with therapist pharma Gene testing completed and reviewed with patient educated on all medications, benefits, side effects and risk, and educated on depression, anxiety, and ADHD, mood d/o and educated on compliance of medications, metabolic and movement d/o education appointment's, continue therapy discussion with patient about course of treatmentand patient instructions. monitor for depression and anxiety continue therapy F33.1: Major depressive disorder, recurrent, moderate- Patient reported does not want rx at this time until tested for OCD 2. Generalized anxiety disorder -Gene testing reviewed D/C Buspar 10 mg twice a day for anxiety - patient stopped rx 1 week ago - improved dizziness Medication Management and Follow-Up- Plan:- Schedule follow-up appointments every 2-3 months and PRN to monitor the patient's response to the medication regimen.- Reinforce the importance of avoiding recreational drug use due to potential neurotoxicity and interactions with prescribed medications. 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 Unable to concentrate - being tested by therapist for OCD OMAR-2 reviewed and need to reconcile self reporting and OMAR test- no dxn ADHD can be made educated patient on depression and anxiety may contribute to unable to concentrate and focus and external factors and stress increase excise sleep hygiene limit caffeine continue therapy- Therapsit testing for OCD Plan Of Treatment No Information Insurance Providers Payer Name Payer Address Payer Phone Subscriber Number Group Number Insured Name Patient Relationship to Insured Coverage Start Date Coverage End Date 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
--- OUTSIDE RECORDS SUMMARY | 2024-12-04 06:13 | XMS_ITS | Encounter Summary ---
Author Organization [facility] Address [address] [place] [address] Care Team Providers Care Fire Safety Manager Name Role Phone Devin Jackson DO Primary Care Provider [phone] Reason for Visit * Reason Comments Follow-up Results Encounter Details Date Type Department Care Team (Late st Contact Info) Description 04/25/2023 2:40 PM CDT Office Visit [facility] - Rheumatology [address], [address] [place] [address] Keren Teixeira MD [address] [place] [address] Positive JULES (antinuclear antibody) (Primary [...] - 04/25/2023 3:02 PM CDT Labs at [facility] Please read information on hydroxychloroquine, azathioprine Please [...] few months, she supposed to see an electronics lead tomorrow. It is red and raised and [...] social history, OBGYN history in females in [facility]. They are noted as follows. [...] Agency Comment Lab Testing performed at: [facility] [address] ??[facility] [id number] Keren Teixeira MD LAB - HEMATOLOGY ORD ERABLES [facility] ACCOUNT BILL [address] [place] [address] * (ABNORMAL) C-REACTIVE PROTEIN (05/02/2023 2:01 PM CDT) C-Reactive Protein 14(H) 0 - 10 mg/L [facility] ACCOUNT BILL Blood BLOOD SPECIMEN / Unknown 05/02/2023 2:01 PM CDT 05/02/2023 Narrative Resulting Agency Comment Lab Testing performed at: [facility] [address] ??[facility] [id number] Keren Teixeira MD LAB - CHEMISTRY ORDE RABLES [facility] ACCOUNT BILL [address] [place] [address] documented in this encounter Visit Diagnoses Diagnosis Positive JULES (antinuclear antibody)- Primary Other and unspecified nonspecific immunological findings Rash Rash and other nonspecific skin eruption Other fatigue Sedimentation rate elevation Elevated sedimentation rate CRP elevated Elevated C-reactive protein (CRP) Hypoalbuminemia Other disorders of plasma protein metabolism Numbness Disturbance of skin sensation documented in this encounter Care Teams Fire Safety Manager Relationship Specialty Start Date End Date Devin Jackson DO PCP - General Internal Medicine 04/25/23 documented as of this encounter
--- OUTSIDE RECORDS SUMMARY | 2024-12-04 06:13 | XMS_ITS | Encounter Summary ---
Author Organization [facility] Address [address] [place] [address] Care Team Providers Care International Project Engineer Name Role Phone Devin Jackson DO Primary Care Provider [phone] Encounter Details Date Type Department Care Team (Latest Contact Info) Description 08/24/2024 8:42 AM CDT - 08/24/2024 11:59 PM CDT Hospital Encounter [address] [address] Sore throat Discharge Disposition: Discharge to home or self care Social History Tobacco Use Types Packs/Day Years Used Date Smoking Tobacco: Never Smokeless Tobacco: Never Comments No Sex and Gender Information Value Date Recorded Sex Assigned at Not on file 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 Comment:Testing performed by : [facility], [address] [place]., [address] Throat 08/24/2024 8:42 AM CDT 08/24/2024 5:30 PM CDT Narrative SERENA Sheridan 08/25/2024 1:20 PM CDT Testing performed by [facility] Microbiology Laboratory ([phone]). us Dorita Seth NP LAB MICROBIOLOGY - GENERAL ORDERABLES Final Result SERENA ANDREW [address] Department of Laboratories [place], [place] [id number] documented in this encounter Visit Diagnoses Diagnosis Sore throat Acute pharyngitis documented in this encounter Additional Health Concerns Infection Onset Date Last Indicated Resolved Time COVID: Suspected 08/24/2024 08/24/2024 08/24/2024 8:43 AM CDT documented as of this encounter Care Teams International Project Engineer Relationship Specialty Start Date End Date Devin Jackson DO PCP - General Internal Medicine 03/07/22 documented as of this encounter
--- OUTSIDE RECORDS SUMMARY | 2024-12-04 06:13 | XMS_ITS | Clinical Summary ---
Author Organization [facility] Address [address] [place] [address]. 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
--- OUTSIDE RECORDS SUMMARY | 2024-12-04 06:13 | XMS_ITS | Clinical Summary ---
Author Organization [facility] Address [address] [address] Care Team Providers Care Partner Alliance Manager Name Role Phone Devin Jackson DO Primary Care Provider [phone] Source Comments [facility],non-owned Affiliates and Associated Physician Practices is amultiple site organization consisting of ambulatory clinics and hospital sitesin [place], [place], [place]. This disclosure is being madepursuant to the Care Everywhere program and may not contain all information available regarding this patient. Last updated 18.[facility] Allergies No known active allergies Medications * [...] Agency Comment Lab Testing performed at: [facility] [id number] [facility] [id number] Keren Teixeira MD LAB - CHEMISTRY LISSETT MORALES [facility] ACCOUNT BILL [address] [place] [address] from Last 3 Months or Most Recently Relevant to Health Maintenance Care Teams Partner Alliance Manager Relationship Specialty Start Date End Date Devin Jackson DO PCP - General Internal Medicine 04/25/23
--- OUTSIDE RECORDS SUMMARY | 2024-12-04 06:13 | XMS_ITS | Encounter Summary ---
Author Organization 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 SERENA ANDREW Comment:Testing performed by : [facility], [address] [place]., [address] Throat 07/01/2022 4:30 PM CDT 07/02/2022 12:03 AM CDT Narrative SERENA ANDREW - 07/02/2022 8:01 PM CDT Testing performed by [facility] Microbiology Laboratory ([phone]). us Edmundo BHAKTA LAB MICROBIOLOGY - GENERAL OR DERABLES Final Result SERENA ANDREW [address] Department [place] [address] documented in this encounter Visit Diagnoses Diagnosis Sore throat Acute pharyngitis documented in this encounter Care Teams Rn Pool Relationship Specialty Start Date End Date Devin Jackson DO PCP - General Internal Medicine 03/07/22 documented as of this encounter
--- OUTSIDE RECORDS SUMMARY | 2024-12-04 06:13 | XMS_ITS | Encounter Summary ---
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 OTC Ibuprofen. Encounter Details Date Type Department Care Team (Late st Contact Info) Description 09/30/2022 2:00 PM WOODWINDS TEACHER Office Visit [facility] [address] [place] [address] Ana Yeung NP [address] [place] [address] Pharyngitis, unspecified etiology (Primary Dx); Sore throat Social History Tobacco Use Types Packs/Day Years Used Date Smoking Tobacco: Never Smokeless Tobacco: Never Tobacco Cessation:Counseling Given: Not Answered Comments No Sex and Gender Information Value Date Recorded Sex Assigned at Not on file Legal Sex Female 1:22 AM WOODWINDS TEACHER Gender Identity Not on file Sexual Orientation Not on file documented as of this encounter Last Filed Vital Signs Vital Sign Reading Time Taken Comments Blood Pressure 106/74 09/30/2022 2:04 PM WOODWINDS TEACHER Pulse 68 09/30/2022 2:04 PM WOODWINDS TEACHER Temperature 36.4 ??C (97.6 ??F) 09/30/2022 2:04 PM CS T Respiratory Rate 23 09/30/2022 2:04 PM WOODWINDS TEACHER Oxygen Saturation 97% 09/30/2022 2:04 PM WOODWINDS TEACHER Inhaled Oxygen Concentration - - Weight 106.8 kg (235 lb 6.4 oz) 09/30/2022 2:04 PM WOODWINDS TEACHER Height 165.1 cm (5' 5 ) 09/30/2022 2:04 PM WOODWINDS TEACHER Body Mass Index 39.17 09/30/2022 2:04 PM WOODWINDS TEACHER documented in this encounter Patient Instructions * Patient Instructions* Ana Yeung NP - 09/30/2022 2:00 PM WOODWINDS TEACHER The rapid strep exam performed at the [facility] today was negative. The following is [...] or worsen, follow up with your PCP. WINDS TEACHER documented in this encounter Ordered Prescriptions Prescription [...] OTC Ibuprofen. ) Patient [facility] to the [facility] with a seven day history [...] tenderness or frontal sinus tenderness. Mouth/Throat: Lips: [place]. Mouth: Mucous membranes are moist. Pharynx: Oropharyngeal [...] The rapid strep exam performed at the [facility] today was negative. The following is [...] The rapid strep exam performed at the [facility] today was negative. The following is [...] ask questions, questions answered. Ana Yeung NP WINDS TEACHER documented in this encounter Plan of Treatment Not on file documented as of this encounter Results * Throat culture Throat (09/30/2022 2:12 PM WOODWINDS TEACHER) Report Final Report: No growth of pathogens. SERENA ANDREW Comment:Testing performed by : [facility], [address] [place]., [address] Throat 09/30/2022 2:12 PM WOODWINDS TEACHER 10/01/2022 12:31 AM WOODWINDS TEACHER Narrative SERENA ANDREW - 10/01/2022 8:15 PM WOODWINDS TEACHER Testing performed by [facility] ([phone]). Ana Yeung NP LAB MICROBIOLOGY - GENERAL ORDER RICARDA Final Result [facility] [address] Department [place] [address] documented in this encounter Visit Diagnoses Diagnosis Pharyngitis, unspecified etiology- Primary Sore throat Acute pharyngitis Sore throat Acute pharyngitis documented in this encounter Care Teams Radiologic Technologist Relationship Specialty Start Date End Date Devin Jackson DO PCP - General Internal Medicine 03/07/22 documented as of this encounter
--- OUTSIDE RECORDS SUMMARY | 2024-12-04 06:13 | XMS_ITS | Encounter Summary ---
Author Organization [facility] Address [address] [place] [address] Care Team Providers Care Inspector Screen Printing Name Role Phone Devin Jackson DO Primary Care Provider +1- [phone] Reason for Visit * Reason Comments Sore Throat vaccine Vaccine reaction Encounter Details Date Type Department Care Team (Late st Contact Info) Description 08/24/2024 8:15 AM CDT Office Visit [facility] at [address] [address] Dorita Seth, BANQUET HOUSEPERSON [address] [place] [address] [address] [place] [address] Sore throat (Primary Dx); Vaccine reaction, initial encounter Social History Tobacco Use Types Packs/Day Years Used Date Smoking Tobacco: Never Smokeless Tobacco: Never Comments No Sex and Gender Information Value Date Recorded Sex Assigned at Not on file 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 Thank you for choosing [facility]! It was my pleasure to see you today, I hope you feel better soon! Dorita Seth TRAINING SPECIALIST * Attachments The following attachments cannot be sent through Care Everywhere. * Cellulitis (AfterCare(R) Instructions(ER/ED)) (Pakistani) documented in this encounter Ordered Prescriptions Prescription [...] rapid testing was negative. 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 [...] growth of pathogens. Comment:Testing performed by : [facility], [address] [place]., [address] Throat 08/24/2024 8:42 AM CDT 08/24/2024 5:30 PM CDT Narrative SERENA ANDREW - 08/25/2024 1:20 PM CDT Testing performed by [facility] Laboratory ([phone]). Dorita Seth NP LAB MICROBIOLOGY - GENERAL ORDERABLES Final Result Performing Organization Address [facility] Co de Phone Number [facility] [address] Department of Laboratories [place], [place] [id number] * POC Influenza A/B, COVID-19 antigen (08/24/2024 8:15 AM CDT) Influenza A Ag, POC Negative Negative [facility] Influenza B Ag, POC Negative Negative [facility] COVID-19 Ag POC Presumptive Negative Presumptive Negative, Invalid [facility] Nasal 08/24/2024 8:15 AM CDT Dorita Seth NP POINT OF CARE TEST ORDERAB LES Final Result [facility] [address] [place] [address], [facility] * POCT rapid strep A (08/24/2024 8:15 [...] 08/24/2024 added in this encounter Care Teams Inspector Screen Printing Relationship Specialty Start Date End Date Devin Jackson DO PCP - General Internal Medicine 03/07/22 documented as of this encounter
--- OUTSIDE RECORDS SUMMARY | 2024-12-04 06:13 | XMS_ITS | Encounter Summary ---
Author Organization [facility] Healthcare Address [address] [place] [address] Care Team Providers Care Mining Teacher Name Role Phone Devin Jackson DO Primary Care Provider +1- [phone] Reason for Visit * Reason Comments Sinus Problem Sinus congestion, fa tigue, chills, sore throat, diarrhea, diminished taste/smell and body aches, sx's started yesterday, otc zyrtec, no exp. 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 Use an cndd-rwm-bypxvse cough medicine such as Delsym or Robitussin. [...] is a 23 y.o. female followed by Devni Jackson DO Chief Complaint Patient presents with [...] and frontal sinus tenderness present. Mouth/Throat: Lips: [place]. Mouth: Mucous membranes are moist. Pharynx: No [...] and to keep mucous thin. Use an oqzt-xct-mroshpd cough medicine such as Delsym or Robitussin. [...] CDT) Influenza A Ag, POC Negative Negative [facility] Influenza B Ag, POC Negative Negative [facility] COVID-19 Ag POC Presumptive Negative Presumptive Negative, Invalid [facility] Nasal 03/05/2024 4:29 PM CDT June Ogden NP POINT OF CARE TEST ORDER RICARDA Final Result [facility] [address] [place] [address], [facility] * POCT rapid strep A (03/05/2024 4:29 PM CDT) Pathologist [facility] Rapid Strep A, POC Negative Negative Swab 03/05/2024 4:29 PM CDT Jnue Ogden NP POINT OF CARE TEST ORDER [...] documented as of this encounter Care Teams Mining Teacher Relationship Specialty Start Date End Date Devin Jackson DO PCP - General Internal Medicine 03/07/22 documented as of this encounter
--- OUTSIDE RECORDS SUMMARY | 2024-12-04 06:13 | XMS_ITS | Encounter Summary ---
Author Organization [facility] Address [address] [place] [address] Care Team Providers Care Seed Pelleter Name Role Phone Devin Jackson DO Primary Care Provider +1- [phone] Reason for Visit * Reason Comments COVID-19 EVALUATION Exposure to covid fr om daycare.Vomiting and diarrhea began 12 hours ago. Still problematicZofran taken for her Sx. 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 I strive to provide you with EXCELLENT service. You may receive a survey after your visit today. If you cannot rate your experience as EXCELLENT, please let us know how we can improve and better meet your needs. Thank you for choosing [facility]! It was my pleasure to see you today, I hope you feel better soon! Veronica Kelly METAL TREATER * Attachments The following attachments cannot be sent through Care Everywhere. * Gastroenteritis (Therapeutic Mentor) (Georgian) documented in this encounter Ordered Prescriptions Prescription [...] HENT: Head: Normocephalic and atraumatic. Mouth/Throat: Lips: [place]. Mouth: Mucous membranes are moist. Pharynx: Oropharynx [...] office note has been partially dictated using Avidbots software, and as a result portions of the record may have been created with this software. Occasional wrong-word or 'arlup-m-ihud' substitutions may have occurred due to the [...] Negative Negative Influenza A RNA Negative Negative [facility] Influenza B RNA Negative Negative [facility] RSV RNA Negative Negative [facility] Comment: Interpretive data: Testing performed by [facility]. This test is performed using the [employer] Xpert Xpress CoV-2/Flu/RSV plus assay. This is a multiplex, real-time reverse transcriptase PCR assay intended for the qualitative detection of nucleic acid from SARS-CoV-2, influenza A, influenza B, and respiratory syncytial virus. This assay has been cleared by the [place] Food and Drug administration. The performance characteristics have been verified by the [facility]. ??Results must be considered in the clinical context, and a negative result does not rule out infection. Interpretive Data last revised 2023 Nasopharyngeal 03/17/2024 2: 44 PM CDT 03/17/2024 5:28 PM CDT Narrative [facility] - 03/17/2024 6:42 PM CDT Is the Patient experiencing symptoms consistent with COVID?->Yes Reason for testing?->Symptomatic Is the patient experiencing any symptoms consistent with COVID (eg. Fever, cough, shortness of breath)?->Yes Veronica [place] NP LAB MICROBIOLOGY - GENERAL ORDE ANDREW Final Result [facility] [address] Department [place] [address] [facility] * POC Influenza A/B, COVID-19 antigen (03/17/2024 2:39 PM CDT) Influenza A Ag, POC Negative Negative [facility] Influenza B Ag, POC Negative Negative [facility] COVID-19 Ag POC Presumptive Negative Presumptive Negative, Invalid [facility] Nasal 03/17/2024 2:39 PM CDT Veronica [place] NP POINT OF CARE TEST ORDERABLES F inal Result [facility] [address] [place] [address] documented in this encounter Visit Diagnoses [...] documented as of this encounter Care Teams Seed Pelleter Relationship Specialty Start Date End Date Devin Jackson DO PCP - General Internal Medicine 03/07/22 documented as of this encounter
--- OUTSIDE RECORDS SUMMARY | 2024-12-04 06:13 | XMS_ITS | Encounter Summary ---
Author Organization [facility] Address [address] [place] [address] Care Team Providers Care Golf Club Maker Name Role Phone Devin Jackson DO Primary Care Provider +1- [phone] Reason for Visit * Reason Comments Sore Throat sore throat, nasal c ongestion, headache, symptom onset 07/26/2023. Patient has tried Zyrtec. 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 Get rest and stay hydrated. Take tyuq-bva-dpcidql medicines to help you feelbetter. Stay in [...] and need to call 911, notify the punch card operator that you have or think you [...] with someone who is sick visit https://www.cdc .gov/coronavirus/2019-ncov/ykjgn-vzda-knpppf/ojwfvy-vk-idqwf-quarters.html For more information on COVID-19 and pets [...] patient with positive or negative results. The [facility] will be reaching out to all patients who have a positive test for further discussion and monitoring. The CDC and [facility] have much more information available online. The [...] loosen secretions in the nose and lungs. Vsgg-gww-wbeuxcj cold medicines will not shorten the length of time you???re sick, but they may be helpful for the following symptoms: cough, sore throat, and nasal and sinus congestion. If you take prescription medicines, ask your healthcare provider or pharmacist which mteq-wws-ihhnwys medicines are safe to use. (Note: Don't [...] and to keep mucous thin. Use an vrdb-zbo-kepjibc cough medicine such as Delsym or Robitussin. [...] has tried Zyrtec. ) Patient presents to [facility] care for sore throat, nasal congestion, and [...] tenderness or frontal sinus tenderness. Mouth/Throat: Lips: [place]. Mouth: Mucous membranes are moist. Pharynx: Oropharynx [...] ask questions, questions answered. Jes Whitehead NP documented in this encounter Plan [...] (BD Veritor) Positive( A) Presumptive Negative, Invalid [facility] [place] Nasal 07/30/2023 8:59 AM CDT Jes Whitehead NP POINT OF CARE TEST ORDERABLES Fi nal Result [facility] [employer] [address] [place] [address] documented in this encounter Visit Diagnoses Diagnosis COVID-19- Primary Sore throat Acute pharyngitis documented in this encounter Additional Health Concerns Infection Onset Date Last Indicated Resolved Time COVID: Suspected 07/30/2023 07/30/2023 07/30/2023 9:14 AM CDT COVID19 07/30/2023 07/30/2023 08/09/2023 3:05 AM CDT documented as of this encounter Care Teams Golf Club Maker Relationship Specialty Start Date End Date Devin Jackson DO PCP - General Internal Medicine 03/07/22 documented as of this encounter
--- OUTSIDE RECORDS SUMMARY | 2024-12-04 06:13 | XMS_ITS | Encounter Summary ---
Author Organization [facility] Healthcare Address [address] [place] [address] Care Team Providers Care Investment Analyst Name Role Phone Devin Jackson DO Primary Care Provider +1- [phone] Encounter Details Date Type Department Care Team (Latest Contact Info) Description 09/30/2022 2:12 PM SMALL BUSINESS REPRESENTATIVE - 09/30/2022 11:59 PM SMALL BUSINESS REPRESENTATIVE Hospital Encounter [address] [address] Sore throat Discharge Disposition: Discharge to home or self care Social History Tobacco Use Types Packs/Day Years Used Date Smoking Tobacco: Never Smokeless Tobacco: Never Comments No Sex and Gender Information Value Date Recorded Sex Assigned at Not on file Legal Sex Female 1:22 AM SMALL BUSINESS REPRESENTATIVE Gender Identity Not on file Sexual Orientation [...] Betsy Castellanos MA - 09/30/2022 11:59 PM SMALL BUSINESS REPRESENTATIVE Left message for patient to call back to discuss throat culture results L BUSINESS REPRESENTATIVE documented in this encounter Plan of Treatment Not on file documented as of this encounter Procedures Procedure Name Priority Date/Time Associated Diagnosis Comments THROAT CULTURE Routine 09/30/2022 2:12 PM SMALL BUSINESS REPRESENTATIVE Sore throat documented in this encounter Results * Throat culture Throat (09/30/2022 2:12 PM SMALL BUSINESS REPRESENTATIVE) Report Final Report: No growth of pathogens. SERENA ANDREW Comment:Testing performed by : [facility], [address] [facility], [place]., [address] Throat 09/30/2022 2:12 PM SMALL BUSINESS REPRESENTATIVE 10/01/2022 12:31 AM SMALL BUSINESS REPRESENTATIVE Narrative SERENA ANDREW - 10/01/2022 8:15 PM SMALL BUSINESS REPRESENTATIVE Testing performed by [facility] ([phone]). us Ana Yeung NP LAB MICROBIOLOGY - GENERAL ORDER RICARDA Final Result [facility] [address] Department [place] [address] documented in this encounter Visit Diagnoses Diagnosis Sore throat Acute pharyngitis documented in this encounter Care Teams Investment Analyst Relationship Specialty Start Date End Date Devin Jackson DO PCP - General Internal Medicine 03/07/22 documented as of this encounter
--- OUTSIDE RECORDS SUMMARY | 2024-12-04 06:13 | XMS_ITS | Encounter Summary ---
Author Organization [facility] Healthcare Address [address] [place] [address] Care Team Providers Care Bullet Charging Machine Operator Name Role Phone Devin Jackson DO Primary Care Provider +1- [phone] Reason for Visit * Reason Comments Sore Throat Patient presents tod ay with complaints of a sore throat. SX onset 10/24. Encounter Details Date Type Department Care Team (Late st Contact Info) Description 10/27/2023 9:00 AM COLLOID MILL OPERATOR Office Visit [facility] [address] [place] [address] Jes Whitehead, MOLLY [address] [facility] [facility] [address] Viral pharyngitis (Primary Dx) Social History Tobacco Use Types Packs/Day Years Used Date Smoking Tobacco: Never Smokeless Tobacco: Never Comments No Sex and Gender Information Value Date Recorded Sex Assigned at Not on file Legal Sex Female 1:22 AM COLLOID MILL OPERATOR Gender Identity Not on file Sexual Orientation Not on file documented as of this encounter Last Filed Vital Signs Vital Sign Reading Time Taken Comments Blood Pressure 110/80 10/27/2023 8:58 AM COLLOID MILL OPERATOR Pulse 97 10/27/2023 8:58 AM COLLOID MILL OPERATOR Temperature 36.6 ??C (97.9 ??F) 10/27/2023 8:58 AM CS T Respiratory Rate 16 10/27/2023 8:58 AM COLLOID MILL OPERATOR Oxygen Saturation 98% 10/27/2023 8:58 AM COLLOID MILL OPERATOR Inhaled Oxygen Concentration - - Weight 116.2 kg (256 lb 3.2 oz) 10/27/2023 8:58 AM COLLOID MILL OPERATOR Height 165.1 cm (5' 5 ) 10/27/2023 8:58 AM COLLOID MILL OPERATOR Body Mass Index 42.63 10/27/2023 8:58 AM COLLOID MILL OPERATOR documented in this encounter Patient Instructions * Patient Instructions* Jes Whitehead NP - 10/27/2023 9:00 AM COLLOID MILL OPERATOR Tylenol or Motrin for fever/pain Stay [...] salt water Avoid spicy or citrus foods OID MILL OPERATOR documented in this encounter Progress Notes * Jes Whitehead NP - 10/27/2023 9:00 AM CST Images from the original note were not included. Subjective/Objective Patient ID: Sabiha Montes is a 23 y.o. female. Chief Complaint Sore Throat (Patient presents today with complaints of a sore throat. SX onset 10/24.) Patient presents to [facility] care for sore throat x3 days. She [...] tenderness or frontal sinus tenderness. Mouth/Throat: Lips: [place]. Mouth: Mucous membranes are moist. Pharynx: Oropharynx [...] ask questions, questions answered. Jes Whitehead NP OID MILL OPERATOR documented in this encounter Plan of Treatment Not on file documented as of this encounter Procedures Procedure Name Priority Date/Time Associated Diagnosis Comments POCT RAPID STREP Routine 10/27/2023 9:07 AM COLLOID MILL OPERATOR Viral pharyngitis documented in this encounter Results * POCT rapid strep A (10/27/2023 9:07 AM COLLOID MILL OPERATOR) [facility] Rapid Strep A, POC Negative Negative Swab 10/27/2023 9:07 AM COLLOID MILL OPERATOR Jes Whitehead NP POINT OF CARE TEST ORDERABLES Fi nal Result documented in this encounter Visit Diagnoses Diagnosis Viral pharyngitis- Primary Acute pharyngitis documented in this encounter Additional Health Concerns Infection Onset Date Last Indicated Resolved Time COVID: Recovered Comment:Added based on recent COVID infection. 08/09/2023 10/27/2023 11/07/2023 3:[address] documented as of this encounter Care Teams Bullet Charging Machine Operator Relationship Specialty Start Date End Date Devin Jackson DO PCP - General Internal Medicine 03/07/22 documented as of this encounter
--- OUTSIDE RECORDS SUMMARY | 2024-12-04 06:13 | XMS_ITS | Encounter Summary ---
Author Organization [facility] Address [address] [place] [address] Care Team Providers Care Title One Kindergarten Teacher Name Role Phone Devin Jackson DO Primary Care Provider [phone] Reason for Visit * Reason Onset Date Comments Medication Issue 06/11/2023 Encounter Details Date Type Department Care Team (Late st Contact Info) Description 06/11/2023 Telephone [facility] - Rheumatology [address], [address] [place] [address] Keren Teixeira MD [address] [place] [address] Medication Issue Social History Tobacco [...] update from Dr. Teixeira. Called x 1and [employer] Air[employer] Technologieshart message sent. * Telephone Encounter - Keren Teixeira MD - 06/12/2023 9:58 AM CDT I am not familiar with the use of spironolactone for skin conditions. Hence I do not have any opinion in favor or against it. I will let the plumbing manager decide on it based on dermatology data. Thank you * Telephone Encounter - Og Mayfield - 06/11/2023 12:13 PM CDT Pt called wonder if dr teixeira could send letter to her plumbing manager giving his opinion/aproval for taking spironolactone. Pt [facility] Dr. Kobe Doll MD at [address] [place] [address] Please advise documented in this encounter Plan of Treatment Not on file documented as of this encounter Visit Diagnoses Not on filedocumented in this encounter Care Teams Title One Kindergarten Teacher Relationship Specialty Start Date End Date Devin Jackson DO PCP - General Internal Medicine 04/25/23 documented as of this encounter
--- OUTSIDE RECORDS SUMMARY | 2024-12-04 06:13 | XMS_ITS | Encounter Summary ---
Author Organization [facility] Healthcare Address [address] [place] [address] Care Team Providers Care Evidence Custodian Name Role Phone Devin Jackson DO Primary Care Provider [phone]- [phone] Encounter Details Date Type Department Care Team (Latest Contact Info) Description 03/17/2024 2:44 PM CDT - 03/17/2024 11:59 PM CDT Hospital Encounter [address] [address] Close exposure to COVID-19 virus; Acute gastroenteritis Discharge Disposition: Discharge to home or self care Social History Tobacco Use Types Packs/Day Years Used Date Smoking Tobacco: Never Smokeless Tobacco: Never Comments No Sex and Gender Information Value Date Recorded Sex Assigned at Not on file 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 This test is performed using the Cepheid Xpert Xpress CoV-2/Flu/RSV plus assay. This is a multiplex, real-time reverse transcriptase PCR assay intended for the qualitative detection of nucleic acid from SARS-CoV-2, influenza A, influenza B, and respiratory syncytial virus. This assay has been cleared by the [place] Food and Drug administration. The performance characteristics have been verified by the [facility]. ??Results must be considered in the clinical context, and a negative result does not rule out infection. Interpretive Data last revised 2023 Nasopharyngeal 03/17/2024 2: 44 PM CDT 03/17/2024 5:28 PM CDT [facility] 03/17/2024 6:42 PM CDT Is the Patient experiencing symptoms consistent with COVID?->Yes Reason for testing?->Symptomatic Is the patient experiencing any symptoms consistent with COVID (eg. Fever, cough, shortness of breath)?->Yes Veronica Kelly NP LAB MICROBIOLOGY - [facility] Final Result [facility] [address] Department of Laboratories [place] [phone] documented in this encounter Visit Diagnoses Diagnosis Close exposure to COVID-19 virus Acute gastroenteritis Other and unspecified noninfectious gastroenteritis and colitis documented in this encounter Additional Health Concerns Infection Onset Date Last Indicated Resolved Time COVID: Suspected 03/17/2024 03/17/2024 03/17/2024 6:43 PM CDT documented as of this encounter Care Teams Evidence Custodian Relationship Specialty Start Date End Date Devin Jackson DO PCP - General Internal Medicine 03/07/22 documented as of this encounter
--- OUTSIDE RECORDS SUMMARY | 2024-12-04 06:13 | XMS_ITS | Encounter Summary ---
Author Organization [facility] Address [address] [place] [address] Care Team Providers Care Biofuels Product Development Manager Name Role Phone Devin Jackson DO Primary Care Provider [phone]- [phone] Reason for Visit * Reason Comments Diarrhea Diarrhea and vomitin g for 10 hours. Pt unable to keep any OTC meds down. Encounter Details Date Type Department Care Team (Latest Contact Info) Description 12/23/2022 11:45 AM STAFF TOXICOLOGIST Office Visit [facility] [address] [place] [id number] Edmundo Mcdaniels, PA [address] [place] [address] Nausea vomiting and diarrhea (Primary Dx); Viral gastroenteritis Social History Tobacco Use Types Packs/Day Years Used Date Smoking Tobacco: Never Smokeless Tobacco: Never Comments No Sex and Gender Information Value Date Recorded Sex Assigned at Not on file Legal Sex Female 1:22 AM STAFF TOXICOLOGIST Gender Identity Not on file Sexual Orientation Not on file documented as of this encounter Last Filed Vital Signs Vital Sign Reading Time Taken Comments Blood Pressure 118/60 12/23/2022 11:45 AM STAFF TOXICOLOGIST Pulse 113 12/23/2022 11:45 AM STAFF TOXICOLOGIST Temperature 36.4 ??C (97.6 ??F) 12/23/2022 11:[address] Respiratory Rate 18 12/23/2022 11:45 AM STAFF TOXICOLOGIST Oxygen Saturation 97% 12/23/2022 11:45 AM STAFF TOXICOLOGIST Inhaled Oxygen Concentration - - Weight 113.4 kg (250 lb) 12/23/2022 11:45 AM STAFF TOXICOLOGIST Height 165.1 cm (5' 5 ) 12/23/2022 11:45 AM STAFF TOXICOLOGIST Body Mass Index 41.6 12/23/2022 11:45 AM STAFF TOXICOLOGIST documented in this encounter Patient Instructions * Patient Instructions* Edmundo Mcdaniels PA - 12/23/2022 11:45 AM STAFF TOXICOLOGIST Your symptoms and physical exam are likely [...] vomiting or further irritate the gastrointestinal tract. [place] foods include saltine crackers, broths, soups, baked [...] food down for more than 24 hours F TOXICOLOGIST documented in this encounter Ordered Prescriptions Prescription [...] 10 hours, she states she took an bojg-[id number] stomach pill but threw it, she has [...] vomiting or further irritate the gastrointestinal tract. [place] foods include saltine crackers, broths, soups, baked [...] to ask questions, questions answered. LIVIA Jay F TOXICOLOGIST documented in this encounter Plan of Treatment Not on file documented as of this encounter Procedures Procedure Name Priority Date/Time Associated Diagnosis Comments POC INFLUENZA A/B, COVID-19 ANTIGEN Routine 12/23/2022 12:11 PM STAFF TOXICOLOGIST Nausea vomiting and diarrhea documented in this encounter Results * POC Influenza A/B, COVID-19 antigen (12/23/2022 12:11 PM STAFF TOXICOLOGIST) Influenza A Ag, POC Negative Negative [facility] Influenza B Ag, POC Negative Negative [facility] COVID-[facility] Ag POC Presumptive Negative Presumptive Negative, Invalid [facility] Nasal 12/23/2022 12:1 1 PM STAFF TOXICOLOGIST us Edmundo BHAKTA POINT OF CARE TEST ORDERABLES Final Result [facility] [address] [place] [address] documented in this encounter Visit Diagnoses Diagnosis [...] vomiting and diarrhea Given 12/23/2022 12:02 PM STAFF TOXICOLOGIST 4 mg Oral documented in this encounter Orders Medications Ordered That Dickson ht Not Have Been Administered Count Last Ordered Date First Ordered Date ondansetron ODT (ZOFRAN-ODT) disintegrating tablet 4 mg 1 12/23/2022 documented in this encounter Additional Health Concerns Infection Onset Date Last Indicated Resolved Time COVID: Suspected 12/23/2022 12/23/2022 12/23/2022 12:12 PM STAFF TOXICOLOGIST documented as of this encounter Care Teams Biofuels Product Development Manager Relationship Specialty Start Date End Date Devin Jackson DO PCP - General Internal Medicine 03/07/22 documented as of this encounter
--- OUTSIDE RECORDS SUMMARY | 2024-12-04 06:13 | XMS_ITS | Referral Summary ---
Author Organization [facility] Address [address] [place] [address] Care Team Providers Care Nike Athlete Name Role Phone Devin Jackson DO Primary Care Provider [phone] Source Comments [facility],non-owned Affiliates and Associated Physician Practices is amultiple site organization consisting of ambulatory clinics and hospital sitesin [place], [place], [place] and [place]. This disclosure is being madepursuant to the Care Everywhere program and may not contain all information available regarding this patient. Last updated 18.[facility] Valentin Uzhun Allergies No known active allergies Medications * [...] Agency Comment Lab Testing performed at: [facility] [address] ??[facility] [id number] Keren Teixeira MD LAB - CHEMISTRY [facility] ACCOUNT BILL [address] [place] [address] from Last 3 Months or Most Recently Relevant to Health Maintenance Care Teams Nike Athlete Relationship Specialty Start Date End Date Devin Jackson DO PCP - General Internal Medicine 04/25/23
--- OUTSIDE RECORDS SUMMARY | 2024-12-04 06:13 | XMS_ITS | Clinical Summary ---
Author Organization [address] Address [address] [place] [address] Care Team Providers Care Sewer System Supervisor Name Role Phone Devin Jackson DO Primary Care Provider [phone] Allergies Active Allergy Reactions Criticality Noted Date [...] Department Care Team Description 11/30/2024 11:00 AM MOVING VAN DRIVER Office Visit [facility] at [address] [place] [phone] Glenny Okeefe NP Sore throat (Primary Dx); [...] on file Legal Sex Female 1:22 AM MOVING VAN DRIVER Gender Identity Not on file Sexual Orientation Not on file Obstetrics History Last Filed Vital Signs Vital Sign Reading Time Taken Comments Blood Pressure 110/84 11/30/2024 10:55 AM MOVING VAN DRIVER Pulse 97 11/30/2024 10:55 AM MOVING VAN DRIVER Temperature 37 ??C (98.6 ??F) 11/30/2024 10: 55 AM MOVING VAN DRIVER Respiratory Rate 16 11/30/2024 10:5 5 AM MOVING VAN DRIVER Oxygen Saturation 96% 11/30/2024 10: 55 AM MOVING VAN DRIVER Inhaled Oxygen Concentration - - Weight 113.8 kg (250 lb 12.8 oz) 2024 10:55 AM MOVING VAN DRIVER Height 165.1 cm (5' 5 ) 11/30/2024 10:5 5 AM MOVING VAN DRIVER Body Mass Index 41.74 11/30/2024 10:55 AM MOVING VAN DRIVER Plan of Treatment Health Maintenance Due Date [...] A/B, COVID-19 ANTIGEN Routine 11/30/2024 11:04 AM MOVING VAN DRIVER Sore throat POCT RAPID STREP Routine 11/30/2024 11:0 4 AM MOVING VAN DRIVER Sore throat from Last 3 Months Results * POC Influenza A/B, COVID-19 antigen (11/30/2024 11:04 AM MOVING VAN DRIVER) Influenza A Ag, POC Negative Negative [facility] Influenza B Ag, POC Negative Negative [facility] COVID-19 Ag POC Presumptive Negative Presumptive Negative, Invalid [facility] Nasal 11/30/2024 11:0 4 AM MOVING VAN DRIVER Glenny Okeefe NP POINT OF CARE TEST ORDERAB LES Final Result [facility] [address] [place] [address], [facility] * POCT rapid strep A (11/30/2024 11:04 AM MOVING VAN DRIVER) Rapid Strep A, POC Negative Negative Swab 11/30/2024 11:0 4 AM MOVING VAN DRIVER Glenny Okeefe NP POINT OF CARE TEST ORDERAB LES Final Result from Last 3 Months Insurance [facility] [employer] Address: [address] [address] [place] [id number] [facility] [employer] Address: [address] [address] [place] [id number] Care Teams Sewer System Supervisor Relationship Specialty Start Date End Date Devin Jackson DO PCP - General Internal Medicine 03/07/22
--- OUTSIDE RECORDS SUMMARY | 2024-12-04 06:13 | XMS_ITS | Encounter Summary ---
Author Organization [facility] Address [address] [address] Care Team Providers Care Director Of Dietary Name Role Phone Devin Jackson DO Primary Care Provider [phone]- [phone] Reason for Visit * Reason Onset Date Comments Test Results 10/02/2022 Encounter Details Date Type Department Care Team (Late st Contact Info) Description 10/02/2022 Telephone [facility] Care at [place] [address] [place] [phone] Katrina Harding MA Test Results Social History Tobacco Use Types Packs/Day Years Used Date Smoking Tobacco: Never Smokeless Tobacco: Never Comments No Sex and Gender Information Value Date Recorded Sex Assigned at Not on file Legal Sex Female 1:22 AM RAIL EQUIPMENT OPERATOR Gender Identity Not on file Sexual Orientation Not on file documented as of this encounter Miscellaneous Notes * Telephone Encounter - Katrina Harding MA - 10/02/2022 12:19 PM CST Patient was advised of of negative throat culture results and verbalized understanding. She was advised that she can stop her abx and to call her pcp for worsening symptoms. EQUIPMENT OPERATOR * Telephone Encounter - Katrina Harding MA - 10/02/2022 12:19 PM CST ----- Message from LIVIA Jay sent at 10/02/2022 7:32 AM RAIL EQUIPMENT OPERATOR ----- Please advise pt of normal result, may stop abx and see PCP if not better, thanks EQUIPMENT OPERATOR documented in this encounter Plan of Treatment Not on file documented as of this encounter Visit Diagnoses Not on filedocumented in this encounter Care Teams Director Of Dietary Relationship Specialty Start Date End Date Devin Jackson DO PCP - General Internal Medicine 03/07/22 documented as of this encounter
--- OUTSIDE RECORDS SUMMARY | 2024-12-04 06:13 | XMS_ITS | Encounter Summary ---
Author Organization [facility] Health Address [address] [facility] [place] [address] Care Team Providers Care Nail Setter Name Role Phone Devin Jackson DO Primary Care Provider [phone] Reason for Visit * Neurology (Routine) - Closed Specialty Diagnoses / Procedures Referred By Jorge durbin Referred To Contact Diagnoses Numbness Procedures EM[facility] Rodney Torre MD [address] [place] [address] [place] [address] [place] [address] Referral ID Status Reason Start Date Expiration Date Visits Re quested Visits Authorized [id number] Closed 05/30/2023 05/29/2024 1 1 Encounter Details Date Type Department Care Team (Latest Contact Info) Description 06/09/2023 2:47 PM CDT - 06/09/2023 11:59 PM CDT Hospital Encounter [facility] [address], [address] [place], [place] [id number] Rodney Torre MD [address] [place] [address] Discharge Disposition: Home or Self [...] from the original note were not included. [address], [address] [phone] Patient: Sabiha Montes V #: Physician: Rodney Torre MD Sex: Female ID#: [id number] Ref Phys: Rodney Torre MD : 2000 Date: 06/09/2023 Well Servicing Rig Operator: Betsy Choi Patient Complaints: The patient is [...] Rodney Torre MD ? 06/10/2023 ??9:51 PM [facility] [address] [place] [address], [address] [phone] Patient: Sabiha Montes V #: ??Physician: Rodney Torre MD Sex: Female ID#: [id number] Ref Phys: Rodney Torre MD : 2000 Date: 06/09/2023 Well Servicing Rig Operator: Betsy Choi ?? Patient Complaints: The patient [...] sensation documented in this encounter Care Teams Nail Setter Relationship Specialty Start Date End Date Devin Jackson DO PCP - General Internal Medicine 04/25/23 documented as of this encounter
--- OUTSIDE RECORDS SUMMARY | 2024-12-04 06:13 | XMS_ITS | Encounter Summary ---
Author Organization [facility] Address [address] [facility] [place] [address] Care Team Providers Care Order Processing Manager Name Role Phone Unavailable Primary Care Provider Unavailabl e Reason for Visit * Reason Onset Date Comments Referral 03/06/2023 Encounter Details Date Type Department Care Team (Late st Contact Info) Description 03/06/2023 Telephone [facility] - Rheumatology [address], [address] [place] [address] Keren Teixeira MD [address] [place] [address] Referral Social History Tobacco Use [...] CDT Called patient as a referral to [facility] Rheumatology from [facility] for + lab results. No answer so M asking for a callback . Call #2. Patient called back and scheduled [facility] SOA CONSULTANT appt with Dr Teixeira on 03/24/23. * Telephone Encounter - Michael Michael RN - 03/06/2023 12:57 PM CDT Received a faxed referral from [facility] requesting patient be evaluated by rheumatology for + lab results. Patient called, no answer, LMOR for patient to contact the office back in order to schedule a [facility]LE SOA CONSULTANT appointment with either Dr. Almazan, Dr. Teixeira or Dr. Herman. Called referral x1. documented in this encounter Plan of Treatment Not on file documented as of this encounter Visit Diagnoses Not on filedocumented in this encounter
--- OUTSIDE RECORDS SUMMARY | 2024-12-04 06:13 | XMS_ITS | Encounter Summary ---
Author Organization [facility] Address [address] [place] [address] Care Team Providers Care Mill Stenciler Name Role Phone Devin Jackson DO Primary Care Provider [phone] Reason for Referral * Evaluate & Treat - Closed Specialty Diagnoses / Procedures Referred By Jorge t Referred To Contact Neuroscience Diagnoses Numbness Keren Teixeira MD [address] [place] [address] [facility] [address] [place] [address] Referral ID Status Reason Start Date Expiration Date V isits Requested Visits Authorized [id number] Closed Specialty Services Required 05/22/2023 05/21/2024 1 1 Encounter Details Date Type Department Care Team (Late st Contact Info) Description 05/22/[address] [facility] - Rheumatology [address] [place] [address] Keren Teixeira MD [address] [place] [address] Numbness Social History Tobacco Use [...] sensation documented in this encounter Care Teams Mill Stenciler Relationship Specialty Start Date End Date Devin Jackson DO PCP - General Internal Medicine 04/25/23 documented as of this encounter
--- OUTSIDE RECORDS SUMMARY | 2024-12-04 06:13 | XMS_ITS | Encounter Summary ---
Author Organization [facility] Address [address] [place] [address] Care Team Providers Care Alfalfa Dehydrator Operator Name Role Phone Unavailable Primary Care Provider Unavailabl e Reason for Visit * Reason Onset Date Comments Results 04/14/2023 Encounter Details Date Type Department Care Team (Late st Contact Info) Description 04/14/2023 Telephone [facility] - Rheumatology [address] [place] [address] Fatemeh Vincent MA Results Social [...] LMOR for patient to inform of Dr. Teiexira's preference to schedule follow-up appointment to discuss results. Called x 1 and Deskomhart message sent. * Telephone Encounter - Keren Teixeria MD - 04/17/2023 9:50 AM CDT I [...] when back in the office. Called and Deskomhart message sent. * Telephone Encounter - Fatemeh Vincent MA - 04/14/2023 2:08 PM CDT [phone] Pt called for lab results documented in this encounter Plan of Treatment Not on file documented as of this encounter Visit Diagnoses Not on filedocumented in this encounter
--- OUTSIDE RECORDS SUMMARY | 2024-12-04 06:13 | XMS_ITS | Patient Health Summary ---
Author Organization [facility] Address [address] [place] [address] Care Team Providers Care Adobe Architect Name Role Phone Devin Jackson DO Primary Care Provider [phone] Note from [facility],non-owned Affiliates and Associated Physician Practices is amultiple site organization consisting of ambulatory clinics and hospital sitesin [place], [place], [place] and [place]. This disclosure is being madepursuant to the Care Everywhere program and may not contain all information available regarding this patient. Last updated 18.[facility] Allergies No known active allergies Medications * [...] 0.0 - 0.4 g/dL [facility] ACCOUNT BILL Bpdhs-5-Gkmwnabt 0.9 0.4 - 1.0 g/dL [facility] ACCOUNT [...] scan will follow via computer, mail, or public safety police delivery. Blood BLOOD SPECIMEN / Unknown 08/11/2023 12:15 PM CDT 08/11/2023 Narrative Resulting Agency Comment Lab Testing performed at: [facility] [place] [address] ??[facility] [phone] Rodney Torre MD LAB - CHEMISTRY LISSETT MORALES [facility] ACCOUNT BILL [address] [place] [address] * HEMOGLOBIN A1C (08/11/2023 12:15 PM CDT) Hemoglobin A1c 5.4 4.8 - 5.6 % [facility] ACCOUNT BILL Comment: ? . ? Prediabetes: 5.7 - 6.4 ? Diabetes: >6.4 ? Glycemic control for adults with diabetes: <7.0 Blood BLOOD SPECIMEN / Unknown 08/11/2023 12:15 PM CDT 08/11/2023 Narrative Resulting Agency Comment Lab Testing performed at: [facility] [place] [address] ??[facility] [id number] Rodney Torre MD LAB - CHEMISTRY [place]OR[place]ES Performing Organization Address [facility] Co de Phone Number [facility] ACCOUNT BILL [address] [place] [address] * VITAMIN B12 (08/11/2023 12:15 PM CDT) Vitamin B12 596 232 - 1,245 pg/mL [facility] ACCOUNT BILL Blood BLOOD SPECIMEN / Unknown 08/11/2023 12:15 PM CDT 08/11/2023 Narrative Resulting Agency Comment Lab Testing performed at: [facility] [place] [address] ??[facility] [id number] Rodney Torre MD LAB - CHEMISTRY L[place] MORALES [facility] ACCOUNT BILL [address] [place] [address] * EMG (06/09/2023 11:59 PM CDT) Narrative Rodney Torre MD - 06/09/2023 11:59 PM CDT Rodney Torre MD ? 06/10/2023 ??9:51 PM [facility] [address] [place] [address], [address] [phone] Patient: Sabiha Montes V #: ??Physician: Rodney Torre MD Sex: Female ID#: [id number] Ref Phys: Rodney Torre MD : 2000 Date: 06/09/2023 Padded Products Inspector Trimmer: Betsy Choi ?? Patient Complaints: The patient [...] Resulting Agency Comment Lab Testing performed at: [facility] [id number] [facility] ??[facility] [id number] Keren Teixeira MD LAB - CHEMISTRY [place]ORALES [facility] ACCOUNT BILL [address] [place] [address] * ERYTHROCYTE SEDIMENTATION RATE (05/02/2023 2:01 PM CDT) Only the most recent of2 resultswithin the time period is included. Erythrocyte Sedimentation Rate Westergren 29 0 - 32 mm/hr [facility] ACCOUNT BILL Blood BLOOD SPECIMEN / Unknown 05/02/2023 2:01 PM CDT 05/02/2023 Narrative Resulting Agency Comment Lab Testing performed at: [facility] [place] [address] ??[facility] [id number] Keren Teixeira MD LAB - HEMATOLOGY ORD ERABLES [facility] ACCOUNT BILL [address] [place] [address] * FESTUS STAINING PATTERNS REFLEXED (04/01/2023 11:21 [...] Histones ?Drug-induced SLE ? Speckled ? Sm, SMOKING TOBACCO CUTTER OPERATOR, SCL-70, ??SLE,MCTD,PSS (diffuse form), ? SS-A/SS-B ? Sjogrens ? Nucleolar ?SCL-70, PM-1/SCL ??High titers Scleroderma, ? PM/DM ? Centromere ?? Centromere ?PSS (limited form) w/Crest ? syndrome variable ? Nuclear Dot ??[id number] ??Primary Biliary Cirrhosis ? Nuclear ?GP210, ?Primary Biliary Cirrhosis Membrane ? chapis A,B,C ? 04/01/2023 11:2 1 AM CDT 04/01/2023 Narrative Resulting Agency Comment [facility] Testing performed [facility]: [facility] [address] [facility] ??[facility] [id number] Keren Teixeira MD LAB - PATHOLOGY/CYTO LOGY ORDERABLES [facility] ACCOUNT BILL [address] [place] [address] * JULES PANEL COMPREHENSIVE (04/01/2023 11:21 AM CDT) Anti-dsDNA Quantitative 1 0 - 9 IU/mL [facility] ACCOUNT BILL Comment: ?Negative ?<5 ?Equivocal ??5 - 9 ?Positive ?>9 SMOKING TOBACCO CUTTER OPERATOR Antibody 0.2 0.0 - 0.9 AI [...] Sm (anti-Francisco) ?SLE ?15 - 30% ?--------- SMOKING TOBACCO CUTTER OPERATOR ?Mixed Connective Tissue ? Disease ? [...] Resulting Agency Comment Lab Testing performed at: [employer] [place] [address] [facility] ??[facility] [id number] Keren Teixeira MD LAB - SEROLOGY ORDER RICARDA [facility] ACCOUNT BILL [address] [place] [address] * (ABNORMAL) JULES BLOOD SCREEN W/REFLEX TITER (04/01/2023 11:21 AM CDT) JULES Positive(A ) [facility] ACCOUNT BILL Comment: ?Negative ?? <1:80 ?Borderline ??1:80 ?Positive ?? >1:80 Blood BLOOD SPECIMEN / Unknown 04/01/2023 11:21 AM CDT 04/01/2023 Narrative Resulting Agency Comment Lab Testing performed at: [address] ??[facility] [id number] Keren Teixeira MD LAB - CHEMISTRY [place]ORAL[place] [facility] ACCOUNT BILL [address] [place] [address] * THIOPURINE METHYLTRANSFERASE (04/01/2023 11:21 AM CDT) [...] developed and its performance characteristics determined by [email or web address]. It has not been cleared or approved by the Food and Drug Administration. This case has been reviewed, approved, interpreted and electronically signed by Jaspreet Osman, PhD, [facility]. Methodology [facility] ACCOUNT BILL Comment: Enzymatic Endpoint/Liquid Chromatography - Tandem Mass Spectrometry (LC-MS/MS) Blood BLOOD SPECIMEN / Unknown 04/01/2023 11:21 AM CDT 04/01/2023 Narrative Resulting Agency Comment Lab Testing performed at: [facility] [address] [facility] ??[facility] [id number] Keren Teixeira MD LAB - CHEMISTRY [place]ALES Performing Organization Address [facility] Co de Phone Number [facility] ACCOUNT BILL [address] [place] [address] * ALDOLASE (03/28/2023 12:19 PM CDT) Aldolase 3.3 3.3 - 10.3 U/L [facility] ACCOUNT BILL Comment:FASTING Blood BLOOD SPECIMEN / Unknown 03/28/2023 12:19 PM CDT 03/28/2023 Narrative Resulting Agency Comment Lab Testing performed at: [facility] [address] ??[facility] [id number] Keren Teixeira MD LAB - CHEMISTRY [place] Performing Organization Address [facility] de Phone Number [facility] ACCOUNT BILL [address] [place] [address] * ANCA VASCULITIS PANEL (03/28/2023 12:18 PM [...] up testing of positive sera with both CA-3 and MPO-ANCA enzyme immunoassays. As many as [...] Comment Lab Testing performed at: [facility] [address] ??[facility] [id number] Keren Teixeira MD LAB - CHEMISTRY [place] Performing Organization Address City/[facility] Co de Phone Number [facility] ACCOUNT BILL [address] [place] [address] * HEPATITIS SCREEN ACUTE ([facility]) (03/28/2023 12:17 [...] Agency Comment Lab Testing performed at: [facility] [address] ??[facility] [id number] Keren Teixeira MD LAB - CHEMISTRY [place] Performing Organization Address City/[facility] Co de Phone Number [facility] ACCOUNT BILL [address] [place] [address] * INTERPRETATION REFLEXED (03/28/2023 12:17 PM CDT) Interpretation [facility] ACCOUNT BILL Comment: Not infected with HCV unless early or acute infection is suspected (which may be delayed in an immunocompromised individual), or other evidence exists to indicate HCV infection. FASTING 03/28/2023 12:1 7 PM CDT 03/28/2023 Narrative Resulting Agency Comment Lab Testing performed at: [facility] [place] [address] ??[facility] [id number] Keren Teixeira MD LAB - SEROLOGY ORDER RICARDA [facility] ACCOUNT BILL [address] [place] [address] * HEXAGONAL PHASE PHOSPHOLIPID (03/28/2023 12:17 PM CDT) Hex Phase 9 0 - 11 sec [facility] ACCOUNT BILL Comment:FASTING 03/28/2023 12:1 7 PM CDT 03/28/2023 Narrative Resulting Agency Comment Lab Testing performed at: [facility] [address] ??[facility] [id number] Keren Teixeira MD LAB - CHEMISTRY ORDE RABLES Performing Organization Address [facility] de Phone Number [facility] ACCOUNT BILL [address] [place] [address] * CARDIOLIPIN ANTIBODY IGA/IGG/IGM PANEL (03/28/2023 12:17 [...] Agency Comment Lab Testing performed at: [facility] [place] [address] [facility] ??[facility] [id number] Keren Teixeira MD LAB - SEROLOGY ORDER RICARDA Performing Organization Address City/[facility]/ZIP Co de Phone Number [facility] ACCOUNT BILL [address] [place] [address] * (ABNORMAL) PTT LA MIX(B) RFLXED (03/28/2023 12:17 PM CDT) PTT Lupus Anticoagulant Mix 42.9(H) 0.0 - 40.5 sec [facility] ACCOUNT BILL Comment:FASTING 03/28/2023 12:1 7 PM CDT 03/28/2023 Narrative Resulting Agency Comment Lab Testing performed at: [facility] [address] ??[facility] [phone] Keren Teixeira MD LAB - COAGULATION OR DERABLES Performing Organization Address City/[facility] Co de Phone Number [facility] ACCOUNT BILL [address] [place] [address] * (ABNORMAL) LUPUS ANTICOAGULANT PANEL W RFLX [...] Agency Comment Lab Testing performed at: [facility] [place] [address] [facility] ??[facility] [id number] Keren Teixeira MD LAB - HEMATOLOGY ORD ERABLES Performing Organization Address City/[facility]/ZIP Co de Phone Number [facility] ACCOUNT BILL [address] [place] [address] * BETA-2 GLYCOPROTEIN 1 ANTIBODY IGG/IGM/IGA PANEL (03/28/2023 12:17 PM CDT) Pathologist [facility] Beta-2 Glycoprotein I Antibody IgG <9 0 [...] Comment Lab Testing performed at: [facility] [address] ??[facility] [id number] Keren Teixeira MD LAB - SEROLOGY ORDER RICARDA [facility] ACCOUNT BILL [address] [place] [address] * URINALYSIS NO MICROSCOPIC NO CULTURE (03/28/2023 12:17 PM CDT) Pathologist [facility] Specific [place] Path UA 1.025 1.005 - 1.030 [facility] ACCOUNT [...] Resulting Agency Comment Lab Testing performed at: [address] ??[facility] [id number] Keren Teixeira MD LAB - URINALYSIS ORD ERABLES Performing Organization Address City/[facility] Co de Phone Number [facility] ACCOUNT BILL [address] [place] [address] * RHEUMATOID FACTOR BLOOD QUANTITATIVE (03/28/2023 12:17 PM CDT) [facility] Rheumatoid Factor <10.0 <14.0 IU/mL [facility] ACCOUNT BILL Comment:FASTING Blood BLOOD SPECIMEN / Unknown 03/28/2023 12:17 PM CDT 03/28/2023 Narrative Resulting Agency Comment Lab Testing performed at: [address] ??[facility] [id number] Keren Teixeira MD LAB - CHEMISTRY ORDE RABLES Performing Organization Address City/[facility] Co de Phone Number [facility] ACCOUNT BILL [address] [place] [address] * HISTONE ANTIBODY (03/28/2023 12:17 PM CDT) [facility] Anti-Histone Antibody 0.3 0.0 - 0.9 Units [facility] ACCOUNT BILL Comment: ?Negative ?<1.0 ?Weak Positive ?1.0 - 1.5 ?Moderate Positive ??1.6 - 2.5 ?Strong Positive ? >2.5 FASTING Blood BLOOD SPECIMEN / Unknown 03/28/2023 12:17 PM CDT 03/28/2023 Narrative Resulting Agency Comment Lab Testing performed at: [address] ??[facility] [phone] Keren Teixeira MD LAB - CHEMISTRY [place]ALES Performing Organization Address [facility] de Phone Number [facility] ACCOUNT BILL [address] [place] [address] * ANGIOTENSIN CONVERTING ENZYME BLOOD (03/28/2023 12:17 PM CDT) Angiotensin-Con verting Enzyme 29 14 - 82 U/L [facility] ACCOUNT BILL Comment:FASTING Blood BLOOD SPECIMEN / Unknown 03/28/2023 12:17 PM CDT 03/28/2023 Narrative Resulting Agency Comment Lab Testing performed at: [facility] [address] [facility] ??[facility] [id number] Keren Teixeira MD LAB - CHEMISTRY [place] Performing Organization Address City/[facility] de Phone Number [facility] ACCOUNT BILL [address] [place] [address] * CYCLIC CITRULLINATED PEPTIDE(CCP) AB IGG (03/28/2023 12:17 PM CDT) Pathologist [facility] CCP Antibodies IgG/IgA <20 <20 Units [facility] ACCOUNT BILL Comment: ?Negative: ? <20 ?Weak Positive: ?20 - 39 ?Moderate Positive: ?40 - 59 ?Strong Positive: ?>59 FASTING Blood BLOOD SPECIMEN / Unknown 03/28/2023 12:17 PM CDT 03/28/2023 Narrative [facility] ACCOUNT BILL - 04/03/2023 7:10 AM CDT Test(s) [id number]-MYR Ab, IgG + IgA (RDL) was developed and its performance characteristics determined by [facility]. It has not been cleared or approved by the Food and Drug Administration. Resulting Agency Comment Lab Testing performed at: [facility] [address] [place] [address] ??[facility] [id number] Keren Teixeira MD LAB - CHEMISTRY [place] MORAL[place] [facility] ACCOUNT BILL [address] [place] [address] * CBC WITH DIFFERENTIAL (03/28/2023 12:17 PM CDT) [facility] WBC 6.6 3.4 - 10.8 x10E3/uL [facility] [...] Resulting Agency Comment Lab Testing performed at: [facility] ??[facility] [phone] Keren Teixeira MD LAB - HEMATOLOGY ORD ERABLES [facility] ACCOUNT BILL [address] [place] [address] * COMPLEMENT C4 (03/28/2023 12:17 PM CDT) Complement C4 28 14 - 44 mg/dL [facility] ACCOUNT BILL Comment:FASTING Blood BLOOD SPECIMEN / Unknown 03/28/2023 12:17 PM CDT 03/28/2023 Narrative Resulting Agency Comment Lab Testing performed at: [facility] [address] [place] [address] ??[facility] [id number] Keren Teixeira MD LAB - SEROLOGY ORDER RICARDA Performing Organization Address City/[facility]/ZIP Co de Phone Number [facility] ACCOUNT BILL [address] [place] [address] * (ABNORMAL) HEPATIC FUNCTION PANEL (03/28/2023 12:17 [...] Agency Comment Lab Testing performed at: [facility] [place] [address] [facility] ??[facility] [id number] Keren Teixeira MD LAB - CHEMISTRY ORDE RABCRISTIAN [facility] ACCOUNT BILL [address] [place] [address] * CREATININE BLOOD (03/28/2023 12:17 PM CDT) Creatinine 0.69 0.57 - 1.00 mg/dL [facility] ACCOUNT BILL eGFR by CKD-EPI 126 >59 mL/min/1.7 3 [facility] ACCOUNT BILL Comment:FASTING Blood BLOOD SPECIMEN / Unknown 03/28/2023 12:17 PM CDT 03/28/2023 Narrative Resulting Agency Comment Lab Testing performed at: [facility] [place] [address] ??[facility] [id number] Keren Teixeira MD LAB - CHEMISTRY [place] MORALES [facility] ACCOUNT BILL [address] [place] [address] * CK BLOOD (03/28/2023 12:17 PM CDT) CK 37 32 - 182 U/L [facility] ACCOUNT BILL Comment:FASTING Blood BLOOD SPECIMEN / Unknown 03/28/2023 12:17 PM CDT 03/28/2023 Narrative Resulting Agency Comment Lab Testing performed at: [facility] [place] [address] ??[facility] [id number] Keren Teixeira MD LAB - CHEMISTRY [place]SETT MORALES Performing Organization Address City/[facility]/ZIP Co de Phone Number [facility] ACCOUNT BILL [address] [place] [address] * (ABNORMAL) COMPLEMENT C3 (03/28/2023 12:17 PM CDT) Complement C3 229(H) 82 - 167 mg/dL [facility] ACCOUNT BILL Comment:FASTING Blood BLOOD SPECIMEN / Unknown 03/28/2023 12:17 PM CDT 03/28/2023 Narrative Resulting Agency Comment Lab Testing performed at: [facility] [address] [place] [address] ??[facility] [id number] Keren Teixeira MD LAB - CHEMISTRY [place]SETT MORALES [facility] ACCOUNT BILL [address] [place] [address] Care Teams Adobe Architect Relationship Specialty Start Date End Date Devin Jackson DO PCP - General Internal Medicine 04/25/23
--- OUTSIDE RECORDS SUMMARY | 2024-12-04 06:13 | XMS_ITS | Encounter Summary ---
Author Organization [facility] Medical Group Address [address] [address] Care Team Providers Care Product Management Consultant Name Role Phone Devin Jackson DO Primary Care Provider [phone]- [phone] Encounter Details Date Type Department Care Team (Late st Contact Info) Description 10/02/2022 Telephone [facility] [place] [address] [place] [address] Betsy Castellanos MA Social History Tobacco Use Types Packs/Day Years Used Date Smoking Tobacco: Never Smokeless Tobacco: Never Comments No Sex and Gender Information Value Date Recorded Sex Assigned at Not on file Legal Sex Female 1:22 AM FOOD MANAGEMENT AIDE Gender Identity Not on file Sexual Orientation Not on file documented as of this encounter Miscellaneous Notes * Telephone Encounter - Betsy Castellanos MA - 10/02/2022 11:45 AM CST Left message for patient to call back to discuss throat culture results. MANAGEMENT AIDE * Telephone Encounter - Betsy Castellanos MA - 10/02/2022 11:45 AM CST ----- Message from LIVIA Jay sent at 10/02/2022 7:32 AM FOOD MANAGEMENT AIDE ----- Please advise pt of normal result, may stop abx and see PCP if not better, thanks MANAGEMENT AIDE documented in this encounter Plan of Treatment Not on file documented as of this encounter Visit Diagnoses Not on filedocumented in this encounter Care Teams Product Management Consultant Relationship Specialty Start Date End Date Devin Jackson DO PCP - General Internal Medicine 03/07/22 documented as of this encounter
--- OUTSIDE RECORDS SUMMARY | 2024-12-04 06:13 | XMS_ITS | Referral Summary ---
Author Organization [address] [facility] Address [address] [facility] [place] [address] Care Team Providers Care Manpower Development Specialist Name Role Phone Devin Jackson DO Primary Care Provider [phone]- [phone] Encounters Date Type Department Care Team Description 11/30/2024 11:00 AM ELEMENTARY SCHOOL PROFESSIONAL Office Visit [facility] [place] [address] [place] [address] Glenny Okeefe, MOLLY Sore throat [...] on file Legal Sex Female 1:22 AM ELEMENTARY SCHOOL PROFESSIONAL Gender Identity Not on file Sexual Orientation Not on file Last Filed Vital Signs Vital Sign Reading Time Taken Comments Blood Pressure 110/84 11/30/2024 10:55 AM ELEMENTARY SCHOOL PROFESSIONAL Pulse 97 11/30/2024 10:55 AM ELEMENTARY SCHOOL PROFESSIONAL Temperature 37 ??C (98.6 ??F) 11/30/2024 10: 55 AM ELEMENTARY SCHOOL PROFESSIONAL Respiratory Rate 16 11/30/2024 10:5 5 AM ELEMENTARY SCHOOL PROFESSIONAL Oxygen Saturation 96% 11/30/2024 10: 55 AM ELEMENTARY SCHOOL PROFESSIONAL Inhaled Oxygen Concentration - - Weight 113.8 kg (250 lb 12.8 oz) 2024 10:55 AM ELEMENTARY SCHOOL PROFESSIONAL Height 165.1 cm (5' 5 ) 11/30/2024 10:5 5 AM ELEMENTARY SCHOOL PROFESSIONAL Body Mass Index 41.74 11/30/2024 10:55 AM ELEMENTARY SCHOOL PROFESSIONAL Plan of Treatment Not on file Procedures Procedure Name Priority Date/Time Associated Diagnosis Comments POC INFLUENZA A/B, COVID-19 ANTIGEN Routine 11/30/2024 11:04 AM ELEMENTARY SCHOOL PROFESSIONAL Sore throat POCT RAPID STREP Routine 11/30/2024 11:0 4 AM ELEMENTARY SCHOOL PROFESSIONAL Sore throat from Last 3 Months Results * POC Influenza A/B, COVID-19 antigen (11/30/2024 11:04 AM ELEMENTARY SCHOOL PROFESSIONAL) Influenza A Ag, POC Negative Negative [facility] Influenza B Ag, POC Negative Negative [facility] COVID-19 Ag POC Presumptive Negative Presumptive Negative, Invalid [facility] Nasal 11/30/2024 11:0 4 AM ELEMENTARY SCHOOL PROFESSIONAL Glenny Okeefe NP POINT OF CARE TEST ORDERAB LES Final Result Performing Organization Address [facility]/State/ZIP Co de Phone Number [facility] [address] [place] [address], [facility] [place] * POCT rapid strep A (11/30/2024 11:04 AM ELEMENTARY SCHOOL PROFESSIONAL) Rapid Strep A, POC Negative Negative Swab 11/30/2024 11:0 4 AM ELEMENTARY SCHOOL PROFESSIONAL Glenny Okeefe NP POINT OF CARE TEST ORDERAB LES Final Result from Last 3 Months Insurance [address] [employer] [facility] H[facility]/PPO Address: [facility] [address] [place] [address] [address] [place] [id number] [facility] [employer] [facility] HMO/PPO Address: [address] [address] [place] [phone] Care Teams Manpower Development Specialist Relationship Specialty Start Date End Date Devin Jackson DO PCP - General Internal Medicine 03/07/22
--- OUTSIDE RECORDS SUMMARY | 2024-12-04 06:13 | XMS_ITS | Encounter Summary ---
Author Organization [facility] Address [address] [place] [address] Care Team Providers Care Building Architect Name Role Phone Devin Jackson DO Primary Care Provider +1- [phone] Reason for Visit * Reason Comments Earache For a month, BL ears have been popping, since yesterday her right sided jaw pain. Encounter Details Date Type Department Care Team (Late st Contact Info) Description 11/27/2022 5:00 PM CORPORATION PILOT Office Visit [facility] [address] [phone] Veronica Kelly NP [address] [place] [address] [address] [place] [address] Jaw pain (Primary Dx); Bilateral acute serous otitis media, recurrence not specified Social History Tobacco Use Types Packs/Day Years Used Date Smoking Tobacco: Never Smokeless Tobacco: Never Tobacco Cessation:Counseling Given: Not Answered Comments No Sex and Gender Information Value Date Recorded Sex Assigned at Not on file Legal Sex Female 1:22 AM CORPORATION PILOT Gender Identity Not on file Sexual Orientation Not on file documented as of this encounter Last Filed Vital Signs Vital Sign Reading Time Taken Comments Blood Pressure 110/80 11/27/2022 4:56 PM CORPORATION PILOT Pulse 89 11/27/2022 4:56 PM CORPORATION PILOT Temperature 36.8 ??C (98.2 ??F) 11/27/2022 4:56 PM CS T Respiratory Rate 16 11/27/2022 4:56 PM CORPORATION PILOT Oxygen Saturation 98% 11/27/2022 4:56 PM CORPORATION PILOT Inhaled Oxygen Concentration - - Weight 108.9 kg (240 lb) 11/27/2022 4:56 PM CORPORATION PILOT Height 165.1 cm (5' 5 ) 11/27/2022 4:56 PM CORPORATION PILOT Body Mass Index 39.94 11/27/2022 4:56 PM CORPORATION PILOT documented in this encounter Patient Instructions * Patient Instructions* Veronica Kelly NP - 11/27/2022 5:00 PM CORPORATION PILOT Aleve every 12 hours for the next 5 days, take with food. Flonase 2 sprays in each nostril daily for 2 weeks Keep follow up with ENT in 12/2022 ORATION PILOT * Attachments The following attachments cannot be sent through Care Everywhere. * Temporomandibular Disorder (Discharge Care) (Brazilian) documented in this encounter Progress Notes * [...] tenderness or frontal sinus tenderness. Mouth/Throat: Lips: [place]. Mouth: Mucous membranes are moist. Tongue: Tongue [...] guard gets damaged or broken. ?? 2017 [employer] Information is for End User's use only and may not be sold, redistributed or otherwise used for commercial purposes. All illustrations and images included in CareNotes?? are the copyrighted property of [employer].D.A.M., Inc. or [employer]. The above information is an educational resource coordinator only. It is not intended as medical [...] ask questions, questions answered. Veronica Kelly NP ORATION PILOT documented in this encounter Plan of Treatment Not on file documented as of this encounter Visit Diagnoses Diagnosis Jaw pain- Primary Bilateral acute serous otitis media, recurrence not specified documented in this encounter Care Teams Building Architect Relationship Specialty Start Date End Date Devin Jackson DO PCP - General Internal Medicine 03/07/22 documented as of this encounter
--- OUTSIDE RECORDS SUMMARY | 2024-12-04 06:14 | XMS_ITS | Encounter Summary ---
Author Organization [facility] Address [address] [place] [address] Care Team Providers Care Special Machine Stitcher Name Role Phone Devin Jackson DO Primary Care Provider [phone]- [phone] Reason for Visit * Reason Comments COVID-19 EVALUATION [facility]-Sore throat, con gestion, and productive cough. Onset 06/26/22, no exp, vaccinated, No Covid Hx, OTC Zyrtec and Ibuprofen. Encounter Details Date Type Department Care Team (Late st Contact Info) Description 07/01/2022 4:00 PM CDT Office Visit [facility] [address] [place] [address] Edmundo Mcdaniels, PA [address] [place] [address] Sore throat (Primary Dx); Suspected COVID-19 virus infection; Viral upper respiratory infection Social History Tobacco Use Types Packs/Day Years Used Date Smoking Tobacco: Never Smokeless Tobacco: Never Comments No Sex and Gender Information Value Date Recorded Sex Assigned at Not on file Legal Sex Female 1:22 AM METAL PICKLING EQUIPMENT OPERATOR Gender Identity Not on file [...] pathogens. SERENA ANDREW Comment:Testing performed by : [facility], [address] [facility], [place]., [address] Throat 07/01/2022 4:30 PM CDT 07/02/2022 12:03 AM CDT Narrative SERENA ANDREW - 07/02/2022 8:01 PM CDT Testing performed by [facility] Microbiology Laboratory ([phone]). Edmundo BHAKTA LAB MICROBIOLOGY - GENERAL OR DERABLES Final Result SERENA ANDREW [address] [address] Department [place] [address] * COVID-19 POC (07/01/2022 4:23 PM CDT) COVID-19 Ag POC (BD Veritor) Presumptive Negative Presumptive Negative, Invalid [facility] [place] Nasal 07/01/2022 4:23 PM CDT Edmundo BHAKTA POINT OF CARE TEST ORDERABLES Final Result [facility] [place] [address] [facility] [place] [address] * POCT rapid strep A (07/01/2022 4:12 PM CDT) Pathologist [facility] Rapid Strep A, POC Negative Swab 07/01/2022 [...] documented as of this encounter Care Teams Special Machine Stitcher Relationship Specialty Start Date End Date Devin Jackson DO PCP - General Internal Medicine 03/07/22 documented as of this encounter
--- OUTSIDE RECORDS SUMMARY | 2024-12-04 06:14 | XMS_ITS | Encounter Summary ---
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 SERENA ANDREW Comment:Testing performed by : [facility], [address] [facility], [place]., [address] Throat (Pharyngeal) 03/07/2022 4:44 PM CDT 03/07/2022 10:32 PM CDT Narrative SERENA ANDREW - 03/08/2022 5:31 PM CDT Testing performed by [facility] Microbiology Laboratory ([phone]). us Kg Hernandez INFORMATION TECHNOLOGY INTERN LAB MICROBIOLOGY - GENERAL ORDERABLES Final Result SERENA ANDREW [address] [address] Department [place] [address] documented in this encounter Visit Diagnoses Diagnosis Acute nasopharyngitis Acute nasopharyngitis (common cold) documented in this encounter Care Teams Copyright Manager Relationship Specialty Start Date End Date Devin Jackson DO PCP - General Internal Medicine 03/07/22 documented as of this encounter
--- OUTSIDE RECORDS SUMMARY | 2024-12-04 06:14 | XMS_ITS | Encounter Summary ---
Author Organization [facility] Address [address] [place] [address] Care Team Providers Care Skin Therapist Name Role Phone Devin Jackson DO Primary Care Provider [phone]- [phone] Reason for Visit * Reason Onset Date Comments Lab Results 03/09/2022 Negative throat culture Encounter Details Date Type Department Care Team (Late st Contact Info) Description 03/09/2022 Telephone [facility] [address] [place] [phone] Marilee Zuniga, banking pin adjuster Results (Negative throat culture) Social History Tobacco Use Types Packs/Day Years Used Date Smoking Tobacco: Never Smokeless Tobacco: Never Comments No Sex and Gender Information Value Date Recorded Sex Assigned at Not on file 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
--- OUTSIDE RECORDS SUMMARY | 2024-12-04 06:14 | XMS_ITS | Encounter Summary ---
Author Organization [facility] Address [address] [place] [address] Care Team Providers Care Stationary Fireman Name Role Phone Devin Jackson DO Primary Care Provider +1- [phone] Reason for Visit * Reason Comments COVID-19 [...] Description 03/07/2022 4:30 PM CDT Office Visit [facility] [address] [place] [address] Kg Hernandez, EAR NOSE THROAT PHYSICIAN [address] [place] [address] Acute nasopharyngitis (Primary Dx); Close exposure to COVID-19 virus Social History Tobacco Use Types Packs/Day Years Used Date Smoking Tobacco: Never Smokeless Tobacco: Never Comments No Sex and Gender Information Value Date Recorded Sex Assigned at Not on file Legal Sex Female 1:22 AM YARD JOCKEY Gender Identity Not on file Sexual Orientation [...] were not included. ?? Please start an mzod-qkt-fwwcrvu antihistamine such as Claritin, Zyrtec or Mee. If congestion occurs, you may ask your pharmacist for Claritin-D, Zyrtec-D or Mee-D ?? Please monitor for signs of dehydration including decreased urine output, excessive fatigue, uncontrollable vomiting or diarrhea ?? Should fever occur, please use Tylenol for fever-supervisor powder and primer canning ?? Please follow up with your primary care provider should symptoms persist Patient Education Upper Respiratory Infection VOLUNTEER SERVICES MANAGER: An upper respiratory infection is also called [...] ask them during your visits. ?? 2017 [employer] Information is for End User's use only and may not be sold, redistributed or otherwise used for commercial purposes. All illustrations and images included in CareNotes?? are the copyrighted property of [employer]. or [employer]. The above information is an educational advisor only. It is not intended as medical [...] this encounter Progress Notes * Kg Hernandez, EAR NOSE THROAT PHYSICIAN - 03/07/2022 4:30 PM CDT Images from [...] Instructions: Patient Instructions ?? Please start an lwnn-icw-boweoqh antihistamine such as Claritin, Zyrtec or Mee. If congestion occurs, you may ask your pharmacist for Claritin-D, Zyrtec-D or Mee-D ?? Please monitor for signs of dehydration including decreased urine output, excessive fatigue, uncontrollable vomiting or diarrhea ?? Should fever occur, please use Tylenol for fever-supervisor powder and primer canning ?? Please follow up with your primary care provider should symptoms persist Patient Education Upper Respiratory Infection VOLUNTEER SERVICES MANAGER: An upper respiratory infection is also called [...] ask them during your visits. ?? 2017 [employer] Information is for End User's use only and may not be sold, redistributed or otherwise used for commercial purposes. All illustrations and images included in CareNotes?? are the copyrighted property of [employer] or [employer]. The above information is an educational advisor only. It is not intended as medical [...] COVID-19 antigen (03/07/2022 4:58 PM CDT) Pathologist [facility] Influenza A Ag, POC Negative [facility] [place] Influenza B Ag, POC Negative [facility] COVID-[facility] Ag POC Presumptive Negative Presumptive Negative, Invalid [facility] [place] Nasal 03/07/2022 4:58 PM CDT Kg Hernandez EAR NOSE THROAT PHYSICIAN POINT OF CARE TEST ORDERABL ES Final Result [facility] [place] [address] [place] [address] * POCT rapid strep A (03/07/2022 4:48 PM CDT) Rapid Strep A, POC Negative Swab 03/07/2022 4:48 PM CDT Kg Hernandez EAR NOSE THROAT PHYSICIAN POINT OF CARE TEST ORDERABL ES Final Result * Throat culture Throat Pharyngeal (03/07/2022 4:44 PM CDT) Report Final Report: No growth of pathogens. SERENA ANDREW Comment:Testing performed by : [facility], [address] [place]., [address] Throat (Pharyngeal) 03/07/2022 4:44 PM CDT 03/07/2022 10:32 PM CDT Narrative SERENA ANDREW - 03/08/2022 5:31 PM CDT Testing performed by [facility] Microbiology Laboratory ([phone]). Kg Hernandez EAR NOSE THROAT PHYSICIAN LAB MICROBIOLOGY - GENERAL ORDERABLES Final Result [facility] [address] [address] Department [place] [address] documented in this encounter Visit [...] documented as of this encounter Care Teams Stationary Fireman Relationship Specialty Start Date End Date Devin Jackson DO PCP - General Internal Medicine 03/07/22 documented as of this encounter
== END 2024-11-27 07:41 | disposition left against medical advice (07) ==
PROVIDERS: PCP Internal Medicine
DX: R09.A2 Foreign body sensation, throat (principal)
CPT/HCPCS: 99199

== ENCOUNTER 2025-06-24 15:01 | Outpatient (CLI) | payer OTHER, SELFPAY ==
--- NOTE | ~2025-06-24 | US_ITS ---
EXAMINATION: US pelvic complete INDICATION: Dysmenorrhea Comparison:Dysmenorrhea TECHNIQUE: Multiple transabdominal sonographic images of the pelvis performed. FINDINGS: The uterus measures 6.1 x 3.5 x 2.4 cm. The endometrial complex measures 4 mm. The ovaries are not visualized. There is no free fluid in the pelvis. There are no abnormal masses seen on either side. IMPRESSION: 1. Unremarkable pelvic ultrasound. Reviewed, dictated and finalized at location A.
== END 2025-06-24 15:02 | disposition home or self-care (01) ==
PROVIDERS: PCP Obstetrics & Gynecology; Visit Provider Obstetrics & Gynecology
DX: N94.6 Dysmenorrhea, unspecified (principal)
CPT/HCPCS: 76856

== ENCOUNTER 2025-06-29 02:21 | Day surgery (SDC) | payer OTHER, SELFPAY ==
[2025-06-17 13:10] VITALS: BMI 41.8
--- OUTSIDE RECORDS SUMMARY | 2025-06-29 02:24 | XMS_ITS | Clinical Summary ---
Author Organization [address] Address [address] [facility] [place] [address] Care Team Providers Care Motor Block Mechanic Name Role Phone Devin Jackson DO Primary Care Provider +1- [phone] Allergies Active Allergy Reactions Criticality Noted Date Comments Vortioxetine Unknown 04/06/2024 Medications SUMAtriptan (IMITREX) 25 mg tablet TAKE 1 TAB AT ONSET OF HEADACHE IF NO RELIEF MAY REPEAT 1 TAB IN AT LEAST 2 HRS MAX 4 TABS/24GHR 05/06/20 22 Active spironolactone (ALDACTONE) 100 mg tablet 1 tablet (100 mg total) 02/03/20 24 Active ALPRAZolam (XANAX) 0.5 mg tablet Take 1 tablet (0.5 mg total) by mouth 3 (three) times a day as needed 06/29/20 24 Active benzonatate (TESSALON) 100 mg capsuleIndications :Cough Take 1 capsule (100 mg total) by mouth 3 (three) times a day as needed for cough 42 capsule 11/30/19 25 Active Additional Information Patient not taking.Reported on 04/13/2025 fluvoxaMINE (LUVOX) 100 mg tablet TAKE 1 TABLET BY MOUTH EVERY DAY AT BEDTIME FOR 90 DAYS 12/03/19 25 Active omeprazole (PriLOSEC) 40 mg capsule 02/26/20 25 Active ondansetron ODT (ZOFRAN-ODT) 4 mg disintegrating tabletIndications: Nausea and vomiting, unspecified vomiting type Take 1 tablet (4 mg total) by mouth every 8 (eight) hours as needed for nausea or vomiting 20 tablet 04/04/20 25 Active Active Problems Problem Noted Date Diagnosed Date Elevated blood pressure reading 03/01/2025 Generalized anxiety disorder 04/06/2024 Moderate recurrent major depression 04/06/2024 Obsessive compulsive disorder 04/06/2024 Attention deficit hyperactivity disorder, combin ed type 06/30/2023 Encounters Date Type Department Care Team Description 04/15/2025 Results Follow-Up [facility] at [address] [address] Veronica Kelly, MOLLY Throat culture Throat 04/13/2025 9:53 AM CDT - 04/13/2025 11:59 PM CDT Hospital Encounter [address] [address] Sore throat Discharge Disposition: Discharge to home or self care 04/13/2025 9:30 AM CDT Office Visit [facility] at [address] [address] Dorita Seth, MOLLY Sore throat (Primary Dx); Acute viral syndrome 04/04/2025 2:00 PM CDT Office Visit [facility] [place] [address] [place] [place] [phone] Glenny Okeefe, MOLLY Abdominal pain (Primary Dx); Generalized abdominal cramping; Nausea and vomiting, unspecified vomiting type from Last 3 Months Surgical History Surgery [...] on file 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 Gender Identity Not on file Sexual Orientation Not on file Obstetrics History Last Filed Vital Signs Vital Sign Reading Time Taken Comments Blood Pressure 126/80 04/13/2025 9:25 AM CDT Pulse 78 04/13/2025 9:25 AM CDT Temperature 36.8 C (98.2 F) 04/13/2025 9:25 AM CDT Respiratory Rate 20 04/13/2025 9:25 AM CDT Oxygen Saturation 97% 04/13/2025 9:2 5 AM CDT Inhaled Oxygen Concentration - - Weight 113.4 kg (250 lb) 04/13/2025 9:2 5 AM CDT Patient reports Height 165.1 cm (5' 5) 04/04/2025 1:57 PM CDT Body Mass Index 41.6 04/04/2025 1:57 PM CDT Plan of Treatment Health Maintenance Due Date Last Done Comments Cervical Cancer Screening 2000 Depression Screening 2000 Hepatitis C Screening 2000 Varicella Vaccines (1 of 2 - 13+ 2-dose series) 2013 HPV Vaccines (1 - 3-dose series) 2015 Hepatitis B Screening 2018 Regular Well Visit/Exam 18-64 2018 Covid-19 Vaccine ( season) 2024 02/10/2022, 09/24/2021, 09/01/2021, Additional history exists Influenza Vaccine (#1) 2025 , 09/01/2021, 08/24/2021, Additional history exists DTaP/Tdap/Td Vaccine (3 - Td or Tdap) 04/11/2031 04/11/2021, 07/25/2020 Pneumococcal vaccine <65 Aged Out No longer eligible based on patient's age to complete this topic Procedures Procedure Name Priority Date/Time Associated Diagnosis Comments THROAT CULTURE Routine 04/13/2025 9:53 AM CDT Sore throat POC INFLUENZA A/B, COVID-19 ANTIGEN Routine 04/13/2025 9:43 AM CDT Sore throat POCT RAPID STREP Routine 04/13/2025 9:34 AM CDT Sore throat POCT HCG, URINE Routine 04/04/2025 2:13 PM CDT Abdominal pain POCT URINALYSIS DIPSTICK Routine 04/04/2025 2:10 PM CDT Abdominal pain from Last 3 Months Results * Throat culture Throat (04/13/2025 9:53 AM CDT) Report Final Report: No growth of pathogens. Comment:Testing performed by : [facility], [address] [place]., [address] Throat 04/13/2025 9:53 AM CDT 04/13/2025 9:40 PM CDT Narrative SERENA - 04/14/2025 11:33 PM CDT Testing performed by [facility] Microbiology Laboratory ([phone]). us Dorita Seth NP LAB MICROBIOLOGY - GENERAL ORDERABLES Final Result [facility] [address] [address] Department [place] [address] * POC Influenza A/B, COVID-19 antigen (04/13/2025 9:43 AM CDT) Influenza A Ag, POC Negative Negative [facility] Influenza B Ag, POC Negative Negative [facility] COVID-19 Ag POC Presumptive Negative Presumptive Negative, Invalid [facility] Nasal 04/13/2025 9:43 AM CDT Dorita Seth NP POINT OF CARE TEST ORDERAB LES Final Result [facility] [address] [place] [address] * POCT rapid strep A (04/13/2025 9:34 AM CDT) Rapid Strep A, POC Negative Negative Swab 04/13/2025 9:34 AM CDT Dorita Seth NP POINT OF CARE TEST ORDERAB LES Final Result * POCT hCG, urine (04/04/2025 2:13 PM CDT) HCG, ur, POC Negative Negative Lot Number [id number] QC Backgroud Clear Unacceptable QC Control Line Unacceptable Urine 04/04/2025 2:13 PM CDT Glenny Okeefe NP POINT OF CARE TEST ORDERAB LES Final Result * POCT urinalysis dipstick (04/04/2025 2:10 PM CDT) Color, Urine, POC Yellow Clarity, ur, POC Clear Clear Glucose, ur, POC Negative Negative Bilirubin, ur, POC Negative Negative Ketones, ur, POC Negative Negative Specific [place], POC 1.020 1.003 - 1.030 Blood, ur, POC Negative Negative pH, ur, POC 7.0 5.0 - 8.0 Protein, ur, POC Negative Negative Urobilinogen, urine, POC 0.2 0.2 - 1.0 mg/dL Nitrite, ur, POC Negative Negative Leukocytes, ur, POC Negative Negative Lot Number [id number] Urine 04/04/2025 2:10 PM CDT Glenny Okeefe NP POINT OF CARE TEST ORDERAB LES Final Result from Last 3 Months Insurance [facility] [employer] [employer] Care Teams Motor Block Mechanic Relationship Specialty Start Date End Date Devin Jackson DO PCP - General Internal Medicine 03/07/22
--- OUTSIDE RECORDS SUMMARY | 2025-06-29 02:24 | XMS_ITS | Clinical Summary ---
Author Organization [facility] Address [address] [facility] [place] [address] Care Team Providers Care Wood Products Manufacturer Name Role Phone Devin Jackson DO Primary Care Provider [phone] Source Comments [facility],non-owned Affiliates and Associated Physician Practices is amultiple site organization consisting of ambulatory clinics and hospital sitesin [place], [place], [place] and [place]. This disclosure is being madepursuant to the Care Everywhere program and may not contain all information available regarding this patient. Last updated 18.[facility] Allergies No known active allergies Medications * Be aware that medications may not be up to date on this document. Alwaysverify current medications with the patient. 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 Gender Identity Not on file Sexual Orientation Not on file Last Filed Vital Signs Vital Sign Reading Time Taken Comments Blood Pressure 129/85 08/04/2023 2:27 PM CDT Pulse 103 08/04/2023 2:27 PM CDT Temperature 36.1 C (97 F) 08/04/2023 2:27 PM CDT Respiratory Rate - - Oxygen Saturation 99% 08/04/2023 2:27 PM CDT Inhaled Oxygen Concentration - - Weight 112 kg (247 lb) 08/04/2023 2:27 PM CDT Height 165.1 cm (5' 5) 08/04/2023 2:27 PM CDT Body Mass Index 41.1 08/04/2023 2:27 PM CDT Plan of Treatment Health Maintenance Due Date Last Done Comments HIV SCREENING 2015 HPV VACCINE (1 - 3-dose series) 2015 CHLAMYDIA/GONORRHEA SCREENING 2016 DTAP/TDAP/TD VACCINES (1 - Tdap) 2019 HEPATITIS B VACCINE (1 of 3 - 19+ 3-dose series) 2019 PAP SMEAR 2021 COVID-19 VACCINE (1 - 2023-2 5 season) 2024 DEPRESSION SCREENING 11/24/2024 INFLUENZA VACCINE (#1) 2025 ZOSTER VACCINE (1 of 2) 2050 HEPATITIS C SCREENING Completed 03/28/2023 HIB VACCINE Aged Out No longer eligi ble based on patient's age to complete this topic MENINGOCOCCAL (Group B) VACC INE SHARED DECISION-MAKING Aged Out No longer eligibl e based on patient's age to complete this topic MENINGOCOCCAL GROUPS A/C/Y/W VACCINE Aged Out No longer eligible b ased [...] Resulting Agency Comment Lab Testing performed at: [facility] [phone] Keren Teixeira MD LAB - CHEMISTRY ORDERABLES Final Result [facility] ACCOUNT BILL [address] [place] [address] from Last 3 Months or Most Recently Relevant to Health Maintenance Insurance [facility] Care Teams Wood Products Manufacturer Relationship Specialty Start Date End Date Devin Jackson DO PCP - General Internal Medicine 04/25/23
--- OUTSIDE RECORDS SUMMARY | 2025-06-29 02:24 | XMS_ITS | Referral Summary ---
Author Organization [address] lto Address [address] [place] [address] Care Team Providers Care Social Human Services Assistants Name Role Phone Devin Jackson DO Primary Care Provider [phone]- [phone] Encounters Date Type Department Care Team Description 04/15/2025 Results Follow-Up [facility] Medical [facility] Con[facility]ient Care at [address] [address] Veroncia Kelly NP Throat culture Throat 04/13/2025 9:53 AM CDT - 04/13/2025 11:59 PM CDT [place] [address] Sore throat Discharge Disposition: Discharge to home or self care 04/13/2025 9:30 AM CDT Office Visit [facility] Care at [address] [address] Dorita Seth NP Sore throat (Primary Dx); Acute viral syndrome 04/04/2025 2:00 PM CDT Office Visit [facility] Care at [place] [address] [place] [address] Glenny Okeefe NP Abdominal pain (Primary Dx); Generalized abdominal cramping; Nausea and vomiting, unspecified vomiting type from Last 3 Months Allergies Active Allergy [...] deficit hyperactivity disorder, combin ed type 06/30/2023 Social History Tobacco Use Types Packs/Day Years Used Date Smoking Tobacco: Never Smokeless Tobacco: Never Tobacco Cessation:Counseling Given: Not Answered Comments No Sex and Gender Information Value Date Recorded Sex Assigned at Not on file 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 Comment:Testing performed by : [facility], [address] [place]., [address] Throat 04/13/2025 9:53 AM CDT 04/13/2025 9:40 PM CDT Narrative SERENA ANDREW - 04/14/2025 11:33 PM CDT Testing performed by [facility] Laboratory ([phone]). us Dorita Seth NP LAB MICROBIOLOGY - GENERAL ORDERABLES Final Result SERENA ANDREW [address] Department of Laboratories [place], [place] [id number] * POC Influenza A/B, COVID-19 antigen (04/13/2025 9:43 AM CDT) Influenza A Ag, POC Negative Negative [facility] Influenza B Ag, POC Negative Negative [facility] COVID-19 Ag POC Presumptive Negative Presumptive Negative, Invalid [facility] Nasal 04/13/2025 9:43 AM CDT Dorita Seth SOCIAL SERVICE LIAISON POINT OF CARE TEST ORDERAB LES Final Result Performing Organization Address City/State/[facility] Co de Phone Number [facility] [address] [place] [address] * POCT rapid strep A (04/13/2025 9:34 AM CDT) Pathologist [facility] Rapid Strep A, POC Negative Negative Swab 04/13/2025 9:34 AM CDT Dorita Seth SOCIAL SERVICE LIAISON POINT OF CARE TEST ORDERAB LES Final Result * POCT hCG, urine (04/04/2025 2:13 PM CDT) Pathologist [facility] HCG, ur, POC Negative Negative Lot Number [id number] QC Backgroud Clear Unacceptable QC Control Line Unacceptable Urine 04/04/2025 2:13 PM CDT Glenny Okeefe SOCIAL SERVICE LIAISON POINT OF CARE TEST ORDERAB LES Final Result * POCT urinalysis dipstick (04/04/2025 2:10 PM CDT) Pathologist [facility] Color, Urine, POC Yellow Clarity, ur, POC Clear Clear Glucose, ur, POC Negative Negative Bilirubin, ur, POC Negative Negative Ketones, ur, POC Negative Negative Specific [place], POC 1.020 1.003 - 1.030 Blood, ur, POC Negative Negative pH, ur, POC 7.0 5.0 - 8.0 Protein, ur, POC Negative Negative Urobilinogen, urine, POC 0.2 0.2 - 1.0 mg/dL Nitrite, ur, POC Negative Negative Leukocytes, ur, POC Negative Negative Lot Number [id number] Urine 04/04/2025 2:10 PM CDT Glenny Okeefe SOCIAL SERVICE LIAISON POINT OF CARE TEST ORDERAB LES Final Result from Last 3 Months [address] CHOICE PLUS [address] [place] [id number] [facility] CHOICE PLUS [place] [id number] Care Teams Social Human Services Assistants Relationship Specialty Start Date End Date Devin Jackson DO PCP - General Internal Medicine 03/07/22
--- OUTSIDE RECORDS SUMMARY | 2025-06-29 02:24 | XMS_ITS | Clinical Summary ---
Author Organization [facility] Address [address] [place] [address] Care Team Providers Care Community Health Worker Name Role Phone Unavailable Primary Care Provider Unavailabl e Social History Tobacco Use Types Packs/Day Years Used Date Smoking Tobacco: Never Assessed Comments Unknown Sex and Gender Information Value Date Recorded Sex Assigned at Not on file Legal Sex Female 10:10 PM URBAN ANTHROPOLOGIST Gender Identity Not on file Sexual Orientation [...] 2019 COVID-19 Vaccine (2023-2 5 season) 2024 Meningococcal B Vaccine Aged Out No l onger eligible based on patient's age to complete this topic Meningococcal Vaccine Aged Out No carl eliu eligible based on patient's age to complete this topic Pneumococcal Vaccine: Pediat rics (0 to 5 Years) and At-Risk Patients (6 to 49 Years) Aged Out No longer eligible b ased on patient's age to complete this topic RSV Immunizations Under 20 Months Aged Out No longer eligible based on patient's age to complete this topic
--- OUTSIDE RECORDS SUMMARY | 2025-06-29 02:25 | XMS_ITS | Patient Health Record ---
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 Name Role Phone Devin Jackson DO Primary Care Provider Jazmín Contreras Unavailable [phone] Allergies Allergen (clinical drug ingredient) Drug/Non Drug Allergy documented on EMR Reaction Allergy Type Onset Date Status vortioxetine Trintellix Unknown Drug Allergy 04/06/2024 Ac tive Results Component Value Reference Range Notes UDT Reviewed date:01/06/2025 11:38:59 AM Interpretation: Performing Lab: Notes/Report: THC N 0 - 50 ng/ml Cocaine N 0 - 300 ng/ml Amphetamine N 0 - 1000 ng/ml Buprenorphine (BUP) N 0 - 10 ng/ml Secobarbital (Bar) N 0 - 300 ng/ml Oxazepam (BZO) P 0 - 300 ng/ml 0-zxzibjrftu-6,6-cxedujgp-5, 3-dipheny lpyrrolidine (EDDP) N 0 - 300 ng/ml Methamphetamine (MET) N 0 - 1000 ng/ml Methylenedioxymethamphetamine (MDMA) N 0 - 500 ng/ml Morphine (MOP 300/[id number]) N 0 - 300 ng/ml Methadone (MTD) N 0 - 300 ng/ml Phencyclidine (PCP) N 0 - 25 ng/ml Nortriptyline (TCA) N 0 - 1000 ng/ml Oxycodone N 0 - 300 ng/ml x N 0 - 300 ng/ml EXTRA SPECIMEN ([id number]) Reviewed date:01/16/2025 09:42:41 AM Interpretation: Performing Lab:[place], [id number], [id number] Amadou Sherman MD Notes/Report: FASTING: NO EXTRA TUBE RECEIVED An extra specimen was received with no test requested. The specimen will be maintained in storage in case additional testing is needed. Please call the client service department for further assistance. SPECIMEN TYPE RECEIVED Clinical Drug Test Reason For Referral No Information Medications Medication SIG (Take, Route, Frequency, Duration) Notes Start Date End Date Status buPROPion HCl ER (XL) 150 MG 1 tablet in the morning Orally Once a day; Duration: 30 day(s) Active Trintellix 20 MG TAKE 1 TABLET BY VINCENT TH EVERY DAY IN THE MORNING Oral; Duration: 30 Days Not-Taking Spironolactone 100 MG 1 tablet Orally On ce a day Active fluvoxaMINE Maleate 100 MG 1 tablet at b edtime Orally Once a day; Duration: 90 days Active ALPRAZolam 0.5 MG 1 tablet Orally Twice a day; Duration: 30 days As needed 04/22/2025 Active Immunizations Vaccine Route Administration Date Status Comme [...] Risk Notes Problem Moderate recurrent major depression (81906308) Major depressive disorder, recurrent, moderate (F33.1) 04/06/20 24 Active confirmed Problem Generalized anxiety disorder (56586190) Generalized anxiety disorder (F41.1) 04/06/20 24 Active confirmed Problem Insomnia disorder 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 disorder (09137653) Insomnia due to other mental disorder (F51.05) 04/06/20 24 Active confirmed Problem Attention deficit hyperactivity disorder, combined type (89426486) Attention-deficit hyperactivity disorder, combined type (F90.2) 06/30/20 23 Active confirmed Problem Obsessive-compuls christian disorder (803936250) 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) Active confirmed Problem Long-term current use of drug therapy (215343892) On oysterman drug therapy (Z79.899) Active confirmed Problem Elevated blood-pressure reading without diagnosis of hypertension (707755034) Elevated blood pressure reading (R03.0) Active confirmed Vital Signs Heart Rate 82 /min 04/22/2025 Respiratory Rate 16 /min 04/22/2025 Height-cm 165.10 cm 04/22/2025 Blood pressure diastolic 79 mm Hg 04/22/2025 Weight-kg 116.67 kg 04/22/2025 Height 65.00 in 04/22/2025 Blood pressure systolic 120 mm Hg 04/22/2025 Weight 257.2 lbs 04/22/2025 BMI 42.8 kg/m2 04/22/2025 Encounters [facility]counter [facility] [address] [facility] [address] [address] 06/29/2024 Jazmín Llanos Major depressive disorder, recurrent, moderate F33.1 ; Generalized anxiety disorder F41.1 ; Insomnia due to other mental disorder F51.05 ; Attention-deficit hyperactivity disorder, combined type F90.2 ; On oysterman drug therapy Z79.899 and Other obsessive-compulsive disorders F42.8 [facility] [address] [address] 09/06/2024 Jazmín Therelma Major depressive disorder, recurrent, moderate F33.1 ; Generalized anxiety disorder F41.1 ; Insomnia due to other mental disorder F51.05 ; Attention-deficit hyperactivity disorder, combined type F90.2 ; On oysterman drug therapy Z79.899 and Other obsessive-compulsive disorders F42.8 [place] [address] [facility] [address] [address] 10/12/2024 Jazmín Therelma Major depressive disorder, recurrent, moderate F33.1 ; Generalized anxiety disorder F41.1 ; Insomnia due to other mental disorder F51.05 ; Attention-deficit hyperactivity disorder, combined type F90.2 ; On group home drug therapy Z79.899 ; Other obsessive-compulsive disorders F42.8 and Elevated blood pressure reading R03.0 [place] [address] [facility] [address] [address] 01/06/2025 Jazmín Therelma Major depressive disorder, recurrent, moderate F33.1 ; Generalized anxiety disorder F41.1 ; Insomnia due to other mental disorder F51.05 ; Attention-deficit hyperactivity disorder, combined type F90.2 ; On oysterman drug therapy Z79.899 and Other obsessive-compulsive disorders F42.8 [place] [address] [facility] [address] [address] 04/22/2025 Jazmín Llanos Encounter for screen ing for cardiovascular disorders Z13.6 ; Generalized anxiety disorder F41.1 ; Major depressive disorder, recurrent, moderate F33.1 ; Insomnia due to other mental disorder F51.05 ; Attention-deficit hyperactivity disorder, combined type F90.2 ; On oysterman drug therapy Z79.899 and Other obsessive-compulsive disorders F42.8 [place] [address] [facility] [address] [address] 08/10/2024 Jazmín Therelma [place] [address] [facility] [address] [address] 08/10/2024 Jazmín Llanos Assessments Encounter Date Diagnosis (ICD Code) Assessment Notes Treatment Notes Treatment Clinical Notes Section Notes 06/29/2024 Major depressive disorder, recurrent, moderate (ICD-10 [...] caffeine continue therapy- Therapsit tested for OCD 01/06/2025 Major depressive disorder, recurrent, moderate (ICD-10 - F33.1) 1. recurrent major depression - Patient reported does not want rx at this time tested for OCD would like rx - therapist will send report patient had OCD testing with therapist Schedule Jose L Gan 06/14/24 Discuss TMS for OCD Discuss rx for [...] caffeine continue therapy- Therapsit tested for OCD 01/06/2025 Generalized anxiety disorder (ICD-10 - F41.1) Learning [...] testing with therapist Schedule Jose L Gan 06/14/24 Discuss TMS for OCD Discuss rx for [...] caffeine continue therapy- Therapsit tested for OCD 04/22/2025 Encounter for screening for cardiovascular disorders (ICD-10 - Z13.6) 1. recurrent major depression - Start Wellbutrin 150mg in the morning Continue Luvox 100mg daily tested for OCD would like rx - therapist will send report patient had OCD testing with therapist Schedule Jose L Gan 06/14/24 Discuss TMS for OCD Discuss rx for [...] to concentrate - no rx 5. OCD- improved OCD s/s with anxiety and depression [...] caffeine continue therapy- Therapsit tested for OCD 04/22/2025 Generalized anxiety disorder (ICD-10 - F41.1) Learning About Generalized Anxiety Disorder material was published, Generalized Anxiety Disorder: Care Instructions material was published, Learning About Anxiety Disorders material was published 1. recurrent major depression - Start Wellbutrin 150mg in the morning Continue Luvox 100mg daily tested for OCD would like rx - therapist will send report patient had OCD testing with therapist Schedule Jose L Gan 06/14/24 Discuss TMS for OCD Discuss rx for [...] to concentrate - no rx 5. OCD- improved OCD s/s with anxiety and depression [...] caffeine continue therapy- Therapsit tested for OCD 01/06/2025 Insomnia due to other mental disorder (ICD-10 - F51.05) 1. recurrent major depression - Patient reported does not want rx at this time tested for OCD would like rx - therapist will send report patient had OCD testing with therapist Schedule Jose L Gan 06/14/24 Discuss TMS for OCD Discuss rx for [...] continue therapy- Therapsit tested for OCD 06/29/2024 Attention-deficit hyperactivity disorder, combined type (ICD-10 - F90.2) [...] continue therapy- Therapsit tested for OCD 10/12/2024 Attention-deficit hyperactivity disorder, combined type (ICD-10 - F90.2) [...] caffeine continue therapy- Therapsit tested for OCD 01/06/2025 Attention-deficit hyperactivity disorder, combined type (ICD-10 - F90.2) [...] testing with therapist Schedule Jose L Gan 06/14/24 Discuss TMS for OCD Discuss rx for [...] caffeine continue therapy- Therapsit tested for OCD 04/22/2025 Insomnia due to other mental disorder (ICD-10 - F51.05) 1. recurrent major depression - Start Wellbutrin 150mg in the morning Continue Luvox 100mg daily tested for OCD would like rx - therapist will send report patient had OCD testing with therapist Schedule Jose L Gan 06/14/24 Discuss TMS for OCD Discuss rx for [...] to concentrate - no rx 5. OCD- improved OCD s/s with anxiety and depression [...] caffeine continue therapy- Therapsit tested for OCD 04/22/2025 Major depressive disorder, recurrent, moderate (ICD-10 - F33.1) 1. recurrent major depression - Start Wellbutrin 150mg in the morning Continue Luvox 100mg daily tested for OCD would like rx - therapist will send report patient had OCD testing with therapist Schedule Jose L Gan 06/14/24 Discuss TMS for OCD Discuss rx for [...] to concentrate - no rx 5. OCD- improved OCD s/s with anxiety and depression [...] caffeine continue therapy- Therapsit tested for OCD 01/06/2025 On oysterman drug therapy (ICD-10 - Z79.899) Medication Refill: Care Instructions material was published 1. recurrent major depression - Patient reported does not want rx at this time tested for OCD would like rx - therapist will send report patient had OCD testing with therapist Schedule Jose L Gan 06/14/24 Discuss TMS for OCD Discuss rx for [...] caffeine continue therapy- Therapsit tested for OCD 04/22/2025 Attention-deficit hyperactivity disorder, combined type (ICD-10 - F90.2) Attention Deficit Hyperactivity Disorder (ADHD) in Adults: Care Instructions material was published, Learning About Attention Deficit Hyperactivity Disorder (ADHD) in Adults material was published 1. recurrent major depression - Start Wellbutrin 150mg in the morning Continue Luvox 100mg daily tested for OCD would like rx - therapist will send report patient had OCD testing with therapist Schedule Jose L Gan 06/14/24 Discuss TMS for OCD Discuss rx for [...] to concentrate - no rx 5. OCD- improved OCD s/s with anxiety and depression [...] continue therapy- Therapsit tested for OCD 06/29/2024 On group home drug therapy (ICD-10 - Z79.899) Medication Refill: [...] therapy- Therapsit tested for OCD 10/12/2024 On group home drug therapy (ICD-10 - Z79.899) Medication Refill: [...] continue therapy- Therapsit tested for OCD 09/06/2024 Attention-deficit hyperactivity disorder, combined type (ICD-10 - F90.2) [...] continue therapy- Therapsit tested for OCD 06/29/2024 Other obsessive-compuls christian disorders (ICD-10 - F42.8) 1. recurrent major [...] therapy- Therapsit tested for OCD 10/12/2024 Other obsessive-compuls christian disorders (ICD-10 - F42.8) 1. recurrent major [...] therapy- Therapsit tested for OCD 09/06/2024 On oysterman drug therapy (ICD-10 - Z79.899) Medication Refill: [...] caffeine continue therapy- Therapsit tested for OCD 01/06/2025 Other obsessive-compuls christian disorders (ICD-10 - F42.8) 1. recurrent major depression - Patient reported does not want rx at this time tested for OCD would like rx - therapist will send report patient had OCD testing with therapist Schedule Jose L Gan 06/14/24 Discuss TMS for OCD Discuss rx for [...] caffeine continue therapy- Therapsit tested for OCD 04/22/2025 On oysterman drug therapy (ICD-10 - Z79.899) Medication Refill: Care Instructions material was published 1. recurrent major depression - Start Wellbutrin 150mg in the morning Continue Luvox 100mg daily tested for OCD would like rx - therapist will send report patient had OCD testing with therapist Schedule Jose L Gan 06/14/24 Discuss TMS for OCD Discuss rx for [...] to concentrate - no rx 5. OCD- improved OCD s/s with anxiety and depression [...] caffeine continue therapy- Therapsit tested for OCD 04/22/2025 Other obsessive-compuls christian disorders (ICD-10 - F42.8) 1. recurrent major depression - Start Wellbutrin 150mg in the morning Continue Luvox 100mg daily tested for OCD would like rx - therapist will send report patient had OCD testing with therapist Schedule Jose L Gan 06/14/24 Discuss TMS for OCD Discuss rx for [...] to concentrate - no rx 5. OCD- improved OCD s/s with anxiety and depression [...] therapy- Therapsit tested for OCD 09/06/2024 Other obsessive-compuls christian disorders (ICD-10 - F42.8) 1. recurrent major depression - Patient reported does not want rx at this time tested for OCD would like rx - therapist will send report patient had OCD testing with therapist Schedule Jose L aGn Discuss TMS for OCD Discuss rx for [...] Therapsit tested for OCD Plan Of Treatment No Information Insurance Providers Payer Name Payer Address Payer Phone Subscriber Number Group Number Insured Name Patient Relationship to Insured Coverage Start Date Coverage End Date [facility] [address] [place] [address] [id number] DYLON PAIZ EMERALD Self - patient is the insured Medical (General) History Medical History History ICD Code Problems: Generalized anxiety disorder Insomnia disorder related to another men ana disorder Moderate recurrent major depression Severe recurrent major depression withou t psychotic features Unable to concentrate , Surgical History Surgery Date(Month/Year) sinus
[2025-06-29 09:16] VITALS: BP 121/87; PULSE 77; RESP 16; TEMP 36.2; O2SAT 99; BMI 42.0
--- NOTE | 2025-06-29 09:33 | P.PNAN_ITS ---
Anes - Initial Pre Proc Eval Procedure: Operation Date: 06/29/25 10:30 Proposed Procedures p EGD & Diagnostic Colonoscopy - Ugo Amaya MD Date/Time: 06/29/25 09:33 Surgeon: Ugo Amaya MD Pre Op Diagnosis: Gastro-esophageal reflux disease without esophagit Patient Data Age: 25 Gender: F Height: 1.65 m Weight: 114 kg Allergies Allergy/AdvReac Type Severity Reaction Status Date / Time vortioxetine (From Allergy Mild Vomiting Verified 06/29/25 09:25 Trintellix) Home Medications ?Medication ?Instructions ?Recorded ?Confirmed ?Type spironolactone 100 mg tablet 150 mg PO DAILY 06/18/23 06/29/25 History alprazolam 0.5 mg tablet 0.5 mg PO QHS PRN Anxiety 08/30/24 06/17/25 History fluvoxamine 50 mg tablet 50 mg PO DAILY 08/30/24 06/29/25 History dicyclomine 10 mg capsule 10 mg PO QID #120 caps 06/13/25 06/29/25 Rx Patient hx anesthesia problems: none Family hx anesthesia problems: none Results Review: All pre-operative results and documents have been reviewed as part of the pre- operative evaluation. [facility] Past Medical History Medical History OCD (obsessive compulsive disorder) Rash of unknown etiology Nasal folliculitis Double vision PONV (postoperative nausea and vomiting) Depression Acne Healthy adult Surgical History Surgical History H/O sinus surgery [place] teeth extracted Family History Family History Father Hypertension Patient's father is in good health Mother Patient's mother is in good health Sibling Patient's sister is in good health Celiac disease half-brother Grandparent Cerebrovascular accident Thyroid disease Social History Social History Smoking status: Never smoker Second hand tobacco smoke exposure: No Alcohol intake: current Drinks per week: 2 Alcohol use details: RARE Substance use: never Substance use type: does not use Do You Feel Safe in your Home?: Yes Lack of Transportation: No Lack of Food: Never True Current Housing: I Have Housing Concerned About Future Housing: No Difficulty Paying Gas/Electric Bills: No Difficulty Paying for Meds: No Currently Unemployed: No Education: Bachelor's Degree Difficulty w/ Childcare or Family Care: No Living arrangements: with family Occupation/Education: occupation 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 Gender identity (if verbalized by the patient): Female Sexual Orientation (if Verbalized by the Patient): Straight or Heterosexual Spiritual care concerns: No Anes - Eval Final PreProcedure Day of Procedure 06/29/25 09:33 Patient weight: morbidly obese Heart: regular rate and rhythm Lungs: clear to auscultation Airway: Mallampati scale class II Neurological: alert and oriented Last oral intake: >/= 8 hours ASA classification: III Emergent: no Anesthetic plan: proceed Anesthesia type and monitoring: general GIVS and standard monitoring Results Review: All pre-operative results and documents have been reviewed as part of the pre- operative evaluation. Informed Consent: The patient's anesthetic plan and its attendant risks and benefits were discussed with the patient/family/POA. Questions were solicited and answers provided to the satisfaction of the patient/family/POA.
[2025-06-29] MEDS: LACTATED RINGERS 1,000 ML 150 ML IV CONT (09:39)
--- NOTE | 2025-06-29 10:00 | PM.IMHP ---
H&P: HPI History of Present Illness Date/Time: 06/29/25 10:00 Chief Complaint: GERD-diarrhea- rectal bleeding. Narrative: This patient has been suffering from intermittent diarrhea associated with occasional rectal bleeding. In addition she has been experiencing reflux episodes associated with nausea and occasional vomiting. He is referred now for EGD and colonoscopy. Review of Systems Review of Systems: All systems reviewed & are unremarkable except as noted in HPI and below PMFSH Past Medical History Medical History OCD (obsessive compulsive disorder) Rash of unknown etiology Nasal folliculitis Double vision PONV (postoperative nausea and vomiting) Depression Acne Healthy adult Surgical History Surgical History H/O sinus surgery [place] teeth extracted Family History Family History Father Hypertension Patient's father is in good health Mother Patient's mother is in good health Sibling Patient's sister is in good health Celiac disease half-brother Grandparent Cerebrovascular accident Thyroid disease Social History Social History Smoking status: Never smoker Second hand tobacco smoke exposure: No Alcohol intake: current Drinks per week: 2 Alcohol use details: RARE Substance use: never Substance use type: does not use Do You Feel Safe in your Home?: Yes Lack of Transportation: No Lack of Food: Never True Current Housing: I Have Housing Concerned About Future Housing: No Difficulty Paying Gas/Electric Bills: No Difficulty Paying for Meds: No Currently Unemployed: No Education: Bachelor's Degree Difficulty w/ Childcare or Family Care: No Living arrangements: with family 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/Education: occupation 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 Gender identity (if verbalized by the patient): Female Sexual Orientation (if Verbalized by the Patient): Straight or Heterosexual Spiritual care concerns: No Meds Home Medications and Allergies Home Medications ?Medication ?Instructions ?Recorded ?Confirmed ?Type spironolactone 100 mg tablet 150 mg PO DAILY 06/18/23 06/29/25 History alprazolam 0.5 mg tablet 0.5 mg PO QHS PRN Anxiety 08/30/24 06/17/25 History fluvoxamine 50 mg tablet 50 mg PO DAILY 08/30/24 06/29/25 History dicyclomine 10 mg capsule 10 mg PO QID #120 caps 06/13/25 06/29/25 Rx Allergies Allergy/AdvReac Type Severity Reaction Status Date / Time vortioxetine (From Allergy Mild Vomiting Verified 06/29/25 09:25 Trintellix) Vital Signs Vital Signs - 24 hr 06/29/25 09:16 Temperature 97.2 F L Pulse Rate 77 Respiratory Rate 16 Blood Pressure 121/87 Pulse Oximetry 99 Oxygen Delivery Room Air Exam Const: General: cooperative and healthy appearing Resp: Effort & Inspection: normal respiratory effort and able to speak in complete sentences Auscultation: clear to auscultation bilaterally Cardio: Rate: regular rate Rhythm: regular rhythm GI: Inspection: normal to inspection GI Palp: No No hepatosplenomegaly present Auscultation: normal bowel sounds Rectal Exam: deferred Skin: General skin exam: normal color Psych: Appearance: grossly normal Mental Status: mental status grossly normal Assessment and Plan Assessment and plan (1) Abdominal pain: Qualifiers: Abdominal location: lower abdomen, unspecified Qualified Code(s): R10.30 - Lower abdominal pain, unspecified Code(s): R10.9 - Unspecified abdominal pain Status: Acute Assessment and Plan: The patient is deemed a good candidate for the procedure. Consent signed. Will proceed. (2) Diarrhea: Qualifiers: Diarrhea type: unspecified type Qualified Code(s): R19.7 - Diarrhea, unspecified Code(s): R19.7 - Diarrhea, unspecified Status: Acute
--- NOTE | 2025-06-29 10:09 | SUR.OPER ---
EGD [id number]. Colonoscopy start time 1012.
--- NOTE | 2025-06-29 10:18 | S_PTH ---
PATIENT: Sabiha Montes LOC: [facility] U#:[id number] AGE/SX: 25/F ROOM: RE06/29/[address]: Ugo Amaya MD : [id number] BED: DIS: 06/29/2025 SPEC #: [id number] RECD: 06/29/25 11:21 STATUS: DARCY REQ #: [id number] ROGE: 06/29/25 10:[address]: Ugo Amaya DEPT: [facility] Surgical RECD BY: Angelica Orr ENTERED: 06/29/25 11:23 SP TYPE: Surgical OTHR DR: Devin Jackson, Tissues: A - Gastric Biopsy B - Gastric Biopsy C - Colon Biopsy D - Colon Biopsy Procedures: Hematoxylin and Eosin Stain Gross and Microscopic Level 4 H.Pylori
[2025-06-29 10:21] LABS: BEDSIDEPREGUCG Negative (Negative)
[2025-06-29 10:22] VITALS: BP 111/69; PULSE 63; RESP 17; O2SAT 94
[2025-06-29 10:32] VITALS: BP 117/70; PULSE 60; RESP 17; O2SAT 98
[2025-06-29 10:42] VITALS: BP 119/71; PULSE 57; RESP 14; O2SAT 99
== END 2025-06-29 10:55 | disposition home or self-care (01) ==
PROVIDERS: PCP Internal Medicine; Referring Provider Obstetrics & Gynecology; Visit Provider Internal Medicine Gastroenterology
PROC: 0DJ08ZZ Inspection of Upper Intestinal Tract, Via Natural or Artificial Opening Endoscopic (ICD-10-PCS; CPT 45378; principal; 2025-06-29 10:30)
DX: R19.7 Diarrhea, unspecified (principal); K21.9 Gastro-esophageal reflux disease without esophagitis; K29.50 Unspecified chronic gastritis without bleeding
CPT/HCPCS: 45380; 43239; 88305; 88342; J2704; J7120

== ENCOUNTER 2025-07-20 17:32 | Emergency (ER) | payer OTHER, SELFPAY ==
--- NOTE | ~2025-07-20 | XR_ITS ---
EXAMINATION: XR forearm LT 2V DATE: 07/20/2025 18:35 INDICATION: Left hand and forearm pain post fall onto outstretched hand TECHNIQUE: 1. AP an lateral views of the affected forearm were obtained. 2. Dorsal palmar, oblique and lateral views of the left hand were obtained. COMPARISON: none FINDINGS: Bone alignment is normal. No fracture. Joint spaces are normal at the left elbow, wrist and hand. No elbow joint effusion. Soft tissues are unremarkable. IMPRESSION: 1. Negative left hand and forearm radiographs. Reviewed, dictated and finalized at location A.
--- NOTE | ~2025-07-20 | XR_ITS ---
EXAMINATION: XR hand LT min 3V DATE: 07/20/2025 18:35 INDICATION: Left hand and forearm pain post fall onto outstretched hand TECHNIQUE: 1. AP an lateral views of the affected forearm were obtained. 2. Dorsal palmar, oblique and lateral views of the left hand were obtained. COMPARISON: none FINDINGS: Bone alignment is normal. No fracture. Joint spaces are normal at the left elbow, wrist and hand. No elbow joint effusion. Soft tissues are unremarkable. IMPRESSION: 1. Negative left hand and forearm radiographs. Reviewed, dictated and finalized at location A.
[2025-07-20 17:53] VITALS: BP 154/96; PULSE 74; RESP 16; TEMP 36.2; O2SAT 100
--- NOTE | 2025-07-20 18:06 | ED.GENADULT ---
HPI - General Adult General Chief complaint: Extremity Injury, Upper Stated complaint: INJURED L ARM Time Seen by Provider: 07/20/25 17:36 Source: patient Mode of arrival: ambulatory Limitations: no limitations History of Present Illness HPI narrative: Pt is a R. hand dominant 25 yo female presenting with c/o L. hand, L. wrist, and L. forearm pain. Pain began after trip resulting in FOOSH shortly [employer]. Denies striking her head. Denies LOC. Denies feeling dizzy or lightheaded prior to fall. No tx initiated [employer]. NO additional complaints. Related Data Home Medications ?Medication ?Instructions ?Recorded ?Confirmed ?Last Taken ?Type spironolactone 100 mg tablet 150 mg PO DAILY 06/18/23 06/29/25 06/28/25 History alprazolam 0.5 mg tablet 0.5 mg PO QHS PRN Anxiety 08/30/24 06/17/25 Unknown History bupropion HCl 150 mg 24 hr tablet, mg PO 07/20/25 Unknown History extended release fluvoxamine 100 mg tablet mg 07/20/25 Unknown History Allergies Allergy/AdvReac Type Severity Reaction Status Date / Time vortioxetine (From Allergy Mild Vomiting Verified 07/20/25 17:51 Trintellix) Review of Systems Review of Systems: CONSTITUTIONAL: Denies body aches, fever, chills, or sweats. EYES: Denies visual changes, redness, or discharge. ENT: Denies rhinorrhea, congestion, sore throat, or otalgia. CARDIOVASCULAR: Denies chest pain, palpitations, or edema. RESPIRATORY: Denies cough or dyspnea. GASTROINTESTINAL: Denies abdominal pain, nausea, vomiting, or diarrhea. GENITOURINARY: Denies dysuria or hematuria. SKIN: Denies rash, itching, or wounds. MUSCULOSKELETAL: Denies back pain NEUROLOGIC: Denies headache, numbness, tingling, or weakness. PSYCH: Denies depression or anxiety. All systems reviewed & are unremarkable except as noted in HPI and below PMFSH Past Medical History Medical History OCD (obsessive compulsive disorder) Rash of unknown etiology Nasal folliculitis Double vision PONV (postoperative nausea and vomiting) Depression Acne Healthy adult Surgical History Surgical History H/O sinus surgery [place] teeth extracted Family History Family History Father Hypertension Patient's father is in good health Mother Patient's mother is in good health Sibling Patient's sister is in good health Celiac disease half-brother Grandparent Cerebrovascular accident Thyroid disease Social History Social History Smoking status: Never smoker Second hand tobacco smoke exposure: No Alcohol intake: current Drinks per week: 2 Alcohol use details: RARE Substance use: never Substance use type: does not use Do You Feel Safe in your Home?: Yes Lack of Transportation: No Lack of Food: Never True Current Housing: I Have Housing Concerned About Future Housing: No Difficulty Paying Gas/Electric Bills: No Difficulty Paying for Meds: No Currently Unemployed: No Education: Bachelor's Degree Difficulty w/ Childcare or Family Care: No Living arrangements: with family Occupation/Education: occupation 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 HEAD: Normocephalic, atraumatic. EYES: EOMI. No redness or drainage. Conjunctivae normal. NECK: Normal AROM. Supple. CHEST: No respiratory distress. HEART: Regular rate Normal peripheral pulses. EXTREMITIES: Normal range of motion. Reports pain with all ROM of the L. wrist/forearm. The LUE is without erythema, edema, ecchymosis. +DNVI to the LLE SKIN: Warm, dry, no rash. Capillary refill normal. Normal skin turgor. NEURO: No focal deficits. Alert and oriented x3. Gait steady. PSYCH: Normal affect. No signs of depression or anxiety. Course Course Emergency Course: Discussed elevated blood pressure readings with patient and advised daily BP monitoring and f/u with PCP if persisting. Level of Care: Express Care Visit Vital Signs Vital signs: Vital Signs Temperature 97.2 F L 07/20/25 17:53 Pulse Rate 74 07/20/25 17:53 Respiratory Rate 16 07/20/25 17:53 Blood Pressure 154/96 H 07/20/25 17:53 Pulse Oximetry 100 07/20/25 17:53 Temperature 97.2 F L 07/20/25 17:53 Pulse Rate 74 07/20/25 17:53 Respiratory Rate 16 07/20/25 17:53 Blood Pressure 154/96 H 07/20/25 17:53 Pulse Oximetry 100 07/20/25 17:53 Medical Decision Making Vital Signs Vital Signs: Vital Signs Temperature 97.2 F L 07/20/25 17:53 Pulse Rate 74 07/20/25 17:53 Respiratory Rate 16 07/20/25 17:53 Blood Pressure 154/96 H 07/20/25 17:53 Pulse Oximetry 100 07/20/25 17:53 Temperature 97.2 F L 07/20/25 17:53 Pulse Rate 74 07/20/25 17:53 Respiratory Rate 16 07/20/25 17:53 Blood Pressure 154/96 H 07/20/25 17:53 Pulse Oximetry 100 07/20/25 17:53 Imaging Data Radiologist's impression: NAF Discharge Plan Discharge Clinical Impression: Pain in left arm, Hand pain, left, Elevated blood pressure reading in office without diagnosis of hypertension Fall Qualifiers: Encounter type: initial encounter Qualified Code(s): W19.XXXA - Unspecified fall, initial encounter Patient Disposition: Home Condition: Stable Instructions: Wrist Sprain (ED) Additional Instructions: Go straight to ER should your symptoms become worse or should any new symptoms develop Patient Language: Yi Prescriptions: New ibuprofen 600 mg tablet 600 mg PO Q6H PRN (Reason: pain) Qty: 20 0RF No Action fluvoxamine 100 mg tablet bupropion HCl 150 mg tablet extended release 24 hr PO alprazolam 0.5 mg tablet 0.5 mg PO QHS PRN (Reason: Anxiety) spironolactone 100 mg tablet 150 mg PO DAILY dicyclomine 10 mg capsule 10 mg PO QID Qty: 120 3RF Follow-up/Referrals: Devin Jackson DO [Primary Care Provider, Internal Medicine] - 07/21/25 Time of Disposition: 19:16
== END 2025-07-20 19:25 | disposition home or self-care (01) ==
PROVIDERS: Emergency Provider Registered Nurse; PCP Internal Medicine
DX: M79.642 Pain in left hand (principal); R03.0 Elevated blood-pressure reading, without diagnosis of hypertension; W01.0XXA Fall on same level from slipping, tripping and stumbling without subsequent striking against object, initial encounter; Z79.899 Other long term (current) drug therapy
CPT/HCPCS: 73090; 73130; 99213; G0463